=== PATIENT | female | born 1970 | race African-American/Black ===

== ENCOUNTER 2016-10-28 10:54 | Emergency (ER) | payer MEDICAID ==
--- NOTE | 2016-10-28 12:36 | ED Physician Chart ---
Chief Complaint/HPI - Patient Information Date Seen:: 10/28/16 Time Seen:: 12:00 Chief Complaint:: pain both large toes History of Present Illness:: Patient has had pain of both large toes last 4 weeks. She denies trauma. Allergies:: Allergies Allergy/AdvReac Type Severity Reaction Status Date / Time No Known Allergies Allergy Verified 10/28/16 11:17 Vitals:: Vital Signs - 8 hr 10/28/16 10/28/16 11:02 11:42 Temp 98.3 F 98.2 F HR 91 78 RR 18 16 BP 144/71 138/66 O2 Sat % 100 99 Historian:: Patient Review:: Nurse's Note Reviewed Review of Systems - Review of Systems General/Constitutional: No fever, No chills Skin: Skin lesions Head: No headache Eyes: No loss of vision ENT: No earache, No sore throat Neck: No neck pain, No swelling, No mass noted Cardio Vascular: No chest pain, No palpitations, No orthopnea, No edema Pulmonary: No SOB, No cough G/U: No dysuria, No hematuria, No nacturia Musculoskeletal: No bone or joint pain, No muscle pain Endocrine: No polyuria, No polydipsia Psychiatric: No prior psych history, No anxiety Hematopoietic: No bruising Allergic/Immuno: No urticaria Neurological: No syncope, No headache Past Medical History - Past Medical History Past Medical History: DM, Other (patient has had diabetes since age 9) Family History: HTN, Other (both parents have hypertension) Social History: Smoker, Alcohol Surgical History: None Psychiatricy History: None Medication: Reviewed Family Medical History - Family Member Mother Age: 58 Ethnicity: Non- Living Status: Hx Family Congestive Heart Failure: Yes Father Age: 47 Ethnicity: Non- Living Status: Other Medical History: KIDNEY DISEASE, LIVER CIRRHOSIS Physical Exam - Physical Examination General/Constitutional: Well-developed, well-nourished, Alert Head: Atraumatic Eyes: Lids, conjuctiva normal, PERRL Other Skin comments:: Crusting along the lateral aspect of both large toenails ENMT: External ears, nose nl, TM canals nl, Nasal exam nl, Lips, teeth, gums nl , Oropharynx nl, Tonsils nl Neck: No nuchal rigidity Respiratory: Nl effort/Exclusion, Clear to Auscultation, No Wheeze/Rhonchi/Rales Cardio Vascular: RRR Other Cardio Vascular comments:: 2.5 out of 4 decrescendo systolic murmur GI: No tenderness/rebounding/guarding, No organomegaly : No CVA tenderness Extremities: No edema Neuro/Psych: Alert/oriented, No focal deficits Misc: Normal back Assessment - Procedures Procedures:: Skin cleansed with Betadine solution; 1% Xylocaine used for digital block lateral aspect of both large toes; after complete anesthesia was accomplished which occurred with one injection of Xylocaine sterile iris scissors were used to elevate the lateral aspects of both large toenails and a wedge shaped section of the nail about 2 mm wide was resected. ED Septic Shock - . Is Septic Shock (SBP<90, OR Lactate>4 mmol\L) present?: No - <6hrs of presentation: Vital Signs: Vital Signs - 8 hr 10/28/16 10/28/16 11:02 11:42 Temp 98.3 F 98.2 F HR 91 78 RR 18 16 BP 144/71 138/66 O2 Sat % 100 99 Reassessment (Disposition) - Reassessment Reassessment Condition:: Improved - Diagnosis Diagnosis:: Ingrown toenails both large toes; juvenile onset diabetes - Aftercare/Follow up Instructions Aftercare/Follow-Up Instructions:: Refer to Discharge Instructions Medication Prescribed:: Keflex 500 mg 4 times a day for 1 week - Patient Disposition Discharge/Transfer:: Home Condition at Disposition:: Stable, Improved ED Discharge Plan - Patient Disposition Instructions: Ingrown Toenail
== END 2016-10-28 12:45 | disposition home or self-care (01) ==
LOC: ER 10:54
DX: L60.0 Ingrowing nail (principal); E10.8 Type 1 diabetes mellitus with unspecified complications; F17.200 Nicotine dependence, unspecified, uncomplicated
CPT/HCPCS: A4217; J2001; Z7502; Z7610

== ENCOUNTER 2017-08-22 12:49 | Inpatient (IN) | payer MEDICAID ==
[2017-08-22 14:26] LABS: EOSINOPHILE ABSOLUTE 0.1 Th/cmm (0.1-0.4); HEMATOCRIT 35.7 % (41.0-60); HEMOGLOBIN 11.9 gm/dL (12-16); LYMPHOCYTE ABSOLUTE 0.5 Th/cmm (1.5-3.0); MEAN CELL VOLUME 95.7 fl (81-100); MEAN CORPUSCULAR HEMOGLOBIN 31.8 pg (27.0-31.0); MEAN CORPUSCULAR HGB CONC 33.3 pg (28.0-36.0); MONOCYTE ABSOLUTE 4.1 Th/cmm (0.3-1.0); NEUTROPHILE ABSOLUTE 0.9 Th/cmm (1.8-8.0); PLATELET COUNT 628 Th/cmm (150-400); RED BLOOD COUNT 3.73 Mil/cmm (3.80-5.10); RED CELL DISTRIBUTION WIDTH 14.5 % (11.5-20.0); WHITE BLOOD COUNT 5.6 Th/cmm (4.8-10.8)
[2017-08-22 14:27] LABS: INR 1.09 (0.5-1.4); PROTHROMBIN TIME (TEST) 11.4 SECONDS (9.5-11.5)
[2017-08-22 14:32] LABS: ALB/GLOB RATIO 1.4 (1.0-1.8); ALBUMIN 4.5 gm/dL (3.7-5.3); ALKALINE PHOSPHATASE 120 U/L (34-104); ANION GAP 12.6 (7.0-16.0); BILIRUBIN,TOTAL 0.2 mg/dL (0.3-1.0); BUN - UREA NITROGEN 27 mg/dL (7-25); CALCIUM SERUM 9.6 mg/dL (8.6-10.3); CARBON DIOXIDE 26.4 mEq/L (21.0-31.0); CHLORIDE 100 mEq/L (98-107); CREATININE - SERUM 0.9 mg/dL (0.6-1.2); GFR AFRICAN-AMERICAN > 60.0 ml/min (>90); GFR NON AFRICAN-AMERICAN > 60.0 ml/min; GLUCOSE 197 mg/dL (70-105); SGOT 63 U/L (13-39); SGPT/ALT 68 U/L (7-52); SODIUM SERUM 135 mEq/L (136-145); TOTAL PROTEIN,SERUM 7.8 gm/dL (6.0-8.3)
[2017-08-22 15:07] LABS: URINE MICROSCOPIC INDICATED? YES; URINE SOURCE CLEAN C
[2017-08-22 15:09] LABS: URINE BILIRUBIN SMALL (NEGATIVE); URINE BLOOD NEGATIVE (NEGATIVE); URINE GLUCOSE (UA) >=1000 mg/dL (NEGATIVE); URINE KETONE 15 mg/dL (NEGATIVE); URINE LEUKOCYTE ESTERASE NEGATIVE (NEGATIVE); URINE NITRATE NEGATIVE (NEGATIVE); URINE PH 5.5 (4.6 - 8.0); URINE PROTEIN TRACE mg/dL (NEGATIVE); URINE UROBILINOGEN 0.2 E.U./dL (0.2 - 1.0)
[2017-08-22 15:15] LABS: URINE CLARITY CLEAR (CLEAR); URINE COLOR YELLOW
[2017-08-22 15:16] LABS: URINE BACTERIA NONE SEEN /hpf (NONE SEEN); URINE EPITHELIAL CELLS NONE SEEN /lpf (FEW); URINE RBC NONE SEEN /hpf (0-5); URINE WBC NONE SEEN /hpf (0-5)
--- NOTE | 2017-08-22 17:16 | ER Physician Documentation ---
DATE OF SERVICE: 08/22/2017 This is a 47-year-old female patient was referred here from custodial. The patient came here because she has had difficulty in swallowing for past 4 days. She says there are no pills available there at that custodial and hence, the patient since the past 3 days was not able to swallow and not able to eat. She has to barely eat anything and hence, Dr. Berman, who is the patient's primary physician advised that the patient to be sent from [place] to here. She is a full code. HISTORY OF PRESENT ILLNESS: The patient states that she is a known diagnosed case of myasthenia gravis. She is also diagnosed to have diabetes mellitus. She does not have any other symptoms or any other complaints point review of systems. The patient has diabetes mellitus type 1. She is on insulin for the past 35 years. She has her thyroid gland enlargement, but according to her she does not take any thyroid medication. She does not have any other endocrine abnormality except for diabetes mellitus. Pulmonary arora, she has history of smoking. She quit smoking about a year ago. She had a history of tracheostomy, respiratory failure and she has had tracheostomy done for that and this lasted for about 4-5 weeks. She has a sacral ulcer at that time. She had a G-tube at that time and now the G-tube has been removed. Heart arora, she has no history of any chest pain. She knows she has a heart murmur. I see here that the patient has been diagnosed with thyroid cancer, but according to her she denies any thyroid cancer. She has mostly difficulty in swallowing. She is known to have hypertension. PAST SURGICAL HISTORY: The patient surgery includes that the patient had some kind of partial oophorectomy was done in the past. ALLERGIES: None known reported. FAMILY HISTORY: Benign and negative. The patient has 1 son and parents are . Hypertension in both the family. REVIEW OF SYSTEMS: EYES: No history of double vision, blurring, or blindness. CENTRAL NERVOUS SYSTEM: Myasthenia gravis and weakness. No history of any paralysis. No history of any TIA, stroke, encephalitis, or meningitis. PULMONARY: No history of pneumonia, TB, pulmonary embolism, but the patient had respiratory failure on account of myasthenia gravis, for which she had a trach and respiratory failure and the trach finally had to come out and she got better. ENDOCRINE: Diabetes mellitus history. GASTROINTESTINAL: The patient has in the belly site, there are swollen. There are multiple injections of insulin that she has received for past 38 years. GENITOURINARY: No burning, no frequency, no dysuria. BONES AND JOINTS: No complaints. HEMATOLOGY/ONCOLOGY: No history of any cancers or difficulty. No history of any significant medical problems. PHYSICAL EXAMINATION: VITAL SIGNS: Vital signs in the custodial was temperature 97.8, pulse of 82, respirations 18, blood pressure 94/53, pulse oxygen saturation is 99% on 2 liters via nasal cannula. The nurse saw her at the [place] [facility] was ____ and the patient's vital signs here in our hospital is 98 temperature, pulse of 91, respirations 18, blood pressure 131/83, and saturation 100%. Height of 5 feet 7 inches, weighing 105 pounds, January. Last menstrual period is January of 2017. The patient's blood pressure in the custodial was 94, here is 131. GENERAL: The patient on physical examination appears to be awake and alert and oriented, appears to be adequately built, but poorly nourished. HEENT: The patient's conjunctivae are showing some pallor. No definite evidence of our Emergency Room light jaundice. NECK: Supple. No cyanosis. No petechia. No ecchymosis. EXTREMITIES: No edema over the legs. No evidence of deep vein thrombophlebitis. Chest appears to be clear trachea being a central. The patient has a surgical scar of tracheostomy in the neck. CHEST: Appears to be clear without any rales, rhonchi, or wheezing. HEART: Reveals normal heart sounds. Soft fourth heart sounds. Soft systolic murmur grade 2/6, audible at the left sternal border second heart sounds physiologically split and third heart sound is absent. ABDOMEN: Soft, benign, negative. Liver, spleen not enlarged. No free fluid in the abdominal cavities. Bowel sounds are normal. Thyroid gland is enlarged. CLINICAL IMPRESSION: The patient has myasthenia gravis and difficulty in swallowing. She says according to the pills are not available, let me see if I can find the pills that she was on. Her other diagnoses include diabetes mellitus, insulin-dependent, childhood type 1; hypertension history; peripheral vascular disease; history of COPD; emphysema; history of respiratory failure with tracheostomy and the patient had gastrectomy also at the same time. The patient has history of GERD, now has difficulty in swallowing. Rehabilitation potential is fair. The patient has neuromuscular weakness and she is mostly bedbound and the trach and the G-tube were discontinued on 06/10/2017 according to the nurse's note, let me see. In the previous admitting here was on 04/27/2017, at which time she was also diagnosed to have anemia of chronic disease, smoker, chronic bronchitis. No known drug allergies. Home medications included aspirin, iron, insulin 30 units in the morning and 12 units in the evening, Motrin, lisinopril, potassium chloride, and metformin. The patient used to work for [employer]. The patient's CT of the neck in the past imaging studies showed contrast with mildly diffuse enlarged thyroid gland with small coarse calcification in the left lobe and borderline, enlarged lymph nodes in the right side of the neck, multiple small pulmonary nodules, it applies his measured at 4 mm may represent metastatic disease. CT of the chest was done without contrast showed innumerable small bilateral pulmonary nodules suspicious of metastatic disease and mild diffuse enlargement of the thyroid gland. Calcified plaques of the coronary arteries were seen. CT of the head in the past showed no evidence of intracranial hemorrhage, midline shift, or mass effect. Ultrasound of the thyroid gland showed enlarged thyroid gland without significant increased vascularity. There is nonspecific 1.4 x 1.2 x 0.8 right thyroid nodule. Her T4 and TSH were within normal limits. Do not see the name of the medications that the patient was on before, but we will check it out and see what medication that the patient was on at the custodial. Maybe the nurse might have put it on. I will have to ask from her, let me see. Her EKG was done, which showed generalized low voltage in the standard and extremity leads, nonspecific T-wave changes and no definite evidence of myocardial infarction is noted. So in conclusion, the final diagnoses; 1. Myasthenia gravis. According to her that she has not been given the medication. 2. Diabetes mellitus. 3. Hypertension. 4. Possible thyroid cancer. 5. Chronic obstructive pulmonary disease, emphysema, bronchitis. 6. Previous history of respiratory failure, tracheostomy and history of G-tube placement both were discontinued. 7. Failure to thrive. At the present moment, all the labs were ordered. We will wait to see and I believe the patient's medications were already ordered by the nurse. JOB# [id number]
--- NOTE | 2017-08-22 17:58 | ER Physician Documentation ---
DATE OF SERVICE: 08/22/2017 ADDENDUM I just received a copy of all the lab results. The patient refused a chest x-ray, so that was not done. The EKG was done and showed minor nonspecific ST-T changes, normal sinus rhythm and low voltage in standard and extremity leads. Otherwise no pathological findings in the EKG were seen. Chest x-ray was not done. The nurse put the lab results, the medication thing in the chart. The patient has myasthenia gravis. In any event, the patient needs admission for all these conditions . The patient's lab workup shows TSH is 0.26 which is slightly low, maybe the patient is more hyperthyroid. Urine examination showed more than 1000 mg of glucose, so she is a diabetic patient. Protime is within normal limits at 11.4. WBC is 5.6, hemoglobin 11.9, hematocrit 35.7. Sodium 135, potassium 4, chloride 100, glucose is 197, BUN is 27, creatinine is 0.9. She is mildly dehydrated. She needs some IV fluid, which will be ordered by Dr. Berman once she takes over in a few minutes. The patient will be admitted. Total bilirubin is 0.2, AST is 63, ALT is 68, alkaline phosphatase is 120. So the final diagnosis is important one is myasthenia gravis, thyroid nodule, hypertension, protein calorie malnutrition, prerenal azotemia along with diabetes mellitus, COPD, respiratory failure, history of tracheostomy, history of sacral ulcer with G-tube insertion in the past that was removed, thyroid carcinoma, dysphagia, maybe metastatic lesion in the lungs. [facility]# [id number]
[2017-08-22 19:47] LABS: BAND NEUTROPHILE 0 % (0-10); BASOPHIL 0 % (0-3); EOSINOPHIL 0 % (0-5); LYMPHOCYTE 22 % (20-50); MONOCYTE 7 % (2-10); NEUTROPHILS 71 % (40-80); PLATELET ESTIMATE INCREASED PLATELETS (NORMAL); PLATELET MORPHOLOGY NORMAL (NORMAL); TOTAL CELLS COUNTED 100
[2017-08-22 20:56] LABS: A1C % 8.9 % (4.0-6.0)
[2017-08-22] MEDS ORDERED: INSULIN ASPART SLIDING SCALE 100 UNITS/ML UNIT SUBQ ONE (21:22)
[2017-08-23] MEDS: INSULIN ASPART SLIDING SCALE 100 UNITS/ML UNIT SUBQ SCH ×4 (01:29→18:45)
[2017-08-23 03:38] VITALS: BP 143/68
[2017-08-23 06:39] LABS: EOSINOPHILE ABSOLUTE 0.2 Th/cmm (0.1-0.4); HEMATOCRIT 35.6 % (41.0-60); HEMOGLOBIN 11.8 gm/dL (12-16); LYMPHOCYTE ABSOLUTE 0.3 Th/cmm (1.5-3.0); MEAN CELL VOLUME 96.4 fl (81-100); MEAN CORPUSCULAR HEMOGLOBIN 32.1 pg (27.0-31.0); MEAN CORPUSCULAR HGB CONC 33.3 pg (28.0-36.0); MEAN PLATELET VOLUME 7.3 fl; MONOCYTE ABSOLUTE 3.2 Th/cmm (0.3-1.0); NEUTROPHILE ABSOLUTE 1.6 Th/cmm (1.8-8.0); PLATELET COUNT 603 Th/cmm (150-400); RED BLOOD COUNT 3.69 Mil/cmm (3.80-5.10); RED CELL DISTRIBUTION WIDTH 14.5 % (11.5-20.0); WHITE BLOOD COUNT 5.3 Th/cmm (4.8-10.8)
[2017-08-23 06:54] LABS: CHOLESTEROL 219 mg/dL (<200); HDL -HIGH DENSITY LIPOPROTEIN 65 mg/dL (23-92); TRIGLYCERIDES 87 mg/dL (<150)
[2017-08-23 07:45] LABS: LYMPHOCYTE 14 % (20-50); MONOCYTE 4 % (2-10); NEUTROPHILS 82 % (40-80); TOTAL CELLS COUNTED 100
--- NOTE | 2017-08-23 08:03 | Diagnostic Imaging Report ---
Chest x-ray 2 views HISTORY: Metastatic disease COMPARISON: None The overall heart size is normal. No focal pulmonary processes. No hilar or mediastinal abnormalities. IMPRESSION: No acute abnormalities.
[2017-08-23] MEDS ORDERED: Non-Formulary Item 1 EA (Arginine/Ascorbate Sod/Vite Ac [Arginaid Powder] 1 PACKET) PO SCH (17:00)
--- NOTE | 2017-08-23 17:13 | General Progress Note ---
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 - trauma related for 5 months claims she was diagnosed 5 mos ago with myasthenia had GT and trach discontinued 2 months ago swallowing eval today if she can swallow pills safely Objective - Results Result Diagrams: 08/23/17 05:20 08/22/17 14:08 Recent Labs: Laboratory Last Values WBC 5.3 Th/cmm (4.8-10.8) 08/23/17 05:20 RBC 3.69 Mil/cmm (3.80-5.10) L 08/23/17 05:20 Hgb 11.8 gm/dL (12-16) L 08/23/17 05:20 Hct 35.6 % (41.0-60) L 08/23/17 05:20 MCV 96.4 fl (81-100) 08/23/17 05:20 MCH 32.1 pg (27.0-31.0) H 08/23/17 05:20 MCHC Differential 33.3 pg (28.0-36.0) 08/23/17 05:20 RDW 14.5 % (11.5-20.0) 08/23/17 05:20 Plt Count 603 Th/cmm (150-400) H 08/23/17 05:20 MPV 7.3 fl 08/23/17 05:20 Band Neutrophils % 0 % (0-10) 08/22/17 14:08 Neutrophils (Manual) 82 % (40-80) H 08/23/17 05:20 Lymphocytes 14 % (20-50) L 08/23/17 05:20 Monocytes 4 % (2-10) 08/23/17 05:20 Eosinophils 0 % (0-5) 08/22/17 14:08 Basophils 0 % (0-3) 08/22/17 14:08 Platelet Estimate INCREASED PLATELETS (NORMAL) 08/22/17 14:08 Platelet Morphology NORMAL (NORMAL) 08/22/17 14:08 RBC Morph Micro Appear NORMAL (NORMAL) 08/22/17 14:08 PT 11.4 SECONDS (9.5-11.5) 08/22/17 14:08 INR 1.09 (0.5-1.4) 08/22/17 14:08 PTT (Actin FS) 23.6 SECONDS (26.0-38.0) L 08/22/17 14:08 Sodium 135 mEq/L (136-145) L 08/22/17 14:08 Potassium 4.0 mEq/L (3.5-5.1) 08/22/17 14:08 Chloride 100 mEq/L (98-107) 08/22/17 14:08 Carbon Dioxide 26.4 mEq/L (21.0-31.0) 08/22/17 14:08 Anion Gap 12.6 (7.0-16.0) 08/22/17 14:08 BUN 27 mg/dL (7-25) H 08/22/17 14:08 Creatinine 0.9 mg/dL (0.6-1.2) 08/22/17 14:08 Est GFR ( Amer) > 60.0 ml/min (>90) 08/22/17 14:08 Est GFR (Non-Af Amer) > 60.0 ml/min 08/22/17 14:08 BUN/Creatinine Ratio 30.0 08/22/17 14:08 Glucose 197 mg/dL (70-105) H 08/22/17 14:08 POC Glucose 371 MG/DL (70 - 105) H 08/23/17 12:09 Hemoglobin A1c % 8.9 % (4.0-6.0) H 08/22/17 14:08 Calcium 9.6 mg/dL (8.6-10.3) 08/22/17 14:08 Total Bilirubin 0.2 mg/dL (0.3-1.0) L 08/22/17 14:08 AST 63 U/L (13-39) H 08/22/17 14:08 ALT 68 U/L (7-52) H 08/22/17 14:08 Alkaline Phosphatase 120 U/L (34-104) H 08/22/17 14:08 C-Reactive Protein 0.2 mg/dL (0.0-0.9) 08/22/17 14:08 Total Protein 7.8 gm/dL (6.0-8.3) 08/22/17 14:08 Albumin 4.5 gm/dL (3.7-5.3) 08/22/17 14:08 Globulin 3.3 gm/dL 08/22/17 14:08 Albumin/Globulin Ratio 1.4 (1.0-1.8) 08/22/17 14:08 Triglycerides 87 mg/dL (<150) 08/23/17 05:20 Cholesterol 219 mg/dL (<200) H 08/23/17 05:20 LDL Cholesterol Direct 138 mg/dL (75-193) 08/23/17 05:20 HDL Cholesterol 65 mg/dL (23-92) 08/23/17 05:20 TSH 0.32 uIU/ml (0.34-5.60) L 08/23/17 05:20 Urine Source CLEAN C 08/22/17 14:46 Urine Color YELLOW 08/22/17 14:46 Urine Clarity CLEAR (CLEAR) 08/22/17 14:46 Urine pH 5.5 (4.6 - 8.0) 08/22/17 14:46 Ur Specific [place] 1.025 (1.005-1.030) 08/22/17 14:46 Urine Protein TRACE mg/dL (NEGATIVE) 08/22/17 14:46 Urine Glucose (UA) >=1000 mg/dL (NEGATIVE) H 08/22/17 14:46 Urine Ketones 15 mg/dL (NEGATIVE) H 08/22/17 14:46 Urine Blood NEGATIVE (NEGATIVE) 08/22/17 14:46 Urine Nitrate NEGATIVE (NEGATIVE) 08/22/17 14:46 Urine Bilirubin SMALL (NEGATIVE) H 08/22/17 14:46 Urine Urobilinogen 0.2 E.U./dL (0.2 - 1.0) 08/22/17 14:46 Ur Leukocyte Esterase NEGATIVE (NEGATIVE) 08/22/17 14:46 Urine RBC NONE SEEN /hpf (0-5) 08/22/17 14:46 Urine WBC NONE SEEN /hpf (0-5) 08/22/17 14:46 Ur Epithelial Cells NONE SEEN /lpf (FEW) 08/22/17 14:46 Urine Bacteria NONE SEEN /hpf (NONE SEEN) 08/22/17 14:46 - Physical Exam Vitals and I&O: Vital Signs Temp 98.6 F 08/23/17 08:00 Pulse 93 08/23/17 08:00 Resp 16 08/23/17 08:00 BP 114/59 08/23/17 08:00 Pulse Ox 98 08/23/17 08:00 Intake & Output 08/22/17 08/23/17 08/23/17 18:59 06:59 18:59 Weight (lbs) 48.988 kg Active Medications: Current Medications Azathioprine (Imuran) 50 mg PO TID MARCIA PRN Reason: Protocol Stop: 10/22/17 20:59 Clonidine HCl (Gjwlzdeo-Gjb-3) 1 patch TD Sa MARCIA Stop: 10/26/17 08:59 Docusate Sodium (Colace) 100 mg PO BID PRN PRN Reason: Constipation Stop: 10/22/17 13:50 Famotidine (Pepcid) 20 mg PO BID MARCIA Stop: 10/22/17 16:59 Ferrous Sulfate (Iron) 325 mg PO BID MARCIA Stop: 10/22/17 16:59 Glyburide (Diabeta) 5 mg PO DAILY [facility] Stop: 10/23/17 08:59 Hydralazine HCl (Apresoline) 50 mg PO TID [facility] Stop: 10/22/17 20:59 Dextrose/Sodium Chloride (D5-0.45ns) 1,000 mls @ 50 mls/hr IV .Q20H [facility] Stop: 10/22/17 09:14 Insulin Aspart (Novolog Insulin Sliding Scale) 0 units SUBQ Q6HR MARCIA PRN Reason: Protocol Stop: 10/22/17 00:00 Last Admin: 08/23/17 12:37 Dose: 10 units Metformin HCl (Glucophage) 850 mg PO BID [facility] Stop: 10/22/17 16:59 Metoclopramide HCl (Reglan) 10 mg PO Q8H PRN PRN Reason: Nausea / Vomiting Stop: 10/22/17 13:50 Metoprolol Tartrate (Lopressor) 25 mg PO BID [facility] Stop: 10/22/17 16:59 Miscellaneous (Arginine/Ascorbate Sod/Cullen Ac [Arginaid Powder]) 1 packet PO BID [facility] Stop: 10/22/17 16:59 Miscellaneous (Insulin Glargine, Recombinan [Lantus]) 12 units SQ DAILY [facility] Stop: 10/23/17 08:59 Miscellaneous (Pyridostigmine [place] [Mestinon]) 180 mg PO Q8HR MARCIA Stop: 10/22/17 20:59 Miscellaneous (Simvastatin [Zocor]) 5 mg PO HS [facility] Stop: 10/22/17 20:59 Miscellaneous (Vit C/Ascorbate Ca/Ascorb Sod [Vitamin C 500 Mg/15 Ml Liquid]) 500 mg PO DAILY MARCIA Stop: 10/23/17 08:59 Potassium Chloride (Potassium Chloride Elixir) meq PO DAILY [facility] Stop: 10/23/17 08:59 - Procedures Procedures: Procedures Procedure Code Date EMERGENCY DEPT VISIT 67163 08/07/11 INJECT/INFUSE NEC 99.29 02/22/10
[2017-08-23] MEDS: Ferrous Sulfate 325 MG TAB PO SCH (18:42)
[2017-08-23] MEDS: D5-0.45NS 1,000 ML IV SCH (18:45)
--- NOTE | 2017-08-23 19:11 | History and Physical ---
History of Present Illness - HPI Chief Complaint: dysphagia HPI: This is a 47 year old female resident of [facility] who had a previous hx of tracheostomy and was recently decannulated 1 month ago. Patient has a 5 day history of difficulty swallowing and eating. Vital Signs: Last Vital Signs Temp 98.6 F 08/23/17 08:00 Pulse 97 08/23/17 18:42 Resp 16 08/23/17 08:00 BP 106/69 08/23/17 18:42 Pulse Ox 98 08/23/17 08:00 Past Medical History Other History: myasthenia gravis dm2 respiratory failure - Past Surgical History Past Surgical History: Other (trach) Family Medical History - Family Member Mother History Unknown: Yes Ethnicity: Non- Living Status: Hx Family Congestive Heart Failure: Yes Father History Unknown: Yes Ethnicity: Non- Living Status: Social History Smoke: No Alcohol: None Drugs: None Lives: Detention - Medications Home Medications: Home Medication Medication Instructions Recorded Type Arginine/Ascorbate Sod/Cullen AC 1 packet PO BID 08/22/17 History [Arginaid Powder] Docusate Sodium [Colace] 100 mg PO BID PRN 08/22/17 History Famotidine 20 mg PO BID 08/22/17 History Ferrous Sulfate [Iron] 325 mg PO BID 08/22/17 History Hydralazine HCl 50 mg PO TID 08/22/17 History Insulin Glargine, Recombinan 12 units SQ DAILY 08/22/17 History [Lantus] Metoclopramide [Reglan] 10 mg PO Q8HR PRN 08/22/17 History Metoprolol Tartrate 25 mg PO BID 08/22/17 History Potassium Chloride Elixir 20 mg PO DAILY 08/22/17 History Pyridostigmine [place] [Mestinon] 180 mg PO Q8HR 08/22/17 History Simvastatin [Zocor] 5 mg PO HS 08/22/17 History Vit C/Ascorbate Ca/Ascorb Sod 500 mg PO DAILY 08/22/17 History [Vitamin C 500 mg/15 ml Liquid] azaTHIOprine [Imuran] 50 mg PO TID 08/22/17 History cloNIDine 0.1 mg/24 hr 1 patch TD Sa 08/22/17 History [Lsizevzh-XPV-8*] glyBURIDE [Diabeta] 5 mg PO DAILY 08/22/17 History metFORMIN [Glucophage] 850 mg PO BID 08/22/17 History - Allergies Allergies/Adverse Reactions: Allergies Allergy/AdvReac Type Severity Reaction Status Date / Time No Known Allergies Allergy Verified 08/22/17 17:39 Review of Systems - Review of Systems Constitutional: Report: No Significant Eyes: Report: No Significant ENT: Report: No Significant Respiratory: Report: No Significant Cardiovascular: Report: No Significant Gastrointestinal: Report: No Significant Genitourinary: Report: No Significant Neurological: Report: No Significant Physical Exam - Physical Exam HEENT: Report: Ears Nose Throat within normal limits Neck: Report: Within normal limits Cardiovascular Systems: Report: +s1/s2 noted Respiratory: Report: Breath Sounds are within normal limits Abdomen: Report: Non-tender to palpation Back: Report: Inspection of back is within normal limits. Skin: Report: Warm, Dry Neuro/Psych: Report: No motor deficit, No sensory deficit - Lab Results All Lab Results last 24 hours: Laboratory Results - last 24 hr 08/23/17 08/23/17 08/23/17 00:15 01:25 03:18 WBC RBC Hgb Hct MCV MCH MCHC Differential RDW Plt Count MPV Neutrophils (Manual) Lymphocytes Monocytes POC Glucose 426 H 461 H* 345 H Triglycerides Cholesterol LDL Cholesterol Direct HDL Cholesterol TSH 08/23/17 08/23/17 08/23/17 05:20 05:20 05:20 WBC 5.3 RBC 3.69 L Hgb 11.8 L Hct 35.6 L MCV 96.4 MCH 32.1 H MCHC Differential 33.3 RDW 14.5 Plt Count 603 H MPV 7.3 Neutrophils (Manual) 82 H Lymphocytes 14 L Monocytes 4 POC Glucose Triglycerides 87 Cholesterol 219 H LDL Cholesterol Direct 138 HDL Cholesterol 65 TSH 0.32 L 08/23/17 08/23/17 08/23/17 05:51 12:09 17:16 WBC RBC Hgb Hct MCV MCH MCHC Differential RDW Plt Count MPV Neutrophils (Manual) Lymphocytes Monocytes POC Glucose 348 H 371 H 316 H Triglycerides Cholesterol LDL Cholesterol Direct HDL Cholesterol TSH - Assessment Assessment: dysphagia copd ?thyroid ca myasthenia gravis dm2 respiratory failure by history - Plan Plan: swallow eval aspiration precautions continue current orders
[2017-08-24] MEDS: INSULIN ASPART SLIDING SCALE 100 UNITS/ML UNIT SUBQ SCH ×4 (00:45→18:17)
--- NOTE | 2017-08-24 06:11 | Consultation ---
DATE OF CONSULTATION: 08/23/2017 HISTORY OF PRESENT ILLNESS: The patient is a 47-year-old complains of general diffuse weakness. She also complains of difficulty with swallowing. The patient diagnosis of myasthenia gravis is going back some months now. She is on Imuran. She has been seen by Neurology in the past. Apparently, she was on Mestinon, but does not seem to be on it at the moment. The patient knows that she had exacerbation of the myasthenia. She had the plasmapheresis. The patient had problems with dysphagia. She had a G-tube, which was removed. She had a tracheostomy. PAST MEDICAL HISTORY: Diabetes, thyroid enlargement, myasthenia gravis as above, hypertension, and COPD. MEDICATIONS: As per reconciliation. The patient on Imuran. Not on any Mestinon. PHYSICAL EXAMINATION: VITAL SIGNS: Temperature 98.9, blood pressure 130/60, and pulse is 96. NECK: Supple. No neck bruits. HEART: Sounds S1 and S2. LUNGS: Clear. NEUROLOGIC: The patient is awake and alert. She is weak. She has slight ptosis. She is able to move the face okay. The patient's upper extremity strength is about 4/5, unable to overcome. Legs are about 4/5. Reflexes are -1 in upper extremities, knees are about 1. Ankles difficult. Gag absent. The patient has a gangrene toe in the right foot. Seen by Vascular Surgery. ASSESSMENT: 1. Myasthenia gravis exacerbation. 2. We will go ahead and do lab studies. 3. The patient will need plasmapheresis. 4. Start Mestinon 60 mg q. 12 hours and gradually increase the dose. The patient's CT scan chest to make sure there is no thymoma. ____. The patient has gangrene on the right toe. Vascular Surgery. Thank you. JOB# [id number]
--- NOTE | 2017-08-24 08:23 | Diagnostic Imaging Report ---
Exam: CT examination of chest. HISTORY: Thymoma Total DLP equals 182 CTDI equals 5.0 Findings: Multiple contiguous thin section of the chest were obtained from thoracic outlet to the upper abdomen without the administration of intravenous or oral contrast material. No prior studies available comparison. The study demonstrates a normal appearance of right vessels of the neck and thyroid gland. Adenopathy is difficult to exclude due to lack of contrast material. Mediastinal structures midline the heart is not enlarged. There is evidence of bilateral pulmonary nodularity is with the largest nodule measuring 8.5 mm in the left lower lung. Results structures midline adenopathy is difficult to exclude due to lack of contrast material. There is evidence of peribronchial infiltrate left base. There is no evidence of pleural effusions. Bony structures demonstrate no evidence for lytic or blastic changes. The visualized upper abdomen demonstrates extensive vascular calcifications. There is evidence for residual contrast material the colon. Clinical correlation recommended. There is evidence for mild anasarca. IMPRESSION: Multiple pulmonary nodules most likely neoplastic metastatic process. Clinical correlation recommended. Left basilar infiltrate. The study is limited without the administration of contrast material.
[2017-08-24] MEDS: Ferrous Sulfate 325 MG TAB PO SCH ×2 (09:16→18:17)
[2017-08-24] MEDS: Potassium Chloride Elixir 20 mEq /15 mL UDC PO SCH (09:16)
[2017-08-24] MEDS: D5-0.45NS 1,000 ML IV SCH (09:18)
[2017-08-24] MEDS: Insulin Detemir 100 units/mL 10mL Vial SUBQ SCH (09:19)
--- NOTE | 2017-08-24 09:37 | Consultation ---
DATE OF CONSULTATION: 08/23/2017 REFERRING PHYSICIAN: Katrin Berman M.D. REASON FOR CONSULTATION: Difficulty of swallowing. Thank you for referring this patient to me. HISTORY OF PRESENT ILLNESS: This is a 47-year-old female transferred from prison because of difficulty swallowing, 5 days prior. PAST MEDICAL HISTORY: Difficult to ascertain including diagnosis apparently 5 months ago of myasthenia made at [facility]. Additionally because of that, she underwent tracheostomy and G-tube feeding. There is a question of thyroid malignancy, which the patient says she does not have. The patient has been seen in consultation by Dr. Black and a CT scan of the chest was done, raising the question of pulmonary nodules, largest one in the left lower lobe, raising the question of malignancy. 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 Apparently, this related to trauma, which occurred 5 months ago. PHYSICAL EXAMINATION: GENERAL: The patient is very difficult to interview and speaks only in mono syllables. She is very asthenic. She seems to be oriented, however. NECK: Examination of the neck does not show any mass. Scar from previous tracheostomy is noted. ABDOMEN: Flat and soft. There is scar from previous G-tube placement. EXTREMITIES: The right second toe has dry gangrene. She has refused to have amputation of the right second toe. Additionally, when informed about the CT scan result of the chest. She does not want anything done to determine the diagnosis. She used to smoke about half a pack per day for many years and may not have been smoking lately, however. If the patient changes her mind, she will need: 1. Amputation of right second toe. 2. Video-assisted thoracoscopic surgery for lung biopsy to determine possible malignancy. She has no family. She has only a child. She claims she has no other family other than that. JOB# [id number]
--- NOTE | 2017-08-24 09:55 | General Progress Note ---
Subjective - Review of Systems Events since last encounter: no change no distress Objective - Results Result Diagrams: 08/23/17 05:20 08/22/17 14:08 Recent Labs: Laboratory Last Values WBC 5.3 Th/cmm (4.8-10.8) 08/23/17 05:20 RBC 3.69 Mil/cmm (3.80-5.10) L 08/23/17 05:20 Hgb 11.8 gm/dL (12-16) L 08/23/17 05:20 Hct 35.6 % (41.0-60) L 08/23/17 05:20 MCV 96.4 fl (81-100) 08/23/17 05:20 MCH 32.1 pg (27.0-31.0) H 08/23/17 05:20 MCHC Differential 33.3 pg (28.0-36.0) 08/23/17 05:20 RDW 14.5 % (11.5-20.0) 08/23/17 05:20 Plt Count 603 Th/cmm (150-400) H 08/23/17 05:20 MPV 7.3 fl 08/23/17 05:20 Band Neutrophils % 0 % (0-10) 08/22/17 14:08 Neutrophils (Manual) 82 % (40-80) H 08/23/17 05:20 Lymphocytes 14 % (20-50) L 08/23/17 05:20 Monocytes 4 % (2-10) 08/23/17 05:20 Eosinophils 0 % (0-5) 08/22/17 14:08 Basophils 0 % (0-3) 08/22/17 14:08 Platelet Estimate INCREASED PLATELETS (NORMAL) 08/22/17 14:08 Platelet Morphology NORMAL (NORMAL) 08/22/17 14:08 RBC Morph Micro Appear NORMAL (NORMAL) 08/22/17 14:08 ESR 50 mm/hr (0-30) H 08/24/17 05:35 PT 11.4 SECONDS (9.5-11.5) 08/22/17 14:08 INR 1.09 (0.5-1.4) 08/22/17 14:08 PTT (Actin FS) 23.6 SECONDS (26.0-38.0) L 08/22/17 14:08 Sodium 135 mEq/L (136-145) L 08/22/17 14:08 Potassium 4.0 mEq/L (3.5-5.1) 08/22/17 14:08 Chloride 100 mEq/L (98-107) 08/22/17 14:08 Carbon Dioxide 26.4 mEq/L (21.0-31.0) 08/22/17 14:08 Anion Gap 12.6 (7.0-16.0) 08/22/17 14:08 BUN 27 mg/dL (7-25) H 08/22/17 14:08 Creatinine 0.9 mg/dL (0.6-1.2) 08/22/17 14:08 Est GFR ( Amer) > 60.0 ml/min (>90) 08/22/17 14:08 Est GFR (Non-Af Amer) > 60.0 ml/min 08/22/17 14:08 BUN/Creatinine Ratio 30.0 08/22/17 14:08 Glucose 197 mg/dL (70-105) H 08/22/17 14:08 POC Glucose 323 MG/DL (70 - 105) H 08/24/17 06:46 Hemoglobin A1c % 8.9 % (4.0-6.0) H 08/22/17 14:08 Calcium 9.6 mg/dL (8.6-10.3) 08/22/17 14:08 Total Bilirubin 0.2 mg/dL (0.3-1.0) L 08/22/17 14:08 AST 63 U/L (13-39) H 08/22/17 14:08 ALT 68 U/L (7-52) H 08/22/17 14:08 Alkaline Phosphatase 120 U/L (34-104) H 08/22/17 14:08 Ammonia 54 umol/L (16-53) H 08/23/17 21:54 C-Reactive Protein 0.2 mg/dL (0.0-0.9) 08/22/17 14:08 Total Protein 7.8 gm/dL (6.0-8.3) 08/22/17 14:08 Albumin 4.5 gm/dL (3.7-5.3) 08/22/17 14:08 Globulin 3.3 gm/dL 08/22/17 14:08 Albumin/Globulin Ratio 1.4 (1.0-1.8) 08/22/17 14:08 Triglycerides 87 mg/dL (<150) 08/23/17 05:20 Cholesterol 219 mg/dL (<200) H 08/23/17 05:20 LDL Cholesterol Direct 138 mg/dL (75-193) 08/23/17 05:20 HDL Cholesterol 65 mg/dL (23-92) 08/23/17 05:20 TSH 0.32 uIU/ml (0.34-5.60) L 08/23/17 05:20 Urine Source CLEAN C 08/22/17 14:46 Urine Color YELLOW 08/22/17 14:46 Urine Clarity CLEAR (CLEAR) 08/22/17 14:46 Urine pH 5.5 (4.6 - 8.0) 08/22/17 14:46 Ur Specific [place] 1.025 (1.005-1.030) 08/22/17 14:46 Urine Protein TRACE mg/dL (NEGATIVE) 08/22/17 14:46 Urine Glucose (UA) >=1000 mg/dL (NEGATIVE) H 08/22/17 14:46 Urine Ketones 15 mg/dL (NEGATIVE) H 08/22/17 14:46 Urine Blood NEGATIVE (NEGATIVE) 08/22/17 14:46 Urine Nitrate NEGATIVE (NEGATIVE) 08/22/17 14:46 Urine Bilirubin SMALL (NEGATIVE) H 08/22/17 14:46 Urine Urobilinogen 0.2 E.U./dL (0.2 - 1.0) 08/22/17 14:46 Ur Leukocyte Esterase NEGATIVE (NEGATIVE) 08/22/17 14:46 Urine RBC NONE SEEN /hpf (0-5) 08/22/17 14:46 Urine WBC NONE SEEN /hpf (0-5) 08/22/17 14:46 Ur Epithelial Cells NONE SEEN /lpf (FEW) 08/22/17 14:46 Urine Bacteria NONE SEEN /hpf (NONE SEEN) 08/22/17 14:46 - Physical Exam Vitals and I&O: Vital Signs Temp 97.2 F 08/24/17 08:14 Pulse 90 08/24/17 09:00 Resp 20 08/24/17 08:14 BP 127/74 08/24/17 09:00 Pulse Ox 98 08/24/17 08:14 Intake & Output 08/23/17 08/24/1708/24/18 18:59 06:59 18:59 Intake Total 595 132.5 Balance 595 132.5 Weight (lbs) 48.988 kg 45.359 kg Intake: Intake, IV Amount 595 132.5 D5-0.45NS 1,000 ml @ 50 595 132.5 mls/hr IV .Q20H [facility] Rx#: [id number] Other: # Voids 2 1 # Bowel Movements 1 0 Active Medications: Current Medications Ascorbic Acid (Vitamin C) 500 mg PO DAILY MARCIA Stop: 10/23/17 08:59 Last Admin: 08/24/17 09:16 Dose: Not Given Azathioprine (Imuran) 50 mg PO TID MARCIA PRN Reason: Protocol Stop: 10/22/17 20:59 Last Admin: 08/24/17 09:17 Dose: 50 mg Clonidine HCl (Cekznkbv-Jpy-7) 1 patch TD Sa [facility] Stop: 10/26/17 08:59 Docusate Sodium (Colace) 100 mg PO BID PRN PRN Reason: Constipation Stop: 10/22/17 13:50 Famotidine (Pepcid) 20 mg PO BID [facility] Stop: 10/22/17 16:59 Last Admin: 08/24/17 08:54 Dose: 20 mg Ferrous Sulfate (Iron) 325 mg PO BID [facility] Stop: 10/22/17 16:59 Last Admin: 08/24/17 09:16 Dose: Not Given Glyburide (Diabeta) 5 mg PO DAILY MARCIA Stop: 10/23/17 08:59 Last Admin: 08/24/17 09:16 Dose: 5 mg Hydralazine HCl (Apresoline) 50 mg PO TID [facility] Stop: 10/22/17 20:59 Last Admin: 08/24/17 08:53 Dose: Not Given Dextrose/Sodium Chloride (D5-0.45ns) 1,000 mls @ 50 mls/hr IV .Q20H [facility] Stop: 10/22/17 09:14 Last Admin: 08/24/17 09:18 Dose: 50 mls/hr Insulin Aspart (Novolog Insulin Sliding Scale) 0 units SUBQ Q6HR MARCIA PRN Reason: Protocol Stop: 10/22/17 00:00 Last Admin: 08/24/17 07:00 Dose: 8 units Insulin Detemir (Levemir Insulin) 12 units SUBQ DAILY [facility] Stop: 10/23/17 08:59 Last Admin: 08/24/17 09:19 Dose: 12 units Metformin HCl (Glucophage) 850 mg PO BID [facility] Stop: 10/22/17 16:59 Last Admin: 08/24/17 09:16 Dose: 850 mg Metoclopramide HCl (Reglan) 10 mg PO Q8H PRN PRN Reason: Nausea / Vomiting Stop: 10/22/17 13:50 Metoprolol Tartrate (Lopressor) 25 mg PO BID [facility] Stop: 10/22/17 16:59 Last Admin: 08/24/17 09:00 Dose: Not Given Miscellaneous (Arginine/Ascorbate Sod/Cullen Ac [Arginaid Powder]) 1 packet PO BID [facility] Stop: 10/22/17 16:59 Ondansetron HCl (Zofran) 4 mg IV Q6H PRN PRN Reason: Nausea / Vomiting Stop: 10/23/17 00:18 Last Admin: 08/24/17 00:27 Dose: 4 mg Potassium Chloride (Potassium Chloride Elixir) 20 meq PO DAILY [facility] Stop: 10/23/17 08:59 Last Admin: 08/24/17 09:16 Dose: Not Given Pyridostigmine [place] (Mestinon) 180 mg PO Q8HR [facility] Stop: 10/22/17 20:59 Last Admin: 08/24/17 04:45 Dose: Not Given Pyridostigmine [place] (Mestinon) 60 mg PO BID [facility] Stop: 10/22/17 18:29 Last Admin: 08/23/17 18:43 Dose: Not Given Simvastatin (Zocor) 5 mg PO HS [facility] Stop: 10/22/17 20:59 Last Admin: 08/23/17 21:39 Dose: 5 mg - Procedures Procedures: Procedures Procedure Code Date EMERGENCY DEPT VISIT 34423 08/07/11 INJECT/INFUSE NEC 99.29 02/22/10 Assessment/Plan - Assessment Assessment: dysphagia copd ?thyroid ca myasthenia gravis dm2 respiratory failure by history - Plan Plan: swallow eval aspiration precautions continue current orders Nutritional Asmnt/Malnutr-PDOC - Dietary Evaluation Malnutrition Findings (Please click <Entered> for more info): Nutritional Asmnt/Malnutrition Start: 08/23/17 17: 05 Text: Status: Complete Freq: Document 08/23/17 17:05 LCHENG (Rec: 08/23/17 17:29 [facility] [email or web address]) Nutritional Asmnt/Malnutrition Patient General Information Nutritional Screening High Risk Consult Diagnosis dysphagia Pertinent Medical Hx/Surgical Hx DM type1, tracheostomy, respiratory failure, sacral ulcer, G tube Subjective Information Consult received for elevated blood glucose. Per H&P, pt had swallowing difficulty for 4 days, and no PO intake for the last 3 days. Pt now on NPO waiting for swallow eval. Current Diet Order/ Nutrition Support NPO Pertinent Medications D5-0.45ns, Iron, colace, diabeta, novolog, glucophage Pertinent Labs 08/22 Na 135, K 4.0, Cl 100, BUN 27, Cr 0.9, Glucose 197, A1c 8.9, AST 63, ALT 68, ALb 4 .5 08/23 POC [id number] Nutritional Hx/Data Height 1.7 m Height (Calculated Centimeters) 170.2 Current Weight (lbs) 48.988 kg Weight (Calculated Kilograms) 49.0 Weight (Calculated Grams) 24916.0 [place] Body Weight 135 % [place] Body Weight 80 Body Mass Index (BMI) 16.9 Weight Status Underweight GI Symptoms GI Symptoms None Last BM no record Difficult in: Swallowing Skin Integrity/Comment: decubitus ulceration to right foot toes, pressure area to coccyx, scar to abdomen and neck Current %PO Negligible < 25% Estimated Nutritional Goals Calories/Kcals/Kg 25-30 based on IBW 61kg Kcals Calculated 6877-7349 Protein g/k-1.2 Protein Calculated 61-73 Fluid: ml 1525-1830ml (1ml/kcal) Nutritional Problem 1. Problem Problem inadequate intake from oral food Etiology swallowing difficulty Signs/Symptoms: pt has no PO intake for 3 days , and now on NPO waiting for swallow eval Intervention/Recommendation Comments 1. Monitor NPO status. If pt fail swallow eval, will consider alternative nutrition route. 2. Monitor diet, wt, labs and skin integrity 3. MD to adjust insulin for optimal glycemic control 4. F/U as high risk in 2-3 days, 08/26-08/28 Expected Outcomes/Goals Expected Outcomes/Goals 1. PO intake to meet at least 75% of nutritional needs. 2. Wt stability, skin to remain intact, labs to approach WNL.
[2017-08-25] MEDS: INSULIN ASPART SLIDING SCALE 100 UNITS/ML UNIT SUBQ SCH ×4 (00:11→17:05)
--- NOTE | 2017-08-25 03:24 | Consultation ---
DATE OF CONSULTATION: 08/24/[address] Berman for this consultation. HISTORY OF PRESENT ILLNESS: This is a 47-year-old female with history of myasthenia gravis, history of respiratory failure, tracheostomy and longterm resident, was admitted with dysphagia and some congestion. CT chest was done and showed multiple lung nodules. I spoke with the patient, she said she has had those nodules in the past. She did not want to do anything about it. She has obvious thyroid enlargement upon interviewing but is not complaining of any thyroid issues in the past. She used to have a G-tube feeding but does not at this point. PAST MEDICAL HISTORY: Myasthenia gravis, questionable thyroid issues, diabetes mellitus, COPD. SOCIAL HISTORY: Smoking about a pack a day, states for many years, quit a month ago. REVIEW OF SYSTEMS: GENERAL: Weakness, fatigue. CARDIOVASCULAR: No chest pain, no palpitation. RESPIRATORY: Some shortness of breath on and off. GASTROINTESTINAL: Dysphagia. PHYSICAL EXAMINATION: VITAL SIGNS: Temperature 97.2, pulse 90, respiration 20, blood pressure 127/74, saturation 98% on room air. HEENT: Atraumatic, normocephalic. Pupils react to light and accommodation. Ears, nose and throat normal. NECK: Palpable thyroid was symmetry. CHEST: Good breath sounds. No wheezing or crackles. HEART: Regular rhythm. ABDOMEN: Soft. EXTREMITIES: No edema. LABORATORY DATA: WBC is 5.3, platelets 603. Sodium is 135, potassium 4.0, BUN is 27, and creatinine is 0.9. The CT as above, multiple lung nodules, possible malignancy. IMPRESSION: This is a 47-year-old female possibilities are: 1. Thyroid cancer with metastasis to the lung. 2. History of myasthenia gravis, probably causing the weakness and dysphagia as well. PLAN: Suggest endocrine evaluation and possibly ultrasound-guided thyroid biopsy will be the easiest one to access, but also would consider at one point a lung biopsy. The patient stated at this time she does not want any biopsies to be done. I also suggested social service and possibly psych evaluation to confirm this is the patient wishes, not to pursue any further invasive procedures understanding that there is a potential malignancy sitting there. Thank you very much. We will follow the patient with you. [facility]# [id number] RICARDO
[2017-08-25] MEDS: D5-0.45NS 1,000 ML IV SCH (04:09)
[2017-08-25] MEDS: Insulin Detemir 100 units/mL 10mL Vial SUBQ SCH (09:05)
[2017-08-25] MEDS: Potassium Chloride Elixir 20 mEq /15 mL UDC PO SCH (09:06)
[2017-08-25] MEDS: Ferrous Sulfate 325 MG TAB PO SCH ×2 (09:07→17:04)
--- NOTE | 2017-08-25 09:13 | General Progress Note ---
Subjective - Review of Systems Events since last encounter: patient is comfortable but weak Objective - Results Result Diagrams: 08/23/17 05:20 08/22/17 14:08 Recent Labs: Laboratory Last Values WBC 5.3 Th/cmm (4.8-10.8) 08/23/17 05:20 RBC 3.69 Mil/cmm (3.80-5.10) L 08/23/17 05:20 Hgb 11.8 gm/dL (12-16) L 08/23/17 05:20 Hct 35.6 % (41.0-60) L 08/23/17 05:20 MCV 96.4 fl (81-100) 08/23/17 05:20 MCH 32.1 pg (27.0-31.0) H 08/23/17 05:20 MCHC Differential 33.3 pg (28.0-36.0) 08/23/17 05:20 RDW 14.5 % (11.5-20.0) 08/23/17 05:20 Plt Count 603 Th/cmm (150-400) H 08/23/17 05:20 MPV 7.3 fl 08/23/17 05:20 Band Neutrophils % 0 % (0-10) 08/22/17 14:08 Neutrophils (Manual) 82 % (40-80) H 08/23/17 05:20 Lymphocytes 14 % (20-50) L 08/23/17 05:20 Monocytes 4 % (2-10) 08/23/17 05:20 Eosinophils 0 % (0-5) 08/22/17 14:08 Basophils 0 % (0-3) 08/22/17 14:08 Platelet Estimate INCREASED PLATELETS (NORMAL) 08/22/17 14:08 Platelet Morphology NORMAL (NORMAL) 08/22/17 14:08 RBC Morph Micro Appear NORMAL (NORMAL) 08/22/17 14:08 ESR 50 mm/hr (0-30) H 08/24/17 05:35 PT 11.4 SECONDS (9.5-11.5) 08/22/17 14:08 INR 1.09 (0.5-1.4) 08/22/17 14:08 PTT (Actin FS) 23.6 SECONDS (26.0-38.0) L 08/22/17 14:08 Sodium 135 mEq/L (136-145) L 08/22/17 14:08 Potassium 4.0 mEq/L (3.5-5.1) 08/22/17 14:08 Chloride 100 mEq/L (98-107) 08/22/17 14:08 Carbon Dioxide 26.4 mEq/L (21.0-31.0) 08/22/17 14:08 Anion Gap 12.6 (7.0-16.0) 08/22/17 14:08 BUN 27 mg/dL (7-25) H 08/22/17 14:08 Creatinine 0.9 mg/dL (0.6-1.2) 08/22/17 14:08 Est GFR ( Amer) > 60.0 ml/min (>90) 08/22/17 14:08 Est GFR (Non-Af Amer) > 60.0 ml/min 08/22/17 14:08 BUN/Creatinine Ratio 30.0 08/22/17 14:08 Glucose 197 mg/dL (70-105) H 08/22/17 14:08 POC Glucose 252 MG/DL (70 - 105) H 08/24/17 16:22 Hemoglobin A1c % 8.9 % (4.0-6.0) H 08/22/17 14:08 Calcium 9.6 mg/dL (8.6-10.3) 08/22/17 14:08 Total Bilirubin 0.2 mg/dL (0.3-1.0) L 08/22/17 14:08 AST 63 U/L (13-39) H 08/22/17 14:08 ALT 68 U/L (7-52) H 08/22/17 14:08 Alkaline Phosphatase 120 U/L (34-104) H 08/22/17 14:08 Ammonia 54 umol/L (16-53) H 08/23/17 21:54 C-Reactive Protein < 0.2 mg/dL (0.0-0.9) 08/24/17 05:35 Total Protein 7.8 gm/dL (6.0-8.3) 08/22/17 14:08 Albumin 4.5 gm/dL (3.7-5.3) 08/22/17 14:08 Globulin 3.3 gm/dL 08/22/17 14:08 Albumin/Globulin Ratio 1.4 (1.0-1.8) 08/22/17 14:08 Triglycerides 87 mg/dL (<150) 08/23/17 05:20 Cholesterol 219 mg/dL (<200) H 08/23/17 05:20 LDL Cholesterol Direct 138 mg/dL (75-193) 08/23/17 05:20 HDL Cholesterol 65 mg/dL (23-92) 08/23/17 05:20 Folic Acid >20.0 ng/mL (>3.0) 08/23/17 21:54 TSH 0.32 uIU/ml (0.34-5.60) L 08/23/17 05:20 Urine Source CLEAN C 08/22/17 14:46 Urine Color YELLOW 08/22/17 14:46 Urine Clarity CLEAR (CLEAR) 08/22/17 14:46 Urine pH 5.5 (4.6 - 8.0) 08/22/17 14:46 Ur Specific [place] 1.025 (1.005-1.030) 08/22/17 14:46 Urine Protein TRACE mg/dL (NEGATIVE) 08/22/17 14:46 Urine Glucose (UA) >=1000 mg/dL (NEGATIVE) H 08/22/17 14:46 Urine Ketones 15 mg/dL (NEGATIVE) H 08/22/17 14:46 Urine Blood NEGATIVE (NEGATIVE) 08/22/17 14:46 Urine Nitrate NEGATIVE (NEGATIVE) 08/22/17 14:46 Urine Bilirubin SMALL (NEGATIVE) H 08/22/17 14:46 Urine Urobilinogen 0.2 E.U./dL (0.2 - 1.0) 08/22/17 14:46 Ur Leukocyte Esterase NEGATIVE (NEGATIVE) 08/22/17 14:46 Urine RBC NONE SEEN /hpf (0-5) 08/22/17 14:46 Urine WBC NONE SEEN /hpf (0-5) 08/22/17 14:46 Ur Epithelial Cells NONE SEEN /lpf (FEW) 08/22/17 14:46 Urine Bacteria NONE SEEN /hpf (NONE SEEN) 08/22/17 14:46 - Physical Exam Vitals and I&O: Vital Signs Temp 97.1 F 08/25/17 08:00 Pulse 77 08/25/17 09:07 Resp 18 08/25/17 08:00 BP 122/55 08/25/17 09:07 Pulse Ox 100 08/25/17 08:00 Intake & Output 08/24/17 08/25/17 08/25/17 18:59 06:59 18:59 Intake Total 732.5 1075.0 Balance 732.5 1075.0 Weight (lbs) 45.359 kg 45.813 kg Intake: Intake, IV Amount 132.5 1075.0 D5-0.45NS 1,000 ml @ 50 132.5 1075.0 mls/hr IV .Q20H [facility] Rx#: [id number] Oral 600 Other: # Voids 2 # Bowel Movements 1 Active Medications: Current Medications Ascorbic Acid (Vitamin C) 500 mg PO DAILY [facility] Stop: 10/23/17 08:59 Last Admin: 08/25/17 09:07 Dose: 500 mg Azathioprine (Imuran) 50 mg PO TID MARCIA PRN Reason: Protocol Stop: 10/22/17 20:59 Last Admin: 08/24/17 22:00 Dose: 50 mg Clonidine HCl (Yfoqgsqy-Wgn-1) 1 patch TD Sa [facility] Stop: 10/26/17 08:59 Docusate Sodium (Colace) 100 mg PO BID PRN PRN Reason: Constipation Stop: 10/22/17 13:50 Famotidine (Pepcid) 20 mg PO BID MARCIA Stop: 10/22/17 16:59 Last Admin: 08/25/17 09:07 Dose: 20 mg Ferrous Sulfate (Iron) 325 mg PO BID MARCIA Stop: 10/22/17 16:59 Last Admin: 08/25/17 09:07 Dose: 325 mg Glyburide (Diabeta) 5 mg PO DAILY MARCIA Stop: 10/23/17 08:59 Last Admin: 08/25/17 09:07 Dose: 5 mg Hydralazine HCl (Apresoline) 50 mg PO TID [facility] Stop: 10/22/17 20:59 Last Admin: 08/25/17 09:06 Dose: 50 mg Dextrose/Sodium Chloride (D5-0.45ns) 1,000 mls @ 50 mls/hr IV .Q20H MARCIA Stop: 10/22/17 09:14 Last Infusion: 08/25/17 06:48 Dose: 50 mls/hr Insulin Aspart (Novolog Insulin Sliding Scale) 0 units SUBQ Q6HR MARCIA PRN Reason: Protocol Stop: 10/22/17 00:00 Last Admin: 08/25/17 07:01 Dose: 10 units Insulin Detemir (Levemir Insulin) 12 units SUBQ DAILY [facility] Stop: 10/23/17 08:59 Last Admin: 08/25/17 09:05 Dose: 12 units Metformin HCl (Glucophage) 850 mg PO BID [facility] Stop: 10/22/17 16:59 Last Admin: 08/25/17 09:06 Dose: 850 mg Metoclopramide HCl (Reglan) 10 mg PO Q8H PRN PRN Reason: Nausea / Vomiting Stop: 10/22/17 13:50 Metoprolol Tartrate (Lopressor) 25 mg PO BID [facility] Stop: 10/22/17 16:59 Last Admin: 08/25/17 09:07 Dose: 25 mg Ondansetron HCl (Zofran) 4 mg IV Q6H PRN PRN Reason: Nausea / Vomiting Stop: 10/23/17 00:18 Last Admin: 08/24/17 00:27 Dose: 4 mg Potassium Chloride (Potassium Chloride Elixir) 20 meq PO DAILY [facility] Stop: 10/23/17 08:59 Last Admin: 08/25/17 09:06 Dose: 20 meq Pyridostigmine [place] (Mestinon) 180 mg PO Q8HR [facility] Stop: 10/22/17 20:59 Last Admin: 08/25/17 04:08 Dose: 180 mg Simvastatin (Zocor) 5 mg PO HS [facility] Stop: 10/22/17 20:59 Last Admin: 08/24/17 22:02 Dose: 5 mg - Procedures Procedures: Procedures Procedure Code Date EMERGENCY DEPT VISIT 13390 08/07/11 INJECT/INFUSE NEC 99.29 02/22/10 Assessment/Plan - Assessment Assessment: dysphagia copd ?thyroid ca myasthenia gravis dm2 respiratory failure by history - Plan Plan: swallow eval aspiration precautions continue current orders Nutritional Asmnt/Malnutr-PDOC - Dietary Evaluation Malnutrition Findings (Please click <Entered> for more info): Nutritional Asmnt/Malnutrition Start: 08/23/17 17: 05 Text: Status: Complete Freq: Document 08/23/17 17:05 DAWSON (Rec: 08/23/17 17:29 [facility] [email or web address]) Nutritional Asmnt/Malnutrition Patient General Information Nutritional Screening High Risk Consult Diagnosis dysphagia Pertinent Medical Hx/Surgical Hx DM type1, tracheostomy, respiratory failure, sacral ulcer, G tube Subjective Information Consult received for elevated blood glucose. Per H&P, pt had swallowing difficulty for 4 days, and no PO intake for the last 3 days. Pt now on NPO waiting for swallow eval. Current Diet Order/ Nutrition Support NPO Pertinent Medications D5-0.45ns, Iron, colace, diabeta, novolog, glucophage Pertinent Labs 08/22 Na 135, K 4.0, Cl 100, BUN 27, Cr 0.9, Glucose 197, A1c 8.9, AST 63, ALT 68, ALb 4 .5 08/23 POC 426-461 Nutritional Hx/Data Height 1.7 m Height (Calculated Centimeters) 170.2 Current Weight (lbs) 48.988 kg Weight (Calculated Kilograms) 49.0 Weight (Calculated Grams) 93057.0 [place] Body Weight 135 % [place] Body Weight 80 Body Mass Index (BMI) 16.9 Weight Status Underweight GI Symptoms GI Symptoms None Last BM no record Difficult in: Swallowing Skin Integrity/Comment: decubitus ulceration to right foot toes, pressure area to coccyx, scar to abdomen and neck Current %PO Negligible < 25% Estimated Nutritional Goals Calories/Kcals/Kg 25-30 based on IBW 61kg Kcals Calculated 7598-4836 Protein g/k-1.2 Protein Calculated 61-73 Fluid: ml 1525-1830ml (1ml/kcal) Nutritional Problem 1. Problem Problem inadequate intake from oral food Etiology swallowing difficulty Signs/Symptoms: pt has no PO intake for 3 days , and now on NPO waiting for swallow eval Intervention/Recommendation Comments 1. Monitor NPO status. If pt fail swallow eval, will consider alternative nutrition route. 2. Monitor diet, wt, labs and skin integrity 3. MD to adjust insulin for optimal glycemic control 4. F/U as high risk in 2-3 days, 08/25-08/26 Expected Outcomes/Goals Expected Outcomes/Goals 1. PO intake to meet at least 75% of nutritional needs. 2. Wt stability, skin to remain intact, labs to approach WNL.
[2017-08-26] MEDS: INSULIN ASPART SLIDING SCALE 100 UNITS/ML UNIT SUBQ SCH ×4 (00:21→18:21)
[2017-08-26 05:11] LABS: FOLIC ACID >20.0 ng/mL (>3.0)
[2017-08-26 06:55] LABS: % BASOPHILS 0.9 % (0.0-2.0); % EOSINOPHILS 2.9 % (0.0-5.0); % LYMPHOCYTES 18.8 % (20.0-50.0); % MONOCYTES 14.2 % (2.0-10.0); % NEUTROPHILS 63.2 % (40.0-80.0); EOSINOPHILE ABSOLUTE 0.1 Th/cmm (0.1-0.4); HEMOGLOBIN 11.3 gm/dL (12-16); LYMPHOCYTE ABSOLUTE 0.9 Th/cmm (1.5-3.0); MEAN CELL VOLUME 94.8 fl (81-100); MEAN CORPUSCULAR HEMOGLOBIN 31.4 pg (27.0-31.0); MEAN CORPUSCULAR HGB CONC 33.2 pg (28.0-36.0); MEAN PLATELET VOLUME 6.8 fl; MONOCYTE ABSOLUTE 0.7 Th/cmm (0.3-1.0); NEUTROPHILE ABSOLUTE 2.9 Th/cmm (1.8-8.0); PLATELET COUNT 531 Th/cmm (150-400); RED BLOOD COUNT 3.59 Mil/cmm (3.80-5.10); RED CELL DISTRIBUTION WIDTH 14.3 % (11.5-20.0); WHITE BLOOD COUNT 4.6 Th/cmm (4.8-10.8)
[2017-08-26 07:12] LABS: ANION GAP 11.9 (7.0-16.0); BUN - UREA NITROGEN 24 mg/dL (7-25); CALCIUM SERUM 9.4 mg/dL (8.6-10.3); CARBON DIOXIDE 25.6 mEq/L (21.0-31.0); CHLORIDE 100 mEq/L (98-107); CREATININE - SERUM 0.9 mg/dL (0.6-1.2); GFR AFRICAN-AMERICAN > 60.0 ml/min (>90); GFR NON AFRICAN-AMERICAN > 60.0 ml/min; GLUCOSE 213 mg/dL (70-105); POTASSIUM SERUM 4.5 mEq/L (3.5-5.1); SODIUM SERUM 133 mEq/L (136-145)
--- NOTE | 2017-08-26 08:52 | General Progress Note ---
Subjective - Review of Systems Service Date: 08/26/17 Events since last encounter: patient refusing thyroid biopsy as she claims it was done at [place], neg result told about lung nodules - claims this was also evaluated at [place], does not want anything done discussed with Dr. Pittman yesterday, need Psych to establish ability of patient to make her own decisions Objective - Results Result Diagrams: 08/26/17 06:16 08/26/17 06:16 Recent Labs: Laboratory Last Values WBC 4.6 Th/cmm (4.8-10.8) L 08/26/17 06:16 RBC 3.59 Mil/cmm (3.80-5.10) L 08/26/17 06:16 Hgb 11.3 gm/dL (12-16) L 08/26/17 06:16 Hct 34.0 % (41.0-60) L 08/26/17 06:16 MCV 94.8 fl (81-100) 08/26/17 06:16 MCH 31.4 pg (27.0-31.0) H 08/26/17 06:16 MCHC Differential 33.2 pg (28.0-36.0) 08/26/17 06:16 RDW 14.3 % (11.5-20.0) 08/26/17 06:16 Plt Count 531 Th/cmm (150-400) H 08/26/17 06:16 MPV 6.8 fl 08/26/17 06:16 Neutrophils % 63.2 % (40.0-80.0) 08/26/17 06:16 Band Neutrophils % 0 % (0-10) 08/22/17 14:08 Lymphocytes % 18.8 % (20.0-50.0) L 08/26/17 06:16 Monocytes % 14.2 % (2.0-10.0) H 08/26/17 06:16 Eosinophils % 2.9 % (0.0-5.0) 08/26/17 06:16 Basophils % 0.9 % (0.0-2.0) 08/26/17 06:16 Neutrophils (Manual) 82 % (40-80) H 08/23/17 05:20 Lymphocytes 14 % (20-50) L 08/23/17 05:20 Monocytes 4 % (2-10) 08/23/17 05:20 Eosinophils 0 % (0-5) 08/22/17 14:08 Basophils 0 % (0-3) 08/22/17 14:08 Platelet Estimate INCREASED PLATELETS (NORMAL) 08/22/17 14:08 Platelet Morphology NORMAL (NORMAL) 08/22/17 14:08 RBC Morph Micro Appear NORMAL (NORMAL) 08/22/17 14:08 ESR 50 mm/hr (0-30) H 08/24/17 05:35 PT 11.4 SECONDS (9.5-11.5) 08/22/17 14:08 INR 1.09 (0.5-1.4) 08/22/17 14:08 PTT (Actin FS) 23.6 SECONDS (26.0-38.0) L 08/22/17 14:08 Sodium 133 mEq/L (136-145) L 08/26/17 06:16 Potassium 4.5 mEq/L (3.5-5.1) 08/26/17 06:16 Chloride 100 mEq/L (98-107) 08/26/17 06:16 Carbon Dioxide 25.6 mEq/L (21.0-31.0) 08/26/17 06:16 Anion Gap 11.9 (7.0-16.0) 08/26/17 06:16 BUN 24 mg/dL (7-25) 08/26/17 06:16 Creatinine 0.9 mg/dL (0.6-1.2) 08/26/17 06:16 Est GFR ( Amer) > 60.0 ml/min (>90) 08/26/17 06:16 Est GFR (Non-Af Amer) > 60.0 ml/min 08/26/17 06:16 BUN/Creatinine Ratio 26.7 08/26/17 06:16 Glucose 213 mg/dL (70-105) H 08/26/17 06:16 POC Glucose 252 MG/DL (70 - 105) H 08/24/17 16:22 Hemoglobin A1c % 8.9 % (4.0-6.0) H 08/22/17 14:08 Calcium 9.4 mg/dL (8.6-10.3) 08/26/17 06:16 Total Bilirubin 0.2 mg/dL (0.3-1.0) L 08/22/17 14:08 AST 63 U/L (13-39) H 08/22/17 14:08 ALT 68 U/L (7-52) H 08/22/17 14:08 Alkaline Phosphatase 120 U/L (34-104) H 08/22/17 14:08 Ammonia 54 umol/L (16-53) H 08/23/17 21:54 C-Reactive Protein < 0.2 mg/dL (0.0-0.9) 08/24/17 05:35 Total Protein 7.8 gm/dL (6.0-8.3) 08/22/17 14:08 Albumin 4.5 gm/dL (3.7-5.3) 08/22/17 14:08 Globulin 3.3 gm/dL 08/22/17 14:08 Albumin/Globulin Ratio 1.4 (1.0-1.8) 08/22/17 14:08 Triglycerides 87 mg/dL (<150) 08/23/17 05:20 Cholesterol 219 mg/dL (<200) H 08/23/17 05:20 LDL Cholesterol Direct 138 mg/dL (75-193) 08/23/17 05:20 HDL Cholesterol 65 mg/dL (23-92) 08/23/17 05:20 Vitamin B12 1577 pg/mL (232-1245) H 08/24/17 05:35 Folic Acid >20.0 ng/mL (>3.0) 08/24/17 05:35 TSH 0.32 uIU/ml (0.34-5.60) L 08/23/17 05:20 Urine Source CLEAN C 08/22/17 14:46 Urine Color YELLOW 08/22/17 14:46 Urine Clarity CLEAR (CLEAR) 08/22/17 14:46 Urine pH 5.5 (4.6 - 8.0) 08/22/17 14:46 Ur Specific [place] 1.025 (1.005-1.030) 08/22/17 14:46 Urine Protein TRACE mg/dL (NEGATIVE) 08/22/17 14:46 Urine Glucose (UA) >=1000 mg/dL (NEGATIVE) H 08/22/17 14:46 Urine Ketones 15 mg/dL (NEGATIVE) H 08/22/17 14:46 Urine Blood NEGATIVE (NEGATIVE) 08/22/17 14:46 Urine Nitrate NEGATIVE (NEGATIVE) 08/22/17 14:46 Urine Bilirubin SMALL (NEGATIVE) H 08/22/17 14:46 Urine Urobilinogen 0.2 E.U./dL (0.2 - 1.0) 08/22/17 14:46 Ur Leukocyte Esterase NEGATIVE (NEGATIVE) 08/22/17 14:46 Urine RBC NONE SEEN /hpf (0-5) 08/22/17 14:46 Urine WBC NONE SEEN /hpf (0-5) 08/22/17 14:46 Ur Epithelial Cells NONE SEEN /lpf (FEW) 08/22/17 14:46 Urine Bacteria NONE SEEN /hpf (NONE SEEN) 08/22/17 14:46 - Physical Exam Vitals and I&O: Vital Signs Temp 98.6 F 08/26/17 04:00 Pulse 92 08/26/17 07:38 Resp 18 08/26/17 07:38 BP 108/46 08/26/17 04:00 Pulse Ox 96 08/26/17 07:38 Intake & Output 08/25/17 08/26/17 08/26/17 18:59 06:59 18:59 Intake Total 1200 Balance 1200 Weight (lbs) 45.813 kg Intake: Oral 1200 Other: # Voids 3 # Bowel Movements 3 Active Medications: Current Medications Ascorbic Acid (Vitamin C) 500 mg PO DAILY [facility] Stop: 10/23/17 08:59 Last Admin: 08/25/17 09:07 Dose: 500 mg Azathioprine (Imuran) 50 mg PO TID [facility] PRN Reason: Protocol Stop: 10/22/17 20:59 Last Admin: 08/25/17 21:06 Dose: 50 mg Clonidine HCl (Htoypcfu-Abz-2) 1 patch TD Sa [facility] Stop: 10/26/17 08:59 Docusate Sodium (Colace) 100 mg PO BID PRN PRN Reason: Constipation Stop: 10/22/17 13:50 Famotidine (Pepcid) 20 mg PO BID [facility] Stop: 10/22/17 16:59 Last Admin: 08/25/17 17:04 Dose: 20 mg Ferrous Sulfate (Iron) 325 mg PO BID [facility] Stop: 10/22/17 16:59 Last Admin: 08/25/17 17:04 Dose: 325 mg Glyburide (Diabeta) 5 mg PO DAILY [facility] Stop: 10/23/17 08:59 Last Admin: 08/25/17 09:07 Dose: 5 mg Hydralazine HCl (Apresoline) 50 mg PO TID [facility] Stop: 10/22/17 20:59 Last Admin: 08/25/17 21:09 Dose: 50 mg Insulin Aspart (Novolog Insulin Sliding Scale) 0 units SUBQ Q6HR [facility] PRN Reason: Protocol Stop: 10/22/17 00:00 Last Admin: 08/26/17 05:40 Dose: 2 units Insulin Detemir (Levemir Insulin) 12 units SUBQ DAILY [facility] Stop: 10/23/17 08:59 Last Admin: 08/25/17 09:05 Dose: 12 units Metformin HCl (Glucophage) 850 mg PO BID [facility] Stop: 10/22/17 16:59 Last Admin: 08/25/17 17:05 Dose: 850 mg Metoclopramide HCl (Reglan) 10 mg PO Q8H PRN PRN Reason: Nausea / Vomiting Stop: 10/22/17 13:50 Metoprolol Tartrate (Lopressor) 25 mg PO BID [facility] Stop: 10/22/17 16:59 Last Admin: 08/25/17 17:04 Dose: 25 mg Ondansetron HCl (Zofran) 4 mg IV Q6H PRN PRN Reason: Nausea / Vomiting Stop: 10/23/17 00:18 Last Admin: 08/24/17 00:27 Dose: 4 mg Potassium Chloride (Potassium Chloride Elixir) 20 meq PO DAILY [facility] Stop: 10/23/17 08:59 Last Admin: 08/25/17 09:06 Dose: 20 meq Pyridostigmine [place] (Mestinon) 180 mg PO Q8HR [facility] Stop: 10/22/17 20:59 Last Admin: 08/26/17 05:33 Dose: 180 mg Simvastatin (Zocor) 5 mg PO HS [facility] Stop: 10/22/17 20:59 Last Admin: 08/25/17 21:07 Dose: 5 mg - Procedures Procedures: Procedures Procedure Code Date EMERGENCY DEPT VISIT 81682 08/07/11 INJECT/INFUSE NEC 99.29 02/22/10 Nutritional Asmnt/Malnutr-PDOC - Dietary Evaluation Malnutrition Findings (Please click <Entered> for more info): Nutritional Asmnt/Malnutrition Start: 08/23/17 17: 05 Text: Status: Complete Freq: Document 08/23/17 17:05 LCHENG (Rec: 08/23/17 17:29 LCHENG [email or web address]) Nutritional Asmnt/Malnutrition Patient General Information Nutritional Screening High Risk Consult Diagnosis dysphagia Pertinent Medical Hx/Surgical Hx DM type1, tracheostomy, respiratory failure, sacral ulcer, G tube Subjective Information Consult received for elevated blood glucose. Per H&P, pt had swallowing difficulty for 4 days, and no PO intake for the last 3 days. Pt now on NPO waiting for swallow eval. Current Diet Order/ Nutrition Support NPO Pertinent Medications D5-0.45ns, Iron, colace, diabeta, novolog, glucophage Pertinent Labs 08/22 Na 135, K 4.0, Cl 100, BUN 27, Cr 0.9, Glucose 197, A1c 8.9, AST 63, ALT 68, ALb 4 .5 08/23 POC 426-461 Nutritional Hx/Data Height 1.7 m Height (Calculated Centimeters) 170.2 Current Weight (lbs) 48.988 kg Weight (Calculated Kilograms) 49.0 Weight (Calculated Grams) 17176.0 [place] Body Weight 135 % [place] Body Weight 80 Body Mass Index (BMI) 16.9 Weight Status Underweight GI Symptoms GI Symptoms None Last BM no record Difficult in: Swallowing Skin Integrity/Comment: decubitus ulceration to right foot toes, pressure area to coccyx, scar to abdomen and neck Current %PO Negligible < 25% Estimated Nutritional Goals Calories/Kcals/Kg 25-30 based on IBW 61kg Kcals Calculated 3322-8577 Protein g/k-1.2 Protein Calculated 61-73 Fluid: ml 1525-1830ml (1ml/kcal) Nutritional Problem 1. Problem Problem inadequate intake from oral food Etiology swallowing difficulty Signs/Symptoms: pt has no PO intake for 3 days , and now on NPO waiting for swallow eval Intervention/Recommendation Comments 1. Monitor NPO status. If pt fail swallow eval, will consider alternative nutrition route. 2. Monitor diet, wt, labs and skin integrity 3. MD to adjust insulin for optimal glycemic control 4. F/U as high risk in 2-3 days, 08/25-08/26 Expected Outcomes/Goals Expected Outcomes/Goals 1. PO intake to meet at least 75% of nutritional needs. 2. Wt stability, skin to remain intact, labs to approach WNL.
--- NOTE | 2017-08-26 09:03 | General Progress Note ---
Subjective - Review of Systems Service Date: 08/26/17 Events since last encounter: nurse notified to call Dr. Berman to allow Psych consult Objective - Results Result Diagrams: 08/26/17 06:16 08/26/17 06:16 Recent Labs: Laboratory Last Values WBC 4.6 Th/cmm (4.8-10.8) L 08/26/17 06:16 RBC 3.59 Mil/cmm (3.80-5.10) L 08/26/17 06:16 Hgb 11.3 gm/dL (12-16) L 08/26/17 06:16 Hct 34.0 % (41.0-60) L 08/26/17 06:16 MCV 94.8 fl (81-100) 08/26/17 06:16 MCH 31.4 pg (27.0-31.0) H 08/26/17 06:16 MCHC Differential 33.2 pg (28.0-36.0) 08/26/17 06:16 RDW 14.3 % (11.5-20.0) 08/26/17 06:16 Plt Count 531 Th/cmm (150-400) H 08/26/17 06:16 MPV 6.8 fl 08/26/17 06:16 Neutrophils % 63.2 % (40.0-80.0) 08/26/17 06:16 Band Neutrophils % 0 % (0-10) 08/22/17 14:08 Lymphocytes % 18.8 % (20.0-50.0) L 08/26/17 06:16 Monocytes % 14.2 % (2.0-10.0) H 08/26/17 06:16 Eosinophils % 2.9 % (0.0-5.0) 08/26/17 06:16 Basophils % 0.9 % (0.0-2.0) 08/26/17 06:16 Neutrophils (Manual) 82 % (40-80) H 08/23/17 05:20 Lymphocytes 14 % (20-50) L 08/23/17 05:20 Monocytes 4 % (2-10) 08/23/17 05:20 Eosinophils 0 % (0-5) 08/22/17 14:08 Basophils 0 % (0-3) 08/22/17 14:08 Platelet Estimate INCREASED PLATELETS (NORMAL) 08/22/17 14:08 Platelet Morphology NORMAL (NORMAL) 08/22/17 14:08 RBC Morph Micro Appear NORMAL (NORMAL) 08/22/17 14:08 ESR 50 mm/hr (0-30) H 08/24/17 05:35 PT 11.4 SECONDS (9.5-11.5) 08/22/17 14:08 INR 1.09 (0.5-1.4) 08/22/17 14:08 PTT (Actin FS) 23.6 SECONDS (26.0-38.0) L 08/22/17 14:08 Sodium 133 mEq/L (136-145) L 08/26/17 06:16 Potassium 4.5 mEq/L (3.5-5.1) 08/26/17 06:16 Chloride 100 mEq/L (98-107) 08/26/17 06:16 Carbon Dioxide 25.6 mEq/L (21.0-31.0) 08/26/17 06:16 Anion Gap 11.9 (7.0-16.0) 08/26/17 06:16 BUN 24 mg/dL (7-25) 08/26/17 06:16 Creatinine 0.9 mg/dL (0.6-1.2) 08/26/17 06:16 Est GFR ( Amer) > 60.0 ml/min (>90) 08/26/17 06:16 Est GFR (Non-Af Amer) > 60.0 ml/min 08/26/17 06:16 BUN/Creatinine Ratio 26.7 08/26/17 06:16 Glucose 213 mg/dL (70-105) H 08/26/17 06:16 POC Glucose 252 MG/DL (70 - 105) H 08/24/17 16:22 Hemoglobin A1c % 8.9 % (4.0-6.0) H 08/22/17 14:08 Calcium 9.4 mg/dL (8.6-10.3) 08/26/17 06:16 Total Bilirubin 0.2 mg/dL (0.3-1.0) L 08/22/17 14:08 AST 63 U/L (13-39) H 08/22/17 14:08 ALT 68 U/L (7-52) H 08/22/17 14:08 Alkaline Phosphatase 120 U/L (34-104) H 08/22/17 14:08 Ammonia 54 umol/L (16-53) H 08/23/17 21:54 C-Reactive Protein < 0.2 mg/dL (0.0-0.9) 08/24/17 05:35 Total Protein 7.8 gm/dL (6.0-8.3) 08/22/17 14:08 Albumin 4.5 gm/dL (3.7-5.3) 08/22/17 14:08 Globulin 3.3 gm/dL 08/22/17 14:08 Albumin/Globulin Ratio 1.4 (1.0-1.8) 08/22/17 14:08 Triglycerides 87 mg/dL (<150) 08/23/17 05:20 Cholesterol 219 mg/dL (<200) H 08/23/17 05:20 LDL Cholesterol Direct 138 mg/dL (75-193) 08/23/17 05:20 HDL Cholesterol 65 mg/dL (23-92) 08/23/17 05:20 Vitamin B12 1577 pg/mL (232-1245) H 08/24/17 05:35 Folic Acid >20.0 ng/mL (>3.0) 08/24/17 05:35 TSH 0.32 uIU/ml (0.34-5.60) L 08/23/17 05:20 Urine Source CLEAN C 08/22/17 14:46 Urine Color YELLOW 08/22/17 14:46 Urine Clarity CLEAR (CLEAR) 08/22/17 14:46 Urine pH 5.5 (4.6 - 8.0) 08/22/17 14:46 Ur Specific [place] 1.025 (1.005-1.030) 08/22/17 14:46 Urine Protein TRACE mg/dL (NEGATIVE) 08/22/17 14:46 Urine Glucose (UA) >=1000 mg/dL (NEGATIVE) H 08/22/17 14:46 Urine Ketones 15 mg/dL (NEGATIVE) H 08/22/17 14:46 Urine Blood NEGATIVE (NEGATIVE) 08/22/17 14:46 Urine Nitrate NEGATIVE (NEGATIVE) 08/22/17 14:46 Urine Bilirubin SMALL (NEGATIVE) H 08/22/17 14:46 Urine Urobilinogen 0.2 E.U./dL (0.2 - 1.0) 08/22/17 14:46 Ur Leukocyte Esterase NEGATIVE (NEGATIVE) 08/22/17 14:46 Urine RBC NONE SEEN /hpf (0-5) 08/22/17 14:46 Urine WBC NONE SEEN /hpf (0-5) 08/22/17 14:46 Ur Epithelial Cells NONE SEEN /lpf (FEW) 08/22/17 14:46 Urine Bacteria NONE SEEN /hpf (NONE SEEN) 08/22/17 14:46 - Physical Exam Vitals and I&O: Vital Signs Temp 97 F 08/26/17 08:00 Pulse 83 08/26/17 08:00 Resp 16 08/26/17 08:00 BP 134/70 08/26/17 08:00 Pulse Ox 100 08/26/17 08:00 Intake & Output 08/25/17 08/26/17 08/26/17 18:59 06:59 18:59 Intake Total 1200 Balance 1200 Weight (lbs) 45.813 kg Intake: Oral 1200 Other: # Voids 3 # Bowel Movements 3 Active Medications: Current Medications Ascorbic Acid (Vitamin C) 500 mg PO DAILY [facility] Stop: 10/23/17 08:59 Last Admin: 08/25/17 09:07 Dose: 500 mg Azathioprine (Imuran) 50 mg PO TID [facility] PRN Reason: Protocol Stop: 10/22/17 20:59 Last Admin: 08/25/17 21:06 Dose: 50 mg Clonidine HCl (Thphegzr-Ptv-2) 1 patch TD Sa [facility] Stop: 10/26/17 08:59 Docusate Sodium (Colace) 100 mg PO BID PRN PRN Reason: Constipation Stop: 10/22/17 13:50 Famotidine (Pepcid) 20 mg PO BID [facility] Stop: 10/22/17 16:59 Last Admin: 08/25/17 17:04 Dose: 20 mg Ferrous Sulfate (Iron) 325 mg PO BID [facility] Stop: 10/22/17 16:59 Last Admin: 08/25/17 17:04 Dose: 325 mg Glyburide (Diabeta) 5 mg PO DAILY [facility] Stop: 10/23/17 08:59 Last Admin: 08/25/17 09:07 Dose: 5 mg Hydralazine HCl (Apresoline) 50 mg PO TID [facility] Stop: 10/22/17 20:59 Last Admin: 08/25/17 21:09 Dose: 50 mg Insulin Aspart (Novolog Insulin Sliding Scale) 0 units SUBQ Q6HR [facility] PRN Reason: Protocol Stop: 10/22/17 00:00 Last Admin: 08/26/17 05:40 Dose: 2 units Insulin Detemir (Levemir Insulin) 12 units SUBQ DAILY [facility] Stop: 10/23/17 08:59 Last Admin: 08/25/17 09:05 Dose: 12 units Metformin HCl (Glucophage) 850 mg PO BID [facility] Stop: 10/22/17 16:59 Last Admin: 08/25/17 17:05 Dose: 850 mg Metoclopramide HCl (Reglan) 10 mg PO Q8H PRN PRN Reason: Nausea / Vomiting Stop: 10/22/17 13:50 Metoprolol Tartrate (Lopressor) 25 mg PO BID [facility] Stop: 10/22/17 16:59 Last Admin: 08/25/17 17:04 Dose: 25 mg Ondansetron HCl (Zofran) 4 mg IV Q6H PRN PRN Reason: Nausea / Vomiting Stop: 10/23/17 00:18 Last Admin: 08/24/17 00:27 Dose: 4 mg Potassium Chloride (Potassium Chloride Elixir) 20 meq PO DAILY [facility] Stop: 10/23/17 08:59 Last Admin: 08/25/17 09:06 Dose: 20 meq Pyridostigmine [place] (Mestinon) 180 mg PO Q8HR [facility] Stop: 10/22/17 20:59 Last Admin: 08/26/17 05:33 Dose: 180 mg Simvastatin (Zocor) 5 mg PO HS [facility] Stop: 10/22/17 20:59 Last Admin: 08/25/17 21:07 Dose: 5 mg - Procedures Procedures: Procedures Procedure Code Date EMERGENCY DEPT VISIT 63914 08/07/11 INJECT/INFUSE NEC 99.29 02/22/10 Nutritional Asmnt/Malnutr-PDOC - Dietary Evaluation Malnutrition Findings (Please click <Entered> for more info): Nutritional Asmnt/Malnutrition Start: 08/23/17 17: 05 Text: Status: Complete Freq: Document 08/23/17 17:05 DAWSON (Rec: 08/23/17 17:29 DAWSON [email or web address]) Nutritional Asmnt/Malnutrition Patient General Information Nutritional Screening High Risk Consult Diagnosis dysphagia Pertinent Medical Hx/Surgical Hx DM type1, tracheostomy, respiratory failure, sacral ulcer, G tube Subjective Information Consult received for elevated blood glucose. Per H&P, pt had swallowing difficulty for 4 days, and no PO intake for the last 3 days. Pt now on NPO waiting for swallow eval. Current Diet Order/ Nutrition Support NPO Pertinent Medications D5-0.45ns, Iron, colace, diabeta, novolog, glucophage Pertinent Labs 08/22 Na 135, K 4.0, Cl 100, BUN 27, Cr 0.9, Glucose 197, A1c 8.9, AST 63, ALT 68, ALb 4 .5 08/23 POC 426-461 Nutritional Hx/Data Height 1.7 m Height (Calculated Centimeters) 170.2 Current Weight (lbs) 48.988 kg Weight (Calculated Kilograms) 49.0 Weight (Calculated Grams) 03925.0 [place] Body Weight 135 % [place] Body Weight 80 Body Mass Index (BMI) 16.9 Weight Status Underweight GI Symptoms GI Symptoms None Last BM no record Difficult in: Swallowing Skin Integrity/Comment: decubitus ulceration to right foot toes, pressure area to coccyx, scar to abdomen and neck Current %PO Negligible < 25% Estimated Nutritional Goals Calories/Kcals/Kg 25-30 based on IBW 61kg Kcals Calculated 7677-7232 Protein g/k-1.2 Protein Calculated 61-73 Fluid: ml 1525-1830ml (1ml/kcal) Nutritional Problem 1. Problem Problem inadequate intake from oral food Etiology swallowing difficulty Signs/Symptoms: pt has no PO intake for 3 days , and now on NPO waiting for swallow eval Intervention/Recommendation Comments 1. Monitor NPO status. If pt fail swallow eval, will consider alternative nutrition route. 2. Monitor diet, wt, labs and skin integrity 3. MD to adjust insulin for optimal glycemic control 4. F/U as high risk in 2-3 days, 08/25-08/26 Expected Outcomes/Goals Expected Outcomes/Goals 1. PO intake to meet at least 75% of nutritional needs. 2. Wt stability, skin to remain intact, labs to approach WNL.
[2017-08-26] MEDS: Ferrous Sulfate 325 MG TAB PO SCH ×2 (09:29→18:34)
[2017-08-26] MEDS: Potassium Chloride Elixir 20 mEq /15 mL UDC PO SCH (09:30)
[2017-08-26] MEDS: Insulin Detemir 100 units/mL 10mL Vial SUBQ SCH (09:31)
[2017-08-26] MEDS ORDERED: Albuterol/Ipratropium Neb 3 ML AERS HHN SCH (19:00)
[2017-08-27] MEDS ORDERED: cloNIDine 0.1 mg/24 hr Tdm TD SCH (09:00)
--- NOTE | 2017-08-30 16:02 | Discharge Summary ---
DATE OF DISCHARGE: 08/26/2017 ADMITTING DIAGNOSES: Myasthenia gravis, diabetes 2 uncontrolled, respiratory failure and COPD. HISTORY AND HOSPITAL COURSE: The patient was admitted, had treating including the swallow eval and the neurology consultation. The patient gradually improved and the patient was in stable condition on 08/26/2017, discharged back to [place]. The diagnosis of myasthenia gravis improving, respiratory failure improved, and sepsis improved. [facility]# [id number]
== END 2017-08-26 19:00 | disposition home or self-care (01) | DRG 42 ==
LOC: ER 12:49 → MSI 18:15
PROVIDERS: ADMIT Internal Medicine; ATTEND Internal Medicine
DX: G70.01 Myasthenia gravis with (acute) exacerbation (principal); I96 Gangrene, not elsewhere classified; E46 Unspecified protein-calorie malnutrition; Z93.0 Tracheostomy status; R13.10 Dysphagia, unspecified; C73 Malignant neoplasm of thyroid gland; C78.00 Secondary malignant neoplasm of unspecified lung; F17.210 Nicotine dependence, cigarettes, uncomplicated; I10 Essential (primary) hypertension; J43.9 Emphysema, unspecified; K21.9 Gastro-esophageal reflux disease without esophagitis; D63.8 Anemia in other chronic diseases classified elsewhere; J42 Unspecified chronic bronchitis; R91.1 Solitary pulmonary nodule; R59.9 Enlarged lymph nodes, unspecified; R62.7 Adult failure to thrive; E10.52 Type 1 diabetes mellitus with diabetic peripheral angiopathy with gangrene; Z68.1 Body mass index [BMI] 19.9 or less, adult; Z74.01 Bed confinement status; Z79.4 Long term (current) use of insulin
CPT/HCPCS: 36415-UA; 71046-TC; 71250-TC; 80048-TC; 80053-TC; 80061-TC; 81001-TC; 82140-TC; 82607-90; 82746-90; 82947-TC; 82948-90; 83036-90; 83519-90; 83970-90; 84425-90; 84443-TC; 85007-TC; 85025-TC; 85027-TC; 85610-TC; 85652-TC; 86141-TC; 93005; 94760; J1815; J2405; J7500; X3401; X4304

== ENCOUNTER 2017-08-28 19:03 | Inpatient (IN) | payer MEDICAID ==
--- NOTE | 2017-08-28 19:30 | ED Physician Chart ---
ED Chief Complaint/HPI - Patient Information Date Seen:: 08/28/17 Time Seen:: 19:27 Chief Complaint:: Hyperglycemia History of Present Illness:: 47 yo female with myasthenia gravis and DM type I, was brought from [facility] to ER due to high blood glucose level 582. Allergies:: Allergies Allergy/AdvReac Type Severity Reaction Status Date / Time No Known Allergies Allergy Verified 08/28/17 19:20 ED Review of Systems - Review of Systems General/Constitutional: No fever Skin: Skin lesions Head: No headache Eyes: No pain ENT: No nasal drainage Neck: No neck pain Cardio Vascular: No chest pain Pulmonary: Cough GI: Nausea, Vomiting G/U: Frequency Musculoskeletal: No bone or joint pain Psychiatric: No prior psych history ED Past Medical History - Past Medical History Past Medical History: HTN, DM, Asthma/COPD, Other (PVD, anemia, sacral wounds, right second toe gangrene) Social History: Non Smoker, No Alcohol, No Drug Use Surgical History: other (tracheostomy) Family Medical History - Family Member Mother History Unknown: Yes Ethnicity: Non- Living Status: Hx Family Congestive Heart Failure: Yes Father History Unknown: Yes Ethnicity: Non- Living Status: ED Physical Exam - Physical Examination General/Constitutional: Awake Head: Atraumatic Eyes: PERRL Other Skin comments:: Sacral wounds Other ENMT comments:: difficulty swallowing Neck: No nuchal rigidity Other Respiratory comments:: Bibasal rales Cardio Vascular: RRR Other Cardio Vascular comments:: II/ systolic murmurs GI: No tenderness/rebounding/guarding Extremities: Full ROM Neuro/Psych: Normal gait ED Labs/Radiology/EKG Results - Lab Results Results: Laboratory Tests 08/28/17 19:15 POC Glucose 580 H*
[2017-08-28 19:51] LABS: % EOSINOPHILS 0.1 % (0.0-5.0); % LYMPHOCYTES 12.6 % (20.0-50.0); % NEUTROPHILS 80.3 % (40.0-80.0); HEMOGLOBIN 12.6 gm/dL (12-16); MEAN CELL VOLUME 95.8 fl (81-100); MEAN CORPUSCULAR HEMOGLOBIN 30.9 pg (27.0-31.0); MEAN CORPUSCULAR HGB CONC 32.2 pg (28.0-36.0); MEAN PLATELET VOLUME 7.3 fl; MONOCYTE ABSOLUTE 0.5 Th/cmm (0.3-1.0); NEUTROPHILE ABSOLUTE 6.3 Th/cmm (1.8-8.0); PLATELET COUNT 561 Th/cmm (150-400); RED BLOOD COUNT 4.07 Mil/cmm (3.80-5.10); RED CELL DISTRIBUTION WIDTH 14.2 % (11.5-20.0)
[2017-08-28 19:52] LABS: URINE MICROSCOPIC INDICATED? YES; URINE SOURCE RANDOM
[2017-08-28 19:55] LABS: WHITE BLOOD COUNT 7.8 Th/cmm (4.8-10.8)
[2017-08-28 19:59] LABS: URINE BILIRUBIN NEGATIVE (NEGATIVE); URINE BLOOD NEGATIVE (NEGATIVE); URINE GLUCOSE (UA) >=1000 mg/dL (NEGATIVE); URINE KETONE >=80 mg/dL (NEGATIVE); URINE LEUKOCYTE ESTERASE NEGATIVE (NEGATIVE); URINE NITRATE NEGATIVE (NEGATIVE); URINE PH 5.5 (4.6 - 8.0); URINE PROTEIN NEGATIVE (NEGATIVE); URINE UROBILINOGEN 0.2 E.U./dL (0.2 - 1.0)
[2017-08-28 20:03] LABS: URINE CLARITY CLEAR (CLEAR); URINE COLOR YELLOW
[2017-08-28 20:06] LABS: URINE BACTERIA NONE SEEN /hpf (NONE SEEN); URINE EPITHELIAL CELLS OCCASIONAL /lpf (FEW); URINE RBC NONE SEEN /hpf (0-5); URINE WBC 0-2 /hpf (0-5)
[2017-08-28 20:08] LABS: ALB/GLOB RATIO 1.2 (1.0-1.8); ALBUMIN 4.5 gm/dL (3.7-5.3); ANION GAP 27.3 (7.0-16.0); BILIRUBIN,TOTAL 0.3 mg/dL (0.3-1.0); CALCIUM SERUM 10.2 mg/dL (8.6-10.3); CARBON DIOXIDE 13.7 mEq/L (21.0-31.0); CREATININE - SERUM 1.4 mg/dL (0.6-1.2); GFR AFRICAN-AMERICAN 52.3 ml/min (>90); GFR NON AFRICAN-AMERICAN 43.2 ml/min; TOTAL PROTEIN,SERUM 8.4 gm/dL (6.0-8.3)
[2017-08-28 20:09] LABS: URINE YEAST OCCASIONAL /hpf (NONE SEEN)
[2017-08-28] MEDS ORDERED: Sodium Chloride 0.9% 1,000 ML IV ONE ×2 (20:13→21:14)
[2017-08-28] MEDS ORDERED: INSULIN HUMAN REGULAR 100 UNITS/ML UNIT SUBQ ONE (20:13)
[2017-08-28] MEDS ORDERED: INSULIN HUMAN REGULAR 100 UNITS/ML UNIT ONE (20:17)
[2017-08-28 20:34] LABS: pH 7.36 (7.35-7.45)
[2017-08-28 20:35] LABS: ALLEN TEST positive
[2017-08-28] MEDS: Sodium Chloride 0.9% 1,000 ML IV SCH (23:37)
[2017-08-29] MEDS ORDERED: INSULIN HUMAN REGULAR 100 UNITS/ML UNIT SUBQ SCH
[2017-08-29] MEDS: INSULIN HUMAN REGULAR 100 UNITS/ML UNIT SUBQ SCH ×2 (00:17→05:29)
[2017-08-29 05:26] LABS: % BASOPHILS 0.5 % (0.0-2.0); % EOSINOPHILS 0.8 % (0.0-5.0); % LYMPHOCYTES 15.9 % (20.0-50.0); % MONOCYTES 9.9 % (2.0-10.0); % NEUTROPHILS 72.9 % (40.0-80.0); EOSINOPHILE ABSOLUTE 0.1 Th/cmm (0.1-0.4); HEMOGLOBIN 10.1 gm/dL (12-16); LYMPHOCYTE ABSOLUTE 1.1 Th/cmm (1.5-3.0); MEAN CELL VOLUME 95.1 fl (81-100); MEAN CORPUSCULAR HEMOGLOBIN 31.6 pg (27.0-31.0); MEAN CORPUSCULAR HGB CONC 33.2 pg (28.0-36.0); MEAN PLATELET VOLUME 7.2 fl; MONOCYTE ABSOLUTE 0.7 Th/cmm (0.3-1.0); NEUTROPHILE ABSOLUTE 5.2 Th/cmm (1.8-8.0); PLATELET COUNT 476 Th/cmm (150-400); RED CELL DISTRIBUTION WIDTH 13.7 % (11.5-20.0); WHITE BLOOD COUNT 7.1 Th/cmm (4.8-10.8)
[2017-08-29 05:29] LABS: HEMATOCRIT 30.4 % (41.0-60)
[2017-08-29] MEDS: Sodium Chloride 0.9% 1,000 ML IV SCH ×3 (05:51→18:44)
[2017-08-29 05:52] LABS: ANION GAP 14.2 (7.0-16.0); BUN - UREA NITROGEN 31 mg/dL (7-25); CARBON DIOXIDE 18.3 mEq/L (21.0-31.0); CHLORIDE 101 mEq/L (98-107); CHOLESTEROL 153 mg/dL (<200); CREATININE - SERUM 1.1 mg/dL (0.6-1.2); GFR AFRICAN-AMERICAN > 60.0 ml/min (>90); GFR NON AFRICAN-AMERICAN 57.1 ml/min; HDL -HIGH DENSITY LIPOPROTEIN 63 mg/dL (23-92); POTASSIUM SERUM 4.5 mEq/L (3.5-5.1); SODIUM SERUM 129 mEq/L (136-145); TRIGLYCERIDES 60 mg/dL (<150)
[2017-08-29 05:57] LABS: GLUCOSE 199 mg/dL (70-105)
--- NOTE | 2017-08-29 07:27 | Diagnostic Imaging Report ---
Portable chest x-ray Time: 2010 hours HISTORY: Cough Findings: Allowing for portable technique the heart size is normal. No focal pulmonary parenchymal processes. No hilar or mediastinal abnormalities. Impression: No acute abnormalities.
[2017-08-29] MEDS ORDERED: Acetaminophen 500 MG TAB PO PRN (08:23)
[2017-08-29] MEDS ORDERED: Fleet Enema 135 mL RC PRN (08:23)
[2017-08-29] MEDS ORDERED: Magnesium Hydroxide (MOM) 30 mL UDC PO PRN (08:23)
[2017-08-29] MEDS: Multivitamin w/ Minerals Tab PO SCH (11:00)
[2017-08-29] MEDS: Insulin Detemir 100 units/mL 10mL Vial SUBQ SCH (11:01)
[2017-08-29] MEDS: Potassium Chloride Elixir 20 mEq /15 mL UDC PO SCH (11:01)
[2017-08-29] MEDS: Ferrous Sulfate 325 MG TAB PO SCH ×2 (11:01→17:43)
[2017-08-29] MEDS: INSULIN ASPART SLIDING SCALE 100 UNITS/ML UNIT SUBQ SCH ×2 (12:13→17:44)
[2017-08-29] MEDS: Albuterol/Ipratropium Neb 3 ML AERS HHN SCH ×2 (13:50→18:48)
[2017-08-29] MEDS ORDERED: INSULIN ASPART, RECOMBINANT 100 UNITS/ML SUBQ ONE (13:51)
[2017-08-30] MEDS: INSULIN ASPART SLIDING SCALE 100 UNITS/ML UNIT SUBQ SCH ×4 (00:05→17:10)
[2017-08-30] MEDS: Albuterol/Ipratropium Neb 3 ML AERS HHN SCH ×4 (00:38→19:33)
[2017-08-30] MEDS: Sodium Chloride 0.9% 1,000 ML IV SCH (01:47)
[2017-08-30] MEDS: Ferrous Sulfate 325 MG TAB PO SCH ×2 (08:46→16:30)
[2017-08-30] MEDS: Multivitamin w/ Minerals Tab PO SCH (08:49)
[2017-08-30] MEDS: Insulin Detemir 100 units/mL 10mL Vial SUBQ SCH (08:49)
[2017-08-30] MEDS: Potassium Chloride Elixir 20 mEq /15 mL UDC PO SCH (08:49)
[2017-08-30] MEDS ORDERED: Sodium Chloride 0.9% 1,000 ML IV SCH (11:30)
--- NOTE | 2017-08-30 15:36 | History and Physical ---
History of Present Illness - HPI Chief Complaint: elavated glucose HPI: This is a 47 year old female who was recently discharged from this hospital. Patient is a resident of [facility] admitted to the telemetry unit secondary elevated glucose of 582. Vital Signs: Last Vital Signs Temp 98.5 F 08/30/17 08:00 Pulse 88 08/30/17 13:50 Resp 18 08/30/17 13:50 BP 145/74 08/30/17 13:10 Pulse Ox 99 08/30/17 13:50 Past Medical History Other History: myasthenia gravis dm2 respiratory failure - Past Surgical History Past Surgical History: Other (trach) Family Medical History - Family Member Mother History Unknown: Yes Ethnicity: Non- Living Status: Hx Family Congestive Heart Failure: Yes Father History Unknown: Yes Ethnicity: Non- Living Status: Social History Smoke: No Alcohol: None Drugs: None Lives: [facility] - Medications Home Medications: Home Medication Medication Instructions Recorded Type Albuterol/Ipratropium Neb [Duoneb 3 ml HHN Q6HRT aers 08/26/17 Rx Neb] Ascorbic Acid [Vitamin C] 500 mg PO DAILY tab 08/26/17 Rx Famotidine [Pepcid] 20 mg PO BID tab 08/26/17 Rx Ferrous Sulfate [Iron] 325 mg PO BID tab 08/26/17 Rx Hydralazine [Apresoline*] 50 mg PO TID tab 08/26/17 Rx Insulin Detemir [Levemir Insulin] 12 units SUBQ DAILY vial 08/26/17 Rx Metoclopramide [Reglan] 10 mg PO Q8H PRN tab 08/26/17 Rx Metoprolol Tartrate [Lopressor] 25 mg PO BID tab 08/26/17 Rx Potassium Chloride Elixir 20 meq PO DAILY [facility] 08/26/17 Rx Pyridostigmine [Mestinon] 180 mg PO Q8HR tab 08/26/17 Rx Simvastatin [Zocor] 5 mg PO HS tab 08/26/17 Rx azaTHIOprine [Imuran] 50 mg PO TID tab 08/26/17 Rx cloNIDine 0.1 mg/24 hr 1 patch TD Sa patch 08/26/17 Rx [Fbyytmrm-SIU-3*] glyBURIDE [Diabeta] 5 mg PO DAILY tab 08/26/17 Rx metFORMIN [Glucophage] 850 mg PO BID tab 08/26/17 Rx Acetaminophen [Tylenol Extra 1,000 mg PO Q4H PRN 08/28/17 History Strength] Acetaminophen [Tylenol] 650 mg PO Q4HR PRN 08/28/17 History Bisacodyl [Dulcolax 10 Mg Supp] 10 mg RC DAILY PRN 08/28/17 History Docusate Sodium [Colace] 100 mg PO DAILY PRN 08/28/17 History Fleet Enema [Fleet Enema] 135 ml RC DAILY PRN 08/28/17 History Insulin Aspart Sliding Scale See Protocol SUBQ Q6HR 08/28/17 History [NovoLOG INSULIN SLIDING SCALE] Magnesium Hydroxide [Milk of 30 ml PO HS PRN 08/28/17 History Magnesia] Multivitamin w/ Minerals 1 tab PO DAILY 08/28/17 History [Theragran M] Ondansetron HCl [Zofran*] 4 mg PO Q6H PRN 08/28/17 History Sennosides A and B [Senna] 2 tab PO DAILY 08/28/17 History Zinc Sulfate 220 mg PO DAILY 08/28/17 History - Allergies Allergies/Adverse Reactions: Allergies Allergy/AdvReac Type Severity Reaction Status Date / Time No Known Allergies Allergy Verified 08/28/17 19:20 Review of Systems - Review of Systems Constitutional: Report: No Significant Eyes: Report: No Significant ENT: Report: No Significant Respiratory: Report: No Significant Cardiovascular: Report: No Significant Gastrointestinal: Report: No Significant Genitourinary: Report: No Significant Musculoskeletal: Report: No Significant Skin: Report: No Significant Neurological: Report: No Significant Physical Exam - Physical Exam HEENT: Report: Ears Nose Throat within normal limits Neck: Report: Within normal limits Cardiovascular Systems: Report: +s1/s2 noted Respiratory: Report: Breath Sounds are within normal limits Abdomen: Report: Non-tender to palpation Back: Report: Inspection of back is within normal limits. Extremities: Report: Non-tender to palpation. Skin: Report: Color of skin is within normal limits Neuro/Psych: Report: Mood affect is within normal limits - Lab Results All Lab Results last 24 hours: Laboratory Results - last 24 hr 08/29/17 08/29/17 08/30/17 16:40 23:54 05:22 POC Glucose 226 H 179 H 343 H 08/30/17 11:49 POC Glucose 418 H Microbiology 08/28/17 22:10 - Preliminary Blood NO GROWTH AFTER 24 HOURS 08/28/17 21:45 - Preliminary Blood NO GROWTH AFTER 24 HOURS - Assessment Assessment: uncontrolled glucose myasthenia gravis dm2 respiratory failure - Plan Plan: accucheck with sliding scale follow up labs in am continue current orders
[2017-08-31] MEDS: INSULIN ASPART SLIDING SCALE 100 UNITS/ML UNIT SUBQ SCH ×3 (00:18→11:27)
[2017-08-31] MEDS: Albuterol/Ipratropium Neb 3 ML AERS HHN SCH ×3 (00:36→13:52)
[2017-08-31] MEDS: Multivitamin w/ Minerals Tab PO SCH (09:03)
[2017-08-31] MEDS: Ferrous Sulfate 325 MG TAB PO SCH (09:03)
[2017-08-31] MEDS: Potassium Chloride Elixir 20 mEq /15 mL UDC PO SCH (09:03)
[2017-08-31] MEDS: Insulin Detemir 100 units/mL 10mL Vial SUBQ SCH (09:15)
--- NOTE | 2017-08-31 09:59 | General Progress Note ---
Subjective - Review of Systems Events since last encounter: admitted for uncontrolled glucose in no distress Objective - Results Result Diagrams: 08/29/17 04:53 08/29/17 04:53 Recent Labs: Laboratory Last Values WBC 7.1 Th/cmm (4.8-10.8) 08/29/17 04:53 RBC 3.20 Mil/cmm (3.80-5.10) L 08/29/17 04:53 Hgb 10.1 gm/dL (12-16) L 08/29/17 04:53 Hct 30.4 % (41.0-60) L D 08/29/17 04:53 MCV 95.1 fl (81-100) 08/29/17 04:53 MCH 31.6 pg (27.0-31.0) H 08/29/17 04:53 MCHC Differential 33.2 pg (28.0-36.0) 08/29/17 04:53 RDW 13.7 % (11.5-20.0) 08/29/17 04:53 Plt Count 476 Th/cmm (150-400) H 08/29/17 04:53 MPV 7.2 fl 08/29/17 04:53 Neutrophils % 72.9 % (40.0-80.0) 08/29/17 04:53 Lymphocytes % 15.9 % (20.0-50.0) L 08/29/17 04:53 Monocytes % 9.9 % (2.0-10.0) 08/29/17 04:53 Eosinophils % 0.8 % (0.0-5.0) 08/29/17 04:53 Basophils % 0.5 % (0.0-2.0) 08/29/17 04:53 Specimen Source arterial 08/28/17 20:15 Sample Site right radial 08/28/17 20:15 pH 7.36 (7.35-7.45) 08/28/17 20:15 pCO2 28.0 mmHg (35.0-45.0) L 08/28/17 20:15 pO2 97.0 mmHg (80.0-100.0) 08/28/17 20:15 HCO3 18.5 mEq/L (20.0-26.0) L 08/28/17 20:15 Base Excess -8.3 mEq/L (-3.0-3.0) L 08/28/17 20:15 O2 Saturation 97.0 % (92.0-100.0) 08/28/17 20:15 Ananth Test positive 08/28/17 20:15 Vent Rate na 08/28/17 20:15 Inspired O2 21 08/28/17 20:15 Tidal Volume na 08/28/17 20:15 PEEP na 08/28/17 20:15 Pressure (ins/psv/peep) na 08/28/17 20:15 Critical Value sc 08/28/17 20:15 Sodium 129 mEq/L (136-145) L 08/29/17 04:53 Potassium 4.5 mEq/L (3.5-5.1) 08/29/17 04:53 Chloride 101 mEq/L (98-107) 08/29/17 04:53 Carbon Dioxide 18.3 mEq/L (21.0-31.0) L 08/29/17 04:53 Anion Gap 14.2 (7.0-16.0) 08/29/17 04:53 BUN 31 mg/dL (7-25) H 08/29/17 04:53 Creatinine 1.1 mg/dL (0.6-1.2) 08/29/17 04:53 Est GFR ( Amer) > 60.0 ml/min (>90) 08/29/17 04:53 Est GFR (Non-Af Amer) 57.1 ml/min 08/29/17 04:53 BUN/Creatinine Ratio 28.2 08/29/17 04:53 Glucose 590 mg/dL (70-105) H* 08/29/17 13:00 POC Glucose 352 MG/DL (70 - 105) H 08/31/17 06:00 Whole Bld Lactic Acid 1.14 mmol/L (0.60-1.99) 08/29/17 01:10 Calcium 9.0 mg/dL (8.6-10.3) 08/29/17 04:53 Total Bilirubin 0.3 mg/dL (0.3-1.0) 08/28/17 19:45 AST 20 U/L (13-39) 08/28/17 19:45 ALT 28 U/L (7-52) 08/28/17 19:45 Alkaline Phosphatase 104 U/L (34-104) 08/28/17 19:45 Total Protein 8.4 gm/dL (6.0-8.3) H 08/28/17 19:45 Albumin 4.5 gm/dL (3.7-5.3) 08/28/17 19:45 Globulin 3.9 gm/dL 08/28/17 19:45 Albumin/Globulin Ratio 1.2 (1.0-1.8) 08/28/17 19:45 Triglycerides 60 mg/dL (<150) 08/29/17 04:53 Cholesterol 153 mg/dL (<200) 08/29/17 04:53 LDL Cholesterol Direct 80 mg/dL (75-193) 08/29/17 04:53 HDL Cholesterol 63 mg/dL (23-92) 08/29/17 04:53 Urine Source RANDOM 08/28/17 19:40 Urine Color YELLOW 08/28/17 19:40 Urine Clarity CLEAR (CLEAR) 08/28/17 19:40 Urine pH 5.5 (4.6 - 8.0) 08/28/17 19:40 Ur Specific [place] 1.010 (1.005-1.030) 08/28/17 19:40 Urine Protein NEGATIVE mg/dL (NEGATIVE) 08/28/17 19:40 Urine Glucose (UA) >=1000 mg/dL (NEGATIVE) H 08/28/17 19:40 Urine Ketones >=80 mg/dL (NEGATIVE) H 08/28/17 19:40 Urine Blood NEGATIVE (NEGATIVE) 08/28/17 19:40 Urine Nitrate NEGATIVE (NEGATIVE) 08/28/17 19:40 Urine Bilirubin NEGATIVE (NEGATIVE) 08/28/17 19:40 Urine Urobilinogen 0.2 E.U./dL (0.2 - 1.0) 08/28/17 19:40 Ur Leukocyte Esterase NEGATIVE (NEGATIVE) 08/28/17 19:40 Urine RBC NONE SEEN /hpf (0-5) 08/28/17 19:40 Urine WBC 0-2 /hpf (0-5) 08/28/17 19:40 Ur Epithelial Cells OCCASIONAL /lpf (FEW) 08/28/17 19:40 Urine Bacteria NONE SEEN /hpf (NONE SEEN) 08/28/17 19:40 Urine Yeast OCCASIONAL /hpf (NONE SEEN) 08/28/17 19:40 POC Ur Test Negative 08/28/17 19:41 - Physical Exam Vitals and I&O: Vital Signs Temp 98.1 F 08/31/17 09:00 Pulse 85 08/31/17 09:05 Resp 17 08/31/17 09:00 BP 106/50 08/31/17 09:05 Pulse Ox 97 08/31/17 09:00 Intake & Output 08/30/17 08/31/17 08/31/17 18:59 06:59 18:59 Intake Total 800 Balance 800 Weight (lbs) 52.617 kg 53.932 kg Intake: Oral 800 Other: # Voids 2 3 # Bowel Movements 1 Stool Characteristics Soft Soft Soft Formed Formed Formed Brown Brown Brown Active Medications: Current Medications Acetaminophen (Tylenol) 650 mg PO Q4HR PRN PRN Reason: Mild Pain or Fever >101 Stop: 10/28/17 08:22 Last Admin: 08/29/17 11:00 Dose: 650 mg Acetaminophen (Tylenol Extra Strength) 1,000 mg PO Q4H PRN PRN Reason: Pain (Moderate) Stop: 10/28/17 08:22 Albuterol/Ipratropium (Duoneb Neb) 3 ml HHN Q6HRT [facility] Stop: 10/28/17 12:59 Last Admin: 08/31/17 07:51 Dose: 3 ml Ascorbic Acid (Vitamin C) 500 mg PO DAILY [facility] Stop: 10/28/17 08:59 Last Admin: 08/31/17 09:04 Dose: Not Given Azathioprine (Imuran) 50 mg PO TID [facility] PRN Reason: Protocol Stop: 10/28/17 08:59 Last Admin: 08/31/17 09:06 Dose: 50 mg Bisacodyl (Dulcolax 10 Mg Supp) 10 mg RC DAILY PRN PRN Reason: Constipation Stop: 10/28/17 08:22 Clonidine HCl ([id number]) 1 patch TD Sa [facility] Stop: 11/02/17 08:22 Docusate Sodium (Colace) 100 mg PO DAILY PRN PRN Reason: Constipation Stop: 10/28/17 08:22 Famotidine (Pepcid) 20 mg PO BID [facility] Stop: 10/28/17 08:59 Last Admin: 08/31/17 09:04 Dose: 20 mg Ferrous Sulfate (Iron) 325 mg PO BID [facility] Stop: 10/28/17 08:59 Last Admin: 08/31/17 09:03 Dose: Not Given Glyburide (Diabeta) 5 mg PO DAILY [facility] Stop: 10/28/17 08:59 Last Admin: 08/31/17 09:03 Dose: 5 mg Hydralazine HCl (Apresoline) 50 mg PO TID [facility] Stop: 10/28/17 08:59 Last Admin: 08/31/17 09:05 Dose: 50 mg Sodium Chloride (Nacl 0.9%) 1,000 mls @ 50 mls/hr IV .Q20H [facility] Stop: 10/27/17 21:55 Last Admin: 08/30/17 12:20 Dose: 50 mls/hr Insulin Aspart (Novolog Insulin Sliding Scale) 0 units SUBQ Q6HR [facility] PRN Reason: Protocol Stop: 10/28/17 11:59 Last Admin: 08/31/17 06:08 Dose: 12 units Insulin Detemir (Levemir Insulin) 12 units SUBQ DAILY [facility] PRN Reason: Protocol Stop: 10/28/17 08:59 Last Admin: 08/31/17 09:15 Dose: 12 units Magnesium Hydroxide (Milk Of Magnesia) 30 ml PO PRN PRN Reason: Constipation Stop: 10/28/17 08:22 Metformin HCl (Glucophage) 850 mg PO BID [facility] Stop: 10/28/17 08:59 Last Admin: 08/31/17 09:04 Dose: 850 mg Metoclopramide HCl (Reglan) 10 mg PO Q8H PRN PRN Reason: Nausea / Vomiting Stop: 10/28/17 08:22 Metoprolol Tartrate (Lopressor) 25 mg PO BID [facility] Stop: 10/28/17 08:59 Last Admin: 08/31/17 09:05 Dose: 25 mg Ondansetron HCl (Zofran Odt) 4 mg PO Q6H PRN PRN Reason: Nausea Potassium Chloride (Potassium Chloride Elixir) 20 meq PO DAILY [facility] Stop: 10/28/17 08:59 Last Admin: 08/31/17 09:03 Dose: Not Given Pyridostigmine [place] (Mestinon) 180 mg PO Q8HR [facility] Stop: 10/28/17 12:59 Last Admin: 08/31/17 05:53 Dose: 180 mg Senna (Senna) 17.2 mg PO DAILY [facility] Stop: 10/28/17 08:59 Last Admin: 08/31/17 09:04 Dose: Not Given Simvastatin (Zocor) 5 mg PO HS [facility] PRN Reason: Protocol Stop: 10/28/17 20:59 Last Admin: 08/30/17 20:52 Dose: 5 mg Sodium Phosphate (Fleet Enema) 135 ml RC DAILY PRN PRN Reason: IF DULCOLAX SUP. INEFFECTIVE Stop: 10/28/17 08:22 Zinc Sulfate (Zinc Sulfate) 220 mg PO DAILY [facility] Stop: 10/28/17 08:59 Last Admin: 08/31/17 09:03 Dose: Not Given General: No acute distress HEENT: Atraumatic Neck: Supple Cardiovascular: Regular rate, Normal S1 Lungs: Clear to auscultation - Procedures Procedures: Procedures Procedure Code Date EMERGENCY DEPT VISIT 92319 08/07/11 INJECT/INFUSE NEC 99.29 02/22/10 Assessment/Plan - Problem List Patient Problems: All Active Problems Diabetes type 2, uncontrolled (Acute) E11.65 Myasthenia gravis (Acute) G70.00 Respiratory failure (Acute) J96.90 Uncontrolled blood glucose (Acute) R73.09 - Plan Plan: as per order sheet Nutritional Asmnt/Malnutr-PDOC - Dietary Evaluation Malnutrition Findings (Please click <Entered> for more info): Nutritional Asmnt/Malnutrition Start: 08/29/17 15: 44 Text: Status: Complete Freq: Document 08/29/17 15:44 LCHENG (Rec: 08/29/17 16:08 DANETTEG [email or web address]) Nutritional Asmnt/Malnutrition Patient General Information Nutritional Screening High Risk Consult Diagnosis uncontrolled diabetes, mellitus Pertinent Medical Hx/Surgical Hx HTN, DM type1, Asthma/COPD, PVD, anemia, sacral wounds, right second toe gangrene, tracheostomy Subjective Information Consult received for diabetic, ischemic wounds on toes. Pt seen lying in bed at time of visit, reported appetite ok. Current Diet Order/ Nutrition Support CCHO 60gm Pertinent Medications vitamin C, colace, iron, novolog, levemir, kcl, senna, nacl 0.9%, zinc Pertinent Labs 08/29 Na 129, K 4.5, Cl 101, BUN 31, Cr 1.1, Glucose 199- 590, POC 442-597 Nutritional Hx/Data Height 1.7 m Height (Calculated Centimeters) 170.2 Current Weight (lbs) 52.844 kg Weight (Calculated Kilograms) 52.8 Weight (Calculated Grams) 96522.5 [place] Body Weight 135 % [place] Body Weight 86 Body Mass Index (BMI) 18.2 Weight Status Underweight GI Symptoms GI Symptoms None Last BM no record Difficult in: None Skin Integrity/Comment: ulceration to right toe and left first toe scar to sacrum Estimated Nutritional Goals Calories/Kcals/Kg 25-30 Kcals Calculated 2444-9892 Protein g/k-1.2 Protein Calculated 61-73 Fluid: ml 1525-1830ml (1ml/ckal) Nutritional Problem 1. Problem Problem altered nutrition related lab values Etiology hx of type 1 diabetes Signs/Symptoms: Glucose 199-590, POC 442-592 2. Problem Problem increased nutrition needs ( protein) Etiology increased metabolic demand for wound healing Signs/Symptoms: ischemic wounds on toes Malnutrition Alert Protein-Calorie Malnutrition N/A Is there a minimum of two criteria No selected? Query Text:Check all the applicable criteria. A minimum of two criteria are recommended for diagnosis of either severe or non-severe malnutrition. Intervention/Recommendation Comments 1. Recommend CCHO 45gm diet for better glucose control. RN made aware. Adjust insulin per MD order. 2. Monitor PO intake, wt, labs and skin integrity 3. F/U as high risk in 2-3 days, 08/31-09/01 Expected Outcomes/Goals Expected Outcomes/Goals 1. PO intake to meet at least 75% of nutritional needs. 2. Wt stability, skin to remain intact, labs to improve
[2017-09-03] MEDS ORDERED: cloNIDine 0.1 mg/24 hr Tdm TD SCH (08:23)
== END 2017-08-31 15:18 | disposition home or self-care (01) | DRG 420 ==
LOC: ER 19:03 → TELE 21:34
PROVIDERS: ADMIT Internal Medicine; ATTEND Internal Medicine
DX: E11.65 Type 2 diabetes mellitus with hyperglycemia (principal); J96.90 Respiratory failure, unspecified, unspecified whether with hypoxia or hypercapnia; G70.00 Myasthenia gravis without (acute) exacerbation; I10 Essential (primary) hypertension; E11.51 Type 2 diabetes mellitus with diabetic peripheral angiopathy without gangrene; J44.9 Chronic obstructive pulmonary disease, unspecified; Z93.0 Tracheostomy status; Z82.49 Family history of ischemic heart disease and other diseases of the circulatory system; Z79.4 Long term (current) use of insulin
CPT/HCPCS: 36415-UA; 36600-90; 71045-TC; 80048-TC; 80053-TC; 80061-TC; 81001-TC; 81025-TC; 82803-TC; 82947-TC; 82948-90; 83605; 85025-TC; 87086-90; 93005; 94640; 94760; J1815; J7030; J7500; Z7610

== ENCOUNTER 2017-12-07 13:25 | Inpatient (IN) | payer MEDICAID ==
--- NOTE | 2017-12-07 14:05 | ED Physician Chart ---
ED Chief Complaint/HPI - Patient Information Date Seen:: 12/07/17 Time Seen:: 13:40 Chief Complaint:: Toe pain History of Present Illness:: onset x 3 days of Right 2nd Toe pain; pt denies trauma, weakness, dizziness, vertigo, H/As, neck pain, paresthesias, C/P, SOBB, Abd. Pain, A/N/V/D/C, fever, chills, or urinary s/s; pt's last tetanus shot: < 5 years; UTD Allergies:: Allergies Allergy/AdvReac Type Severity Reaction Status Date / Time No Known Allergies Allergy Verified 08/28/17 19:20 Historian:: Patient, EMS Review:: Nurse's Note Reviewed, Old Chart Reviewed, EMS run form Reviewed ED Review of Systems - Review of Systems General/Constitutional: No fever, No chills, No weight loss, No weakness, No diaphoresis, No edema, No loss of appetite Skin: Skin lesions, No rash, No bruising Head: No headache, No light-headedness Eyes: No loss of vision, No pain, No diplopia ENT: No earache, No nasal drainage, No sore throat, No tinnitus Neck: No neck pain, No swelling, No thyromegaly, No stiffness, No mass noted Cardio Vascular: No chest pain, No palpitations, No PND, No orthopnea, No edema Pulmonary: No SOB, No cough, No sputum, No wheezing GI: No nausea, No vomiting, No diarrhea, No pain, No melena, No hematochezia, No constipation, No hematemesis G/U: No dysuria, No frequency, No hematuria, No nacturia [place]: No vaginal discharge, No abnormal vaginal bleed, No contraction Musculoskeletal: No bone or joint pain, No back pain, No muscle pain Endocrine: No polyuria, No polydipsia Psychiatric: No prior psych history, No depression, No anxiety, No suicidal ideation, No homicidal ideation, No auditory hallucination, No visual hallucination Hematopoietic: No bruising, No lymphadenopathy Allergic/Immuno: No urticaria, No angioedema Neurological: No syncope, No focal symptoms, No weakness, No paresthesia, No headache, No seizure, No dizziness, No confusion, No vertigo ED Past Medical History - Past Medical History Obtainable: Yes Past Medical History: HTN, DM, Asthma/COPD, Dyslipidemia, Other (Respiratory Failure; Myasthenia Gravis) Family History: Diabetes Melitus, HTN Social History: Non Smoker, No Alcohol, No Drug Use, Single, Care Facility Surgical History: None Psychiatricy History: None Medication: Reviewed Family Medical History - Family Member Mother History Unknown: Yes Ethnicity: Non- Living Status: Hx Family Congestive Heart Failure: Yes Father History Unknown: Yes Ethnicity: Non- Living Status: ED Physical Exam - Physical Examination General/Constitutional: Awake, Well-developed, well-nourished, Alert, No distress, GCS 15, Non-toxic appearing, Ambulatory Head: Atraumatic Eyes: Lids, conjuctiva normal, PERRL, EOMI Skin: Nl inspection, No rash, No skin lesions, No ecchymosis, Well hydrated, No lymphadenopathy ENMT: External ears, nose nl, TM canals nl, Nasal exam nl, Lips, teeth, gums nl , Oropharynx nl, Tonsils nl Neck: Nontender, Full ROM w/o pain, No JVD, No nuchal rigidity, No bruit, No mass, No stridor Respiratory: Nl effort/Exclusion, Clear to Auscultation, No Wheeze/Rhonchi/Rales Cardio Vascular: RRR, No murmur, gallop, rubs, NL S1 S2 GI: No tenderness/rebounding/guarding, No organomegaly, No hernia, Normal BS's, Nondistended, No mass/bruits, No McBurney tenderness : No CVA tenderness Extremities: No tenderness or effusion, Full ROM, normal strength in all extremities, No edema, Normal digits & nails Other Extremities comments:: + Right 2nd Toe Gangrene and Cellulitis Neuro/Psych: Alert/oriented, DTR's symmetric, Normal sensory exam, Normal motor strength, Judgement/insight normal, Mood normal, Normal gait, No focal deficits Misc: Normal back, No paraspinal tenderness ED Labs/Radiology/EKG Results - Lab Results Comments:: H/H: 11.3/35.1; LA: 2.83; Na+: 128; BUN: 36; U/A: + Pyuria; Glucose: 207 - EKG Interpretations EKG Time:: 14:12 Rate & Rhythm: 85; NSR Comments:: non-specific st-t changes ED Septic Shock - . Is Septic Shock (SBP<90, OR Lactate>4 mmol\L) present?: No ED Reassessment (Disposition) - Reassessment Reassessment Condition:: Improved - Diagnosis Diagnosis:: Dx: Gangrene; Cellulitis; DM; UTI; Anemia; Hyponatremia; Sepsis; Dehydration; Uncontrolled DM - Aftercare/Follow up Instructions Aftercare/Follow-Up Instructions:: Counseled pt regarding lab results/diagnosis & need follow up, Counseled pt & family regarding lab results/diagnosis & need follow up - Patient Disposition Discharge/Transfer:: Acute Care w/in this hosp Accepting Physician:: Dr. Shoaib Ramesh Time Called:: [phone] Time Responded:: 17:30 Admitted to:: Med/Surg Spoke to:: Dr. Shoaib Ramesh Admitting Medical Physician:: Dr. Shoaib Ramesh Condition at Disposition:: Stable, Improved
[2017-12-07] MEDS ORDERED: Sodium Chloride 0.9% 1,000 ML IV ONE (14:06)
[2017-12-07] MEDS ORDERED: cefTRIAXone 1 GM in Sodium Chloride 0.9% 50 ML IV ONE (14:06)
[2017-12-07 14:52] LABS: % BASOPHILS 0.4 % (0.0-2.0); % EOSINOPHILS 3.1 % (0.0-5.0); % LYMPHOCYTES 14.9 % (20.0-50.0); % MONOCYTES 6.4 % (2.0-10.0); % NEUTROPHILS 75.2 % (40.0-80.0); EOSINOPHILE ABSOLUTE 0.2 Th/cmm (0.1-0.4); HEMATOCRIT 35.1 % (41.0-60); HEMOGLOBIN 11.3 gm/dL (12-16); LYMPHOCYTE ABSOLUTE 0.9 Th/cmm (1.5-3.0); MEAN CELL VOLUME 89.4 fl (81-100); MEAN CORPUSCULAR HEMOGLOBIN 28.8 pg (27.0-31.0); MEAN CORPUSCULAR HGB CONC 32.2 pg (28.0-36.0); MEAN PLATELET VOLUME 7.1 fl; MONOCYTE ABSOLUTE 0.4 Th/cmm (0.3-1.0); NEUTROPHILE ABSOLUTE 4.4 Th/cmm (1.8-8.0); PLATELET COUNT 644 Th/cmm (150-400); RED BLOOD COUNT 3.92 Mil/cmm (3.80-5.10); RED CELL DISTRIBUTION WIDTH 15.7 % (11.5-20.0); WHITE BLOOD COUNT 5.9 Th/cmm (4.8-10.8)
[2017-12-07 15:00] LABS: ALBUMIN 4.3 gm/dL (3.7-5.3); ALKALINE PHOSPHATASE 111 U/L (34-104); ANION GAP 15.3 (7.0-16.0); BILIRUBIN,TOTAL 0.1 mg/dL (0.3-1.0); BUN - UREA NITROGEN 36 mg/dL (7-25); CALCIUM SERUM 10.5 mg/dL (8.6-10.3); CHLORIDE 96 mEq/L (98-107); CREATININE KINASE 51 U/L (30-223); POTASSIUM SERUM 4.3 mEq/L (3.5-5.1); SGOT 36 U/L (13-39); SGPT/ALT 23 U/L (7-52); SODIUM SERUM 128 mEq/L (136-145)
[2017-12-07 15:06] LABS: INR 1.05 (0.5-1.4); PROTHROMBIN TIME (TEST) 10.9 SECONDS (9.5-11.5)
[2017-12-07 15:16] LABS: GFR AFRICAN-AMERICAN > 60.0 ml/min (>90); GFR NON AFRICAN-AMERICAN > 60.0 ml/min; GLUCOSE 207 mg/dL (70-105); TOTAL PROTEIN,SERUM 9.4 gm/dL (6.0-8.3)
[2017-12-07 15:31] LABS: ALB/GLOB RATIO 0.8 (1.0-1.8)
[2017-12-07 15:44] LABS: URINE MICROSCOPIC INDICATED? YES; URINE SOURCE MIDSTREAM
[2017-12-07 15:54] LABS: URINE BILIRUBIN NEGATIVE (NEGATIVE); URINE BLOOD NEGATIVE (NEGATIVE); URINE GLUCOSE (UA) 100 mg/dL (NEGATIVE); URINE KETONE NEGATIVE (NEGATIVE); URINE LEUKOCYTE ESTERASE MODERATE (NEGATIVE); URINE NITRATE NEGATIVE (NEGATIVE); URINE PROTEIN 100 mg/dL (NEGATIVE); URINE UROBILINOGEN 0.2 E.U./dL (0.2 - 1.0)
[2017-12-07 15:57] LABS: URINE CLARITY CLOUDY (CLEAR); URINE COLOR LIGHT YELLOW
[2017-12-07 15:58] LABS: URINE RBC 0-2 /hpf (0-5)
[2017-12-07 15:59] LABS: URINE BACTERIA FEW /hpf (NONE SEEN); URINE EPITHELIAL CELLS MANY /lpf (FEW); URINE WBC 25-50 /hpf (0-5)
[2017-12-07] MEDS: Sodium Chloride 0.9% 1,000 ML IV SCH (19:12)
[2017-12-07 19:21] VITALS: BP 162/77
[2017-12-08] MEDS: Morphine Sulfate 4 mg/mL 1mL Syr IVP PRN ×2 (01:36→23:01)
[2017-12-08] MEDS: Sodium Chloride 0.9% 1,000 ML IV SCH ×2 (04:00→17:08)
[2017-12-08 06:32] LABS: % BASOPHILS 1.2 % (0.0-2.0); % EOSINOPHILS 3.7 % (0.0-5.0); % LYMPHOCYTES 12.9 % (20.0-50.0); % MONOCYTES 11.3 % (2.0-10.0); % NEUTROPHILS 70.9 % (40.0-80.0); BASOPHILE ABSOLUTE 0.1 Th/cumm (0-0.2); EOSINOPHILE ABSOLUTE 0.2 Th/cmm (0.1-0.4); HEMATOCRIT 30.2 % (41.0-60); LYMPHOCYTE ABSOLUTE 0.6 Th/cmm (1.5-3.0); MEAN CELL VOLUME 88.6 fl (81-100); MEAN CORPUSCULAR HEMOGLOBIN 29.4 pg (27.0-31.0); MEAN CORPUSCULAR HGB CONC 33.2 pg (28.0-36.0); MEAN PLATELET VOLUME 7.2 fl; MONOCYTE ABSOLUTE 0.5 Th/cmm (0.3-1.0); NEUTROPHILE ABSOLUTE 3.4 Th/cmm (1.8-8.0); PLATELET COUNT 591 Th/cmm (150-400); RED CELL DISTRIBUTION WIDTH 15.7 % (11.5-20.0); WHITE BLOOD COUNT 4.8 Th/cmm (4.8-10.8)
[2017-12-08 06:48] LABS: ALB/GLOB RATIO 0.8 (1.0-1.8); ALBUMIN 3.4 gm/dL (3.7-5.3); ALKALINE PHOSPHATASE 85 U/L (34-104); BILIRUBIN,TOTAL 0.2 mg/dL (0.3-1.0); BUN - UREA NITROGEN 27 mg/dL (7-25); CALCIUM SERUM 9.3 mg/dL (8.6-10.3); CARBON DIOXIDE 21.3 mEq/L (21.0-31.0); CHLORIDE 102 mEq/L (98-107); GFR AFRICAN-AMERICAN > 60.0 ml/min (>90); GFR NON AFRICAN-AMERICAN > 60.0 ml/min; POTASSIUM SERUM 4.3 mEq/L (3.5-5.1); SGOT 25 U/L (13-39); SGPT/ALT 22 U/L (7-52); SODIUM SERUM 130 mEq/L (136-145); TOTAL PROTEIN,SERUM 7.6 gm/dL (6.0-8.3)
[2017-12-08] MEDS: INSULIN ASPART SLIDING SCALE 100 UNITS/ML UNIT SUBQ SCH ×4 (06:49→21:00)
[2017-12-08 07:00] LABS: GLUCOSE 418 mg/dL (70-105)
[2017-12-08] MEDS: Hydrocodone/APAP 10 mg/325 mg Tab PO PRN (09:19)
[2017-12-08] MEDS ORDERED: cloNIDine 0.1 mg/24 hr Tdm TD SCH (11:30)
--- NOTE | 2017-12-08 11:36 | General Progress Note ---
Subjective - Review of Systems Service Date: 12/08/17 Events since last encounter: claims right 2nd toe gangrene for 9 months (?) has poorly controlled DM Plan: amputation of right 2nd toe tomorrow Objective - Results Result Diagrams: 12/08/17 05:55 12/08/17 05:55 Recent Labs: Laboratory Last Values WBC 4.8 Th/cmm (4.8-10.8) 12/08/17 05:55 RBC 3.40 Mil/cmm (3.80-5.10) L 12/08/17 05:55 Hgb 10.0 gm/dL (12-16) L 12/08/17 05:55 Hct 30.2 % (41.0-60) L 12/08/17 05:55 MCV 88.6 fl (81-100) 12/08/17 05:55 MCH 29.4 pg (27.0-31.0) 12/08/17 05:55 MCHC Differential 33.2 pg (28.0-36.0) 12/08/17 05:55 RDW 15.7 % (11.5-20.0) 12/08/17 05:55 Plt Count 591 Th/cmm (150-400) H 12/08/17 05:55 MPV 7.2 fl 12/08/17 05:55 Neutrophils % 70.9 % (40.0-80.0) 12/08/17 05:55 Lymphocytes % 12.9 % (20.0-50.0) L 12/08/17 05:55 Monocytes % 11.3 % (2.0-10.0) H 12/08/17 05:55 Eosinophils % 3.7 % (0.0-5.0) 12/08/17 05:55 Basophils % 1.2 % (0.0-2.0) 12/08/17 05:55 PT 10.9 SECONDS (9.5-11.5) 12/07/17 14:30 INR 1.05 (0.5-1.4) 12/07/17 14:30 PTT (Actin FS) 26.2 SECONDS (26.0-38.0) 12/07/17 14:30 Sodium 130 mEq/L (136-145) L 12/08/17 05:55 Potassium 4.3 mEq/L (3.5-5.1) 12/08/17 05:55 Chloride 102 mEq/L (98-107) 12/08/17 05:55 Carbon Dioxide 21.3 mEq/L (21.0-31.0) 12/08/17 05:55 Anion Gap 11.0 (7.0-16.0) 12/08/17 05:55 BUN 27 mg/dL (7-25) H 12/08/17 05:55 Creatinine 1.0 mg/dL (0.6-1.2) 12/08/17 05:55 Est GFR ( Amer) > 60.0 ml/min (>90) 12/08/17 05:55 Est GFR (Non-Af Amer) > 60.0 ml/min 12/08/17 05:55 BUN/Creatinine Ratio 27.0 12/08/17 05:55 Glucose 418 mg/dL (70-105) H D 12/08/17 05:55 POC Glucose 400 MG/DL (70 - 105) H 12/08/17 05:38 Whole Bld Lactic Acid 2.93 mmol/L (0.60-1.99) H* 12/07/17 16:30 Calcium 9.3 mg/dL (8.6-10.3) 12/08/17 05:55 Total Bilirubin 0.2 mg/dL (0.3-1.0) L 12/08/17 05:55 AST 25 U/L (13-39) 12/08/17 05:55 ALT 22 U/L (7-52) 12/08/17 05:55 Alkaline Phosphatase 85 U/L (34-104) 12/08/17 05:55 Creatine Kinase 51 U/L (30-223) 12/07/17 14:30 Troponin I 0.01 ng/mL (0.01-0.05) 12/07/17 14:30 Total Protein 7.6 gm/dL (6.0-8.3) 12/08/17 05:55 Albumin 3.4 gm/dL (3.7-5.3) L 12/08/17 05:55 Globulin 4.2 gm/dL 12/08/17 05:55 Albumin/Globulin Ratio 0.8 (1.0-1.8) L 12/08/17 05:55 Serum , Qual NEGATIVE (NEGATIVE) 12/07/17 14:30 Urine Source [place] 12/07/17 15:25 Urine Color LIGHT YELLOW 12/07/17 15:25 Urine Clarity CLOUDY (CLEAR) H 12/07/17 15:25 Urine pH 6.0 (4.6 - 8.0) 12/07/17 15:25 Ur Specific [place] 1.015 (1.005-1.030) 12/07/17 15:25 Urine Protein 100 mg/dL (NEGATIVE) H 12/07/17 15:25 Urine Glucose (UA) 100 mg/dL (NEGATIVE) H 12/07/17 15:25 Urine Ketones NEGATIVE mg/dL (NEGATIVE) 12/07/17 15:25 Urine Blood NEGATIVE (NEGATIVE) 12/07/17 15:25 Urine Nitrate NEGATIVE (NEGATIVE) 12/07/17 15:25 Urine Bilirubin NEGATIVE (NEGATIVE) 12/07/17 15:25 Urine Urobilinogen 0.2 E.U./dL (0.2 - 1.0) 12/07/17 15:25 Ur Leukocyte Esterase MODERATE (NEGATIVE) H 12/07/17 15:25 Urine RBC 0-2 /hpf (0-5) 12/07/17 15:25 Urine WBC 25-50 /hpf (0-5) H 12/07/17 15:25 Ur Epithelial Cells MANY /lpf (FEW) 12/07/17 15:25 Urine Bacteria FEW /hpf (NONE SEEN) 12/07/17 15:25 - Physical Exam Vitals and I&O: Vital Signs Temp 98.3 F 12/08/17 04:00 Pulse 86 12/08/17 09:04 Resp 17 12/08/17 08:12 BP 121/65 12/08/17 09:04 Pulse Ox 94 12/08/17 04:00 Intake & Output 12/07/17 12/08/17 12/08/17 18:59 06:59 18:59 Intake Total 1300 Balance 1300 Weight (lbs) 54.431 kg Intake: Intake, IV Amount 1100 Piperacillin Sodium/ 100 Tazobact 4.5 gm In Sodium Chloride 0.9% 100 ml @ 100 mls/hr IV Q8HR [facility] Rx #:[id number] Sodium Chloride 0.9% 1, 1000 000 ml @ 125 mls/hr IV . Q8H [facility] Rx#:[id number] Oral 200 Other: # Voids 3 # Bowel Movements 0 Stool Characteristics Soft Soft Formed Formed Weight Source Bedscale Active Medications: Current Medications Acetaminophen (Tylenol) 650 mg PO Q6H PRN PRN Reason: Pain or Fever >101 Stop: 02/06/18 01:56 Acetaminophen/Hydrocodone Bitart ([place] 10 Mg/325 Mg) 1 tab PO Q6H PRN PRN Reason: Pain (Moderate) Stop: 02/06/18 01:53 Last Admin: 12/08/17 09:19 Dose: 1 tab Azathioprine (Imuran) 50 mg PO TID [facility] PRN Reason: Protocol Stop: 02/06/18 08:59 Last Admin: 12/08/17 09:06 Dose: 50 mg Sodium Chloride (Nacl 0.9%) 1,000 mls @ 125 mls/hr IV .Q8H [facility] Stop: 02/05/18 17:29 Last Admin: 12/08/17 04:00 Dose: 125 mls/hr Piperacillin Sod/Tazobactam (Sod 4.5 gm/ Sodium Chloride) 100 mls @ 100 mls/hr IV Q8HR [facility] Stop: 02/05/18 20:59 Last Admin: 12/08/17 05:34 Dose: 100 mls/hr Vancomycin HCl 1 gm/ Sodium (Chloride) 250 mls @ 165 mls/hr IV Q12H [facility] Stop: 02/06/18 08:59 Last Admin: 12/08/17 09:11 Dose: 165 mls/hr Insulin Aspart (Novolog Insulin Sliding Scale) 0 units SUBQ ACHS [facility] PRN Reason: Protocol Stop: 02/06/18 07:29 Last Admin: 12/08/17 06:49 Dose: 10 units Metoprolol Tartrate (Lopressor) 25 mg PO BID [facility] Stop: 02/06/18 08:59 Last Admin: 12/08/17 09:04 Dose: 25 mg Miscellaneous (Vancomycin Iv Per Pharmacy) 1 ea [facility] PRN PRN PRN Reason: PROTOCOL Stop: 02/05/18 17:19 Morphine Sulfate (Morphine) 1 mg IVP Q6H PRN PRN Reason: Pain (Severe) Stop: 02/06/18 01:15 Last Admin: 12/08/17 01:36 Dose: 1 mg Pyridostigmine [place] (Mestinon) 180 mg PO TID [facility] Stop: 02/06/18 08:59 Last Admin: 12/08/17 09:05 Dose: 180 mg - Procedures Procedures: Procedures Procedure Code Date EMERGENCY DEPT VISIT 01232 08/07/11 INJECT/INFUSE NEC 99.29 02/22/10
--- NOTE | 2017-12-08 12:42 | Diagnostic Imaging Report ---
Right lower extremity Doppler arterial ultrasound exam HISTORY: Pain, peripheral arterial/vascular disease Sonographic sector images were obtained through the arterial systems of the right leg. Associated Doppler data was obtained. The exam of the right leg demonstrates triphasic waveforms within the common femoral, superficial femoral, popliteal arteries. Abnormal monophasic waveforms are noted within the right anterior tibial, posterior tibial, dorsalis pedis arteries. Elevated velocities noted below the knee. However, the ankle-brachial index remains normal (0.9). Mild to moderate diffuse atherosclerotic changes noted throughout the arterial system. Findings somewhat more pronounced below the knee. IMPRESSION: 1. Mild to moderate diffuse atherosclerotic changes more pronounced below the knee. No significant focal narrowing or occlusion identified.
--- NOTE | 2017-12-08 13:04 | History & Physical ---
ADMIT DATE: 12/08/2017 CHIEF COMPLAINT: Right second toe pain and discoloration. HISTORY OF PRESENT ILLNESS: The patient is a 47-year-old female with a past medical history of hypertension, diabetes mellitus type 2, asthma, COPD, dyslipidemia, myasthenia gravis; admitted to the hospital for a right second toe pain with discoloration of the right second toe. On initial evaluation, the patient's temperature was 97.2 degree Fahrenheit and WBC count was 5900. Her lactic acid also elevated to 2.83 and 2.93. PAST MEDICAL HISTORY: Diabetes mellitus type 2, COPD, asthma, myasthenia gravis, and history of respiratory failure. ALLERGIES: NKDA. MEDICATIONS: See medication reconciliation sheet. SOCIAL HISTORY: The patient lives at home. Denies any smoking, alcohol or drug use. REVIEW OF SYSTEMS: CONSTITUTIONAL: The patient denies any fever or chills. The patient denies any generalized weakness. HEAD, EYES, EARS, NOSE, AND THROAT: The patient denies any diplopia, photophobia, sore throat. RESPIRATORY: The patient denies any cough or shortness of breath. CVS: The patient denies any chest pain or palpitation. GASTROINTESTINAL: The patient denies any nausea, vomiting, diarrhea or constipation. GENITOURINARY: The patient denies any dysuria. MUSCULOSKELETAL: No muscle pain, no joint pain. NEUROLOGIC: No headache, no dizziness, no focal weakness. SKIN: The patient's second toe is gangrenous, black and painful. FAMILY HISTORY: Father has CHF. PHYSICAL EXAMINATION: VITAL SIGNS: Shows current temperature 98.3 degrees Fahrenheit, pulse 86, respirations 17, blood pressure 121/65. GENERAL: The patient is comfortable lying in the bed, not in acute distress. ____ HEAD, EYES, EARS, NOSE, AND THROAT: Head is normocephalic, atraumatic. Oral cavity moist, pink tongue. Eyes: No pallor, no icterus. PERRLA, EOMI. NECK: Supple, no JVD noted. Trachea in midline. CHEST: Bilateral breath sounds. No crackles or wheezing. HEART: S1, S2 within normal limits. Regular rhythm. No murmur, no gallop. ABDOMEN: Soft, nontender, nondistended. Bowel sounds present. EXTREMITIES: No cyanosis, no clubbing, no edema. Right second toe has dark discoloration of the skin. NEUROLOGIC: Alert, awake, oriented x 3. LABORATORY DATA: Current lab shows WBC count is 4800, hemoglobin 10, hematocrit 30.2, platelets are 591,000, neutrophils 71%. Sodium 130, potassium 4.3, chloride 102, bicarbonate is 21, BUN is 27, creatinine 1 and glucose is 400. Lactic acid was 2.93. Urinalysis: Cloudy urine with moderate leukoesterase, WBC 25-50, and bacteria few. IMPRESSION: 1. Right second toe gangrene. 2. Diabetes mellitus type 2, uncontrolled. 3. History of myasthenia gravis. 4. Dyslipidemia. 5. Urinary tract infection. PLAN: We will start vancomycin and Zosyn. Surgical consult with Dr. Sow was called. IV fluid and continue some medication. Arterial ultrasound. Arterial ultrasound of the right lower extremity. JOB# [id number]
[2017-12-08 18:23] LABS: A1C % 9.3 % (4.0-6.0)
[2017-12-09 07:00] LABS: % BASOPHILS 1.3 % (0.0-2.0); % EOSINOPHILS 2.4 % (0.0-5.0); % LYMPHOCYTES 14.8 % (20.0-50.0); % MONOCYTES 9.1 % (2.0-10.0); % NEUTROPHILS 72.4 % (40.0-80.0); BASOPHILE ABSOLUTE 0.1 Th/cumm (0-0.2); EOSINOPHILE ABSOLUTE 0.1 Th/cmm (0.1-0.4); HEMATOCRIT 28.7 % (41.0-60); HEMOGLOBIN 9.6 gm/dL (12-16); LYMPHOCYTE ABSOLUTE 0.8 Th/cmm (1.5-3.0); MEAN CELL VOLUME 88.6 fl (81-100); MEAN CORPUSCULAR HEMOGLOBIN 29.7 pg (27.0-31.0); MEAN CORPUSCULAR HGB CONC 33.6 pg (28.0-36.0); MEAN PLATELET VOLUME 7.3 fl; MONOCYTE ABSOLUTE 0.5 Th/cmm (0.3-1.0); PLATELET COUNT 576 Th/cmm (150-400); RED BLOOD COUNT 3.24 Mil/cmm (3.80-5.10); RED CELL DISTRIBUTION WIDTH 15.8 % (11.5-20.0); WHITE BLOOD COUNT 5.5 Th/cmm (4.8-10.8)
[2017-12-09] MEDS: INSULIN ASPART SLIDING SCALE 100 UNITS/ML UNIT SUBQ SCH ×4 (07:02→20:56)
[2017-12-09 07:21] LABS: ANION GAP 16.5 (7.0-16.0); BUN - UREA NITROGEN 24 mg/dL (7-25); CALCIUM SERUM 9.3 mg/dL (8.6-10.3); CARBON DIOXIDE 18.5 mEq/L (21.0-31.0); CHLORIDE 100 mEq/L (98-107); CREATININE - SERUM 1.1 mg/dL (0.6-1.2); GFR AFRICAN-AMERICAN > 60.0 ml/min (>90); GFR NON AFRICAN-AMERICAN 57.1 ml/min; GLUCOSE 360 mg/dL (70-105); SODIUM SERUM 131 mEq/L (136-145)
--- NOTE | 2017-12-09 11:00 | Infectious Disease Prog Note ---
Infectious Disease Subjective - Review of Systems Service Date: 12/09/17 Subjective: There is no new change, no fever./ Infectious Disease Objective - Results Result Diagrams: 12/09/17 05:50 12/09/17 05:50 Recent Labs: Laboratory Last Values WBC 5.5 Th/cmm (4.8-10.8) 12/09/17 05:50 RBC 3.24 Mil/cmm (3.80-5.10) L 12/09/17 05:50 Hgb 9.6 gm/dL (12-16) L 12/09/17 05:50 Hct 28.7 % (41.0-60) L 12/09/17 05:50 MCV 88.6 fl (81-100) 12/09/17 05:50 MCH 29.7 pg (27.0-31.0) 12/09/17 05:50 MCHC Differential 33.6 pg (28.0-36.0) 12/09/17 05:50 RDW 15.8 % (11.5-20.0) 12/09/17 05:50 Plt Count 576 Th/cmm (150-400) H 12/09/17 05:50 MPV 7.3 fl 12/09/17 05:50 Neutrophils % 72.4 % (40.0-80.0) 12/09/17 05:50 Lymphocytes % 14.8 % (20.0-50.0) L 12/09/17 05:50 Monocytes % 9.1 % (2.0-10.0) 12/09/17 05:50 Eosinophils % 2.4 % (0.0-5.0) 12/09/17 05:50 Basophils % 1.3 % (0.0-2.0) 12/09/17 05:50 PT 10.9 SECONDS (9.5-11.5) 12/07/17 14:30 INR 1.05 (0.5-1.4) 12/07/17 14:30 PTT (Actin FS) 26.2 SECONDS (26.0-38.0) 12/07/17 14:30 Sodium 131 mEq/L (136-145) L 12/09/17 05:50 Potassium 4.0 mEq/L (3.5-5.1) 12/09/17 05:50 Chloride 100 mEq/L (98-107) 12/09/17 05:50 Carbon Dioxide 18.5 mEq/L (21.0-31.0) L 12/09/17 05:50 Anion Gap 16.5 (7.0-16.0) H 12/09/17 05:50 BUN 24 mg/dL (7-25) 12/09/17 05:50 Creatinine 1.1 mg/dL (0.6-1.2) 12/09/17 05:50 Est GFR ( Amer) > 60.0 ml/min (>90) 12/09/17 05:50 Est GFR (Non-Af Amer) 57.1 ml/min 12/09/17 05:50 BUN/Creatinine Ratio 21.8 12/09/17 05:50 Glucose 360 mg/dL (70-105) H 12/09/17 05:50 POC Glucose 277 MG/DL (70-105) H 12/09/17 00:47 Hemoglobin A1c % 9.3 % (4.0-6.0) H 12/07/17 14:30 Whole Bld Lactic Acid 2.93 mmol/L (0.60-1.99) H* 12/07/17 16:30 Calcium 9.3 mg/dL (8.6-10.3) 12/09/17 05:50 Total Bilirubin 0.2 mg/dL (0.3-1.0) L 12/08/17 05:55 AST 25 U/L (13-39) 12/08/17 05:55 ALT 22 U/L (7-52) 12/08/17 05:55 Alkaline Phosphatase 85 U/L (34-104) 12/08/17 05:55 Creatine Kinase 51 U/L (30-223) 12/07/17 14:30 Troponin I 0.01 ng/mL (0.01-0.05) 12/07/17 14:30 Total Protein 7.6 gm/dL (6.0-8.3) 12/08/17 05:55 Albumin 3.4 gm/dL (3.7-5.3) L 12/08/17 05:55 Globulin 4.2 gm/dL 12/08/17 05:55 Albumin/Globulin Ratio 0.8 (1.0-1.8) L 12/08/17 05:55 Serum , Qual NEGATIVE (NEGATIVE) 12/07/17 14:30 Urine Source MIDSTREAM 12/07/17 15:25 Urine Color LIGHT YELLOW 12/07/17 15:25 Urine Clarity CLOUDY (CLEAR) H 12/07/17 15:25 Urine pH 6.0 (4.6 - 8.0) 12/07/17 15:25 Ur Specific [place] 1.015 (1.005-1.030) 12/07/17 15:25 Urine Protein 100 mg/dL (NEGATIVE) H 12/07/17 15:25 Urine Glucose (UA) 100 mg/dL (NEGATIVE) H 12/07/17 15:25 Urine Ketones NEGATIVE mg/dL (NEGATIVE) 12/07/17 15:25 Urine Blood NEGATIVE (NEGATIVE) 12/07/17 15:25 Urine Nitrate NEGATIVE (NEGATIVE) 12/07/17 15:25 Urine Bilirubin NEGATIVE (NEGATIVE) 12/07/17 15:25 Urine Urobilinogen 0.2 E.U./dL (0.2 - 1.0) 12/07/17 15:25 Ur Leukocyte Esterase MODERATE (NEGATIVE) H 12/07/17 15:25 Urine RBC 0-2 /hpf (0-5) 12/07/17 15:25 Urine WBC 25-50 /hpf (0-5) H 12/07/17 15:25 Ur Epithelial Cells MANY /lpf (FEW) 12/07/17 15:25 Urine Bacteria FEW /hpf (NONE SEEN) 12/07/17 15:25 Vancomycin Trough 26.5 ug/mL (5-10) H 12/09/17 05:50 - Physical Exam Vitals and I&O: Vital Signs Temp 96.3 F 12/09/17 07:48 Pulse 64 12/09/17 08:09 Resp 19 12/09/17 07:48 BP 134/82 12/09/17 08:09 Pulse Ox 100 12/09/17 07:48 Intake & Output 12/08/17 12/09/17 12/09/17 18:59 06:59 18:59 Intake Total 1650 400 Balance 1650 400 Weight (lbs) 54.431 kg 56.245 kg 56.019 kg Intake: Intake, IV Amount 1350 100 Piperacillin Sodium/ 100 100 Tazobact 4.5 gm In Sodium Chloride 0.9% 100 ml @ 100 mls/hr IV Q8HR [facility] Rx #:[id number] Sodium Chloride 0.9% 1, 1000 000 ml @ 125 mls/hr IV . Q8H [facility] Rx#:[id number] Vancomycin HCl 1 gm In 250 Sodium Chloride 0.9% 250 ml @ 165 mls/hr IV Q12H [facility] Rx#:[id number] Oral 300 300 Other: Stool Characteristics Soft Soft Soft Formed Formed Formed Weight Source Bedscale Bedscale Bedscale Active Medications: Current Medications Acetaminophen (Tylenol) 650 mg PO Q6H PRN PRN Reason: Pain or Fever >101 Stop: 02/06/18 01:56 Acetaminophen/Hydrocodone Bitart ([place] 10 Mg/325 Mg) 1 tab PO Q6H PRN PRN Reason: Pain (Moderate) Stop: 02/06/18 01:53 Last Admin: 12/08/17 09:19 Dose: 1 tab Azathioprine (Imuran) 50 mg PO TID [facility] PRN Reason: Protocol Stop: 02/06/18 08:59 Last Admin: 12/09/17 08:13 Dose: Not Given Sodium Chloride (Nacl 0.9%) 1,000 mls @ 125 mls/hr IV .Q8H [facility] Stop: 02/05/18 17:29 Last Admin: 12/08/17 17:08 Dose: 125 mls/hr Piperacillin Sod/Tazobactam (Sod 4.5 gm/ Sodium Chloride) 100 mls @ 100 mls/hr IV Q8HR [facility] Stop: 02/05/18 20:59 Last Admin: 12/09/17 04:40 Dose: 100 mls/hr Vancomycin HCl 1 gm/ Sodium (Chloride) 250 mls @ 165 mls/hr IV Q18H [facility] Stop: 02/07/18 14:59 Insulin Aspart (Novolog Insulin Sliding Scale) 0 units SUBQ ACHS [facility] PRN Reason: Protocol Stop: 02/06/18 07:29 Last Admin: 12/09/17 07:02 Dose: 10 units Metoprolol Tartrate (Lopressor) 25 mg PO BID [facility] Stop: 02/06/18 08:59 Last Admin: 12/09/17 08:09 Dose: 25 mg Miscellaneous (Vancomycin Iv Per Pharmacy) 1 ea [facility] PRN PRN PRN Reason: PROTOCOL Stop: 02/05/18 17:19 Morphine Sulfate (Morphine) 1 mg IVP Q6H PRN PRN Reason: Pain (Severe) Stop: 02/06/18 01:15 Last Admin: 12/08/17 23:01 Dose: 1 mg Mupirocin (Bactroban Oint) 1 appl NS BID [facility] Stop: 12/14/17 09:01 Pyridostigmine [place] (Mestinon) 180 mg PO TID [facility] Stop: 02/06/18 08:59 Last Admin: 12/09/17 08:14 Dose: Not Given General: no acute distress, well developed, well nourished HEENT: atraumatic, normocephalic, PERRLA, EOMI Neck: supple, no thyromegaly, no lymphadenopathy Cardiovascular: S1S2, no regular Lungs: clear to auscultation bilaterally, clear to percussion Abdomen: soft, no tender, no distended, no mass, no rebound Extremities: other (gangrene of the right 2nd toe.), no cyanosis, no clubbing Neurological: awake, alert, oriented Skin: intact - Procedures Procedures: Procedures Procedure Code Date EMERGENCY DEPT VISIT 08451 08/07/11 INJECT/INFUSE NEC 99.29 02/22/10 Infectious Disease Assmt/Plan - Assessment Assessment: 1. Right second toe gangrene. 2. Diabetes mellitus type 2, uncontrolled. 3. History of myasthenia gravis. 4. Dyslipidemia. 5. Urinary tract infection. - Plan Plan: plan to do amputaion of the 2nd toe today. Plan to DC tomorrow on vancO IV and levaquin po for 7 days and wound care. Nutritional Asmnt/Malnutr-PDOC - Dietary Evaluation Malnutrition Findings (Please click <Entered> for more info): Nutritional Asmnt/Malnutrition Start: 12/08/17 16: 43 Text: Status: Complete Freq: Document 12/08/17 16:43 DAWSON (Rec: 12/08/17 16:53 DAWSON [email or web address]) Nutritional Asmnt/Malnutrition Patient General Information Nutritional Screening High Risk Diagnosis peripheral artery disease Pertinent Medical Hx/Surgical Hx HTN, DM, asthma/COPD, dyslipidemia, resp failure, myasthenia, gravis Subjective Information Consult received for Dm and open wound. Pt seen talking on phone at time of visit, not able to interview at this time . Current Diet Order/ Nutrition Support [facility] 60 Pertinent Medications novolog, piperacillin, nacl 0. 9%, vancomycin Pertinent Labs 12/08 Na 130, BUN 27, glucose 418, POC 400 12/07 Na 128, Cl 96, BUN 36, glucose 207, POC 132 Nutritional Hx/Data Height 1.7 m Height (Calculated Centimeters) 170.2 Current Weight (lbs) 54.431 kg Weight (Calculated Kilograms) 54.4 Weight (Calculated Grams) 69181.1 [place] Body Weight 135 Body Mass Index (BMI) 18.8 Weight Status Approriate GI Symptoms GI Symptoms None Last BM none 12/08 Difficult in: None Skin Integrity/Comment: right 2nd toe gangrene Estimated Nutritional Goals BEE in Kcals: Using Current wt Calories/Kcals/Kg 30-35 Kcals Calculated 8916-0643 Protein: Using Current wt Protein g/k.2-1.4 Protein Calculated 66-77 Fluid: ml 1650-1925ml (1ml/kcal) Nutritional Problem 1. Problem Problem altered nutrition related labs Etiology hx of DM Signs/Symptoms: glucose 207-418, POC 132-400 Malnutrition Alert Protein-Calorie Malnutrition N/A Is there a minimum of two criteria No selected? Query Text:Check all the applicable criteria. A minimum of two criteria are recommended for diagnosis of either severe or non-severe malnutrition. Intervention/Recommendation Comments 1. Continue with [facility]60 diet as ordered. Will provide nutrition education when pt available. 2. Monitor PO intake, wt, labs and skin integrity 3. F/U as high risk in 2-3 days, 12/10-12/11 Expected Outcomes/Goals Expected Outcomes/Goals 1. PO intake to meet at least 75% of nutritional needs. 2. Wt stability, skin to remain intact, labs to approach WNL.
[2017-12-09] MEDS ORDERED: Midazolam 1mg/ml 2 ml vial IV ONE ×3 (11:28)
[2017-12-09] MEDS ORDERED: fentaNYL Citrate 100 mcg/2mL Vial ONE (11:29)
[2017-12-09] MEDS ORDERED: Propofol 10 mg/mL 20mL Vial **SURGERY USE ONLY IV ONE (11:30)
[2017-12-09] MEDS: Sodium Chloride 0.9% 1,000 ML IV SCH (13:10)
[2017-12-09] MEDS ORDERED: Probiotic Screen MC PRN (13:47)
--- NOTE | 2017-12-09 14:34 | Consultation ---
DATE OF CONSULTATION: 12/08/2017 SURGICAL CONSULTATION REFERRING PHYSICIAN: Dr. Hernan Ramesh. REASON FOR CONSULTATION: Gangrene, right second toe. Thank you for referring this patient to me. This is a 47-year-old female with gangrene of right second toe developing over the last several months. She has history of diabetes mellitus type 2, COPD, asthma, myasthenia gravis and respiratory failure. On this admission, the laboratory studies showed the WBC to be normal, hemoglobin 11.3, platelet count 644,000. The glucose was 207, lactic acid high at 2.93, BUN is 36 with creatinine 1.0. Doppler studies showed vascular disease involving the distal vessels below the knee. No acute occlusion, however, is noted. PHYSICAL EXAMINATION: The patient appears to be alert and oriented. Significant finding: There is difficulty in palpating the pedal pulses on both sides. Popliteal pulses palpable. The right second toe has dry gangrene involving the distal phalanx and some swelling in the proximal phalanx. IMPRESSION: 1. Gangrene of right second toe. 2. Small vessel disease. 3. Diabetes mellitus. 4. Hypertension. POSTOPERATIVE DIAGNOSES: 1. Gangrene of right second toe. 2. Small vessel disease. 3. Diabetes mellitus. 4. Hypertension. RECOMMENDATION: Amputation of the right second toe. Informed consent discussed with the patient regarding the possible nonhealing of the amputation in view of the possible decreased blood flow on Doppler study. The patient understands. We will schedule for surgery. JOB# [id number]
--- NOTE | 2017-12-09 14:49 | Operative Report ---
DATE OF SURGERY: 12/09/2017 PREOPERATIVE DIAGNOSES: 1. Gangrene, right second toe. 2. Diabetes mellitus. 3. Hypertension. 4. Asthma. 5. Myasthenia gravis. POSTOPERATIVE DIAGNOSES: 1. Gangrene, right second toe. 2. Diabetes mellitus. 3. Hypertension. 4. Asthma. 5. Myasthenia gravis. OPERATION DONE: Disarticulation of the right second toe at the MP joint. SURGEON: Dr. Sow ANESTHESIA: MAC. ANESTHESIOLOGIST: Efrain. DESCRIPTION OF PROCEDURE: The patient was given IV sedation. The right foot was prepped with Betadine and draped in appropriate manner. 1% lidocaine was used to infiltrate the base of the right second toe anteriorly and posteriorly. An incision was made anteriorly and posteriorly just distal to the MP joint. Bleeders were coagulated. The proximal phalanx was disarticulated. The wound was reprepped with Betadine. The incision was closed with interrupted sutures of 3-0 Vicryl subcutaneously and the skin was closed with 3-0 nylon. Sterile dressing was placed over this. The patient tolerated the procedure well. JOB# [id number]
[2017-12-09] MEDS: Hydrocodone/APAP 10 mg/325 mg Tab PO PRN ×2 (15:47→22:06)
[2017-12-09] MEDS: Morphine Sulfate 4 mg/mL 1mL Syr IVP PRN ×2 (16:59→19:47)
[2017-12-10] MEDS: Morphine Sulfate 4 mg/mL 1mL Syr IVP PRN ×2 (00:59→11:44)
[2017-12-10] MEDS: Sodium Chloride 0.9% 1,000 ML IV SCH ×2 (03:35→15:14)
[2017-12-10] MEDS: Hydrocodone/APAP 10 mg/325 mg Tab PO PRN (04:09)
[2017-12-10 06:37] LABS: HEMATOCRIT 29.3 % (41.0-60); HEMOGLOBIN 9.7 gm/dL (12-16); MEAN CORPUSCULAR HEMOGLOBIN 29.8 pg (27.0-31.0); MEAN CORPUSCULAR HGB CONC 33.1 pg (28.0-36.0); PLATELET COUNT 525 Th/cmm (150-400); RED BLOOD COUNT 3.25 Mil/cmm (3.80-5.10); RED CELL DISTRIBUTION WIDTH 15.9 % (11.5-20.0); WHITE BLOOD COUNT 8.3 Th/cmm (4.8-10.8)
[2017-12-10] MEDS: INSULIN ASPART SLIDING SCALE 100 UNITS/ML UNIT SUBQ SCH ×4 (06:49→21:21)
[2017-12-10 06:54] LABS: ANION GAP 23.6 (7.0-16.0); BUN - UREA NITROGEN 20 mg/dL (7-25); CALCIUM SERUM 9.3 mg/dL (8.6-10.3); CARBON DIOXIDE 11.4 mEq/L (21.0-31.0); CHLORIDE 100 mEq/L (98-107); GFR AFRICAN-AMERICAN > 60.0 ml/min (>90); GFR NON AFRICAN-AMERICAN > 60.0 ml/min; GLUCOSE 413 mg/dL (70-105); SODIUM SERUM 131 mEq/L (136-145)
[2017-12-10 07:47] LABS: MANUAL DIFF REQUIRED? YES; TOTAL CELLS COUNTED 100
[2017-12-10 07:48] LABS: BASOPHIL 1 % (0-3); LYMPHOCYTE 7 % (20-50); MONOCYTE 3 % (2-10); NEUTROPHILS 89 % (40-80); PLATELET ESTIMATE INCREASED PLATELETS (NORMAL)
--- NOTE | 2017-12-10 10:41 | General Progress Note ---
Subjective - Review of Systems Service Date: 12/10/17 Events since last encounter: dressings dry and no bleeding redress in AM Objective - Results Result Diagrams: 12/10/17 06:16 12/10/17 06:16 Recent Labs: Laboratory Last Values WBC 8.3 Th/cmm (4.8-10.8) 12/10/17 06:16 RBC 3.25 Mil/cmm (3.80-5.10) L 12/10/17 06:16 Hgb 9.7 gm/dL (12-16) L 12/10/17 06:16 Hct 29.3 % (41.0-60) L 12/10/17 06:16 MCV 90.0 fl (81-100) 12/10/17 06:16 MCH 29.8 pg (27.0-31.0) 12/10/17 06:16 MCHC Differential 33.1 pg (28.0-36.0) 12/10/17 06:16 RDW 15.9 % (11.5-20.0) 12/10/17 06:16 Plt Count 525 Th/cmm (150-400) H 12/10/17 06:16 MPV 7.0 fl 12/10/17 06:16 Neutrophils % [employer] 12/10/17 06:16 Lymphocytes % [employer] 12/10/17 06:16 Monocytes % [employer] 12/10/17 06:16 Eosinophils % [employer] 12/10/17 06:16 Basophils % [employer] 12/10/17 06:16 Neutrophils (Manual) 89 % (40-80) H 12/10/17 06:16 Lymphocytes 7 % (20-50) L 12/10/17 06:16 Monocytes 3 % (2-10) 12/10/17 06:16 Basophils 1 % (0-3) 12/10/17 06:16 Platelet Estimate INCREASED PLATELETS (NORMAL) 12/10/17 06:16 PT 10.9 SECONDS (9.5-11.5) 12/07/17 14:30 INR 1.05 (0.5-1.4) 12/07/17 14:30 PTT (Actin FS) 26.2 SECONDS (26.0-38.0) 12/07/17 14:30 Sodium 131 mEq/L (136-145) L 12/10/17 06:16 Potassium 4.0 mEq/L (3.5-5.1) 12/10/17 06:16 Chloride 100 mEq/L (98-107) 12/10/17 06:16 Carbon Dioxide 11.4 mEq/L (21.0-31.0) L 12/10/17 06:16 Anion Gap 23.6 (7.0-16.0) H 12/10/17 06:16 BUN 20 mg/dL (7-25) 12/10/17 06:16 Creatinine 1.0 mg/dL (0.6-1.2) 12/10/17 06:16 Est GFR ( Amer) > 60.0 ml/min (>90) 12/10/17 06:16 Est GFR (Non-Af Amer) > 60.0 ml/min 12/10/17 06:16 BUN/Creatinine Ratio 20.0 12/10/17 06:16 Glucose 413 mg/dL (70-105) H 12/10/17 06:16 POC Glucose 430 MG/DL (70 - 105) H 12/10/17 05:49 Hemoglobin A1c % 9.3 % (4.0-6.0) H 12/07/17 14:30 Whole Bld Lactic Acid 2.93 mmol/L (0.60-1.99) H* 12/07/17 16:30 Calcium 9.3 mg/dL (8.6-10.3) 12/10/17 06:16 Total Bilirubin 0.2 mg/dL (0.3-1.0) L 12/08/17 05:55 AST 25 U/L (13-39) 12/08/17 05:55 ALT 22 U/L (7-52) 12/08/17 05:55 Alkaline Phosphatase 85 U/L (34-104) 12/08/17 05:55 Creatine Kinase 51 U/L (30-223) 12/07/17 14:30 Troponin I 0.01 ng/mL (0.01-0.05) 12/07/17 14:30 Total Protein 7.6 gm/dL (6.0-8.3) 12/08/17 05:55 Albumin 3.4 gm/dL (3.7-5.3) L 12/08/17 05:55 Globulin 4.2 gm/dL 12/08/17 05:55 Albumin/Globulin Ratio 0.8 (1.0-1.8) L 12/08/17 05:55 Serum , Qual NEGATIVE (NEGATIVE) 12/07/17 14:30 Urine Source MIDSTREAM 12/07/17 15:25 Urine Color LIGHT YELLOW 12/07/17 15:25 Urine Clarity CLOUDY (CLEAR) H 12/07/17 15:25 Urine pH 6.0 (4.6 - 8.0) 12/07/17 15:25 Ur Specific [place] 1.015 (1.005-1.030) 12/07/17 15:25 Urine Protein 100 mg/dL (NEGATIVE) H 12/07/17 15:25 Urine Glucose (UA) 100 mg/dL (NEGATIVE) H 12/07/17 15:25 Urine Ketones NEGATIVE mg/dL (NEGATIVE) 12/07/17 15:25 Urine Blood NEGATIVE (NEGATIVE) 12/07/17 15:25 Urine Nitrate NEGATIVE (NEGATIVE) 12/07/17 15:25 Urine Bilirubin NEGATIVE (NEGATIVE) 12/07/17 15:25 Urine Urobilinogen 0.2 E.U./dL (0.2 - 1.0) 12/07/17 15:25 Ur Leukocyte Esterase MODERATE (NEGATIVE) H 12/07/17 15:25 Urine RBC 0-2 /hpf (0-5) 12/07/17 15:25 Urine WBC 25-50 /hpf (0-5) H 12/07/17 15:25 Ur Epithelial Cells MANY /lpf (FEW) 12/07/17 15:25 Urine Bacteria FEW /hpf (NONE SEEN) 12/07/17 15:25 Vancomycin Trough 26.5 ug/mL (5-10) H 12/09/17 05:50 - Physical Exam Vitals and I&O: Vital Signs Temp 98.5 F 12/10/17 07:56 Pulse 88 12/10/17 08:50 Resp 17 12/10/17 09:00 BP 151/69 12/10/17 08:50 Pulse Ox 100 12/10/17 07:56 Intake & Output 12/09/17 12/10/17 12/10/17 18:59 06:59 18:59 Intake Total 1750 Output Total 0 Balance 1750 Weight (lbs) 56.019 kg 56.245 kg Intake: Intake, IV Amount 1550 Piperacillin Sodium/ 300 Tazobact 4.5 gm In Sodium Chloride 0.9% 100 ml @ 100 mls/hr IV Q8HR [facility] Rx #:[id number] Sodium Chloride 0.9% 1, 1000 000 ml @ 125 mls/hr IV . Q8H [facility] Rx#:[id number] Vancomycin HCl 1 gm In 250 Sodium Chloride 0.9% 250 ml @ 165 mls/hr IV Q18H [facility] Rx#:[id number] Oral 200 Output: Stool 0 Other: # Voids 2 3 # Bowel Movements 0 Stool Characteristics Soft Formed Weight Source Bedscale Bedscale Active Medications: Current Medications Acetaminophen (Tylenol) 650 mg PO Q6H PRN PRN Reason: Pain or Fever >101 Stop: 02/06/18 01:56 Acetaminophen/Hydrocodone Bitart ([place] 10 Mg/325 Mg) 1 tab PO Q4H PRN PRN Reason: pain level 1-5 Stop: 02/07/18 19:32 Last Admin: 12/10/17 04:09 Dose: 1 tab Azathioprine (Imuran) 50 mg PO TID [facility] PRN Reason: Protocol Stop: 02/06/18 08:59 Last Admin: 12/10/17 08:51 Dose: 50 mg Sodium Chloride (Nacl 0.9%) 1,000 mls @ 125 mls/hr IV .Q8H [facility] Stop: 02/05/18 17:29 Last Admin: 12/10/17 03:35 Dose: 125 mls/hr Piperacillin Sod/Tazobactam (Sod 4.5 gm/ Sodium Chloride) 100 mls @ 100 mls/hr IV Q8HR [facility] Stop: 02/05/18 20:59 Last Infusion: 12/10/17 06:00 Dose: Infused Vancomycin HCl 1 gm/ Sodium (Chloride) 250 mls @ 165 mls/hr IV Q18H [facility] Stop: 02/07/18 14:59 Last Admin: 12/10/17 08:51 Dose: 165 mls/hr Insulin Aspart (Novolog Insulin Sliding Scale) 0 units SUBQ ACHS [facility] PRN Reason: Protocol Stop: 02/06/18 07:29 Last Admin: 12/10/17 06:49 Dose: 12 units Metoprolol Tartrate (Lopressor) 25 mg PO BID [facility] Stop: 02/06/18 08:59 Last Admin: 12/10/17 08:50 Dose: 25 mg Miscellaneous (Vancomycin Iv Per Pharmacy) 1 ea [facility] PRN PRN PRN Reason: PROTOCOL Stop: 02/05/18 17:19 Miscellaneous (Probiotic Screen) 1 ea [facility] PRN PRN PRN Reason: PROTOCOL Stop: 02/07/18 13:46 Morphine Sulfate (Morphine) 1 mg IVP Q4HR PRN PRN Reason: pain levle 6-10 Stop: 02/07/18 19:31 Last Admin: 12/10/17 00:59 Dose: 1 mg Mupirocin (Bactroban Oint) 1 appl NS BID [facility] Stop: 12/14/17 09:01 Last Admin: 12/10/17 08:50 Dose: 1 appl Ondansetron HCl (Zofran) 4 mg IV Q6H PRN PRN Reason: Nausea / Vomiting Stop: 02/07/18 19:32 Last Admin: 12/10/17 03:33 Dose: 4 mg Pyridostigmine [place] (Mestinon) 180 mg PO TID [facility] Stop: 02/06/18 08:59 Last Admin: 12/10/17 08:50 Dose: 180 mg - Procedures Procedures: Procedures Procedure Code Date EMERGENCY DEPT VISIT 78558 08/07/11 INJECT/INFUSE NEC 99.29 02/22/10 Nutritional Asmnt/Malnutr-PDOC - Dietary Evaluation Malnutrition Findings (Please click <Entered> for more info): Nutritional Asmnt/Malnutrition Start: 12/08/17 16: 43 Text: Status: Complete Freq: Document 12/08/17 16:43 DAWSON (Rec: 12/08/17 16:53 [email or web address] Nutritional Asmnt/Malnutrition Patient General Information Nutritional Screening High Risk Diagnosis peripheral artery disease Pertinent Medical Hx/Surgical Hx HTN, DM, asthma/COPD, dyslipidemia, resp failure, myasthenia, gravis Subjective Information Consult received for Dm and open wound. Pt seen talking on phone at time of visit, not able to interview at this time . Current Diet Order/ Nutrition Support [facility] 60gm Pertinent Medications novolog, piperacillin, nacl 0. 9%, vancomycin Pertinent Labs 12/08 Na 130, BUN 27, glucose 418, POC 400 5/9 Na 128, Cl 96, BUN 36, glucose 207, POC 132 Nutritional Hx/Data Height 1.7 m Height (Calculated Centimeters) 170.2 Current Weight (lbs) 54.431 kg Weight (Calculated Kilograms) 54.4 Weight (Calculated Grams) 14409.1 Max Body Weight 135 Body Mass Index (BMI) 18.8 Weight Status Approriate GI Symptoms GI Symptoms None Last BM none 5/10 Difficult in: None Skin Integrity/Comment: right 2nd toe gangrene Estimated Nutritional Goals BEE in Kcals: Using Current wt Calories/Kcals/Kg 30-35 Kcals Calculated 4971-7675 Protein: Using Current wt Protein g/k.2-1.4 Protein Calculated 66-77 Fluid: ml 1650-1925ml (1ml/kcal) Nutritional Problem 1. Problem Problem altered nutrition related labs Etiology hx of DM Signs/Symptoms: glucose 207-418, POC 132-400 Malnutrition Alert Protein-Calorie Malnutrition N/A Is there a minimum of two criteria No selected? Query Text:Check all the applicable criteria. A minimum of two criteria are recommended for diagnosis of either severe or non-severe malnutrition. Intervention/Recommendation Comments 1. [facility] as ordered. Will provide nutrition education when pt available. 2. Monitor PO intake, wt, labs and skin integrity 3. F/U as high risk in 2-3 days, 12/10-12/11 Expected Outcomes/Goals Expected Outcomes/Goals 1. PO intake to meet at least 75% of nutritional needs. 2. Wt stability, skin to remain intact, labs to approach WNL.
--- NOTE | 2017-12-10 23:25 | Infectious Disease Prog Note ---
Infectious Disease Subjective - Review of Systems Service Date: 12/10/17 Subjective: There is no new change, no fever./ Infectious Disease Objective - Results Result Diagrams: 12/10/17 06:16 12/10/17 06:16 Recent Labs: Laboratory Last Values WBC 8.3 Th/cmm (4.8-10.8) 12/10/17 06:16 RBC 3.25 Mil/cmm (3.80-5.10) L 12/10/17 06:16 Hgb 9.7 gm/dL (12-16) L 12/10/17 06:16 Hct 29.3 % (41.0-60) L 12/10/17 06:16 MCV 90.0 fl (81-100) 12/10/17 06:16 MCH 29.8 pg (27.0-31.0) 12/10/17 06:16 MCHC Differential 33.1 pg (28.0-36.0) 12/10/17 06:16 RDW 15.9 % (11.5-20.0) 12/10/17 06:16 Plt Count 525 Th/cmm (150-400) H 12/10/17 06:16 MPV 7.0 fl 12/10/17 06:16 Neutrophils % PAIRER 12/10/17 06:16 Lymphocytes % PAIRER 12/10/17 06:16 Monocytes % PAIRER 12/10/17 06:16 Eosinophils % PAIRER 12/10/17 06:16 Basophils % PAIRER 12/10/17 06:16 Neutrophils (Manual) 89 % (40-80) H 12/10/17 06:16 Lymphocytes 7 % (20-50) L 12/10/17 06:16 Monocytes 3 % (2-10) 12/10/17 06:16 Basophils 1 % (0-3) 12/10/17 06:16 Platelet Estimate INCREASED PLATELETS (NORMAL) 12/10/17 06:16 PT 10.9 SECONDS (9.5-11.5) 12/07/17 14:30 INR 1.05 (0.5-1.4) 12/07/17 14:30 PTT (Actin FS) 26.2 SECONDS (26.0-38.0) 12/07/17 14:30 Sodium 131 mEq/L (136-145) L 12/10/17 06:16 Potassium 4.0 mEq/L (3.5-5.1) 12/10/17 06:16 Chloride 100 mEq/L (98-107) 12/10/17 06:16 Carbon Dioxide 11.4 mEq/L (21.0-31.0) L 12/10/17 06:16 Anion Gap 23.6 (7.0-16.0) H 12/10/17 06:16 BUN 20 mg/dL (7-25) 12/10/17 06:16 Creatinine 1.0 mg/dL (0.6-1.2) 12/10/17 06:16 Est GFR ( Amer) > 60.0 ml/min (>90) 12/10/17 06:16 Est GFR (Non-Af Amer) > 60.0 ml/min 12/10/17 06:16 BUN/Creatinine Ratio 20.0 12/10/17 06:16 Glucose 413 mg/dL (70-105) H 12/10/17 06:16 POC Glucose 226 MG/DL (70 - 105) H 12/10/17 20:37 Hemoglobin A1c % 9.3 % (4.0-6.0) H 12/07/17 14:30 Whole Bld Lactic Acid 2.93 mmol/L (0.60-1.99) H* 12/07/17 16:30 Calcium 9.3 mg/dL (8.6-10.3) 12/10/17 06:16 Total Bilirubin 0.2 mg/dL (0.3-1.0) L 12/08/17 05:55 AST 25 U/L (13-39) 12/08/17 05:55 ALT 22 U/L (7-52) 12/08/17 05:55 Alkaline Phosphatase 85 U/L (34-104) 12/08/17 05:55 Creatine Kinase 51 U/L (30-223) 12/07/17 14:30 Troponin I 0.01 ng/mL (0.01-0.05) 12/07/17 14:30 Total Protein 7.6 gm/dL (6.0-8.3) 12/08/17 05:55 Albumin 3.4 gm/dL (3.7-5.3) L 12/08/17 05:55 Globulin 4.2 gm/dL 12/08/17 05:55 Albumin/Globulin Ratio 0.8 (1.0-1.8) L 12/08/17 05:55 Serum , Qual NEGATIVE (NEGATIVE) 12/07/17 14:30 Urine Source MIDSTREAM 12/07/17 15:25 Urine Color LIGHT YELLOW 12/07/17 15:25 Urine Clarity CLOUDY (CLEAR) H 12/07/17 15:25 Urine pH 6.0 (4.6 - 8.0) 12/07/17 15:25 Ur Specific [place] 1.015 (1.005-1.030) 12/07/17 15:25 Urine Protein 100 mg/dL (NEGATIVE) H 12/07/17 15:25 Urine Glucose (UA) 100 mg/dL (NEGATIVE) H 12/07/17 15:25 Urine Ketones NEGATIVE mg/dL (NEGATIVE) 12/07/17 15:25 Urine Blood NEGATIVE (NEGATIVE) 12/07/17 15:25 Urine Nitrate NEGATIVE (NEGATIVE) 12/07/17 15:25 Urine Bilirubin NEGATIVE (NEGATIVE) 12/07/17 15:25 Urine Urobilinogen 0.2 E.U./dL (0.2 - 1.0) 12/07/17 15:25 Ur Leukocyte Esterase MODERATE (NEGATIVE) H 12/07/17 15:25 Urine RBC 0-2 /hpf (0-5) 12/07/17 15:25 Urine WBC 25-50 /hpf (0-5) H 12/07/17 15:25 Ur Epithelial Cells MANY /lpf (FEW) 12/07/17 15:25 Urine Bacteria FEW /hpf (NONE SEEN) 12/07/17 15:25 Vancomycin Trough 26.5 ug/mL (5-10) H 12/09/17 05:50 - Physical Exam Vitals and I&O: Vital Signs Temp 98.1 F 12/10/17 20:00 Pulse 94 12/10/17 20:00 Resp 18 12/10/17 20:00 BP 162/64 12/10/17 20:00 Pulse Ox 98 12/10/17 20:00 Intake & Output 12/10/17 12/10/17 12/11/17 06:59 18:59 06:59 Intake Total 1750 1850 Output Total 0 Balance 1750 1850 Weight (lbs) 56.245 kg 56.245 kg Intake: Intake, IV Amount 1550 1350 Piperacillin Sodium/ 300 100 Tazobact 4.5 gm In Sodium Chloride 0.9% 100 ml @ 100 mls/hr IV Q8HR [facility] Rx #:[id number] Sodium Chloride 0.9% 1, 1000 1000 000 ml @ 125 mls/hr IV . Q8H [facility] Rx#:[id number] Vancomycin HCl 1 gm In 250 250 Sodium Chloride 0.9% 250 ml @ 165 mls/hr IV Q18H [facility] Rx#:[id number] Oral 200 500 Output: Stool 0 Other: # Voids 3 2 # Bowel Movements 0 1 Weight Source Bedscale Bedscale Active Medications: Current Medications Acetaminophen (Tylenol) 650 mg PO Q6H PRN PRN Reason: Pain or Fever >101 Stop: 02/06/18 01:56 Acetaminophen/Hydrocodone Bitart ([place] 10 Mg/325 Mg) 1 tab PO Q4H PRN PRN Reason: pain level 1-5 Stop: 02/07/18 19:32 Last Admin: 12/10/17 04:09 Dose: 1 tab Azathioprine (Imuran) 50 mg PO TID [facility] PRN Reason: Protocol Stop: 02/06/18 08:59 Last Admin: 12/10/17 20:32 Dose: 50 mg Sodium Chloride (Nacl 0.9%) 1,000 mls @ 125 mls/hr IV .Q8H [facility] Stop: 02/05/18 17:29 Last Admin: 12/10/17 15:14 Dose: 125 mls/hr Piperacillin Sod/Tazobactam (Sod 4.5 gm/ Sodium Chloride) 100 mls @ 100 mls/hr IV Q8HR [facility] Stop: 02/05/18 20:59 Last Admin: 12/10/17 20:31 Dose: 100 mls/hr Vancomycin HCl 1 gm/ Sodium (Chloride) 250 mls @ 165 mls/hr IV Q18H [facility] Stop: 02/07/18 14:59 Last Infusion: 12/10/17 14:25 Dose: Infused Insulin Aspart (Novolog Insulin Sliding Scale) 0 units SUBQ ACHS [facility] PRN Reason: Protocol Stop: 02/06/18 07:29 Last Admin: 12/10/17 21:21 Dose: 4 units Metoprolol Tartrate (Lopressor) 25 mg PO BID [facility] Stop: 02/06/18 08:59 Last Admin: 12/10/17 16:24 Dose: 25 mg Miscellaneous (Vancomycin Iv Per Pharmacy) 1 ea MC PRN PRN PRN Reason: PROTOCOL Stop: 02/05/18 17:19 Miscellaneous (Probiotic Screen) 1 ea MC PRN PRN PRN Reason: PROTOCOL Stop: 02/07/18 13:46 Morphine Sulfate (Morphine) 1 mg IVP Q4HR PRN PRN Reason: pain levle 6-10 Stop: 02/07/18 19:31 Last Admin: 12/10/17 11:44 Dose: 1 mg Mupirocin (Bactroban Oint) 1 appl NS BID [facility] Stop: 12/14/17 09:01 Last Admin: 12/10/17 16:24 Dose: 1 appl Ondansetron HCl (Zofran) 4 mg IV Q6H PRN PRN Reason: Nausea / Vomiting Stop: 02/07/18 19:32 Last Admin: 12/10/17 18:58 Dose: 4 mg Pyridostigmine [place] (Mestinon) 180 mg PO TID [facility] Stop: 02/06/18 08:59 Last Admin: 12/10/17 20:32 Dose: 180 mg - Procedures Procedures: Procedures Procedure Code Date EMERGENCY DEPT VISIT 42701 08/07/11 INJECT/INFUSE NEC 99.29 02/22/10 Infectious Disease Assmt/Plan - Assessment Assessment: 1. Right second toe gangrene. 2. Diabetes mellitus type 2, uncontrolled. 3. History of myasthenia gravis. 4. Dyslipidemia. 5. Urinary tract infection. 6. 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 Nutritional Asmnt/Malnutr-PDOC - Dietary Evaluation Malnutrition Findings (Please click <Entered> for more info): Nutritional Asmnt/Malnutrition Start: 12/08/17 16: 43 Text: Status: Complete Freq: Document 12/08/17 16:43 DAWSON (Rec: 12/08/17 16:53 DAWSON [email or web address]) Nutritional Asmnt/Malnutrition Patient General Information Nutritional Screening High Risk Diagnosis peripheral artery disease Pertinent Medical Hx/Surgical Hx HTN, DM, asthma/COPD, dyslipidemia, resp failure, myasthenia, gravis Subjective Information Consult received for Dm and open wound. Pt seen talking on phone at time of visit, not able to interview at this time . Current Diet Order/ Nutrition Support CCHO 60gm Pertinent Medications novolog, piperacillin, nacl 0. 9%, vancomycin Pertinent Labs 12/08 Na 130, BUN 27, glucose 418, POC 400 12/07 Na 128, Cl 96, BUN 36, glucose 207, POC 132 Nutritional Hx/Data Height 1.7 m Height (Calculated Centimeters) 170.2 Current Weight (lbs) 54.431 kg Weight (Calculated Kilograms) 54.4 Weight (Calculated Grams) 62949.1 [place] Body Weight 135 Body Mass Index (BMI) 18.8 Weight Status Approriate GI Symptoms GI Symptoms None Last BM none 12/08 Difficult in: None Skin Integrity/Comment: right 2nd toe gangrene Estimated Nutritional Goals BEE in Kcals: Using Current wt Calories/Kcals/Kg 30-35 Kcals Calculated 1296-9649 Protein: Using Current wt Protein g/k.2-1.4 Protein Calculated 66-77 Fluid: ml 1650-1925ml (1ml/kcal) Nutritional Problem 1. Problem Problem altered nutrition related labs Etiology hx of DM Signs/Symptoms: glucose 207-418, POC 132-400 Malnutrition Alert Protein-Calorie Malnutrition N/A Is there a minimum of two criteria No selected? Query Text:Check all the applicable criteria. A minimum of two criteria are recommended for diagnosis of either severe or non-severe malnutrition. Intervention/Recommendation Comments 1. Continue with [facility]-60 diet as ordered. Will provide nutrition education when pt available. 2. Monitor PO intake, wt, labs and skin integrity 3. F/U as high risk in 2-3 days, 12/10-12/11 Expected Outcomes/Goals Expected Outcomes/Goals 1. PO intake to meet at least 75% of nutritional needs. 2. Wt stability, skin to remain intact, labs to approach WNL.
[2017-12-11] MEDS: Sodium Chloride 0.9% 1,000 ML IV SCH ×2 (00:21→20:00)
[2017-12-11] MEDS: Morphine Sulfate 4 mg/mL 1mL Syr IVP PRN (00:58)
[2017-12-11] MEDS: INSULIN ASPART SLIDING SCALE 100 UNITS/ML UNIT SUBQ SCH ×4 (08:04→21:07)
[2017-12-11 08:42] LABS: HEMATOCRIT 31.5 % (41.0-60); HEMOGLOBIN 10.1 gm/dL (12-16); LYMPHOCYTE ABSOLUTE 0.5 Th/cmm (1.5-3.0); MANUAL DIFF REQUIRED? YES; MEAN CELL VOLUME 90.4 fl (81-100); MEAN CORPUSCULAR HEMOGLOBIN 28.9 pg (27.0-31.0); MONOCYTE ABSOLUTE 0.3 Th/cmm (0.3-1.0); NEUTROPHILE ABSOLUTE 10.8 Th/cmm (1.8-8.0); PLATELET COUNT 615 Th/cmm (150-400); RED BLOOD COUNT 3.49 Mil/cmm (3.80-5.10); RED CELL DISTRIBUTION WIDTH 16.5 % (11.5-20.0); WHITE BLOOD COUNT 11.6 Th/cmm (4.8-10.8)
[2017-12-11 08:53] LABS: ANION GAP 29.3 (7.0-16.0); BUN - UREA NITROGEN 21 mg/dL (7-25); CALCIUM SERUM 9.3 mg/dL (8.6-10.3); CHLORIDE 101 mEq/L (98-107); CREATININE - SERUM 1.2 mg/dL (0.6-1.2); GFR AFRICAN-AMERICAN > 60.0 ml/min (>90); GFR NON AFRICAN-AMERICAN 51.6 ml/min; POTASSIUM SERUM 3.9 mEq/L (3.5-5.1); SODIUM SERUM 131 mEq/L (136-145)
[2017-12-11 09:04] LABS: BASOPHIL 1 % (0-3); LYMPHOCYTE 3 % (20-50); MONOCYTE 3 % (2-10); NEUTROPHILS 93 % (40-80); PLATELET ESTIMATE INCREASED PLATELETS (NORMAL); TOTAL CELLS COUNTED 100
[2017-12-11 09:12] LABS: CARBON DIOXIDE 4.6 mEq/L (21.0-31.0); GLUCOSE 457 mg/dL (70-105)
[2017-12-11] MEDS: Hydrocodone/APAP 10 mg/325 mg Tab PO PRN ×2 (09:35→20:28)
--- NOTE | 2017-12-11 09:36 | General Progress Note ---
Subjective - Review of Systems Service Date: 12/11/17 Events since last encounter: redressed, healing well Objective - Results Result Diagrams: 12/11/17 08:30 12/11/17 08:30 Recent Labs: Laboratory Last Values WBC 11.6 Th/cmm (4.8-10.8) H 12/11/17 08:30 RBC 3.49 Mil/cmm (3.80-5.10) L 12/11/17 08:30 Hgb 10.1 gm/dL (12-16) L 12/11/17 08:30 Hct 31.5 % (41.0-60) L 12/11/17 08:30 MCV 90.4 fl (81-100) 12/11/17 08:30 MCH 28.9 pg (27.0-31.0) 12/11/17 08:30 MCHC Differential 32.0 pg (28.0-36.0) 12/11/17 08:30 RDW 16.5 % (11.5-20.0) 12/11/17 08:30 Plt Count 615 Th/cmm (150-400) H 12/11/17 08:30 MPV 7.0 fl 12/11/17 08:30 Neutrophils % EXTERNAL GRINDER TENDER 12/10/17 06:16 Lymphocytes % EXTERNAL GRINDER TENDER 12/10/17 06:16 Monocytes % EXTERNAL GRINDER TENDER 12/10/17 06:16 Eosinophils % EXTERNAL GRINDER TENDER 12/10/17 06:16 Basophils % EXTERNAL GRINDER TENDER 12/10/17 06:16 Neutrophils (Manual) 93 % (40-80) H 12/11/17 08:30 Lymphocytes 3 % (20-50) L 12/11/17 08:30 Monocytes 3 % (2-10) 12/11/17 08:30 Basophils 1 % (0-3) 12/11/17 08:30 Platelet Estimate INCREASED PLATELETS (NORMAL) 12/11/17 08:30 PT 10.9 SECONDS (9.5-11.5) 12/07/17 14:30 INR 1.05 (0.5-1.4) 12/07/17 14:30 PTT (Actin FS) 26.2 SECONDS (26.0-38.0) 12/07/17 14:30 Sodium 131 mEq/L (136-145) L 12/11/17 08:30 Potassium 3.9 mEq/L (3.5-5.1) 12/11/17 08:30 Chloride 101 mEq/L (98-107) 12/11/17 08:30 Carbon Dioxide 4.6 mEq/L (21.0-31.0) L* 12/11/17 08:30 Anion Gap 29.3 (7.0-16.0) H 12/11/17 08:30 BUN 21 mg/dL (7-25) 12/11/17 08:30 Creatinine 1.2 mg/dL (0.6-1.2) 12/11/17 08:30 Est GFR ( Amer) > 60.0 ml/min (>90) 12/11/17 08:30 Est GFR (Non-Af Amer) 51.6 ml/min 12/11/17 08:30 BUN/Creatinine Ratio 17.5 12/11/17 08:30 Glucose 457 mg/dL (70-105) H* 12/11/17 08:30 POC Glucose 436 MG/DL (70 - 105) H 12/11/17 07:56 Hemoglobin A1c % 9.3 % (4.0-6.0) H 12/07/17 14:30 Whole Bld Lactic Acid 2.93 mmol/L (0.60-1.99) H* 12/07/17 16:30 Calcium 9.3 mg/dL (8.6-10.3) 12/11/17 08:30 Total Bilirubin 0.2 mg/dL (0.3-1.0) L 12/08/17 05:55 AST 25 U/L (13-39) 12/08/17 05:55 ALT 22 U/L (7-52) 12/08/17 05:55 Alkaline Phosphatase 85 U/L (34-104) 12/08/17 05:55 Creatine Kinase 51 U/L (30-223) 12/07/17 14:30 Troponin I 0.01 ng/mL (0.01-0.05) 12/07/17 14:30 Total Protein 7.6 gm/dL (6.0-8.3) 12/08/17 05:55 Albumin 3.4 gm/dL (3.7-5.3) L 12/08/17 05:55 Globulin 4.2 gm/dL 05/10/18 05:55 Albumin/Globulin Ratio 0.8 (1.0-1.8) L 12/08/17 05:55 Serum , Qual NEGATIVE (NEGATIVE) 12/07/17 14:30 Urine Source MIDSTREAM 12/07/17 15:25 Urine Color LIGHT YELLOW 12/07/17 15:25 Urine Clarity CLOUDY (CLEAR) H 12/07/17 15:25 Urine pH 6.0 (4.6 - 8.0) 12/07/17 15:25 Ur Specific [place] 1.015 (1.005-1.030) 12/07/17 15:25 Urine Protein 100 mg/dL (NEGATIVE) H 12/07/17 15:25 Urine Glucose (UA) 100 mg/dL (NEGATIVE) H 12/07/17 15:25 Urine Ketones NEGATIVE mg/dL (NEGATIVE) 12/07/17 15:25 Urine Blood NEGATIVE (NEGATIVE) 12/07/17 15:25 Urine Nitrate NEGATIVE (NEGATIVE) 12/07/17 15:25 Urine Bilirubin NEGATIVE (NEGATIVE) 12/07/17 15:25 Urine Urobilinogen 0.2 E.U./dL (0.2 - 1.0) 12/07/17 15:25 Ur Leukocyte Esterase MODERATE (NEGATIVE) H 12/07/17 15:25 Urine RBC 0-2 /hpf (0-5) 12/07/17 15:25 Urine WBC 25-50 /hpf (0-5) H 12/07/17 15:25 Ur Epithelial Cells MANY /lpf (FEW) 12/07/17 15:25 Urine Bacteria FEW /hpf (NONE SEEN) 12/07/17 15:25 Vancomycin Trough 26.5 ug/mL (5-10) H 12/09/17 05:50 - Physical Exam Vitals and I&O: Vital Signs Temp 98.2 F 12/11/17 07:54 Pulse 102 12/11/17 07:54 Resp 18 12/11/17 07:54 BP 159/63 12/11/17 07:54 Pulse Ox 96 12/11/17 07:54 Intake & Output 12/10/17 12/11/17 12/11/17 18:59 06:59 18:59 Intake Total 1850 1450 Balance 1850 1450 Weight (lbs) 56.245 kg Intake: Intake, IV Amount 1350 1450 Piperacillin Sodium/ 100 200 Tazobact 4.5 gm In Sodium Chloride 0.9% 100 ml @ 100 mls/hr IV Q8HR [facility] Rx #:[id number] Sodium Chloride 0.9% 1, 1000 1000 000 ml @ 125 mls/hr IV . Q8H [facility] Rx#:[id number] Vancomycin HCl 1 gm In 250 250 Sodium Chloride 0.9% 250 ml @ 165 mls/hr IV Q18H [facility] Rx#:[id number] Oral 500 Other: # Voids 2 # Bowel Movements 1 Stool Characteristics Soft Brown Weight Source Bedscale Active Medications: Current Medications Acetaminophen (Tylenol) 650 mg PO Q6H PRN PRN Reason: Pain or Fever >101 Stop: 02/06/18 01:56 Acetaminophen/Hydrocodone Bitart ([place] 10 Mg/325 Mg) 1 tab PO Q4H PRN PRN Reason: pain level 1-5 Stop: 02/07/18 19:32 Last Admin: 12/10/17 04:09 Dose: 1 tab Azathioprine (Imuran) 50 mg PO TID [facility] PRN Reason: Protocol Stop: 02/06/18 08:59 Last Admin: 12/10/17 20:32 Dose: 50 mg Sodium Chloride (Nacl 0.9%) 1,000 mls @ 125 mls/hr IV .Q8H [facility] Stop: 02/05/18 17:29 Last Admin: 12/11/17 00:21 Dose: 125 mls/hr Piperacillin Sod/Tazobactam (Sod 4.5 gm/ Sodium Chloride) 100 mls @ 100 mls/hr IV Q8HR [facility] Stop: 02/05/18 20:59 Last Infusion: 12/11/17 06:28 Dose: Infused Vancomycin HCl 1 gm/ Sodium (Chloride) 250 mls @ 165 mls/hr IV Q18H [facility] Stop: 02/07/18 14:59 Last Infusion: 12/11/17 05:07 Dose: Infused Insulin Aspart (Novolog Insulin Sliding Scale) 0 units SUBQ ACHS [facility] PRN Reason: Protocol Stop: 02/06/18 07:29 Last Admin: 12/11/17 08:04 Dose: 12 units Metoprolol Tartrate (Lopressor) 25 mg PO BID [facility] Stop: 02/06/18 08:59 Last Admin: 12/10/17 16:24 Dose: 25 mg Miscellaneous (Vancomycin Iv Per Pharmacy) 1 ea [facility] PRN PRN PRN Reason: PROTOCOL Stop: 02/05/18 17:19 Miscellaneous (Probiotic Screen) 1 ea MC PRN PRN PRN Reason: PROTOCOL Stop: 02/07/18 13:46 Morphine Sulfate (Morphine) 1 mg IVP Q4HR PRN PRN Reason: pain levle 6-10 Stop: 02/07/18 19:31 Last Admin: 12/11/17 00:58 Dose: 1 mg Mupirocin (Bactroban Oint) 1 appl NS BID [facility] Stop: 12/14/17 09:01 Last Admin: 12/10/17 16:24 Dose: 1 appl Ondansetron HCl (Zofran) 4 mg IV Q6H PRN PRN Reason: Nausea / Vomiting Stop: 02/07/18 19:32 Last Admin: 12/11/17 01:00 Dose: 4 mg Pyridostigmine [place] (Mestinon) 180 mg PO TID [facility] Stop: 02/06/18 08:59 Last Admin: 12/10/17 20:32 Dose: 180 mg - Procedures Procedures: Procedures Procedure Code Date EMERGENCY DEPT VISIT 02671 08/07/11 INJECT/INFUSE NEC 99.29 02/22/10 Nutritional Asmnt/Malnutr-PDOC - Dietary Evaluation Malnutrition Findings (Please click <Entered> for more info): Nutritional Asmnt/Malnutrition Start: 12/08/17 16: 43 Text: Status: Complete Freq: Document 12/08/17 16:43 LCHENG (Rec: 12/08/17 16:53 [email or web address] [email or web address]) Nutritional Asmnt/Malnutrition Patient General Information Nutritional Screening High Risk Diagnosis peripheral artery disease Pertinent Medical Hx/Surgical Hx HTN, DM, asthma/COPD, dyslipidemia, resp failure, myasthenia, gravis Subjective Information Consult received for Dm and open wound. Pt seen talking on phone at time of visit, not able to interview at this time . Current Diet Order/ Nutrition Support CCHO 60gm Pertinent Medications novolog, piperacillin, nacl 0. 9%, vancomycin Pertinent Labs 12/08 Na 130, BUN 27, glucose 418, POC 400 12/07 Na 128, Cl 96, BUN 36, glucose 207, POC 132 Nutritional Hx/Data Height 1.7 m Height (Calculated Centimeters) 170.2 Current Weight (lbs) 54.431 kg Weight (Calculated Kilograms) 54.4 Weight (Calculated Grams) 38080.1 [place] Body Weight 135 Body Mass Index (BMI) 18.8 Weight Status Approriate GI Symptoms GI Symptoms None Last BM none /10 Difficult in: None Skin Integrity/Comment: right 2nd toe gangrene Estimated Nutritional Goals BEE in Kcals: Using Current wt Calories/Kcals/Kg 30-35 Kcals Calculated 2393-2007 Protein: Using Current wt Protein g/k.2-1.4 Protein Calculated 66-77 Fluid: ml 1650-1925ml (1ml/kcal) Nutritional Problem 1. Problem Problem altered nutrition related labs Etiology hx of DM Signs/Symptoms: glucose 207-418, POC 132-400 Malnutrition Alert Protein-Calorie Malnutrition N/A Is there a minimum of two criteria No selected? Query Text:Check all the applicable criteria. A minimum of two criteria are recommended for diagnosis of either severe or non-severe malnutrition. Intervention/Recommendation Comments 1. Continue with CCHO-60gm diet as ordered. Will provide nutrition education when pt available. 2. Monitor PO intake, wt, labs and skin integrity 3. F/U as high risk in 2-3 days, 12/10-12/11 Expected Outcomes/Goals Expected Outcomes/Goals 1. PO intake to meet at least 75% of nutritional needs. 2. Wt stability, skin to remain intact, labs to approach WNL.
[2017-12-11 10:23] LABS: HEMATOCRIT 30.8 % (41.0-60); LYMPHOCYTE ABSOLUTE 0.3 Th/cmm (1.5-3.0); MANUAL DIFF REQUIRED? YES; MEAN CELL VOLUME 90.3 fl (81-100); MEAN CORPUSCULAR HEMOGLOBIN 29.4 pg (27.0-31.0); MEAN CORPUSCULAR HGB CONC 32.6 pg (28.0-36.0); MEAN PLATELET VOLUME 6.8 fl; MONOCYTE ABSOLUTE 0.5 Th/cmm (0.3-1.0); NEUTROPHILE ABSOLUTE 10.4 Th/cmm (1.8-8.0); PLATELET COUNT 579 Th/cmm (150-400); RED BLOOD COUNT 3.41 Mil/cmm (3.80-5.10); RED CELL DISTRIBUTION WIDTH 15.9 % (11.5-20.0); WHITE BLOOD COUNT 11.2 Th/cmm (4.8-10.8)
[2017-12-11 10:37] LABS: BUN - UREA NITROGEN 21 mg/dL (7-25); CALCIUM SERUM 9.2 mg/dL (8.6-10.3); CHLORIDE 103 mEq/L (98-107); CREATININE - SERUM 1.2 mg/dL (0.6-1.2); GFR AFRICAN-AMERICAN > 60.0 ml/min (>90); GFR NON AFRICAN-AMERICAN 51.6 ml/min; GLUCOSE 364 mg/dL (70-105); POTASSIUM SERUM 3.5 mEq/L (3.5-5.1); SODIUM SERUM 132 mEq/L (136-145)
[2017-12-11 10:42] LABS: CARBON DIOXIDE 6.5 mEq/L (21.0-31.0)
[2017-12-11 10:55] LABS: BASOPHIL 1 % (0-3); LYMPHOCYTE 3 % (20-50); MONOCYTE 6 % (2-10); NEUTROPHILS 90 % (40-80); PLATELET ESTIMATE INCREASED PLATELETS (NORMAL); TOTAL CELLS COUNTED 100
[2017-12-11 19:54] LABS: URINE MICROSCOPIC INDICATED? YES; URINE SOURCE MIDSTREAM
[2017-12-11 20:04] LABS: URINE BILIRUBIN NEGATIVE (NEGATIVE); URINE BLOOD MODERATE (NEGATIVE); URINE GLUCOSE (UA) >=1000 mg/dL (NEGATIVE); URINE KETONE 40 mg/dL (NEGATIVE); URINE LEUKOCYTE ESTERASE NEGATIVE (NEGATIVE); URINE NITRATE NEGATIVE (NEGATIVE); URINE PROTEIN 100 mg/dL (NEGATIVE); URINE UROBILINOGEN 0.2 E.U./dL (0.2 - 1.0)
[2017-12-11 20:06] LABS: URINE CLARITY HAZY (CLEAR); URINE COLOR YELLOW
[2017-12-11 20:11] LABS: URINE BACTERIA FEW /hpf (NONE SEEN); URINE EPITHELIAL CELLS MODERATE /lpf (FEW); URINE WBC 0-2 /hpf (0-5)
[2017-12-11 20:12] LABS: URINE YEAST MANY /hpf (NONE SEEN)
--- NOTE | 2017-12-11 20:24 | Consultation ---
DATE OF CONSULTATION: 12/11/2017 REASON FOR CONSULTATION: Severe acidosis, electrolyte imbalance and for fluid management and history of recent kidney failure. HISTORY OF PRESENT ILLNESS: This is a 47-year-old -[place] female with past medical history of type 2 diabetes mellitus, was brought in because of painful right second toe. Two days prior to admission, the patient experienced pain in right second toe every time she ambulates. This was associated with discoloration and drainage. A few hours prior to admission, she could no longer tolerate the pain and proceeded to the Emergency Room. Her white count was 5.9. Lactic acid was 2.3. She was started on Zosyn as well as vancomycin. She was seen by Surgery. She underwent a successful right second digit amputation. Her CO2 on admission was 21 with a BUN/creatinine of 36/1. She was started on hydration. Her BUN/creatinine improved to 21/1.2; however, CO2 dropped to 6.5. Also, upon observation, her serum glucose has been persistently elevated in the 300 and 400 range. She did admit to some nausea and vomiting as well as diarrhea, but not to a severe extent. PAST MEDICAL HISTORY: 1. Type 2 diabetes mellitus. 2. Chronic obstructive pulmonary disease. 3. Myasthenia gravis. 4. Bronchial asthma. 5. History of respiratory failure. 6. Right second toe necrosis/cellulitis. CURRENT MEDICATIONS: She is currently on acetaminophen, azathioprine, metoprolol, mupirocin, pyridostigmine, vancomycin, and Zosyn. ALLERGIES: No known drug allergies. SOCIAL HISTORY: Denied any history of smoking. Drinks alcoholic beverages on special events. She used to be a ophthalmic medical technician. FAMILY HISTORY: Noncontributory to present illness. REVIEW OF SYSTEMS: CONSTITUTIONAL: She does have on and off weakness. Appetite had been fair. No fever or chills. HEENT: No mention of headaches, no dizziness. CARDIORESPIRATORY: No history of chest pain, palpitations, diaphoresis, cough, no shortness of breath. ENDOCRINE: She does have a history of COPD and bronchial asthma. MUSCULOSKELETAL: She has a history of myasthenia gravis. GENITOURINARY: She did have some mild prerenal azotemia, which has resolved. However, she now has developed persistent anion gap metabolic acidosis. GASTROINTESTINAL: She did have some nausea and vomiting as well as diarrhea. HEMATOLOGIC: She has anemia of chronic disease. NEUROPSYCHIATRIC: No syncopal episode or seizure activity. PHYSICAL EXAMINATION: GENERAL: The patient is cachectic, mild distress. VITAL SIGNS: Blood pressure is 104/68, pulse 63, temperature 98.1 degrees. SKIN: Poor turgor, warm, no rash, no jaundice appreciated. HEENT: Head normocephalic, atraumatic. EYES: Extraocular muscles intact. Pupils equal, round, reactive to light and accommodates. Anicteric sclerae. Pale conjunctivae. Nose, midline nasal septum. Mouth: Dry mucosa. Poor dentition. NECK: Supple, no adenopathy, no thyromegaly, no bruits. Trachea palpated in the midline. CHEST AND CVS: S1, S2. No rub, murmur, or gallop appreciated. Point of maximal impulse fifth intercostal space, left midclavicular line. No abdominal or femoral bruits appreciated. LUNGS: Equal expansion. No use of accessory muscles. No supraclavicular retractions. Decreased breath sounds, few rhonchi, but no rales or wheezes appreciated. BREASTS: Symmetrical, without any discharge. ABDOMEN: Flat, soft, positive for bowel sounds. No bruits either diastolic or systolic. RECTAL: Lax sphincter tone. GENITOURINARY: Normal appearing female genitalia. MUSCULOSKELETAL: No effusions present in her joints with adequate range of motion. EXTREMITIES: No evidence of edema, cyanosis or clubbing with palpable femoral, but unable to fully appreciate popliteal and dorsalis pedis pulses. She has adequately dressed right second digit. No drainage observed. NEUROLOGIC: The patient is alert, verbal, motor is 5/5. Cranial nerves 3-12 intact. Sensory intact. LABORATORY DATA: Revealed sodium 132, potassium 3.5, chloride 103, CO2 6.5, BUN 21, creatinine 1.2, glucose 463. ASSESSMENT AND PLAN: 1. Prerenal azotemia. The patient has been hydrated adequately and aggressively. Her kidney function has improved now with a BUN/creatinine of 21/1.2. 2. Anion gap metabolic acidosis with non-gap acidosis secondary to diabetic ketoacidosis. Possibility also of contribution from lactic acid should be considered. 3. Right second toe necrosis/cellulitis status post amputation. 4. Type 2 diabetes mellitus, out of control. 5. Chronic obstructive pulmonary disease. 6. Myasthenia gravis. 7. Bronchial asthma. 8. History of respiratory failure. PLAN: 1. Continue on with normal saline at 125 mL per hour. 2. Sliding scale at this time. Increase frequency to q. 4 hours. 3. ABG. 4. Urinalysis, urine sodium, Urine ketones. 5. Follow up electrolytes. Thank you, Dr. Ramesh, for this consult. We will follow the patient closely with you. [facility]# [id number]
[2017-12-11 20:51] LABS: EOSINOPHIL SMEAR SOURCE URINE; EOSINOPHILS SMEAR COUNT NONE SEEN (NONE SEEN)
[2017-12-11 20:58] LABS: pH 7.31 (7.35-7.45)
[2017-12-11 21:00] LABS: ALLEN TEST Positive
[2017-12-12] MEDS: INSULIN ASPART SLIDING SCALE 100 UNITS/ML UNIT SUBQ SCH ×8 (00:28→23:22)
[2017-12-12] MEDS: Sodium Chloride 0.9% 1,000 ML IV SCH (06:20)
[2017-12-12 06:25] LABS: ALB/GLOB RATIO 0.8 (1.0-1.8); ALBUMIN 3.5 gm/dL (3.7-5.3); ALKALINE PHOSPHATASE 78 U/L (34-104); ANION GAP 18.2 (7.0-16.0); BILIRUBIN,TOTAL 0.3 mg/dL (0.3-1.0); BUN - UREA NITROGEN 19 mg/dL (7-25); CALCIUM SERUM 9.2 mg/dL (8.6-10.3); CARBON DIOXIDE 11.8 mEq/L (21.0-31.0); CHLORIDE 104 mEq/L (98-107); CREATININE - SERUM 1.2 mg/dL (0.6-1.2); GFR AFRICAN-AMERICAN > 60.0 ml/min (>90); GFR NON AFRICAN-AMERICAN 51.6 ml/min; GLUCOSE 284 mg/dL (70-105); SGOT 34 U/L (13-39); SGPT/ALT 26 U/L (7-52); SODIUM SERUM 130 mEq/L (136-145); TOTAL PROTEIN,SERUM 7.7 gm/dL (6.0-8.3)
[2017-12-12 06:33] LABS: % EOSINOPHILS 1.3 % (0.0-5.0); % LYMPHOCYTES 9.6 % (20.0-50.0); % MONOCYTES 9.8 % (2.0-10.0); % NEUTROPHILS 78.3 % (40.0-80.0); BASOPHILE ABSOLUTE 0.1 Th/cumm (0-0.2); EOSINOPHILE ABSOLUTE 0.1 Th/cmm (0.1-0.4); HEMATOCRIT 29.5 % (41.0-60); HEMOGLOBIN 9.2 gm/dL (12-16); LYMPHOCYTE ABSOLUTE 0.9 Th/cmm (1.5-3.0); MEAN CELL VOLUME 90.4 fl (81-100); MEAN CORPUSCULAR HEMOGLOBIN 28.1 pg (27.0-31.0); MEAN CORPUSCULAR HGB CONC 31.1 pg (28.0-36.0); MEAN PLATELET VOLUME 7.6 fl; MONOCYTE ABSOLUTE 0.9 Th/cmm (0.3-1.0); NEUTROPHILE ABSOLUTE 6.9 Th/cmm (1.8-8.0); PLATELET COUNT 362 Th/cmm (150-400); RED BLOOD COUNT 3.26 Mil/cmm (3.80-5.10); RED CELL DISTRIBUTION WIDTH 16.4 % (11.5-20.0); WHITE BLOOD COUNT 8.9 Th/cmm (4.8-10.8)
--- NOTE | 2017-12-12 11:27 | Infectious Disease Prog Note ---
Infectious Disease Subjective - Review of Systems Service Date: 12/12/17 Subjective: There is no new change, no fever. She has developed nausea and vomiting, her accuchek gluscose are high. Patient had stated that she has DM1 and used to take insulin NPH at home. At the [facility] she was not taking NPH insulin. Infectious Disease Objective - Results Result Diagrams: 12/12/17 05:40 12/12/17 05:40 Recent Labs: Laboratory Last Values WBC 8.9 Th/cmm (4.8-10.8) D 12/12/17 05:40 RBC 3.26 Mil/cmm (3.80-5.10) L 12/12/17 05:40 Hgb 9.2 gm/dL (12-16) L 12/12/17 05:40 Hct 29.5 % (41.0-60) L 12/12/17 05:40 MCV 90.4 fl (81-100) 12/12/17 05:40 MCH 28.1 pg (27.0-31.0) 12/12/17 05:40 MCHC Differential 31.1 pg (28.0-36.0) 12/12/17 05:40 RDW 16.4 % (11.5-20.0) 12/12/17 05:40 Plt Count 362 Th/cmm (150-400) D 12/12/17 05:40 MPV 7.6 fl 12/12/17 05:40 Neutrophils % 78.3 % (40.0-80.0) 12/12/17 05:40 Lymphocytes % 9.6 % (20.0-50.0) L 12/12/17 05:40 Monocytes % 9.8 % (2.0-10.0) 12/12/17 05:40 Eosinophils % 1.3 % (0.0-5.0) 12/12/17 05:40 Basophils % 1.0 % (0.0-2.0) 12/12/17 05:40 Neutrophils (Manual) 90 % (40-80) H 12/11/17 10:12 Lymphocytes 3 % (20-50) L 12/11/17 10:12 Monocytes 6 % (2-10) 12/11/17 10:12 Basophils 1 % (0-3) 12/11/17 10:12 Platelet Estimate INCREASED PLATELETS (NORMAL) 12/11/17 10:12 Eos Smear Source URINE 12/11/17 19:50 Eos Smear Total Cells NONE SEEN (NONE SEEN) 12/11/17 19:50 PT 10.9 SECONDS (9.5-11.5) 12/07/17 14:30 INR 1.05 (0.5-1.4) 12/07/17 14:30 PTT (Actin FS) 26.2 SECONDS (26.0-38.0) 12/07/17 14:30 Specimen Source ATERIAL 12/11/17 19:10 Sample Site RB 12/11/17 19:10 pH 7.31 (7.35-7.45) L 12/11/17 19:10 pCO2 27.0 mmHg (35.0-45.0) L 12/11/17 19:10 pO2 98.0 mmHg (80.0-100.0) 12/11/17 19:10 HCO3 16.3 mEq/L (20.0-26.0) L 12/11/17 19:10 Base Excess -11.1 mEq/L (-3.0-3.0) L 12/11/17 19:10 O2 Saturation 97.0 % (92.0-100.0) 12/11/17 19:10 Ananth Test Positive 12/11/17 19:10 Vent Rate N/A 12/11/17 19:10 Inspired O2 21 12/11/17 19:10 Tidal Volume N/A 12/11/17 19:10 PEEP N/A 12/11/17 19:10 Pressure (ins/psv/peep) N/A 12/11/17 19:10 Critical Value DV 12/11/17 19:10 Sodium 130 mEq/L (136-145) L 12/12/17 05:40 Potassium 4.0 mEq/L (3.5-5.1) 12/12/17 05:40 Chloride 104 mEq/L (98-107) 12/12/17 05:40 Carbon Dioxide 11.8 mEq/L (21.0-31.0) L 12/12/17 05:40 Anion Gap 18.2 (7.0-16.0) H 12/12/17 05:40 BUN 19 mg/dL (7-25) 12/12/17 05:40 Creatinine 1.2 mg/dL (0.6-1.2) 12/12/17 05:40 Est GFR ( Amer) > 60.0 ml/min (>90) 12/12/17 05:40 Est GFR (Non-Af Amer) 51.6 ml/min 12/12/17 05:40 BUN/Creatinine Ratio 15.8 12/12/17 05:40 Glucose 541 mg/dL (70-105) H* 12/12/17 08:10 POC Glucose 352 MG/DL (70 - 105) H 12/12/17 10:48 Hemoglobin A1c % 9.3 % (4.0-6.0) H 12/07/17 14:30 Whole Bld Lactic Acid 0.63 mmol/L (0.60-1.99) 12/12/17 08:10 Uric Acid 4.8 mg/dL (2.3-6.6) 12/12/17 05:40 Calcium 9.2 mg/dL (8.6-10.3) 12/12/17 05:40 Total Bilirubin 0.3 mg/dL (0.3-1.0) 12/12/17 05:40 AST 34 U/L (13-39) 12/12/17 05:40 ALT 26 U/L (7-52) 12/12/17 05:40 Alkaline Phosphatase 78 U/L (34-104) 12/12/17 05:40 Creatine Kinase 51 U/L (30-223) 12/07/17 14:30 Troponin I 0.01 ng/mL (0.01-0.05) 12/07/17 14:30 Total Protein 7.7 gm/dL (6.0-8.3) 12/12/17 05:40 Albumin 3.5 gm/dL (3.7-5.3) L 12/12/17 05:40 Globulin 4.2 gm/dL 12/12/17 05:40 Albumin/Globulin Ratio 0.8 (1.0-1.8) L 12/12/17 05:40 TSH 1.31 uIU/ml (0.34-5.60) 12/12/17 08:10 Serum , Qual NEGATIVE (NEGATIVE) 12/07/17 14:30 Urine Source MIDSTREAM 12/11/17 19:50 Urine Color YELLOW 12/11/17 19:50 Urine Clarity HAZY (CLEAR) 12/11/17 19:50 Urine pH 6.0 (4.6 - 8.0) 12/11/17 19:50 Ur Specific [place] 1.020 (1.005-1.030) 12/11/17 19:50 Urine Protein 100 mg/dL (NEGATIVE) H 12/11/17 19:50 Urine Glucose (UA) >=1000 mg/dL (NEGATIVE) H 12/11/17 19:50 Urine Ketones 40 mg/dL (NEGATIVE) H 12/11/17 19:50 Urine Blood MODERATE (NEGATIVE) H 12/11/17 19:50 Urine Nitrate NEGATIVE (NEGATIVE) 12/11/17 19:50 Urine Bilirubin NEGATIVE (NEGATIVE) 12/11/17 19:50 Urine Urobilinogen 0.2 E.U./dL (0.2 - 1.0) 12/11/17 19:50 Ur Leukocyte Esterase NEGATIVE (NEGATIVE) 12/11/17 19:50 Urine RBC 2-5 /hpf (0-5) 12/11/17 19:50 Urine WBC 0-2 /hpf (0-5) 12/11/17 19:50 Ur Epithelial Cells MODERATE /lpf (FEW) 12/11/17 19:50 Urine Bacteria FEW /hpf (NONE SEEN) 12/11/17 19:50 Urine Yeast MANY /hpf (NONE SEEN) H 12/11/17 19:50 Ur Random Sodium 46 mmol/L 12/11/17 19:50 Urine Creatinine 41.0 mg/dl (28.0-217.0) 12/11/17 19:50 Vancomycin Trough 9.2 ug/mL (5-10) 12/11/17 20:00 Serum Ketones SMALL (NEGATIVE) H 12/12/17 08:10 - Physical Exam Vitals and I&O: Vital Signs Temp 98.4 F 12/12/17 07:52 Pulse 94 12/12/17 08:24 Resp 18 12/12/17 07:52 BP 156/48 12/12/17 08:24 Pulse Ox 100 12/12/17 07:52 Intake & Output 12/11/17 12/12/17 12/12/17 18:59 06:59 18:59 Intake Total 750 2750 Output Total 200 Balance 550 2750 Weight (lbs) 56.047 kg 57.017 kg Intake: Intake, IV Amount 100 2450 Piperacillin Sodium/ 100 200 Tazobact 4.5 gm In Sodium Chloride 0.9% 100 ml @ 100 mls/hr IV Q8HR [facility] Rx #:[id number] Sodium Chloride 0.9% 1, 2000 000 ml @ 125 mls/hr IV . Q8H [facility] Rx#:[id number] Vancomycin HCl 1 gm In 250 Sodium Chloride 0.9% 250 ml @ 165 mls/hr IV Q18H [facility] Rx#:[id number] Oral 650 300 Output: Emesis 200 Other: # Voids 4 2 # Bowel Movements 2 2 Stool Characteristics Soft Liquid Liquid Brown Brown Weight Source Bedscale Bedscale Active Medications: Current Medications Acetaminophen (Tylenol) 650 mg PO Q6H PRN PRN Reason: Pain or Fever >101 Stop: 02/06/18 01:56 Acetaminophen/Hydrocodone Bitart ([place] 10 Mg/325 Mg) 1 tab PO Q4H PRN PRN Reason: pain level 1-5 Stop: 02/07/18 19:32 Last Admin: 12/11/17 20:28 Dose: 1 tab Azathioprine (Imuran) 50 mg PO TID [facility] PRN Reason: Protocol Stop: 02/06/18 08:59 Last Admin: 12/12/17 08:24 Dose: 50 mg Glyburide (Diabeta) 5 mg PO DAILY [facility] Stop: 02/10/18 08:59 Sodium Chloride (Nacl 0.9%) 1,000 mls @ 125 mls/hr IV .Q8H [facility] Stop: 02/05/18 17:29 Last Admin: 12/12/17 06:20 Dose: 125 mls/hr Piperacillin Sod/Tazobactam (Sod 4.5 gm/ Sodium Chloride) 100 mls @ 100 mls/hr IV Q8HR [facility] Stop: 02/05/18 20:59 Last Infusion: 12/12/17 06:21 Dose: Infused Vancomycin HCl 1.25 gm/ Sodium (Chloride) 250 mls @ 165 mls/hr IV Q18H [facility] Stop: 02/10/18 14:59 Insulin Aspart (Novolog Insulin Sliding Scale) 0 units SUBQ Q4HR [facility] PRN Reason: Protocol Stop: 02/09/18 19:59 Last Admin: 12/12/17 08:22 Dose: 13 units Metformin HCl (Glucophage) 850 mg PO BIDWM [facility] Stop: 02/10/18 11:59 Metoprolol Tartrate (Lopressor) 25 mg PO BID [facility] Stop: 02/06/18 08:59 Last Admin: 12/12/17 08:24 Dose: 25 mg Miscellaneous (Vancomycin Iv Per Pharmacy) 1 ea PRN PRN PRN Reason: PROTOCOL Stop: 02/05/18 17:19 Miscellaneous (Probiotic Screen) 1 ea PRN PRN PRN Reason: PROTOCOL Stop: 02/07/18 13:46 Morphine Sulfate (Morphine) 1 mg IVP Q4HR PRN PRN Reason: pain levle 6-10 Stop: 02/07/18 19:31 Last Admin: 12/11/17 00:58 Dose: 1 mg Mupirocin (Bactroban Oint) 1 appl NS BID [facility] Stop: 12/14/17 09:01 Last Admin: 12/12/17 08:24 Dose: 1 appl Ondansetron HCl (Zofran) 4 mg IV Q6H PRN PRN Reason: Nausea / Vomiting Stop: 02/07/18 19:32 Last Admin: 12/12/17 08:23 Dose: 4 mg Pyridostigmine [place] (Mestinon) 180 mg PO TID [facility] Stop: 02/06/18 08:59 Last Admin: 12/12/17 08:24 Dose: 180 mg General: no acute distress, well developed, well nourished HEENT: atraumatic, normocephalic, PERRLA Neck: supple, no thyromegaly Cardiovascular: S1S2, regular Lungs: clear to auscultation bilaterally, clear to percussion Abdomen: soft, no tender, no distended, no hepatomegaly Extremities: no cyanosis, no clubbing, no edema Neurological: awake, alert, oriented Skin: intact - Procedures Procedures: Procedures Procedure Code Date EMERGENCY DEPT VISIT 13852 08/07/11 INJECT/INFUSE NEC 99.29 02/22/10 Infectious Disease Assmt/Plan - Assessment Assessment: 1. Right second toe gangrene. 2. Diabetes mellitus type 2, uncontrolled. versus DM1 with ketoacidosis. 3. History of myasthenia gravis. 4. Dyslipidemia. 5. Urinary tract infection. 6. 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 7. Metabolic acidosis. - Plan Plan: Will transfer to the ICU for ? DKA.. Start NPH insulin Increase the frequency of the accucheck. Check the labs in am. IVF support. Dr Huerta consult appreciated. Nutritional Asmnt/Malnutr-PDOC - Dietary Evaluation Malnutrition Findings (Please click <Entered> for more info): Nutritional Asmnt/Malnutrition Start: 12/08/17 16: 43 Text: Status: Complete Freq: Document 12/08/17 16:43 [facility] (Rec: 12/08/17 16:[address] [id number] Nutritional Asmnt/Malnutrition Patient General Information Nutritional Screening High Risk Diagnosis peripheral artery disease Pertinent Medical Hx/Surgical Hx HTN, DM, asthma/COPD, dyslipidemia, resp failure, myasthenia, gravis Subjective Information Consult received for Dm and open wound. Pt seen talking on phone at time of visit, not able to interview at this time . Current Diet Order/ Nutrition Support CCHO 60gm Pertinent Medications novolog, piperacillin, nacl 0. 9%, vancomycin Pertinent Labs 12/08 Na 130, BUN 27, glucose 418, POC 400 12/07 Na 128, Cl 96, BUN 36, glucose 207, POC 132 Nutritional Hx/Data Height 1.7 m Height (Calculated Centimeters) 170.2 Current Weight (lbs) 54.431 kg Weight (Calculated Kilograms) 54.4 Weight (Calculated Grams) 88881.1 [place] Body Weight 135 Body Mass Index (BMI) 18.8 Weight Status Approriate GI Symptoms GI Symptoms None Last BM none 5/10 Difficult in: None Skin Integrity/Comment: right 2nd toe gangrene Estimated Nutritional Goals BEE in Kcals: Using Current wt Calories/Kcals/Kg 30-35 Kcals Calculated 9993-5710 Protein: Using Current wt Protein g/k.2-1.4 Protein Calculated 66-77 Fluid: ml 1650-1925ml (1ml/kcal) Nutritional Problem 1. Problem Problem altered nutrition related labs Etiology hx of DM Signs/Symptoms: glucose 207-418, POC 132-400 Malnutrition Alert Protein-Calorie Malnutrition N/A Is there a minimum of two criteria No selected? Query Text:Check all the applicable criteria. A minimum of two criteria are recommended for diagnosis of either severe or non-severe malnutrition. Intervention/Recommendation Comments 1. Continue with CCHO-60gm diet as ordered. Will provide nutrition education when pt available. 2. Monitor PO intake, wt, labs and skin integrity 3. F/U as high risk in 2-3 days, 12/10-12/11 Expected Outcomes/Goals Expected Outcomes/Goals 1. PO intake to meet at least 75% of nutritional needs. 2. Wt stability, skin to remain intact, labs to approach WNL.
--- NOTE | 2017-12-12 13:10 | General Progress Note ---
Subjective - Review of Systems Service Date: 12/12/17 Subjective: awake, drowsy Objective - Results Result Diagrams: 12/12/17 05:40 12/12/17 05:40 Recent Labs: Laboratory Last Values WBC 8.9 Th/cmm (4.8-10.8) D 12/12/17 05:40 RBC 3.26 Mil/cmm (3.80-5.10) L 12/12/17 05:40 Hgb 9.2 gm/dL (12-16) L 12/12/17 05:40 Hct 29.5 % (41.0-60) L 12/12/17 05:40 MCV 90.4 fl (81-100) 12/12/17 05:40 MCH 28.1 pg (27.0-31.0) 12/12/17 05:40 MCHC Differential 31.1 pg (28.0-36.0) 12/12/17 05:40 RDW 16.4 % (11.5-20.0) 12/12/17 05:40 Plt Count 362 Th/cmm (150-400) D 12/12/17 05:40 MPV 7.6 fl 12/12/17 05:40 Neutrophils % 78.3 % (40.0-80.0) 12/12/17 05:40 Lymphocytes % 9.6 % (20.0-50.0) L 12/12/17 05:40 Monocytes % 9.8 % (2.0-10.0) 12/12/17 05:40 Eosinophils % 1.3 % (0.0-5.0) 12/12/17 05:40 Basophils % 1.0 % (0.0-2.0) 12/12/17 05:40 Neutrophils (Manual) 90 % (40-80) H 12/11/17 10:12 Lymphocytes 3 % (20-50) L 12/11/17 10:12 Monocytes 6 % (2-10) 12/11/17 10:12 Basophils 1 % (0-3) 12/11/17 10:12 Platelet Estimate INCREASED PLATELETS (NORMAL) 12/11/17 10:12 Eos Smear Source URINE 12/11/17 19:50 Eos Smear Total Cells NONE SEEN (NONE SEEN) 12/11/17 19:50 PT 10.9 SECONDS (9.5-11.5) 12/07/17 14:30 INR 1.05 (0.5-1.4) 12/07/17 14:30 PTT (Actin FS) 26.2 SECONDS (26.0-38.0) 12/07/17 14:30 Specimen Source ATERIAL 12/11/17 19:10 Sample Site RB 12/11/17 19:10 pH 7.31 (7.35-7.45) L 12/11/17 19:10 pCO2 27.0 mmHg (35.0-45.0) L 12/11/17 19:10 pO2 98.0 mmHg (80.0-100.0) 12/11/17 19:10 HCO3 16.3 mEq/L (20.0-26.0) L 12/11/17 19:10 Base Excess -11.1 mEq/L (-3.0-3.0) L 12/11/17 19:10 O2 Saturation 97.0 % (92.0-100.0) 12/11/17 19:10 Ananth Test Positive 12/11/17 19:10 Vent Rate N/A 12/11/17 19:10 Inspired O2 21 12/11/17 19:10 Tidal Volume N/A 12/11/17 19:10 PEEP N/A 12/11/17 19:10 Pressure (ins/psv/peep) N/A 12/11/17 19:10 Critical Value DV 12/11/17 19:10 Sodium 130 mEq/L (136-145) L 12/12/17 05:40 Potassium 4.0 mEq/L (3.5-5.1) 12/12/17 05:40 Chloride 104 mEq/L (98-107) 12/12/17 05:40 Carbon Dioxide 11.8 mEq/L (21.0-31.0) L 12/12/17 05:40 Anion Gap 18.2 (7.0-16.0) H 12/12/17 05:40 BUN 19 mg/dL (7-25) 12/12/17 05:40 Creatinine 1.2 mg/dL (0.6-1.2) 12/12/17 05:40 Est GFR ( Amer) > 60.0 ml/min (>90) 12/12/17 05:40 Est GFR (Non-Af Amer) 51.6 ml/min 12/12/17 05:40 BUN/Creatinine Ratio 15.8 12/12/17 05:40 Glucose 541 mg/dL (70-105) H* 12/12/17 08:10 POC Glucose 352 MG/DL (70 - 105) H 12/12/17 10:48 Hemoglobin A1c % 9.3 % (4.0-6.0) H 12/07/17 14:30 Whole Bld Lactic Acid 0.63 mmol/L (0.60-1.99) 12/12/17 08:10 Uric Acid 4.8 mg/dL (2.3-6.6) 12/12/17 05:40 Calcium 9.2 mg/dL (8.6-10.3) 12/12/17 05:40 Total Bilirubin 0.3 mg/dL (0.3-1.0) 12/12/17 05:40 AST 34 U/L (13-39) 12/12/17 05:40 ALT 26 U/L (7-52) 12/12/17 05:40 Alkaline Phosphatase 78 U/L (34-104) 12/12/17 05:40 Creatine Kinase 51 U/L (30-223) 12/07/17 14:30 Troponin I 0.01 ng/mL (0.01-0.05) 12/07/17 14:30 Total Protein 7.7 gm/dL (6.0-8.3) 12/12/17 05:40 Albumin 3.5 gm/dL (3.7-5.3) L 12/12/17 05:40 Globulin 4.2 gm/dL 12/12/17 05:40 Albumin/Globulin Ratio 0.8 (1.0-1.8) L 12/12/17 05:40 TSH 1.31 uIU/ml (0.34-5.60) 12/12/17 08:10 Serum , Qual NEGATIVE (NEGATIVE) 12/07/17 14:30 Urine Source MIDSTREAM 12/11/17 19:50 Urine Color YELLOW 12/11/17 19:50 Urine Clarity HAZY (CLEAR) 12/11/17 19:50 Urine pH 6.0 (4.6 - 8.0) 12/11/17 19:50 Ur Specific [place] 1.020 (1.005-1.030) 12/11/17 19:50 Urine Protein 100 mg/dL (NEGATIVE) H 12/11/17 19:50 Urine Glucose (UA) >=1000 mg/dL (NEGATIVE) H 12/11/17 19:50 Urine Ketones 40 mg/dL (NEGATIVE) H 12/11/17 19:50 Urine Blood MODERATE (NEGATIVE) H 12/11/17 19:50 Urine Nitrate NEGATIVE (NEGATIVE) 12/11/17 19:50 Urine Bilirubin NEGATIVE (NEGATIVE) 12/11/17 19:50 Urine Urobilinogen 0.2 E.U./dL (0.2 - 1.0) 12/11/17 19:50 Ur Leukocyte Esterase NEGATIVE (NEGATIVE) 12/11/17 19:50 Urine RBC 2-5 /hpf (0-5) 12/11/17 19:50 Urine WBC 0-2 /hpf (0-5) 12/11/17 19:50 Ur Epithelial Cells MODERATE /lpf (FEW) 12/11/17 19:50 Urine Bacteria FEW /hpf (NONE SEEN) 12/11/17 19:50 Urine Yeast MANY /hpf (NONE SEEN) H 12/11/17 19:50 Ur Random Sodium 46 mmol/L 12/11/17 19:50 Urine Creatinine 41.0 mg/dl (28.0-217.0) 12/11/17 19:50 Vancomycin Trough 9.2 ug/mL (5-10) 12/11/17 20:00 Serum Ketones SMALL (NEGATIVE) H 12/12/17 08:10 - Physical Exam Vitals and I&O: Vital Signs Temp 98.1 F 12/12/17 12:34 Pulse 90 12/12/17 12:34 Resp 18 12/12/17 12:34 BP 150/59 12/12/17 12:34 Pulse Ox 100 12/12/17 12:34 Intake & Output 12/11/17 12/12/17 12/12/17 18:59 06:59 18:59 Intake Total 750 2750 Output Total 200 Balance 550 2750 Weight (lbs) 56.047 kg 57.017 kg Intake: Intake, IV Amount 100 2450 Piperacillin Sodium/ 100 200 Tazobact 4.5 gm In Sodium Chloride 0.9% 100 ml @ 100 mls/hr IV Q8HR [facility] Rx #:[id number] Sodium Chloride 0.9% 1, 2000 000 ml @ 125 mls/hr IV . Q8H [facility] Rx#:[id number] Vancomycin HCl 1 gm In 250 Sodium Chloride 0.9% 250 ml @ 165 mls/hr IV Q18H [facility] Rx#:[id number] Oral 650 300 Output: Emesis 200 Other: # Voids 4 2 # Bowel Movements 2 2 Stool Characteristics Soft Liquid Liquid Brown Brown Weight Source Bedscale Bedscale Active Medications: Current Medications Acetaminophen (Tylenol) 650 mg PO Q6H PRN PRN Reason: Pain or Fever >101 Stop: 02/06/18 01:56 Acetaminophen/Hydrocodone Bitart ([place] 10 Mg/325 Mg) 1 tab PO Q4H PRN PRN Reason: pain level 1-5 Stop: 02/07/18 19:32 Last Admin: 12/11/17 20:28 Dose: 1 tab Azathioprine (Imuran) 50 mg PO TID MARCIA PRN Reason: Protocol Stop: 02/06/18 08:59 Last Admin: 12/12/17 08:24 Dose: 50 mg Glyburide (Diabeta) 5 mg PO DAILY [facility] Stop: 02/10/18 08:59 Last Admin: 12/12/17 11:35 Dose: 5 mg Sodium Chloride (Nacl 0.9%) 1,000 mls @ 125 mls/hr IV .Q8H [facility] Stop: 02/05/18 17:29 Last Admin: 12/12/17 06:20 Dose: 125 mls/hr Piperacillin Sod/Tazobactam (Sod 4.5 gm/ Sodium Chloride) 100 mls @ 100 mls/hr IV Q8HR [facility] Stop: 02/05/18 20:59 Last Infusion: 12/12/17 06:21 Dose: Infused Vancomycin HCl 1.25 gm/ Sodium (Chloride) 250 mls @ 165 mls/hr IV Q18H [facility] Stop: 02/10/18 14:59 Fluconazole (Diflucan) 100 mg in 50 mls @ 50 mls/hr IV Q24HR [facility] Stop: 02/10/18 13:59 Insulin Aspart (Novolog Insulin Sliding Scale) 0 units SUBQ Q2H MARCIA PRN Reason: Protocol Stop: 02/10/18 11:59 Insulin Human Isoph/Insulin Regular (Novolin 70/30) 20 units SUBQ QDAC [facility] PRN Reason: Protocol Stop: 02/11/18 07:29 Insulin Human Isoph/Insulin Regular (Novolin 70/30) 10 units SUBQ QPM MARCIA PRN Reason: Protocol Stop: 02/10/18 17:59 Metformin HCl (Glucophage) 850 mg PO BIDWM [facility] Stop: 02/10/18 11:59 Last Admin: 12/12/17 11:35 Dose: 850 mg Metoprolol Tartrate (Lopressor) 25 mg PO BID [facility] Stop: 02/06/18 08:59 Last Admin: 12/12/17 08:24 Dose: 25 mg Miscellaneous (Vancomycin Iv Per Pharmacy) 1 ea PRN PRN PRN Reason: PROTOCOL Stop: 02/05/18 17:19 Miscellaneous (Probiotic Screen) 1 ea PRN PRN PRN Reason: PROTOCOL Stop: 02/07/18 13:46 Morphine Sulfate (Morphine) 1 mg IVP Q4HR PRN PRN Reason: pain levle 6-10 Stop: 02/07/18 19:31 Last Admin: 12/11/17 00:58 Dose: 1 mg Mupirocin (Bactroban Oint) 1 appl NS BID [facility] Stop: 12/14/17 09:01 Last Admin: 12/12/17 08:24 Dose: 1 appl Ondansetron HCl (Zofran) 4 mg IV Q6H PRN PRN Reason: Nausea / Vomiting Stop: 02/07/18 19:32 Last Admin: 12/12/17 08:23 Dose: 4 mg Pyridostigmine [place] (Mestinon) 180 mg PO TID [facility] Stop: 02/06/18 08:59 Last Admin: 12/12/17 08:24 Dose: 180 mg General: Alert, No acute distress HEENT: Atraumatic, Mucous membr. moist/pink Neck: Supple, +2 carotid pulse wo bruit Cardiovascular: Regular rate, Normal S1, Normal S2 Lungs: Clear to auscultation Abdomen: Soft Extremities: no Edema Neurological: Sensation intact Skin: no Rash Psych/Mental Status: Mood NL - Procedures Procedures: Procedures Procedure Code Date EMERGENCY DEPT VISIT 73066 08/07/11 INJECT/INFUSE NEC 99.29 02/22/10 Assessment/Plan - Assessment Assessment: Pre renal Azotemia AG Met Acid 2/2 DM T2DM COPD Myathenia Gravis Bronchial Asthma - Plan Plan: Lab - Result Diagrams 12/12/17 05:40 12/12/17 05:40 Current Medications Acetaminophen (Tylenol) 650 mg PO Q6H PRN PRN Reason: Pain or Fever >101 Stop: 02/06/18 01:56 Acetaminophen/Hydrocodone Bitart ([place] 10 Mg/325 Mg) 1 tab PO Q4H PRN PRN Reason: pain level 1-5 Stop: 02/07/18 19:32 Last Admin: 12/11/17 20:28 Dose: 1 tab Azathioprine (Imuran) 50 mg PO TID MARCIA PRN Reason: Protocol Stop: 02/06/18 08:59 Last Admin: 12/12/17 08:24 Dose: 50 mg Glyburide (Diabeta) 5 mg PO DAILY [facility] Stop: 02/10/18 08:59 Last Admin: 12/12/17 11:35 Dose: 5 mg Sodium Chloride (Nacl 0.9%) 1,000 mls @ 125 mls/hr IV .Q8H [facility] Stop: 02/05/18 17:29 Last Admin: 12/12/17 06:20 Dose: 125 mls/hr Piperacillin Sod/Tazobactam (Sod 4.5 gm/ Sodium Chloride) 100 mls @ 100 mls/hr IV Q8HR [facility] Stop: 02/05/18 20:59 Last Infusion: 12/12/17 06:21 Dose: Infused Vancomycin HCl 1.25 gm/ Sodium (Chloride) 250 mls @ 165 mls/hr IV Q18H [facility] Stop: 02/10/18 14:59 Fluconazole (Diflucan) 100 mg in 50 mls @ 50 mls/hr IV Q24HR [facility] Stop: 02/10/18 13:59 Insulin Aspart (Novolog Insulin Sliding Scale) 0 units SUBQ Q2H [facility]IA PRN Reason: Protocol Stop: 02/10/18 11:59 Insulin Human Isoph/Insulin Regular (Novolin 70/30) 20 units SUBQ QDAC MARCIA PRN Reason: Protocol Stop: 02/11/18 07:29 Insulin Human Isoph/Insulin Regular (Novolin 70/30) 10 units SUBQ QPM MARCIA PRN Reason: Protocol Stop: 02/10/18 17:59 Metformin HCl (Glucophage) 850 mg PO BIDWM [facility] Stop: 02/10/18 11:59 Last Admin: 12/12/17 11:35 Dose: 850 mg Metoprolol Tartrate (Lopressor) 25 mg PO BID [facility] Stop: 02/06/18 08:59 Last Admin: 12/12/17 08:24 Dose: 25 mg Miscellaneous (Vancomycin Iv Per Pharmacy) 1 ea PRN PRN PRN Reason: PROTOCOL Stop: 02/05/18 17:19 Miscellaneous (Probiotic Screen) 1 ea PRN PRN PRN Reason: PROTOCOL Stop: 02/07/18 13:46 Morphine Sulfate (Morphine) 1 mg IVP Q4HR PRN PRN Reason: pain levle 6-10 Stop: 02/07/18 19:31 Last Admin: 12/11/17 00:58 Dose: 1 mg Mupirocin (Bactroban Oint) 1 appl NS BID [facility] Stop: 12/14/17 09:01 Last Admin: 12/12/17 08:24 Dose: 1 appl Ondansetron HCl (Zofran) 4 mg IV Q6H PRN PRN Reason: Nausea / Vomiting Stop: 02/07/18 19:32 Last Admin: 12/12/17 08:23 Dose: 4 mg Pyridostigmine [place] (Mestinon) 180 mg PO TID [facility] Stop: 02/06/18 08:59 Last Admin: 12/12/17 08:24 Dose: 180 mg Lab - Result Diagrams 12/12/17 05:40 12/12/17 05:40 BS still elevated ranging 400-500 urine (+) for ketones, CO2 increased to 11 ABG pH 7.31 continue NS, S/S q 2 hrs w/ reg insulin f/u electrolytes in am Nutritional Asmnt/Malnutr-PDOC - Dietary Evaluation Malnutrition Findings (Please click <Entered> for more info): Nutritional Asmnt/Malnutrition Start: 12/08/17 16: 43 Text: Status: Complete Freq: Document 12/08/17 16:43 DAWSON (Rec: 12/08/17 16:53 [email or web address] [id number]) Nutritional Asmnt/Malnutrition Patient General Information Nutritional Screening High Risk Diagnosis peripheral artery disease Pertinent Medical Hx/Surgical Hx HTN, DM, asthma/COPD, dyslipidemia, resp failure, myasthenia, gravis Subjective Information Consult received for Dm and open wound. Pt seen talking on phone at time of visit, not able to interview at this time . Current Diet Order/ Nutrition Support [facility] Pertinent Medications novolog, piperacillin, nacl 0. 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 Problem Problem altered nutrition related labs Etiology hx of DM Signs/Symptoms: glucose 207-418, POC 132-400 Malnutrition Alert Protein-Calorie Malnutrition N/A Is there a minimum of two criteria No selected? Query Text:Check all the applicable criteria. A minimum of two criteria are recommended for diagnosis of either severe or non-severe malnutrition. Intervention/Recommendation Comments 1. Continue with [facility]-60 diet as ordered. Will provide nutrition education when pt available. 2. Monitor PO intake, wt, labs and skin integrity 3. F/U as high risk in 2-3 days, 12/10-12/11 Expected Outcomes/Goals Expected Outcomes/Goals 1. PO intake to meet at least 75% of nutritional needs. 2. Wt stability, skin to remain intact, labs to approach WNL.
[2017-12-12] MEDS: Fluconazole 100mg/50mL 100 MG/50 ML BOTTLE IV SCH (14:02)
[2017-12-12] MEDS ORDERED: D5-0.9%NS 1,000 ML IV SCH (16:30)
[2017-12-12] MEDS: INSULIN 70/30 100 UNITS/ML SUBQ SCH (17:50)
[2017-12-12] MEDS: D5-0.45NS 1,000 ML IV SCH (18:20)
[2017-12-13] MEDS: INSULIN ASPART SLIDING SCALE 100 UNITS/ML UNIT SUBQ SCH ×12 (00:31→22:30)
[2017-12-13] MEDS: Morphine Sulfate 4 mg/mL 1mL Syr IVP PRN ×2 (00:35→20:16)
[2017-12-13] MEDS: D5-0.45NS 1,000 ML IV SCH ×2 (04:40→18:08)
[2017-12-13 04:42] LABS: EOSINOPHILE ABSOLUTE 0.1 Th/cmm (0.1-0.4); HEMOGLOBIN 10.1 gm/dL (12-16); LYMPHOCYTE ABSOLUTE 0.8 Th/cmm (1.5-3.0); MONOCYTE ABSOLUTE 0.7 Th/cmm (0.3-1.0); NEUTROPHILE ABSOLUTE 4.7 Th/cmm (1.8-8.0)
[2017-12-13 04:51] LABS: % BASOPHILS 0.2 % (0.0-2.0); % EOSINOPHILS 1.5 % (0.0-5.0); % LYMPHOCYTES 12.7 % (20.0-50.0); % MONOCYTES 10.9 % (2.0-10.0); % NEUTROPHILS 74.7 % (40.0-80.0); HEMATOCRIT 30.6 % (41.0-60); MEAN CELL VOLUME 88.8 fl (81-100); MEAN CORPUSCULAR HEMOGLOBIN 29.3 pg (27.0-31.0); RED BLOOD COUNT 3.45 Mil/cmm (3.80-5.10)
[2017-12-13 04:52] LABS: ALB/GLOB RATIO 0.8 (1.0-1.8); ALBUMIN 3.4 gm/dL (3.7-5.3); ALKALINE PHOSPHATASE 73 U/L (34-104); BILIRUBIN,TOTAL 0.2 mg/dL (0.3-1.0); BUN - UREA NITROGEN 11 mg/dL (7-25); CALCIUM SERUM 8.9 mg/dL (8.6-10.3); CARBON DIOXIDE 14.9 mEq/L (21.0-31.0); CHLORIDE 103 mEq/L (98-107); GFR AFRICAN-AMERICAN > 60.0 ml/min (>90); GFR NON AFRICAN-AMERICAN > 60.0 ml/min; SGOT 21 U/L (13-39); SGPT/ALT 23 U/L (7-52); SODIUM SERUM 132 mEq/L (136-145); TOTAL PROTEIN,SERUM 7.7 gm/dL (6.0-8.3)
[2017-12-13 04:56] LABS: PLATELET COUNT 551 Th/cmm (150-400); WHITE BLOOD COUNT 6.3 Th/cmm (4.8-10.8)
[2017-12-13 05:05] LABS: GLUCOSE 221 mg/dL (70-105); POTASSIUM SERUM 2.9 mEq/L (3.5-5.1)
[2017-12-13] MEDS ORDERED: Potassium Chloride 20 mEq ER Tab PO ONE (06:30)
[2017-12-13] MEDS ORDERED: Potassium Chloride 40 MEQ, Lidocaine 1% 20mL Vial 25 MG in Sodium Chloride 0.9% 250 ML IV ONE ×2 (08:13→09:00)
[2017-12-13] MEDS ORDERED: KCL 20mEq/100mL Premix 20 MEQ/100 ML PIGGYBACK IV SCH (09:00)
[2017-12-13] MEDS: KCL 20mEq/100mL Premix Bag IV SCH ×2 (09:06→11:55)
[2017-12-13] MEDS: INSULIN 70/30 100 UNITS/ML SUBQ SCH ×2 (09:09→16:48)
[2017-12-13] MEDS ORDERED: Mag Sulfate 2gm/50mL Premix 2 GM/50 ML BAG IV ONE (11:02)
--- NOTE | 2017-12-13 11:02 | General Progress Note ---
Subjective - Review of Systems Service Date: 12/13/17 Subjective: awake, weak, diarrhea, poor appetite Objective - Results Result Diagrams: 12/13/17 04:20 12/13/17 04:20 Recent Labs: Laboratory Last Values WBC 6.3 Th/cmm (4.8-10.8) D 12/13/17 04:20 RBC 3.45 Mil/cmm (3.80-5.10) L 12/13/17 04:20 Hgb 10.1 gm/dL (12-16) L 12/13/17 04:20 Hct 30.6 % (41.0-60) L 12/13/17 04:20 MCV 88.8 fl (81-100) 12/13/17 04:20 MCH 29.3 pg (27.0-31.0) 12/13/17 04:20 MCHC Differential 33.0 pg (28.0-36.0) 12/13/17 04:20 RDW 16.0 % (11.5-20.0) 12/13/17 04:20 Plt Count 551 Th/cmm (150-400) H D 12/13/17 04:20 MPV 7.0 fl 12/13/17 04:20 Neutrophils % 74.7 % (40.0-80.0) 12/13/17 04:20 Lymphocytes % 12.7 % (20.0-50.0) L 12/13/17 04:20 Monocytes % 10.9 % (2.0-10.0) H 12/13/17 04:20 Eosinophils % 1.5 % (0.0-5.0) 12/13/17 04:20 Basophils % 0.2 % (0.0-2.0) 12/13/17 04:20 Neutrophils (Manual) 90 % (40-80) H 12/11/17 10:12 Lymphocytes 3 % (20-50) L 12/11/17 10:12 Monocytes 6 % (2-10) 12/11/17 10:12 Basophils 1 % (0-3) 12/11/17 10:12 Platelet Estimate INCREASED PLATELETS (NORMAL) 12/11/17 10:12 Eos Smear Source URINE 12/11/17 19:50 Eos Smear Total Cells NONE SEEN (NONE SEEN) 12/11/17 19:50 PT 10.9 SECONDS (9.5-11.5) 12/07/17 14:30 INR 1.05 (0.5-1.4) 12/07/17 14:30 PTT (Actin FS) 26.2 SECONDS (26.0-38.0) 12/07/17 14:30 Specimen Source ATERIAL 12/11/17 19:10 Sample Site RB 12/11/17 19:10 pH 7.31 (7.35-7.45) L 12/11/17 19:10 pCO2 27.0 mmHg (35.0-45.0) L 12/11/17 19:10 pO2 98.0 mmHg (80.0-100.0) 12/11/17 19:10 HCO3 16.3 mEq/L (20.0-26.0) L 12/11/17 19:10 Base Excess -11.1 mEq/L (-3.0-3.0) L 12/11/17 19:10 O2 Saturation 97.0 % (92.0-100.0) 12/11/17 19:10 Ananth Test Positive 12/11/17 19:10 Vent Rate N/A 12/11/17 19:10 Inspired O2 21 12/11/17 19:10 Tidal Volume N/A 12/11/17 19:10 PEEP N/A 12/11/17 19:10 Pressure (ins/psv/peep) N/A 12/11/17 19:10 Critical Value DV 12/11/17 19:10 Sodium 132 mEq/L (136-145) L 12/13/17 04:20 Potassium 2.9 mEq/L (3.5-5.1) L* D 12/13/17 04:20 Chloride 103 mEq/L (98-107) 12/13/17 04:20 Carbon Dioxide 14.9 mEq/L (21.0-31.0) L 12/13/17 04:20 Anion Gap 17.0 (7.0-16.0) H 12/13/17 04:20 BUN 11 mg/dL (7-25) 12/13/17 04:20 Creatinine 1.0 mg/dL (0.6-1.2) 12/13/17 04:20 Est GFR ( Amer) > 60.0 ml/min (>90) 12/13/17 04:20 Est GFR (Non-Af Amer) > 60.0 ml/min 12/13/17 04:20 BUN/Creatinine Ratio 11.0 12/13/17 04:20 Glucose 221 mg/dL (70-105) H D 12/13/17 04:20 POC Glucose 130 MG/DL (70 - 105) H 12/13/17 10:29 Hemoglobin A1c % 9.3 % (4.0-6.0) H 12/07/17 14:30 Whole Bld Lactic Acid 0.56 mmol/L (0.60-1.99) L 12/13/17 04:20 Uric Acid 4.8 mg/dL (2.3-6.6) 12/12/17 05:40 Calcium 8.9 mg/dL (8.6-10.3) 12/13/17 04:20 Magnesium 1.5 mg/dL (1.9-2.7) L 12/13/17 04:20 Total Bilirubin 0.2 mg/dL (0.3-1.0) L 12/13/17 04:20 AST 21 U/L (13-39) 12/13/17 04:20 ALT 23 U/L (7-52) 12/13/17 04:20 Alkaline Phosphatase 73 U/L (34-104) 12/13/17 04:20 Creatine Kinase 51 U/L (30-223) 12/07/17 14:30 Troponin I 0.01 ng/mL (0.01-0.05) 12/07/17 14:30 Total Protein 7.7 gm/dL (6.0-8.3) 12/13/17 04:20 Albumin 3.4 gm/dL (3.7-5.3) L 12/13/17 04:20 Globulin 4.3 gm/dL 12/13/17 04:20 Albumin/Globulin Ratio 0.8 (1.0-1.8) L 12/13/17 04:20 TSH 1.31 uIU/ml (0.34-5.60) 12/12/17 08:10 Serum , Qual NEGATIVE (NEGATIVE) 12/07/17 14:30 Urine Source MIDSTREAM 12/11/17 19:50 Urine Color YELLOW 12/11/17 19:50 Urine Clarity HAZY (CLEAR) 12/11/17 19:50 Urine pH 6.0 (4.6 - 8.0) 12/11/17 19:50 Ur Specific [place] 1.020 (1.005-1.030) 12/11/17 19:50 Urine Protein 100 mg/dL (NEGATIVE) H 12/11/17 19:50 Urine Glucose (UA) >=1000 mg/dL (NEGATIVE) H 12/11/17 19:50 Urine Ketones 40 mg/dL (NEGATIVE) H 12/11/17 19:50 Urine Blood MODERATE (NEGATIVE) H 12/11/17 19:50 Urine Nitrate NEGATIVE (NEGATIVE) 12/11/17 19:50 Urine Bilirubin NEGATIVE (NEGATIVE) 12/11/17 19:50 Urine Urobilinogen 0.2 E.U./dL (0.2 - 1.0) 12/11/17 19:50 Ur Leukocyte Esterase NEGATIVE (NEGATIVE) 12/11/17 19:50 Urine RBC 2-5 /hpf (0-5) 12/11/17 19:50 Urine WBC 0-2 /hpf (0-5) 12/11/17 19:50 Ur Epithelial Cells MODERATE /lpf (FEW) 12/11/17 19:50 Urine Bacteria FEW /hpf (NONE SEEN) 12/11/17 19:50 Urine Yeast MANY /hpf (NONE SEEN) H 12/11/17 19:50 Ur Random Sodium 46 mmol/L 12/11/17 19:50 Urine Creatinine 41.0 mg/dl (28.0-217.0) 12/11/17 19:50 Vancomycin Trough 9.2 ug/mL (5-10) 12/11/17 20:00 Serum Ketones SMALL (NEGATIVE) H 12/13/17 04:20 - Physical Exam Vitals and I&O: Vital Signs Temp 97.7 F 12/13/17 08:00 Pulse 83 12/13/17 10:00 Resp 19 12/13/17 10:00 BP 145/65 12/13/17 10:00 Pulse Ox 100 12/13/17 10:00 Intake & Output 12/12/17 12/13/17 12/13/17 18:59 06:59 18:59 Intake Total 1750 1440 Balance 1750 1440 Weight (lbs) 56.331 kg 55.338 kg Intake: Intake, IV Amount 1400 1200 D5-0.45NS 1,000 ml @ 125 1000 mls/hr IV .Q8H [facility] Rx#: [id number] Fluconazole 100mg/50mL 50 100 mg In 50 ml @ 50 mls/ hr IV Q24HR [facility] Rx#: [id number] Piperacillin Sodium/ 100 200 Tazobact 4.5 gm In Sodium Chloride 0.9% 100 ml @ 100 mls/hr IV Q8HR [facility] Rx #:[id number] Vancomycin HCl 1.25 gm In 250 Sodium Chloride 0.9% 250 ml @ 165 mls/hr IV Q18H [facility] Rx#:[id number] Oral 350 240 Other: # Voids 4 3 # Bowel Movements 3 5 Stool Characteristics Soft Liquid Liquid Weight Source Bedscale Bedscale Active Medications: Current Medications Acetaminophen (Tylenol) 650 mg PO Q6H PRN PRN Reason: Pain or Fever >101 Stop: 02/06/18 01:56 Acetaminophen/Hydrocodone Bitart ([place] 10 Mg/325 Mg) 1 tab PO Q4H PRN PRN Reason: pain level 1-5 Stop: 02/07/18 19:32 Last Admin: 12/11/17 20:28 Dose: 1 tab Azathioprine (Imuran) 50 mg PO TID [facility] PRN Reason: Protocol Stop: 02/06/18 08:59 Last Admin: 12/13/17 09:07 Dose: 50 mg Glyburide (Diabeta) 5 mg PO DAILY [facility] Stop: 02/10/18 08:59 Last Admin: 12/13/17 09:06 Dose: 5 mg Guaifenesin (Mucinex) 600 mg PO BID [facility] Stop: 12/18/17 00:29 Last Admin: 12/13/17 09:29 Dose: 600 mg Piperacillin Sod/Tazobactam (Sod 4.5 gm/ Sodium Chloride) 100 mls @ 100 mls/hr IV Q8HR [facility] Stop: 02/05/18 20:59 Last Infusion: 12/13/17 05:38 Dose: Infused Vancomycin HCl 1.25 gm/ Sodium (Chloride) 250 mls @ 165 mls/hr IV Q18H [facility] Stop: 02/10/18 14:59 Last Admin: 12/13/17 10:33 Dose: 165 mls/hr Fluconazole (Diflucan) 100 mg in 50 mls @ 50 mls/hr IV Q24HR [facility] Stop: 02/10/18 13:59 Last Infusion: 12/12/17 15:05 Dose: Infused Dextrose/Sodium Chloride (D5-0.45ns) 1,000 mls @ 125 mls/hr IV .Q8H [facility] Stop: 02/10/18 18:14 Last Admin: 12/13/17 04:40 Dose: 125 mls/hr Potassium Chloride (Potassium Chloride) 20 meq in 100 mls @ 50 mls/hr IV Q2H [facility] Stop: 12/13/17 12:59 Last Admin: 12/13/17 09:06 Dose: 50 mls/hr Insulin Aspart (Novolog Insulin Sliding Scale) 0 units SUBQ Q2H [facility] PRN Reason: Protocol Stop: 02/10/18 11:59 Last Admin: 12/13/17 10:56 Dose: Not Given Insulin Human Isoph/Insulin Regular (Novolin 70/30) 20 units SUBQ QDAC [facility] PRN Reason: Protocol Stop: 02/11/18 07:29 Last Admin: 12/13/17 09:09 Dose: 20 units Insulin Human Isoph/Insulin Regular (Novolin 70/30) 10 units SUBQ QPM [facility] PRN Reason: Protocol Stop: 02/10/18 17:59 Last Admin: 12/12/17 17:50 Dose: 10 unit Metformin HCl (Glucophage) 850 mg PO BIDWM [facility] Stop: 02/10/18 11:59 Last Admin: 12/13/17 09:06 Dose: 850 mg Metoprolol Tartrate (Lopressor) 25 mg PO BID [facility] Stop: 02/06/18 08:59 Last Admin: 12/13/17 09:06 Dose: 25 mg Miscellaneous (Vancomycin Iv Per Pharmacy) 1 ea [facility] PRN PRN PRN Reason: PROTOCOL Stop: 02/05/18 17:19 Miscellaneous (Probiotic Screen) 1 ea MC PRN PRN PRN Reason: PROTOCOL Stop: 02/07/18 13:46 Morphine Sulfate (Morphine) 1 mg IVP Q4HR PRN PRN Reason: pain levle 6-10 Stop: 02/07/18 19:31 Last Admin: 12/13/17 00:35 Dose: 1 mg Mupirocin (Bactroban Oint) 1 appl NS BID [facility] Stop: 12/14/17 09:01 Last Admin: 12/13/17 09:08 Dose: 1 appl Ondansetron HCl (Zofran) 4 mg IV Q4H PRN PRN Reason: Nausea / Vomiting Stop: 02/07/18 19:32 Last Admin: 12/13/17 09:42 Dose: 4 mg Pyridostigmine [place] (Mestinon) 180 mg PO TID [facility] Stop: 02/06/18 08:59 Last Admin: 12/13/17 09:32 Dose: 180 mg Valsartan (Diovan) 80 mg PO DAILY [facility] Stop: 02/11/18 08:59 Last Admin: 12/13/17 09:06 Dose: 80 mg General: Alert, No acute distress HEENT: Atraumatic, PERRLA, Mucous membr. moist/pink Neck: Supple, +2 carotid pulse wo bruit Cardiovascular: Regular rate, Normal S1, Normal S2 Lungs: Clear to auscultation Abdomen: Soft Extremities: no Edema Neurological: Sensation intact Skin: no Rash Psych/Mental Status: Mood NL - Procedures Procedures: Procedures Procedure Code Date AMPUTATION OF TOE 08848 12/07/17 DETACHMENT AT RIGHT 2ND TOE, COMPLETE, OPEN APPROACH [id number] 12/07/17 EMERGENCY DEPT VISIT 51526 08/07/11 INJECT/INFUSE NEC 99.29 02/22/10 Assessment/Plan - Assessment Assessment: Pre renal Azotemia AG Met Acid 2/2 DM(DKA) T2DM COPD Myathenia Gravis Bronchial Asthma - Plan Plan: Lab - Result Diagrams 12/12/17 05:40 12/12/17 05:40 Current Medications Acetaminophen (Tylenol) 650 mg PO Q6H PRN PRN Reason: Pain or Fever >101 Stop: 02/06/18 01:56 Acetaminophen/Hydrocodone Bitart ([place] 10 Mg/325 Mg) 1 tab PO Q4H PRN PRN Reason: pain level 1-5 Stop: 02/07/18 19:32 Last Admin: 12/11/17 20:28 Dose: 1 tab Azathioprine (Imuran) 50 mg PO TID [facility] PRN Reason: Protocol Stop: 02/06/18 08:59 Last Admin: 12/12/17 08:24 Dose: 50 mg Glyburide (Diabeta) 5 mg PO DAILY [facility] Stop: 02/10/18 08:59 Last Admin: 12/12/17 11:35 Dose: 5 mg Sodium Chloride (Nacl 0.9%) 1,000 mls @ 125 mls/hr IV .Q8H [facility] Stop: 02/05/18 17:29 Last Admin: 12/12/17 06:20 Dose: 125 mls/hr Piperacillin Sod/Tazobactam (Sod 4.5 gm/ Sodium Chloride) 100 mls @ 100 mls/hr IV Q8HR [facility] Stop: 02/05/18 20:59 Last Infusion: 12/12/17 06:21 Dose: Infused Vancomycin HCl 1.25 gm/ Sodium (Chloride) 250 mls @ 165 mls/hr IV Q18H [facility] Stop: 02/10/18 14:59 Fluconazole (Diflucan) 100 mg in 50 mls @ 50 mls/hr IV Q24HR [facility] Stop: 02/10/18 13:59 Insulin Aspart (Novolog Insulin Sliding Scale) 0 units SUBQ Q2H [facility] PRN Reason: Protocol Stop: 02/10/18 11:59 Insulin Human Isoph/Insulin Regular (Novolin 70/30) 20 units SUBQ QDAC [facility] PRN Reason: Protocol Stop: 02/11/18 07:29 Insulin Human Isoph/Insulin Regular (Novolin 70/30) 10 units SUBQ QPM [facility] PRN Reason: Protocol Stop: 02/10/18 17:59 Metformin HCl (Glucophage) 850 mg PO BIDWM [facility] Stop: 02/10/18 11:59 Last Admin: 12/12/17 11:35 Dose: 850 mg Metoprolol Tartrate (Lopressor) 25 mg PO BID [facility] Stop: 02/06/18 08:59 Last Admin: 12/12/17 08:24 Dose: 25 mg Miscellaneous (Vancomycin Iv Per Pharmacy) 1 ea [facility] PRN PRN PRN Reason: PROTOCOL Stop: 02/05/18 17:19 Miscellaneous (Probiotic Screen) 1 ea MC PRN PRN PRN Reason: PROTOCOL Stop: 02/07/18 13:46 Morphine Sulfate (Morphine) 1 mg IVP Q4HR PRN PRN Reason: pain levle 6-10 Stop: 02/07/18 19:31 Last Admin: 12/11/17 00:58 Dose: 1 mg Mupirocin (Bactroban Oint) 1 appl NS BID [facility] Stop: 12/14/17 09:01 Last Admin: 12/12/17 08:24 Dose: 1 appl Ondansetron HCl (Zofran) 4 mg IV Q6H PRN PRN Reason: Nausea / Vomiting Stop: 02/07/18 19:32 Last Admin: 12/12/17 08:23 Dose: 4 mg Pyridostigmine [place] (Mestinon) 180 mg PO TID [facility] Stop: 02/06/18 08:59 Last Admin: 12/12/17 08:24 Dose: 180 mg Lab - Result Diagrams 12/13/17 04:20 12/13/17 04:20 BS still elevated ranging 100-200 urine (+) for ketones,serum small ketones, CO2 increased to 15 ABG pH 7.31 continue D5 1/2 NS @ 125ml/hr, S/S q 2 hrs w/ reg insulin replace K, Mg, stool for WBC swallow eval Nutritional Asmnt/Malnutr-PDOC - Dietary Evaluation Malnutrition Findings (Please click <Entered> for more info): Nutritional Asmnt/Malnutrition Start: 12/08/17 16: 43 Text: Status: Complete Freq: Document 12/08/17 16:43 LCHENG (Rec: 12/08/17 16:53 LCHENG [email or web address]) Nutritional Asmnt/Malnutrition Patient General Information Nutritional Screening High Risk Diagnosis peripheral artery disease Pertinent Medical Hx/Surgical Hx HTN, DM, asthma/COPD, dyslipidemia, resp failure, myasthenia, gravis Subjective Information Consult received for Dm and open wound. Pt seen talking on phone at time of visit, not able to interview at this time . Current Diet Order/ Nutrition Support CCHO 60gm Pertinent Medications novolog, piperacillin, nacl 0. 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 Problem Problem altered nutrition related labs Etiology hx of DM Signs/Symptoms: glucose 207-418, POC 132-400 Malnutrition Alert Protein-Calorie Malnutrition N/A Is there a minimum of two criteria No selected? Query Text:Check all the applicable criteria. A minimum of two criteria are recommended for diagnosis of either severe or non-severe malnutrition. Intervention/Recommendation Comments 1. Continue with CCHO-60gm diet as ordered. Will provide nutrition education when pt available. 2. Monitor PO intake, wt, labs and skin integrity 3. F/U as high risk in 2-3 days, 12/10-12/11 Expected Outcomes/Goals Expected Outcomes/Goals 1. PO intake to meet at least 75% of nutritional needs. 2. Wt stability, skin to remain intact, labs to approach WNL.
--- NOTE | 2017-12-13 11:34 | General Progress Note ---
Subjective - Review of Systems Service Date: 12/13/17 Events since last encounter: in ICU for BS control redressed, wound healing well Objective - Results Result Diagrams: 12/13/17 04:20 12/13/17 04:20 Recent Labs: Laboratory Last Values WBC 6.3 Th/cmm (4.8-10.8) D 12/13/17 04:20 RBC 3.45 Mil/cmm (3.80-5.10) L 12/13/17 04:20 Hgb 10.1 gm/dL (12-16) L 12/13/17 04:20 Hct 30.6 % (41.0-60) L 12/13/17 04:20 MCV 88.8 fl (81-100) 12/13/17 04:20 MCH 29.3 pg (27.0-31.0) 12/13/17 04:20 MCHC Differential 33.0 pg (28.0-36.0) 12/13/17 04:20 RDW 16.0 % (11.5-20.0) 12/13/17 04:20 Plt Count 551 Th/cmm (150-400) H D 12/13/17 04:20 MPV 7.0 fl 12/13/17 04:20 Neutrophils % 74.7 % (40.0-80.0) 12/13/17 04:20 Lymphocytes % 12.7 % (20.0-50.0) L 12/13/17 04:20 Monocytes % 10.9 % (2.0-10.0) H 12/13/17 04:20 Eosinophils % 1.5 % (0.0-5.0) 12/13/17 04:20 Basophils % 0.2 % (0.0-2.0) 12/13/17 04:20 Neutrophils (Manual) 90 % (40-80) H 12/11/17 10:12 Lymphocytes 3 % (20-50) L 12/11/17 10:12 Monocytes 6 % (2-10) 12/11/17 10:12 Basophils 1 % (0-3) 12/11/17 10:12 Platelet Estimate INCREASED PLATELETS (NORMAL) 12/11/17 10:12 Eos Smear Source URINE 12/11/17 19:50 Eos Smear Total Cells NONE SEEN (NONE SEEN) 12/11/17 19:50 PT 10.9 SECONDS (9.5-11.5) 12/07/17 14:30 INR 1.05 (0.5-1.4) 12/07/17 14:30 PTT (Actin FS) 26.2 SECONDS (26.0-38.0) 12/07/17 14:30 Specimen Source ATERIAL 12/11/17 19:10 Sample Site RB 12/11/17 19:10 pH 7.31 (7.35-7.45) L 12/11/17 19:10 pCO2 27.0 mmHg (35.0-45.0) L 12/11/17 19:10 pO2 98.0 mmHg (80.0-100.0) 12/11/17 19:10 HCO3 16.3 mEq/L (20.0-26.0) L 12/11/17 19:10 Base Excess -11.1 mEq/L (-3.0-3.0) L 12/11/17 19:10 O2 Saturation 97.0 % (92.0-100.0) 12/11/17 19:10 Ananth Test Positive 12/11/17 19:10 Vent Rate N/A 12/11/17 19:10 Inspired O2 21 12/11/17 19:10 Tidal Volume N/A 12/11/17 19:10 PEEP N/A 12/11/17 19:10 Pressure (ins/psv/peep) N/A 12/11/17 19:10 Critical Value DV 12/11/17 19:10 Sodium 132 mEq/L (136-145) L 12/13/17 04:20 Potassium 2.9 mEq/L (3.5-5.1) L* D 12/13/17 04:20 Chloride 103 mEq/L (98-107) 12/13/17 04:20 Carbon Dioxide 14.9 mEq/L (21.0-31.0) L 12/13/17 04:20 Anion Gap 17.0 (7.0-16.0) H 12/13/17 04:20 BUN 11 mg/dL (7-25) 12/13/17 04:20 Creatinine 1.0 mg/dL (0.6-1.2) 12/13/17 04:20 Est GFR ( Amer) > 60.0 ml/min (>90) 12/13/17 04:20 Est GFR (Non-Af Amer) > 60.0 ml/min 12/13/17 04:20 BUN/Creatinine Ratio 11.0 12/13/17 04:20 Glucose 221 mg/dL (70-105) H D 12/13/17 04:20 POC Glucose 130 MG/DL (70 - 105) H 12/13/17 10:29 Hemoglobin A1c % 9.3 % (4.0-6.0) H 12/07/17 14:30 Whole Bld Lactic Acid 0.56 mmol/L (0.60-1.99) L 12/13/17 04:20 Uric Acid 4.8 mg/dL (2.3-6.6) 12/12/17 05:40 Calcium 8.9 mg/dL (8.6-10.3) 12/13/17 04:20 Magnesium 1.5 mg/dL (1.9-2.7) L 12/13/17 04:20 Total Bilirubin 0.2 mg/dL (0.3-1.0) L 12/13/17 04:20 AST 21 U/L (13-39) 12/13/17 04:20 ALT 23 U/L (7-52) 12/13/17 04:20 Alkaline Phosphatase 73 U/L (34-104) 12/13/17 04:20 Creatine Kinase 51 U/L (30-223) 12/07/17 14:30 Troponin I 0.01 ng/mL (0.01-0.05) 12/07/17 14:30 Total Protein 7.7 gm/dL (6.0-8.3) 12/13/17 04:20 Albumin 3.4 gm/dL (3.7-5.3) L 12/13/17 04:20 Globulin 4.3 gm/dL 12/13/17 04:20 Albumin/Globulin Ratio 0.8 (1.0-1.8) L 12/13/17 04:20 TSH 1.31 uIU/ml (0.34-5.60) 12/12/17 08:10 Serum , Qual NEGATIVE (NEGATIVE) 12/07/17 14:30 Urine Source MIDSTREAM 12/11/17 19:50 Urine Color YELLOW 12/11/17 19:50 Urine Clarity HAZY (CLEAR) 12/11/17 19:50 Urine pH 6.0 (4.6 - 8.0) 12/11/17 19:50 Ur Specific [place] 1.020 (1.005-1.030) 12/11/17 19:50 Urine Protein 100 mg/dL (NEGATIVE) H 12/11/17 19:50 Urine Glucose (UA) >=1000 mg/dL (NEGATIVE) H 12/11/17 19:50 Urine Ketones 40 mg/dL (NEGATIVE) H 12/11/17 19:50 Urine Blood MODERATE (NEGATIVE) H 12/11/17 19:50 Urine Nitrate NEGATIVE (NEGATIVE) 12/11/17 19:50 Urine Bilirubin NEGATIVE (NEGATIVE) 12/11/17 19:50 Urine Urobilinogen 0.2 E.U./dL (0.2 - 1.0) 12/11/17 19:50 Ur Leukocyte Esterase NEGATIVE (NEGATIVE) 12/11/17 19:50 Urine RBC 2-5 /hpf (0-5) 12/11/17 19:50 Urine WBC 0-2 /hpf (0-5) 12/11/17 19:50 Ur Epithelial Cells MODERATE /lpf (FEW) 12/11/17 19:50 Urine Bacteria FEW /hpf (NONE SEEN) 12/11/17 19:50 Urine Yeast MANY /hpf (NONE SEEN) H 12/11/17 19:50 Ur Random Sodium 46 mmol/L 12/11/17 19:50 Urine Creatinine 41.0 mg/dl (28.0-217.0) 12/11/17 19:50 Vancomycin Trough 9.2 ug/mL (5-10) 12/11/17 20:00 Serum Ketones SMALL (NEGATIVE) H 12/13/17 04:20 - Physical Exam Vitals and I&O: Vital Signs Temp 97.7 F 12/13/17 08:00 Pulse 70 12/13/17 11:00 Resp 28 12/13/17 11:00 BP 152/68 12/13/17 11:00 Pulse Ox 100 12/13/17 11:00 Intake & Output 12/12/17 12/13/17 12/13/17 18:59 06:59 18:59 Intake Total 1750 1440 Balance 1750 1440 Weight (lbs) 56.331 kg 55.338 kg Intake: Intake, IV Amount 1400 1200 D5-0.45NS 1,000 ml @ 125 1000 mls/hr IV .Q8H [facility] Rx#: [id number] Fluconazole 100mg/50mL 50 100 mg In 50 ml @ 50 mls/ hr IV Q24HR [facility] Rx#: [id number] Piperacillin Sodium/ 100 200 Tazobact 4.5 gm In Sodium Chloride 0.9% 100 ml @ 100 mls/hr IV Q8HR [facility] Rx #:[id number] Vancomycin HCl 1.25 gm In 250 Sodium Chloride 0.9% 250 ml @ 165 mls/hr IV Q18H [facility] Rx#:[id number] Oral 350 240 Other: # Voids 4 3 # Bowel Movements 3 5 Stool Characteristics Soft Liquid Liquid Weight Source Bedscale Bedscale Active Medications: Current Medications Acetaminophen (Tylenol) 650 mg PO Q6H PRN PRN Reason: Pain or Fever >101 Stop: 02/06/18 01:56 Acetaminophen/Hydrocodone Bitart ([place] 10 Mg/325 Mg) 1 tab PO Q4H PRN PRN Reason: pain level 1-5 Stop: 02/07/18 19:32 Last Admin: 12/11/17 20:28 Dose: 1 tab Azathioprine (Imuran) 50 mg PO TID [facility] PRN Reason: Protocol Stop: 02/06/18 08:59 Last Admin: 12/13/17 09:07 Dose: 50 mg Glyburide (Diabeta) 5 mg PO DAILY [facility] Stop: 02/10/18 08:59 Last Admin: 12/13/17 09:06 Dose: 5 mg Guaifenesin (Mucinex) 600 mg PO BID [facility] Stop: 12/18/17 00:29 Last Admin: 12/13/17 09:29 Dose: 600 mg Piperacillin Sod/Tazobactam (Sod 4.5 gm/ Sodium Chloride) 100 mls @ 100 mls/hr IV Q8HR [facility] Stop: 02/05/18 20:59 Last Infusion: 12/13/17 05:38 Dose: Infused Vancomycin HCl 1.25 gm/ Sodium (Chloride) 250 mls @ 165 mls/hr IV Q18H [facility] Stop: 02/10/18 14:59 Last Admin: 12/13/17 10:33 Dose: 165 mls/hr Fluconazole (Diflucan) 100 mg in 50 mls @ 50 mls/hr IV Q24HR [facility] Stop: 02/10/18 13:59 Last Infusion: 12/12/17 15:05 Dose: Infused Dextrose/Sodium Chloride (D5-0.45ns) 1,000 mls @ 125 mls/hr IV .Q8H [facility] Stop: 02/10/18 18:14 Last Admin: 12/13/17 04:40 Dose: 125 mls/hr Potassium Chloride (Potassium Chloride) 20 meq in 100 mls @ 50 mls/hr IV Q2H [facility] Stop: 12/13/17 12:59 Last Admin: 12/13/17 09:06 Dose: 50 mls/hr Magnesium Sulfate (Magnesium Sulfate Premix) 2 gm in 50 mls @ 25 mls/hr IV X1 ONE Stop: 12/13/17 13:01 Insulin Aspart (Novolog Insulin Sliding Scale) 0 units SUBQ Q2H [facility] PRN Reason: Protocol Stop: 02/10/18 11:59 Last Admin: 12/13/17 10:56 Dose: Not Given Insulin Human Isoph/Insulin Regular (Novolin 70/30) 20 units SUBQ QDAC [facility] PRN Reason: Protocol Stop: 02/11/18 07:29 Last Admin: 12/13/17 09:09 Dose: 20 units Insulin Human Isoph/Insulin Regular (Novolin 70/30) 10 units SUBQ QPM [facility] PRN Reason: Protocol Stop: 02/10/18 17:59 Last Admin: 12/12/17 17:50 Dose: 10 unit Metformin HCl (Glucophage) 850 mg PO BIDWM [facility] Stop: 02/10/18 11:59 Last Admin: 12/13/17 09:06 Dose: 850 mg Metoprolol Tartrate (Lopressor) 25 mg PO BID [facility] Stop: 02/06/18 08:59 Last Admin: 12/13/17 09:06 Dose: 25 mg Miscellaneous (Vancomycin Iv Per Pharmacy) 1 ea [facility] PRN PRN PRN Reason: PROTOCOL Stop: 02/05/18 17:19 Miscellaneous (Probiotic Screen) 1 ea MC PRN PRN PRN Reason: PROTOCOL Stop: 02/07/18 13:46 Morphine Sulfate (Morphine) 1 mg IVP Q4HR PRN PRN Reason: pain levle 6-10 Stop: 02/07/18 19:31 Last Admin: 12/13/17 00:35 Dose: 1 mg Mupirocin (Bactroban Oint) 1 appl NS BID [facility] Stop: 12/14/17 09:01 Last Admin: 12/13/17 09:08 Dose: 1 appl Ondansetron HCl (Zofran) 4 mg IV Q4H PRN PRN Reason: Nausea / Vomiting Stop: 02/07/18 19:32 Last Admin: 12/13/17 09:42 Dose: 4 mg Pyridostigmine [place] (Mestinon) 180 mg PO TID [facility] Stop: 02/06/18 08:59 Last Admin: 12/13/17 09:32 Dose: 180 mg Valsartan (Diovan) 80 mg PO DAILY [facility] Stop: 02/11/18 08:59 Last Admin: 12/13/17 09:06 Dose: 80 mg General: Alert, No acute distress HEENT: Atraumatic, PERRLA, Mucous membr. moist/pink Neck: Supple, +2 carotid pulse wo bruit Cardiovascular: Regular rate, Normal S1, Normal S2 Lungs: Clear to auscultation Abdomen: Soft Extremities: no Edema Neurological: Sensation intact Skin: no Rash Psych/Mental Status: Mood NL - Procedures Procedures: Procedures Procedure Code Date AMPUTATION OF TOE 01689 12/07/17 DETACHMENT AT RIGHT 2ND TOE, COMPLETE, OPEN APPROACH [id number] 12/07/17 EMERGENCY DEPT VISIT 84587 08/07/11 INJECT/INFUSE NEC 99.29 02/22/10 Nutritional Asmnt/Malnutr-PDOC - Dietary Evaluation Malnutrition Findings (Please click <Entered> for more info): Nutritional Asmnt/Malnutrition Start: 12/08/17 16: 43 Text: Status: Complete Freq: Document 12/08/17 16:43 LCHENG (Rec: 12/08/17 16:53 [email or web address]) Nutritional Asmnt/Malnutrition Patient General Information Nutritional Screening High Risk Diagnosis peripheral artery disease Pertinent Medical Hx/Surgical Hx HTN, DM, asthma/COPD, dyslipidemia, resp failure, myasthenia, gravis Subjective Information Consult received for Dm and open wound. Pt seen talking on phone at time of visit, not able to interview at this time . Current Diet Order/ Nutrition Support CCHO 60gm Pertinent Medications novolog, piperacillin, nacl 0. 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 Problem Problem altered nutrition related labs Etiology hx of DM Signs/Symptoms: glucose 207-418, POC 132-400 Malnutrition Alert Protein-Calorie Malnutrition N/A Is there a minimum of two criteria No selected? Query Text:Check all the applicable criteria. A minimum of two criteria are recommended for diagnosis of either severe or non-severe malnutrition. Intervention/Recommendation Comments 1. Continue with CCHO-60gm diet as ordered. Will provide nutrition education when pt available. 2. Monitor PO intake, wt, labs and skin integrity 3. F/U as high risk in 2-3 days, 12/10-12/11 Expected Outcomes/Goals Expected Outcomes/Goals 1. PO intake to meet at least 75% of nutritional needs. 2. Wt stability, skin to remain intact, labs to approach WNL.
--- NOTE | 2017-12-13 13:26 | Infectious Disease Prog Note ---
Infectious Disease Subjective - Review of Systems Service Date: 12/13/17 Subjective: There is no new change, no fever. She has developed nausea and vomiting, her accuchek gluscose are high. Patient had stated that she has DM1 and used to take insulin NPH at home. At the SN[facility] she was not taking NPH insulin. now she is in DKA , so kept her in the ICU. blood pressure in he higher side/ She feels better/ Infectious Disease Objective - Results Result Diagrams: 12/13/17 04:20 12/13/17 04:20 Recent Labs: Laboratory Last Values WBC 6.3 Th/cmm (4.8-10.8) D 12/13/17 04:20 RBC 3.45 Mil/cmm (3.80-5.10) L 12/13/17 04:20 Hgb 10.1 gm/dL (12-16) L 12/13/17 04:20 Hct 30.6 % (41.0-60) L 12/13/17 04:20 MCV 88.8 fl (81-100) 12/13/17 04:20 MCH 29.3 pg (27.0-31.0) 12/13/17 04:20 MCHC Differential 33.0 pg (28.0-36.0) 12/13/17 04:20 RDW 16.0 % (11.5-20.0) 12/13/17 04:20 Plt Count 551 Th/cmm (150-400) H D 12/13/17 04:20 MPV 7.0 fl 12/13/17 04:20 Neutrophils % 74.7 % (40.0-80.0) 12/13/17 04:20 Lymphocytes % 12.7 % (20.0-50.0) L 12/13/17 04:20 Monocytes % 10.9 % (2.0-10.0) H 12/13/17 04:20 Eosinophils % 1.5 % (0.0-5.0) 12/13/17 04:20 Basophils % 0.2 % (0.0-2.0) 12/13/17 04:20 Neutrophils (Manual) 90 % (40-80) H 12/11/17 10:12 Lymphocytes 3 % (20-50) L 12/11/17 10:12 Monocytes 6 % (2-10) 12/11/17 10:12 Basophils 1 % (0-3) 12/11/17 10:12 Platelet Estimate INCREASED PLATELETS (NORMAL) 12/11/17 10:12 Eos Smear Source URINE 12/11/17 19:50 Eos Smear Total Cells NONE SEEN (NONE SEEN) 12/11/17 19:50 PT 10.9 SECONDS (9.5-11.5) 12/07/17 14:30 INR 1.05 (0.5-1.4) 12/07/17 14:30 PTT (Actin FS) 26.2 SECONDS (26.0-38.0) 12/07/17 14:30 Specimen Source ATERIAL 12/11/17 19:10 Sample Site RB 12/11/17 19:10 pH 7.31 (7.35-7.45) L 12/11/17 19:10 pCO2 27.0 mmHg (35.0-45.0) L 12/11/17 19:10 pO2 98.0 mmHg (80.0-100.0) 12/11/17 19:10 HCO3 16.3 mEq/L (20.0-26.0) L 12/11/17 19:10 Base Excess -11.1 mEq/L (-3.0-3.0) L 12/11/17 19:10 O2 Saturation 97.0 % (92.0-100.0) 12/11/17 19:10 Ananth Test Positive 12/11/17 19:10 Vent Rate N/A 12/11/17 19:10 Inspired O2 21 12/11/17 19:10 Tidal Volume N/A 12/11/17 19:10 PEEP N/A 12/11/17 19:10 Pressure (ins/psv/peep) N/A 12/11/17 19:10 Critical Value DV 12/11/17 19:10 Sodium 132 mEq/L (136-145) L 12/13/17 04:20 Potassium 2.9 mEq/L (3.5-5.1) L* D 12/13/17 04:20 Chloride 103 mEq/L (98-107) 12/13/17 04:20 Carbon Dioxide 14.9 mEq/L (21.0-31.0) L 12/13/17 04:20 Anion Gap 17.0 (7.0-16.0) H 12/13/17 04:20 BUN 11 mg/dL (7-25) 12/13/17 04:20 Creatinine 1.0 mg/dL (0.6-1.2) 12/13/17 04:20 Est GFR ( Amer) > 60.0 ml/min (>90) 12/13/17 04:20 Est GFR (Non-Af Amer) > 60.0 ml/min 12/13/17 04:20 BUN/Creatinine Ratio 11.0 12/13/17 04:20 Glucose 221 mg/dL (70-105) H D 12/13/17 04:20 POC Glucose 143 MG/DL (70 - 105) H 12/13/17 11:54 Hemoglobin A1c % 9.3 % (4.0-6.0) H 12/07/17 14:30 Whole Bld Lactic Acid 0.56 mmol/L (0.60-1.99) L 12/13/17 04:20 Uric Acid 4.8 mg/dL (2.3-6.6) 12/12/17 05:40 Calcium 8.9 mg/dL (8.6-10.3) 12/13/17 04:20 Magnesium 1.5 mg/dL (1.9-2.7) L 12/13/17 04:20 Total Bilirubin 0.2 mg/dL (0.3-1.0) L 12/13/17 04:20 AST 21 U/L (13-39) 12/13/17 04:20 ALT 23 U/L (7-52) 12/13/17 04:20 Alkaline Phosphatase 73 U/L (34-104) 12/13/17 04:20 Creatine Kinase 51 U/L (30-223) 12/07/17 14:30 Troponin I 0.01 ng/mL (0.01-0.05) 12/07/17 14:30 Total Protein 7.7 gm/dL (6.0-8.3) 12/13/17 04:20 Albumin 3.4 gm/dL (3.7-5.3) L 12/13/17 04:20 Globulin 4.3 gm/dL 12/13/17 04:20 Albumin/Globulin Ratio 0.8 (1.0-1.8) L 12/13/17 04:20 TSH 1.31 uIU/ml (0.34-5.60) 12/12/17 08:10 Serum , Qual NEGATIVE (NEGATIVE) 12/07/17 14:30 Urine Source MIDSTREAM 12/11/17 19:50 Urine Color YELLOW 12/11/17 19:50 Urine Clarity HAZY (CLEAR) 12/11/17 19:50 Urine pH 6.0 (4.6 - 8.0) 12/11/17 19:50 Ur Specific [place] 1.020 (1.005-1.030) 12/11/17 19:50 Urine Protein 100 mg/dL (NEGATIVE) H 12/11/17 19:50 Urine Glucose (UA) >=1000 mg/dL (NEGATIVE) H 12/11/17 19:50 Urine Ketones 40 mg/dL (NEGATIVE) H 12/11/17 19:50 Urine Blood MODERATE (NEGATIVE) H 12/11/17 19:50 Urine Nitrate NEGATIVE (NEGATIVE) 12/11/17 19:50 Urine Bilirubin NEGATIVE (NEGATIVE) 12/11/17 19:50 Urine Urobilinogen 0.2 E.U./dL (0.2 - 1.0) 12/11/17 19:50 Ur Leukocyte Esterase NEGATIVE (NEGATIVE) 12/11/17 19:50 Urine RBC 2-5 /hpf (0-5) 12/11/17 19:50 Urine WBC 0-2 /hpf (0-5) 12/11/17 19:50 Ur Epithelial Cells MODERATE /lpf (FEW) 12/11/17 19:50 Urine Bacteria FEW /hpf (NONE SEEN) 12/11/17 19:50 Urine Yeast MANY /hpf (NONE SEEN) H 12/11/17 19:50 Ur Random Sodium 46 mmol/L 12/11/17 19:50 Urine Creatinine 41.0 mg/dl (28.0-217.0) 12/11/17 19:50 Vancomycin Trough 9.2 ug/mL (5-10) 12/11/17 20:00 Serum Ketones SMALL (NEGATIVE) H 12/13/17 04:20 - Physical Exam Vitals and I&O: Vital Signs Temp 97.7 F 12/13/17 08:00 Pulse 70 12/13/17 11:00 Resp 28 12/13/17 11:00 BP 152/68 12/13/17 11:00 Pulse Ox 100 05/15/18 11:00 Intake & Output 12/12/17 12/13/17 12/13/17 18:59 06:59 18:59 Intake Total 1750 1440 100 Balance 1750 1440 100 Weight (lbs) 56.331 kg 55.338 kg Intake: Intake, IV Amount 1400 1200 100 D5-0.45NS 1,000 ml @ 125 1000 mls/hr IV .Q8H [facility] Rx#: [id number] Fluconazole 100mg/50mL 50 100 mg In 50 ml @ 50 mls/ hr IV Q24HR [facility] Rx#: [id number] KCL 20mEq/100mL Premix 20 100 meq In 100 ml @ 50 mls/ hr IV Q2H [facility] Rx#: [id number] Piperacillin Sodium/ 100 200 Tazobact 4.5 gm In Sodium Chloride 0.9% 100 ml @ 100 mls/hr IV Q8HR [facility] Rx #:[id number] Vancomycin HCl 1.25 gm In 250 Sodium Chloride 0.9% 250 ml @ 165 mls/hr IV Q18H [facility] Rx#:[id number] Oral 350 240 Other: # Voids 4 3 # Bowel Movements 3 5 Stool Characteristics Soft Liquid Liquid Weight Source Bedscale Bedscale Active Medications: Current Medications Acetaminophen (Tylenol) 650 mg PO Q6H PRN PRN Reason: Pain or Fever >101 Stop: 02/06/18 01:56 Acetaminophen/Hydrocodone Bitart ([place] 10 Mg/325 Mg) 1 tab PO Q4H PRN PRN Reason: pain level 1-5 Stop: 02/07/18 19:32 Last Admin: 12/11/17 20:28 Dose: 1 tab Azathioprine (Imuran) 50 mg PO TID [facility] PRN Reason: Protocol Stop: 02/06/18 08:59 Last Admin: 12/13/17 13:08 Dose: 50 mg Glyburide (Diabeta) 5 mg PO DAILY [facility] Stop: 02/10/18 08:59 Last Admin: 12/13/17 09:06 Dose: 5 mg Guaifenesin (Mucinex) 600 mg PO BID [facility] Stop: 12/18/17 00:29 Last Admin: 12/13/17 09:29 Dose: 600 mg Piperacillin Sod/Tazobactam (Sod 4.5 gm/ Sodium Chloride) 100 mls @ 100 mls/hr IV Q8HR [facility] Stop: 02/05/18 20:59 Last Admin: 12/13/17 13:08 Dose: 100 mls/hr Vancomycin HCl 1.25 gm/ Sodium (Chloride) 250 mls @ 165 mls/hr IV Q18H [facility] Stop: 02/10/18 14:59 Last Admin: 12/13/17 10:33 Dose: 165 mls/hr Fluconazole (Diflucan) 100 mg in 50 mls @ 50 mls/hr IV Q24HR [facility] Stop: 02/10/18 13:59 Last Infusion: 12/12/17 15:05 Dose: Infused Dextrose/Sodium Chloride (D5-0.45ns) 1,000 mls @ 125 mls/hr IV .Q8H [facility] Stop: 02/10/18 18:14 Last Admin: 12/13/17 04:40 Dose: 125 mls/hr Insulin Aspart (Novolog Insulin Sliding Scale) 0 units SUBQ Q2H [facility] PRN Reason: Protocol Stop: 02/10/18 11:59 Last Admin: 12/13/17 11:58 Dose: Not Given Insulin Human Isoph/Insulin Regular (Novolin 70/30) 20 units SUBQ QDAC [facility] PRN Reason: Protocol Stop: 02/11/18 07:29 Last Admin: 12/13/17 09:09 Dose: 20 units Insulin Human Isoph/Insulin Regular (Novolin 70/30) 10 units SUBQ QPM [facility] PRN Reason: Protocol Stop: 02/10/18 17:59 Last Admin: 12/12/17 17:50 Dose: 10 unit Metformin HCl (Glucophage) 850 mg PO BIDWM [facility] Stop: 02/10/18 11:59 Last Admin: 12/13/17 09:06 Dose: 850 mg Metoprolol Tartrate (Lopressor) 25 mg PO BID [facility] Stop: 02/06/18 08:59 Last Admin: 12/13/17 09:06 Dose: 25 mg Miscellaneous (Vancomycin Iv Per Pharmacy) 1 ea [facility] PRN PRN PRN Reason: PROTOCOL Stop: 02/05/18 17:19 Miscellaneous (Probiotic Screen) 1 ea MC PRN PRN PRN Reason: PROTOCOL Stop: 02/07/18 13:46 Morphine Sulfate (Morphine) 1 mg IVP Q4HR PRN PRN Reason: pain levle 6-10 Stop: 02/07/18 19:31 Last Admin: 12/13/17 00:35 Dose: 1 mg Mupirocin (Bactroban Oint) 1 appl NS BID [facility] Stop: 12/14/17 09:01 Last Admin: 12/13/17 09:08 Dose: 1 appl Ondansetron HCl (Zofran) 4 mg IV Q4H PRN PRN Reason: Nausea / Vomiting Stop: 02/07/18 19:32 Last Admin: 12/13/17 09:42 Dose: 4 mg Pyridostigmine [place] (Mestinon) 180 mg PO TID [facility] Stop: 02/06/18 08:59 Last Admin: 12/13/17 13:08 Dose: 180 mg Valsartan (Diovan) 80 mg PO DAILY [facility] Stop: 02/11/18 08:59 Last Admin: 12/13/17 09:06 Dose: 80 mg General: no acute distress, well developed, well nourished HEENT: atraumatic, normocephalic, PERRLA, EOMI Neck: supple, no thyromegaly Cardiovascular: S1S2, regular Lungs: clear to auscultation bilaterally, clear to percussion Abdomen: soft, no tender, no distended, no mass, no hepatomegaly Extremities: no cyanosis, no clubbing, no edema Neurological: awake, alert, oriented Skin: intact - Procedures Procedures: Procedures Procedure Code Date AMPUTATION OF TOE 33102 12/07/17 DETACHMENT AT RIGHT 2ND TOE, COMPLETE, OPEN APPROACH [id number] 12/07/17 EMERGENCY DEPT VISIT 56775 08/07/11 INJECT/INFUSE NEC 99.29 02/22/10 Infectious Disease Assmt/Plan - Assessment Assessment: 1. Right second toe gangrene. 2. Diabetes mellitus type 2, uncontrolled. versus DM1 with ketoacidosis. 3. History of myasthenia gravis. 4. Dyslipidemia. 5. Urinary tract infection. 6. 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 7. Metabolic acidosis. - Plan Plan: Monitor in the ICU for ? DKA.. Start NPH insulin Increase the frequency of the accucheck. Check the labs in am. IVF support. antihypertensive medicans reaarranged. Nutritional Asmnt/Malnutr-PDOC - Dietary Evaluation Malnutrition Findings (Please click <Entered> for more info): Nutritional Asmnt/Malnutrition Start: 12/08/17 16: 43 Text: Status: Complete Freq: Document 12/08/17 16:43 DAWSON (Rec: 12/08/17 16:53 DAWSON [email or web address]) Nutritional Asmnt/Malnutrition Patient General Information Nutritional Screening High Risk Diagnosis peripheral artery disease Pertinent Medical Hx/Surgical Hx HTN, DM, asthma/COPD, dyslipidemia, resp failure, myasthenia, gravis Subjective Information Consult received for Dm and open wound. Pt seen talking on phone at time of visit, not able to interview at this time . Current Diet Order/ [facility] Pertinent Medications novolog, piperacillin, nacl 0. 9%, vancomycin Pertinent Labs 12/08 Na 130, BUN 27, glucose 418, POC 400 12/07 Na 128, Cl 96, BUN 36, glucose 207, POC 132 Nutritional Hx/Data Height 1.7 m Height (Calculated Centimeters) 170.2 Current Weight (lbs) 54.431 kg Weight (Calculated Kilograms) 54.4 Weight (Calculated Grams) 01409.1 [place] Body Weight 135 Body Mass Index (BMI) 18.8 Weight Status Approriate GI Symptoms GI Symptoms None Last BM none 12/08 Difficult in: None Skin Integrity/Comment: right 2nd toe gangrene Estimated Nutritional Goals BEE in Kcals: Using Current wt Calories/Kcals/Kg 30-35 Kcals Calculated 0823-5088 Protein: Using Current wt Protein g/k.2-1.4 Protein Calculated 66-77 Fluid: ml 1650-1925ml (1ml/kcal) Nutritional Problem 1. Problem Problem altered nutrition related labs Etiology hx of DM Signs/Symptoms: glucose 207-418, POC 132-400 Malnutrition Alert Protein-Calorie Malnutrition N/A Is there a minimum of two criteria No selected? Query Text:Check all the applicable criteria. A minimum of two criteria are recommended for diagnosis of either severe or non-severe malnutrition. Intervention/Recommendation Comments 1. Continue with [facility]-60gm diet as ordered. Will provide nutrition education when pt available. 2. Monitor PO intake, wt, labs and skin integrity 3. F/U as high risk in 2-3 days, 12/10-12/11 Expected Outcomes/Goals Expected Outcomes/Goals 1. PO intake to meet at least 75% of nutritional needs. 2. Wt stability, skin to remain intact, labs to approach WNL.
[2017-12-13] MEDS: Fluconazole 100mg/50mL 100 MG/50 ML BOTTLE IV SCH (14:11)
--- NOTE | 2017-12-13 15:34 | Pathology Report ---
[id number] Collection Date: 12/09/2017 Surgeon: Dr. Gay Sow Specimen Description: Right second toe amputation. Gross Description: Received in formalin is a 4.5 cm in length x 1.3 cm in width amputation specimen of the right second toe with extensive brownish-black, gangrenous discoloration covering the distal two-thirds of the specimen. Sectioning shows ulcerated, necrotic skin and underlying soft tissue. Informatics Application Analyst sections are submitted in one cassette. Microscopic Description: The histologic sections show ulcerated, necrotic skin and subcutaneous soft tissue with extensive suppurative inflammation present, consisting of large collections of neutrophils within a degenerated and necrotic background. Diagnosis: Ulcerated, necrotic skin and soft tissue consistent with gangrene (right second toe amputation). [facility]# [id number] MTDD
[2017-12-13 15:59] LABS: URINE MICROSCOPIC INDICATED? YES; URINE SOURCE MIDSTREAM
[2017-12-13 16:01] LABS: URINE BILIRUBIN NEGATIVE (NEGATIVE); URINE BLOOD LARGE (NEGATIVE); URINE GLUCOSE (UA) 100 mg/dL (NEGATIVE); URINE KETONE 15 mg/dL (NEGATIVE); URINE LEUKOCYTE ESTERASE NEGATIVE (NEGATIVE); URINE NITRATE NEGATIVE (NEGATIVE); URINE PROTEIN 100 mg/dL (NEGATIVE); URINE UROBILINOGEN 0.2 E.U./dL (0.2 - 1.0)
[2017-12-13 16:04] LABS: URINE CLARITY HAZY (CLEAR); URINE COLOR YELLOW
[2017-12-13 16:32] LABS: URINE BACTERIA FEW /hpf (NONE SEEN); URINE EPITHELIAL CELLS FEW /lpf (FEW); URINE RBC 25-50 /hpf (0-5); URINE WBC 0-2 /hpf (0-5); URINE YEAST FEW /hpf (NONE SEEN)
[2017-12-14] MEDS: INSULIN ASPART SLIDING SCALE 100 UNITS/ML UNIT SUBQ SCH ×8 (00:27→21:11)
[2017-12-14 05:16] LABS: MANUAL DIFF REQUIRED? YES
[2017-12-14 05:20] LABS: HEMATOCRIT 31.2 % (41.0-60); HEMOGLOBIN 10.5 gm/dL (12-16); MEAN CELL VOLUME 88.7 fl (81-100); MEAN CORPUSCULAR HEMOGLOBIN 29.7 pg (27.0-31.0); MEAN CORPUSCULAR HGB CONC 33.5 pg (28.0-36.0); PLATELET COUNT 487 Th/cmm (150-400); RED BLOOD COUNT 3.52 Mil/cmm (3.80-5.10); WHITE BLOOD COUNT 5.2 Th/cmm (4.8-10.8)
[2017-12-14 05:27] LABS: ALB/GLOB RATIO 0.8 (1.0-1.8); ALBUMIN 3.3 gm/dL (3.7-5.3); ALKALINE PHOSPHATASE 67 U/L (34-104); ANION GAP 10.7 (7.0-16.0); BILIRUBIN,TOTAL 0.2 mg/dL (0.3-1.0); BUN - UREA NITROGEN 13 mg/dL (7-25); CALCIUM SERUM 8.9 mg/dL (8.6-10.3); CARBON DIOXIDE 19.6 mEq/L (21.0-31.0); CHLORIDE 106 mEq/L (98-107); GFR AFRICAN-AMERICAN > 60.0 ml/min (>90); GFR NON AFRICAN-AMERICAN > 60.0 ml/min; GLUCOSE 129 mg/dL (70-105); PHOSPHOROUS 1.8 mg/dL (2.5-5.0); POTASSIUM SERUM 3.3 mEq/L (3.5-5.1); SGOT 23 U/L (13-39); SGPT/ALT 23 U/L (7-52); SODIUM SERUM 133 mEq/L (136-145); TOTAL PROTEIN,SERUM 7.4 gm/dL (6.0-8.3)
[2017-12-14 06:47] LABS: EOSINOPHIL 4 % (0-5); LYMPHOCYTE 27 % (20-50); MONOCYTE 10 % (2-10); NEUTROPHILS 59 % (40-80); TOTAL CELLS COUNTED 100
[2017-12-14] MEDS: INSULIN 70/30 100 UNITS/ML SUBQ SCH ×2 (08:54→17:36)
--- NOTE | 2017-12-14 09:21 | General Progress Note ---
Subjective - Review of Systems Events since last encounter: awake in no acute distress Objective - Results Result Diagrams: 12/14/17 04:35 12/14/17 04:35 Recent Labs: Laboratory Last Values WBC 5.2 Th/cmm (4.8-10.8) 12/14/17 04:35 RBC 3.52 Mil/cmm (3.80-5.10) L 12/14/17 04:35 Hgb 10.5 gm/dL (12-16) L 12/14/17 04:35 Hct 31.2 % (41.0-60) L 12/14/17 04:35 MCV 88.7 fl (81-100) 12/14/17 04:35 MCH 29.7 pg (27.0-31.0) 12/14/17 04:35 MCHC Differential 33.5 pg (28.0-36.0) 12/14/17 04:35 RDW 16.0 % (11.5-20.0) 12/14/17 04:35 Plt Count 487 Th/cmm (150-400) H 12/14/17 04:35 MPV 7.0 fl 12/14/17 04:35 Neutrophils % 74.7 % (40.0-80.0) 12/13/17 04:20 Lymphocytes % 12.7 % (20.0-50.0) L 12/13/17 04:20 Monocytes % 10.9 % (2.0-10.0) H 12/13/17 04:20 Eosinophils % 1.5 % (0.0-5.0) 12/13/17 04:20 Basophils % 0.2 % (0.0-2.0) 12/13/17 04:20 Neutrophils (Manual) 59 % (40-80) 12/14/17 04:35 Lymphocytes 27 % (20-50) 12/14/17 04:35 Monocytes 10 % (2-10) 12/14/17 04:35 Eosinophils 4 % (0-5) 12/14/17 04:35 Basophils 1 % (0-3) 12/11/17 10:12 Platelet Estimate INCREASED PLATELETS (NORMAL) 12/11/17 10:12 Eos Smear Source URINE 12/11/17 19:50 Eos Smear Total Cells NONE SEEN (NONE SEEN) 12/11/17 19:50 PT 10.9 SECONDS (9.5-11.5) 12/07/17 14:30 INR 1.05 (0.5-1.4) 12/07/17 14:30 PTT (Actin FS) 26.2 SECONDS (26.0-38.0) 12/07/17 14:30 Specimen Source ATERIAL 12/11/17 19:10 Sample Site RB 12/11/17 19:10 pH 7.31 (7.35-7.45) L 12/11/17 19:10 pCO2 27.0 mmHg (35.0-45.0) L 12/11/17 19:10 pO2 98.0 mmHg (80.0-100.0) 12/11/17 19:10 HCO3 16.3 mEq/L (20.0-26.0) L 12/11/17 19:10 Base Excess -11.1 mEq/L (-3.0-3.0) L 12/11/17 19:10 O2 Saturation 97.0 % (92.0-100.0) 12/11/17 19:10 Ananth Test Positive 12/11/17 19:10 Vent Rate N/A 12/11/17 19:10 Inspired O2 21 12/11/17 19:10 Tidal Volume N/A 12/11/17 19:10 PEEP N/A 12/11/17 19:10 Pressure (ins/psv/peep) N/A 12/11/17 19:10 Critical Value DV 12/11/17 19:10 Sodium 133 mEq/L (136-145) L 12/14/17 04:35 Potassium 3.3 mEq/L (3.5-5.1) L 12/14/17 04:35 Chloride 106 mEq/L (98-107) 12/14/17 04:35 Carbon Dioxide 19.6 mEq/L (21.0-31.0) L 12/14/17 04:35 Anion Gap 10.7 (7.0-16.0) 12/14/17 04:35 BUN 13 mg/dL (7-25) 12/14/17 04:35 Creatinine 1.0 mg/dL (0.6-1.2) 12/14/17 04:35 Est GFR ( Amer) > 60.0 ml/min (>90) 12/14/17 04:35 Est GFR (Non-Af Amer) > 60.0 ml/min 12/14/17 04:35 BUN/Creatinine Ratio 13.0 12/14/17 04:35 Glucose 129 mg/dL (70-105) H 12/14/17 04:35 POC Glucose 253 MG/DL (70-105) H 12/14/17 06:14 Hemoglobin A1c % 9.3 % (4.0-6.0) H 12/07/17 14:30 Whole Bld Lactic Acid 0.56 mmol/L (0.60-1.99) L 12/13/17 04:20 Uric Acid 4.8 mg/dL (2.3-6.6) 12/12/17 05:40 Calcium 8.9 mg/dL (8.6-10.3) 12/14/17 04:35 Phosphorus 1.8 mg/dL (2.5-5.0) L 12/14/17 04:35 Magnesium 2.0 mg/dL (1.9-2.7) 12/14/17 04:35 Total Bilirubin 0.2 mg/dL (0.3-1.0) L 12/14/17 04:35 AST 23 U/L (13-39) 12/14/17 04:35 ALT 23 U/L (7-52) 12/14/17 04:35 Alkaline Phosphatase 67 U/L (34-104) 12/14/17 04:35 Creatine Kinase 51 U/L (30-223) 12/07/17 14:30 Troponin I 0.01 ng/mL (0.01-0.05) 12/07/17 14:30 Total Protein 7.4 gm/dL (6.0-8.3) 12/14/17 04:35 Albumin 3.3 gm/dL (3.7-5.3) L 12/14/17 04:35 Globulin 4.1 gm/dL 12/14/17 04:35 Albumin/Globulin Ratio 0.8 (1.0-1.8) L 12/14/17 04:35 TSH 1.31 uIU/ml (0.34-5.60) 12/12/17 08:10 Serum , Qual NEGATIVE (NEGATIVE) 12/07/17 14:30 Urine Source MIDSTREAM 12/13/17 13:50 Urine Color YELLOW 12/13/17 13:50 Urine Clarity HAZY (CLEAR) 12/13/17 13:50 Urine pH 6.0 (4.6 - 8.0) 12/13/17 13:50 Ur Specific [place] 1.020 (1.005-1.030) 12/13/17 13:50 Urine Protein 100 mg/dL (NEGATIVE) H 12/13/17 13:50 Urine Glucose (UA) 100 mg/dL (NEGATIVE) H 12/13/17 13:50 Urine Ketones 15 mg/dL (NEGATIVE) H 12/13/17 13:50 Urine Blood LARGE (NEGATIVE) H 12/13/17 13:50 Urine Nitrate NEGATIVE (NEGATIVE) 12/13/17 13:50 Urine Bilirubin NEGATIVE (NEGATIVE) 12/13/17 13:50 Urine Urobilinogen 0.2 E.U./dL (0.2 - 1.0) 12/13/17 13:50 Ur Leukocyte Esterase NEGATIVE (NEGATIVE) 12/13/17 13:50 Urine RBC 25-50 /hpf (0-5) H 12/13/17 13:50 Urine WBC 0-2 /hpf (0-5) 12/13/17 13:50 Ur Epithelial Cells FEW /lpf (FEW) 12/13/17 13:50 Urine Bacteria FEW /hpf (NONE SEEN) 12/13/17 13:50 Urine Yeast FEW /hpf (NONE SEEN) H 12/13/17 13:50 Ur Random Sodium 46 mmol/L 12/11/17 19:50 Urine Creatinine 41.0 mg/dl (28.0-217.0) 12/11/17 19:50 Stool Leukocyte NO WBC SEEN 12/14/17 05:00 Vancomycin Trough 9.2 ug/mL (5-10) 12/11/17 20:00 Serum Ketones SMALL (NEGATIVE) H 12/13/17 04:20 - Physical Exam Vitals and I&O: Vital Signs Temp 97.1 F 12/14/17 04:00 Pulse 81 12/14/17 08:54 Resp 20 12/14/17 07:00 BP 148/68 12/14/17 08:54 Pulse Ox 100 12/14/17 07:00 Intake & Output 12/13/17 12/14/17 12/14/17 18:59 06:59 18:59 Intake Total 2100 250 Output Total 1400 700 Balance 700 -450 Weight (lbs) 55.338 kg 54.431 kg Intake: Intake, IV Amount 1500 100 D5-0.45NS 1,000 ml @ 125 1000 mls/hr IV .Q8H [facility] Rx#: [id number] Fluconazole 100mg/50mL 50 100 mg In 50 ml @ 50 mls/ hr IV Q24HR [facility] Rx#: [id number] KCL 20mEq/100mL Premix 20 100 meq In 100 ml @ 50 mls/ hr IV Q2H [facility] Rx#: [id number] Piperacillin Sodium/ 100 100 Tazobact 4.5 gm In Sodium Chloride 0.9% 100 ml @ 100 mls/hr IV Q8HR [facility] Rx #:[id number] Vancomycin HCl 1.25 gm In 250 Sodium Chloride 0.9% 250 ml @ 165 mls/hr IV Q18H [facility] Rx#:[id number] Oral 600 150 Output: Urine 1400 400 Stool 300 Other: # Bowel Movements 1 2 Stool Characteristics Liquid Liquid Mucoid [facility] Active Medications: Current Medications Acetaminophen (Tylenol) 650 mg PO Q6H PRN PRN Reason: Pain or Fever >101 Stop: 02/06/18 01:56 Acetaminophen/Hydrocodone Bitart (Alloy 10 Mg/325 Mg) 1 tab PO Q4H PRN PRN Reason: pain level 1-5 Stop: 02/07/18 19:32 Last Admin: 12/11/17 20:28 Dose: 1 tab Azathioprine (Imuran) 50 mg PO TID [facility] PRN Reason: Protocol Stop: 02/06/18 08:59 Last Admin: 12/14/17 08:54 Dose: 50 mg Glyburide (Diabeta) 5 mg PO DAILY [facility] Stop: 02/10/18 08:59 Last Admin: 12/14/17 08:54 Dose: 5 mg Guaifenesin (Mucinex) 600 mg PO BID [facility] Stop: 12/18/17 00:29 Last Admin: 12/14/17 08:54 Dose: 600 mg Piperacillin Sod/Tazobactam (Sod 4.5 gm/ Sodium Chloride) 100 mls @ 100 mls/hr IV Q8HR [facility] Stop: 02/05/18 20:59 Last Admin: 12/14/17 04:40 Dose: 100 mls/hr Vancomycin HCl 1.25 gm/ Sodium (Chloride) 250 mls @ 165 mls/hr IV Q18H [facility] Stop: 02/10/18 14:59 Last Admin: 12/14/17 02:32 Dose: 165 mls/hr Fluconazole (Diflucan) 100 mg in 50 mls @ 50 mls/hr IV Q24HR [facility] Stop: 02/10/18 13:59 Last Infusion: 12/13/17 15:15 Dose: Infused Dextrose/Sodium Chloride (D5-0.45ns) 1,000 mls @ 125 mls/hr IV .Q8H [facility] Stop: 02/10/18 18:14 Last Admin: 12/13/17 18:08 Dose: 125 mls/hr Insulin Aspart (Novolog Insulin Sliding Scale) 0 units SUBQ Q2H [facility] PRN Reason: Protocol Stop: 02/10/18 11:59 Last Admin: 12/14/17 08:53 Dose: 3 units Insulin Human Isoph/Insulin Regular (Novolin 70/30) 20 units SUBQ QDAC [facility]ARCIA PRN Reason: Protocol Stop: 02/11/18 07:29 Last Admin: 12/14/17 08:54 Dose: 20 units Insulin Human Isoph/Insulin Regular (Novolin 70/30) 10 units SUBQ QPM MARCIA PRN Reason: Protocol Stop: 02/10/18 17:59 Last Admin: 12/13/17 16:48 Dose: 10 unit Metformin HCl (Glucophage) 850 mg PO BIDWM [facility] Stop: 02/10/18 11:59 Last Admin: 12/14/17 08:54 Dose: 850 mg Metoprolol Tartrate (Lopressor) 25 mg PO BID [facility] Stop: 02/06/18 08:59 Last Admin: 12/14/17 08:54 Dose: 25 mg Miscellaneous (Vancomycin Iv Per Pharmacy) 1 ea [facility] PRN PRN PRN Reason: PROTOCOL Stop: 02/05/18 17:19 Miscellaneous (Probiotic Screen) 1 ea [facility] PRN PRN PRN Reason: PROTOCOL Stop: 02/07/18 13:46 Morphine Sulfate (Morphine) 1 mg IVP Q4HR PRN PRN Reason: pain levle 6-10 Stop: 02/07/18 19:31 Last Admin: 12/13/17 20:16 Dose: 1 mg Ondansetron HCl (Zofran) 4 mg IV Q4H PRN PRN Reason: Nausea / Vomiting Stop: 02/07/18 19:32 Last Admin: 12/13/17 09:42 Dose: 4 mg Pyridostigmine [place] (Mestinon) 180 mg PO TID [facility] Stop: 02/06/18 08:59 Last Admin: 12/14/17 08:54 Dose: 180 mg Valsartan (Diovan) 80 mg PO DAILY [facility] Stop: 02/11/18 08:59 Last Admin: 12/14/17 08:54 Dose: 80 mg General: Alert, No acute distress HEENT: Atraumatic, PERRLA, Mucous membr. moist/pink Neck: Supple, +2 carotid pulse wo bruit Cardiovascular: Regular rate, Normal S1, Normal S2 Lungs: Clear to auscultation Abdomen: Soft Extremities: no Edema Neurological: Sensation intact Skin: no Rash Psych/Mental Status: Mood NL - Procedures Procedures: Procedures Procedure Code Date AMPUTATION OF TOE 37365 12/07/17 DETACHMENT AT RIGHT 2ND TOE, COMPLETE, OPEN APPROACH [id number] 12/07/17 EMERGENCY DEPT VISIT 08942 08/07/11 INJECT/INFUSE NEC 99.29 02/22/10 Assessment/Plan - Problem List Patient Problems: All Active Problems Metabolic acidosis (Acute) E87.2 UTI (urinary tract infection) (Acute) right second toe gangrene (Acute) - Plan Plan: [facility] Nutritional Asmnt/Malnutr-PDOC - Dietary Evaluation Malnutrition Findings (Please click <Entered> for more info): Nutritional Asmnt/Malnutrition Start: 12/08/17 16: 43 Text: Status: Complete Freq: Document 12/08/17 16:43 DANETTE (Rec: 12/08/17 16:53 HEN [id number]) Nutritional Asmnt/Malnutrition Patient General Information Nutritional Screening High Risk Diagnosis peripheral artery disease Pertinent Medical Hx/Surgical Hx HTN, DM, asthma/COPD, dyslipidemia, resp failure, myasthenia, gravis Subjective Information Consult received for Dm and open wound. Pt seen talking on phone at time of visit, not able to interview at this time . Current Diet Order/ Nutrition Support CCHO 60gm Pertinent Medications novolog, piperacillin, nacl 0. 9%, vancomycin Pertinent Labs 12/08 Na 130, BUN 27, glucose 418, POC 400 12/07 Na 128, Cl 96, BUN 36, glucose 207, POC 132 Nutritional Hx/Data Height 1.7 m Height (Calculated Centimeters) 170.2 Current Weight (lbs) 54.431 kg Weight (Calculated Kilograms) 54.4 Weight (Calculated Grams) 71737.1 [place] Body Weight 135 Body Mass Index (BMI) 18.8 Weight Status Approriate GI Symptoms GI Symptoms None Last BM none 5/10 Difficult in: None Skin Integrity/Comment: right 2nd toe gangrene Estimated Nutritional Goals BEE in Kcals: Using Current wt Calories/Kcals/Kg 30-35 Kcals Calculated 1434-0007 Protein: Using Current wt Protein g/k.2-1.4 Protein Calculated 66-77 Fluid: ml 1650-1925ml (1ml/kcal) Nutritional Problem 1. Problem Problem altered nutrition related labs Etiology hx of DM Signs/Symptoms: glucose 207-418, POC 132-400 Malnutrition Alert Protein-Calorie Malnutrition N/A Is there a minimum of two criteria No selected? Query Text:Check all the applicable criteria. A minimum of two criteria are recommended for diagnosis of either severe or non-severe malnutrition. Intervention/Recommendation Comments [facility]. [facility]. Will provide nutrition education when pt available. 2. Monitor PO intake, wt, labs and skin integrity 3. F/U as high risk in 2-3 days, 12/10-12/11 Expected Outcomes/Goals Expected Outcomes/Goals 1. PO intake to meet at least 75% of nutritional needs. 2. Wt stability, skin to remain intact, labs to approach WNL.
[2017-12-14] MEDS: D5-0.45NS 1,000 ML IV SCH (10:20)
[2017-12-14] MEDS ORDERED: Potassium Phosphate 30 MMOLE in Sodium Chloride 0.9% 250 ML IV ONE (11:30)
--- NOTE | 2017-12-14 12:56 | General Progress Note ---
Subjective - Review of Systems Service Date: 12/14/17 Subjective: awake, weak, diarrhea, poor appetite Objective - Results Result Diagrams: 12/14/17 04:35 12/14/17 04:35 Recent Labs: Laboratory Last Values WBC 5.2 Th/cmm (4.8-10.8) 12/14/17 04:35 RBC 3.52 Mil/cmm (3.80-5.10) L 12/14/17 04:35 Hgb 10.5 gm/dL (12-16) L 12/14/17 04:35 Hct 31.2 % (41.0-60) L 12/14/17 04:35 MCV 88.7 fl (81-100) 12/14/17 04:35 MCH 29.7 pg (27.0-31.0) 12/14/17 04:35 MCHC Differential 33.5 pg (28.0-36.0) 12/14/17 04:35 RDW 16.0 % (11.5-20.0) 12/14/17 04:35 Plt Count 487 Th/cmm (150-400) H 12/14/17 04:35 MPV 7.0 fl 12/14/17 04:35 Neutrophils % 74.7 % (40.0-80.0) 12/13/17 04:20 Lymphocytes % 12.7 % (20.0-50.0) L 12/13/17 04:20 Monocytes % 10.9 % (2.0-10.0) H 12/13/17 04:20 Eosinophils % 1.5 % (0.0-5.0) 12/13/17 04:20 Basophils % 0.2 % (0.0-2.0) 12/13/17 04:20 Neutrophils (Manual) 59 % (40-80) 12/14/17 04:35 Lymphocytes 27 % (20-50) 12/14/17 04:35 Monocytes 10 % (2-10) 12/14/17 04:35 Eosinophils 4 % (0-5) 12/14/17 04:35 Basophils 1 % (0-3) 12/11/17 10:12 Platelet Estimate INCREASED PLATELETS (NORMAL) 12/11/17 10:12 Eos Smear Source URINE 12/11/17 19:50 Eos Smear Total Cells NONE SEEN (NONE SEEN) 12/11/17 19:50 PT 10.9 SECONDS (9.5-11.5) 12/07/17 14:30 INR 1.05 (0.5-1.4) 12/07/17 14:30 PTT (Actin FS) 26.2 SECONDS (26.0-38.0) 12/07/17 14:30 Specimen Source ATERIAL 12/11/17 19:10 Sample Site RB 12/11/17 19:10 pH 7.31 (7.35-7.45) L 12/11/17 19:10 pCO2 27.0 mmHg (35.0-45.0) L 12/11/17 19:10 pO2 98.0 mmHg (80.0-100.0) 12/11/17 19:10 HCO3 16.3 mEq/L (20.0-26.0) L 12/11/17 19:10 Base Excess -11.1 mEq/L (-3.0-3.0) L 12/11/17 19:10 O2 Saturation 97.0 % (92.0-100.0) 12/11/17 19:10 Ananth Test Positive 12/11/17 19:10 Vent Rate N/A 12/11/17 19:10 Inspired O2 21 12/11/17 19:10 Tidal Volume N/A 12/11/17 19:10 PEEP N/A 12/11/17 19:10 Pressure (ins/psv/peep) N/A 12/11/17 19:10 Critical Value DV 12/11/17 19:10 Sodium 133 mEq/L (136-145) L 12/14/17 04:35 Potassium 3.3 mEq/L (3.5-5.1) L 12/14/17 04:35 Chloride 106 mEq/L (98-107) 12/14/17 04:35 Carbon Dioxide 19.6 mEq/L (21.0-31.0) L 12/14/17 04:35 Anion Gap 10.7 (7.0-16.0) 12/14/17 04:35 BUN 13 mg/dL (7-25) 12/14/17 04:35 Creatinine 1.0 mg/dL (0.6-1.2) 12/14/17 04:35 Est GFR ( Amer) > 60.0 ml/min (>90) 12/14/17 04:35 Est GFR (Non-Af Amer) > 60.0 ml/min 12/14/17 04:35 BUN/Creatinine Ratio 13.0 12/14/17 04:35 Glucose 129 mg/dL (70-105) H 12/14/17 04:35 POC Glucose 52 MG/DL (70 - 105) L 12/14/17 12:48 Hemoglobin A1c % 9.3 % (4.0-6.0) H 12/07/17 14:30 Whole Bld Lactic Acid 0.56 mmol/L (0.60-1.99) L 12/13/17 04:20 Uric Acid 4.8 mg/dL (2.3-6.6) 12/12/17 05:40 Calcium 8.9 mg/dL (8.6-10.3) 12/14/17 04:35 Phosphorus 1.8 mg/dL (2.5-5.0) L 12/14/17 04:35 Magnesium 2.0 mg/dL (1.9-2.7) 12/14/17 04:35 Total Bilirubin 0.2 mg/dL (0.3-1.0) L 12/14/17 04:35 AST 23 U/L (13-39) 12/14/17 04:35 ALT 23 U/L (7-52) 12/14/17 04:35 Alkaline Phosphatase 67 U/L (34-104) 12/14/17 04:35 Creatine Kinase 51 U/L (30-223) 12/07/17 14:30 Troponin I 0.01 ng/mL (0.01-0.05) 12/07/17 14:30 Total Protein 7.4 gm/dL (6.0-8.3) 12/14/17 04:35 Albumin 3.3 gm/dL (3.7-5.3) L 12/14/17 04:35 Globulin 4.1 gm/dL 12/14/17 04:35 Albumin/Globulin Ratio 0.8 (1.0-1.8) L 12/14/17 04:35 TSH 1.31 uIU/ml (0.34-5.60) 12/12/17 08:10 Serum , Qual NEGATIVE (NEGATIVE) 12/07/17 14:30 Urine Source MIDSTREAM 12/13/17 13:50 Urine Color YELLOW 12/13/17 13:50 Urine Clarity HAZY (CLEAR) 12/13/17 13:50 Urine pH 6.0 (4.6 - 8.0) 12/13/17 13:50 Ur Specific [place] 1.020 (1.005-1.030) 12/13/17 13:50 Urine Protein 100 mg/dL (NEGATIVE) H 12/13/17 13:50 Urine Glucose (UA) 100 mg/dL (NEGATIVE) H 12/13/17 13:50 Urine Ketones 15 mg/dL (NEGATIVE) H 12/13/17 13:50 Urine Blood LARGE (NEGATIVE) H 12/13/17 13:50 Urine Nitrate NEGATIVE (NEGATIVE) 12/13/17 13:50 Urine Bilirubin NEGATIVE (NEGATIVE) 12/13/17 13:50 Urine Urobilinogen 0.2 E.U./dL (0.2 - 1.0) 12/13/17 13:50 Ur Leukocyte Esterase NEGATIVE (NEGATIVE) 12/13/17 13:50 Urine RBC 25-50 /hpf (0-5) H 12/13/17 13:50 Urine WBC 0-2 /hpf (0-5) 12/13/17 13:50 Ur Epithelial Cells FEW /lpf (FEW) 12/13/17 13:50 Urine Bacteria FEW /hpf (NONE SEEN) 12/13/17 13:50 Urine Yeast FEW /hpf (NONE SEEN) H 12/13/17 13:50 Ur Random Sodium 46 mmol/L 12/11/17 19:50 Urine Creatinine 41.0 mg/dl (28.0-217.0) 12/11/17 19:50 Stool Leukocyte NO WBC SEEN 12/14/17 05:00 Vancomycin Trough 9.2 ug/mL (5-10) 12/11/17 20:00 Serum Ketones SMALL (NEGATIVE) H 12/13/17 04:20 - Physical Exam Vitals and I&O: Vital Signs Temp 97.1 F 12/14/17 04:00 Pulse 67 12/14/17 11:00 Resp 20 12/14/17 11:00 BP 117/69 12/14/17 11:00 Pulse Ox 100 12/14/17 11:00 Intake & Output 12/13/17 12/14/17 12/14/17 18:59 06:59 18:59 Intake Total 2100 250 Output Total 1400 700 Balance 700 -450 Weight (lbs) 55.338 kg 54.431 kg Intake: Intake, IV Amount 1500 100 D5-0.45NS 1,000 ml @ 125 1000 mls/hr IV .Q8H [facility] Rx#: [id number] Fluconazole 100mg/50mL 50 100 mg In 50 ml @ 50 mls/ hr IV Q24HR [facility] Rx#: [id number] KCL 20mEq/100mL Premix 20 100 meq In 100 ml @ 50 mls/ hr IV Q2H [facility] Rx#: [id number] Piperacillin Sodium/ 100 100 Tazobact 4.5 gm In Sodium Chloride 0.9% 100 ml @ 100 mls/hr IV Q8HR [facility] Rx #:[id number] Vancomycin HCl 1.25 gm In 250 Sodium Chloride 0.9% 250 ml @ 165 mls/hr IV Q18H [facility] Rx#:[id number] Oral 600 150 Output: Urine 1400 400 Stool 300 Other: # Bowel Movements 1 2 Stool Characteristics Liquid Liquid Mucoid Weight Source Bedscale Bedscale Active Medications: Current Medications Acetaminophen (Tylenol) 650 mg PO Q6H PRN PRN Reason: Pain or Fever >101 Stop: 02/06/18 01:56 Acetaminophen/Hydrocodone Bitart ([place] 10 Mg/325 Mg) 1 tab PO Q4H PRN PRN Reason: pain level 1-5 Stop: 02/07/18 19:32 Last Admin: 12/11/17 20:28 Dose: 1 tab Azathioprine (Imuran) 50 mg PO TID [facility] PRN Reason: Protocol Stop: 02/06/18 08:59 Last Admin: 12/14/17 08:54 Dose: 50 mg Glyburide (Diabeta) 5 mg PO DAILY [facility] Stop: 02/10/18 08:59 Last Admin: 12/14/17 08:54 Dose: 5 mg Guaifenesin (Mucinex) 600 mg PO BID [facility] Stop: 12/18/17 00:29 Last Admin: 12/14/17 08:54 Dose: 600 mg Piperacillin Sod/Tazobactam (Sod 4.5 gm/ Sodium Chloride) 100 mls @ 100 mls/hr IV Q8HR [facility] Stop: 02/05/18 20:59 Last Admin: 12/14/17 04:40 Dose: 100 mls/hr Vancomycin HCl 1.25 gm/ Sodium (Chloride) 250 mls @ 165 mls/hr IV Q18H [facility] Stop: 02/10/18 14:59 Last Admin: 12/14/17 02:32 Dose: 165 mls/hr Fluconazole (Diflucan) 100 mg in 50 mls @ 50 mls/hr IV Q24HR [facility] Stop: 02/10/18 13:59 Last Infusion: 12/13/17 15:15 Dose: Infused Dextrose/Sodium Chloride (D5-0.45ns) 1,000 mls @ 75 mls/hr IV .[id number] [facility] Stop: 02/12/18 10:22 Potassium Phosphate 30 mmole/ (Sodium Chloride) 260 mls @ 42.5 mls/hr IV X1 ONE Stop: 12/14/17 17:37 Last Admin: 12/14/17 12:25 Dose: 42.5 mls/hr Insulin Aspart (Novolog Insulin Sliding Scale) 0 units SUBQ ACHS [facility] PRN Reason: Protocol Stop: 02/12/18 11:29 Last Admin: 12/14/17 12:35 Dose: Not Given Insulin Human Isoph/Insulin Regular (Novolin 70/30) 20 units SUBQ QDAC [facility] PRN Reason: Protocol Stop: 02/11/18 07:29 Last Admin: 12/14/17 08:54 Dose: 20 units Insulin Human Isoph/Insulin Regular (Novolin 70/30) 10 units SUBQ QPM [facility] PRN Reason: Protocol Stop: 02/10/18 17:59 Last Admin: 12/13/17 16:48 Dose: 10 unit Megestrol Acetate (Megace) 40 mg PO DAILY [facility] PRN Reason: Protocol Stop: 02/13/18 08:59 Metformin HCl (Glucophage) 850 mg PO BIDWM [facility] Stop: 02/10/18 11:59 Last Admin: 12/14/17 08:54 Dose: 850 mg Metoprolol Tartrate (Lopressor) 25 mg PO BID [facility] Stop: 02/06/18 08:59 Last Admin: 12/14/17 08:54 Dose: 25 mg Miscellaneous (Vancomycin Iv Per Pharmacy) 1 ea PRN PRN PRN Reason: PROTOCOL Stop: 02/05/18 17:19 Miscellaneous (Probiotic Screen) 1 ea MC PRN PRN PRN Reason: PROTOCOL Stop: 02/07/18 13:46 Morphine Sulfate (Morphine) 1 mg IVP Q4HR PRN PRN Reason: pain levle 6-10 Stop: 02/07/18 19:31 Last Admin: 12/13/17 20:16 Dose: 1 mg Ondansetron HCl (Zofran) 4 mg IV Q4H PRN PRN Reason: Nausea / Vomiting Stop: 02/07/18 19:32 Last Admin: 12/13/17 09:42 Dose: 4 mg Pyridostigmine [place] (Mestinon) 180 mg PO TID [facility] Stop: 02/06/18 08:59 Last Admin: 12/14/17 08:54 Dose: 180 mg Valsartan (Diovan) 80 mg PO DAILY [facility] Stop: 02/11/18 08:59 Last Admin: 12/14/17 08:54 Dose: 80 mg General: Alert, No acute distress HEENT: Atraumatic, PERRLA, EOMI, Mucous membr. moist/pink Neck: Supple, +2 carotid pulse wo bruit Cardiovascular: Regular rate, Normal S1, Normal S2 Lungs: Clear to auscultation Abdomen: Soft Extremities: no Edema Neurological: Sensation intact Skin: no Rash Psych/Mental Status: Mood NL - Procedures Procedures: Procedures Procedure Code Date AMPUTATION OF TOE 50228 12/07/17 DETACHMENT AT RIGHT 2ND TOE, COMPLETE, OPEN APPROACH [id number] 12/07/17 EMERGENCY DEPT VISIT 01587 08/07/11 INJECT/INFUSE NEC 99.29 02/22/10 Assessment/Plan - Problem List Patient Problems: All Active Problems Metabolic acidosis (Acute) E87.2 UTI (urinary tract infection) (Acute) right second toe gangrene (Acute) - Assessment Assessment: Pre renal Azotemia AG Met Acid 2/2 DM(DKA) T2DM COPD Myasthenia Gravis Bronchial Asthma - Plan Plan: Lab - Result Diagrams 12/12/17 05:40 12/12/17 05:40 Current Medications Acetaminophen (Tylenol) 650 mg PO Q6H PRN PRN Reason: Pain or Fever >101 Stop: 02/06/18 01:56 Acetaminophen/Hydrocodone Bitart ([place] 10 Mg/325 Mg) 1 tab PO Q4H PRN PRN Reason: pain level 1-5 Stop: 02/07/18 19:32 Last Admin: 12/11/17 20:28 Dose: 1 tab Azathioprine (Imuran) 50 mg PO TID [facility] PRN Reason: Protocol Stop: 02/06/18 08:59 Last Admin: 12/12/17 08:24 Dose: 50 mg Glyburide (Diabeta) 5 mg PO DAILY [facility] Stop: 02/10/18 08:59 Last Admin: 12/12/17 11:35 Dose: 5 mg Sodium Chloride (Nacl 0.9%) 1,000 mls @ 125 mls/hr IV .Q8H [facility] Stop: 02/05/18 17:29 Last Admin: 12/12/17 06:20 Dose: 125 mls/hr Piperacillin Sod/Tazobactam (Sod 4.5 gm/ Sodium Chloride) 100 mls @ 100 mls/hr IV Q8HR [facility] Stop: 02/05/18 20:59 Last Infusion: 12/12/17 06:21 Dose: Infused Vancomycin HCl 1.25 gm/ Sodium (Chloride) 250 mls @ 165 mls/hr IV Q18H [facility] Stop: 02/10/18 14:59 Fluconazole (Diflucan) 100 mg in 50 mls @ 50 mls/hr IV Q24HR [facility] Stop: 02/10/18 13:59 Insulin Aspart (Novolog Insulin Sliding Scale) 0 units SUBQ Q2H [facility] PRN Reason: Protocol Stop: 02/10/18 11:59 Insulin Human Isoph/Insulin Regular (Novolin 70/30) 20 units SUBQ QDAC [facility] PRN Reason: Protocol Stop: 02/11/18 07:29 Insulin Human Isoph/Insulin Regular (Novolin 70/30) 10 units SUBQ QPM [facility] PRN Reason: Protocol Stop: 02/10/18 17:59 Metformin HCl (Glucophage) 850 mg PO BIDWM [facility] Stop: 02/10/18 11:59 Last Admin: 12/12/17 11:35 Dose: 850 mg Metoprolol Tartrate (Lopressor) 25 mg PO BID [facility] Stop: 02/06/18 08:59 Last Admin: 12/12/17 08:24 Dose: 25 mg Miscellaneous (Vancomycin Iv Per Pharmacy) 1 ea PRN PRN PRN Reason: PROTOCOL Stop: 02/05/18 17:19 Miscellaneous (Probiotic Screen) 1 ea MC PRN PRN PRN Reason: PROTOCOL Stop: 02/07/18 13:46 Morphine Sulfate (Morphine) 1 mg IVP Q4HR PRN PRN Reason: pain levle 6-10 Stop: 02/07/18 19:31 Last Admin: 12/11/17 00:58 Dose: 1 mg Mupirocin (Bactroban Oint) 1 appl NS BID [facility] Stop: 12/14/17 09:01 Last Admin: 12/12/17 08:24 Dose: 1 appl Ondansetron HCl (Zofran) 4 mg IV Q6H PRN PRN Reason: Nausea / Vomiting Stop: 02/07/18 19:32 Last Admin: 12/12/17 08:23 Dose: 4 mg Pyridostigmine [place] (Mestinon) 180 mg PO TID [facility] Stop: 02/06/18 08:59 Last Admin: 12/12/17 08:24 Dose: 180 mg Lab - Result Diagrams 12/14/17 04:35 12/14/17 04:35 BS ranging 100-200 urine (+) for ketones, serum small ketones, CO2 increased to 20 ABG pH 7.31 continue D5 1/2 NS @ 75ml/hr; S/S ac, hs replace K, P04, stool for WBC start Megace for poor appetite Nutritional Asmnt/Malnutr-PDOC - Dietary Evaluation Malnutrition Findings (Please click <Entered> for more info): Nutritional Asmnt/Malnutrition Start: 12/08/17 16: 43 Text: Status: Complete Freq: Document 12/08/17 16:43 LCDANETTE (Rec: 12/08/17 16:53 [facility] Nutritional Asmnt/Malnutrition Patient General Information Nutritional Screening High Risk Diagnosis peripheral artery disease Pertinent Medical Hx/Surgical Hx HTN, DM, asthma/COPD, dyslipidemia, resp failure, myasthenia, gravis Subjective Information Consult received for Dm and open wound. Pt seen talking on phone at time of visit, not able to interview at this time . Current Diet Order/ Nutrition Support CCHO 60gm Pertinent Medications novolog, piperacillin, nacl 0. 9%, vancomycin Pertinent Labs 12/08 Na 130, BUN 27, glucose 418, POC 400 5/9 Na 128, Cl 96, BUN 36, glucose 207, POC 132 Nutritional Hx/Data Height 1.7 m Height (Calculated Centimeters) 170.2 Current Weight (lbs) 54.431 kg Weight (Calculated Kilograms) 54.4 Weight (Calculated Grams) 52735.1 [place] Body Weight 135 Body Mass Index (BMI) 18.8 Weight Status Approriate GI Symptoms GI Symptoms None Last BM none 5/10 Difficult in: None Skin Integrity/Comment: right 2nd toe gangrene Estimated Nutritional Goals BEE in Kcals: Using Current wt Calories/Kcals/Kg 30-35 Kcals Calculated 1942-4636 Protein: Using Current wt Protein g/k.2-1.4 Protein Calculated 66-77 Fluid: ml 1650-1925ml (1ml/kcal) Nutritional Problem 1. Problem Problem altered nutrition related labs Etiology hx of DM Signs/Symptoms: glucose 207-418, POC 132-400 Malnutrition Alert Protein-Calorie Malnutrition N/A Is there a minimum of two criteria No selected? Query Text:Check all the applicable criteria. A minimum of two criteria are recommended for diagnosis of either severe or non-severe malnutrition. Intervention/Recommendation Comments 1. [facility] as ordered. Will provide nutrition education when pt available. 2. Monitor PO intake, wt, labs and skin integrity 3. F/U as high risk in 2-3 days, 12/10-12/11 Expected Outcomes/Goals Expected Outcomes/Goals 1. PO intake to meet at least 75% of nutritional needs. 2. Wt stability, skin to remain intact, labs to approach WNL.
--- NOTE | 2017-12-14 14:02 | Infectious Disease Prog Note ---
Infectious Disease Subjective - Review of Systems Service Date: 12/14/17 Subjective: doing better, no fever. Infectious Disease Objective - Results Result Diagrams: 12/14/17 04:35 12/14/17 04:35 Recent Labs: Laboratory Last Values WBC 5.2 Th/cmm (4.8-10.8) 12/14/17 04:35 RBC 3.52 Mil/cmm (3.80-5.10) L 12/14/17 04:35 Hgb 10.5 gm/dL (12-16) L 12/14/17 04:35 Hct 31.2 % (41.0-60) L 12/14/17 04:35 MCV 88.7 fl (81-100) 12/14/17 04:35 MCH 29.7 pg (27.0-31.0) 12/14/17 04:35 MCHC Differential 33.5 pg (28.0-36.0) 12/14/17 04:35 RDW 16.0 % (11.5-20.0) 12/14/17 04:35 Plt Count 487 Th/cmm (150-400) H 12/14/17 04:35 MPV 7.0 fl 12/14/17 04:35 Neutrophils % 74.7 % (40.0-80.0) 12/13/17 04:20 Lymphocytes % 12.7 % (20.0-50.0) L 12/13/17 04:20 Monocytes % 10.9 % (2.0-10.0) H 12/13/17 04:20 Eosinophils % 1.5 % (0.0-5.0) 12/13/17 04:20 Basophils % 0.2 % (0.0-2.0) 12/13/17 04:20 Neutrophils (Manual) 59 % (40-80) 12/14/17 04:35 Lymphocytes 27 % (20-50) 12/14/17 04:35 Monocytes 10 % (2-10) 12/14/17 04:35 Eosinophils 4 % (0-5) 12/14/17 04:35 Basophils 1 % (0-3) 12/11/17 10:12 Platelet Estimate INCREASED PLATELETS (NORMAL) 12/11/17 10:12 Eos Smear Source URINE 12/11/17 19:50 Eos Smear Total Cells NONE SEEN (NONE SEEN) 12/11/17 19:50 PT 10.9 SECONDS (9.5-11.5) 12/07/17 14:30 INR 1.05 (0.5-1.4) 12/07/17 14:30 PTT (Actin FS) 26.2 SECONDS (26.0-38.0) 12/07/17 14:30 Specimen Source ATERIAL 12/11/17 19:10 Sample Site RB 12/11/17 19:10 pH 7.31 (7.35-7.45) L 12/11/17 19:10 pCO2 27.0 mmHg (35.0-45.0) L 12/11/17 19:10 pO2 98.0 mmHg (80.0-100.0) 12/11/17 19:10 HCO3 16.3 mEq/L (20.0-26.0) L 12/11/17 19:10 Base Excess -11.1 mEq/L (-3.0-3.0) L 12/11/17 19:10 O2 Saturation 97.0 % (92.0-100.0) 12/11/17 19:10 Ananth Test Positive 12/11/17 19:10 Vent Rate N/A 12/11/17 19:10 Inspired O2 21 12/11/17 19:10 Tidal Volume N/A 12/11/17 19:10 PEEP N/A 12/11/17 19:10 Pressure (ins/psv/peep) N/A 12/11/17 19:10 Critical Value DV 12/11/17 19:10 Sodium 133 mEq/L (136-145) L 12/14/17 04:35 Potassium 3.3 mEq/L (3.5-5.1) L 12/14/17 04:35 Chloride 106 mEq/L (98-107) 12/14/17 04:35 Carbon Dioxide 19.6 mEq/L (21.0-31.0) L 12/14/17 04:35 Anion Gap 10.7 (7.0-16.0) 12/14/17 04:35 BUN 13 mg/dL (7-25) 12/14/17 04:35 Creatinine 1.0 mg/dL (0.6-1.2) 12/14/17 04:35 Est GFR ( Amer) > 60.0 ml/min (>90) 12/14/17 04:35 Est GFR (Non-Af Amer) > 60.0 ml/min 12/14/17 04:35 BUN/Creatinine Ratio 13.0 12/14/17 04:35 Glucose 129 mg/dL (70-105) H 12/14/17 04:35 POC Glucose 53 MG/DL (70 - 105) L 12/14/17 13:23 Hemoglobin A1c % 9.3 % (4.0-6.0) H 12/07/17 14:30 Whole Bld Lactic Acid 0.56 mmol/L (0.60-1.99) L 12/13/17 04:20 Uric Acid 4.8 mg/dL (2.3-6.6) 12/12/17 05:40 Calcium 8.9 mg/dL (8.6-10.3) 12/14/17 04:35 Phosphorus 1.8 mg/dL (2.5-5.0) L 12/14/17 04:35 Magnesium 2.0 mg/dL (1.9-2.7) 12/14/17 04:35 Total Bilirubin 0.2 mg/dL (0.3-1.0) L 12/14/17 04:35 AST 23 U/L (13-39) 12/14/17 04:35 ALT 23 U/L (7-52) 12/14/17 04:35 Alkaline Phosphatase 67 U/L (34-104) 12/14/17 04:35 Creatine Kinase 51 U/L (30-223) 12/07/17 14:30 Troponin I 0.01 ng/mL (0.01-0.05) 12/07/17 14:30 Total Protein 7.4 gm/dL (6.0-8.3) 12/14/17 04:35 Albumin 3.3 gm/dL (3.7-5.3) L 12/14/17 04:35 Globulin 4.1 gm/dL 12/14/17 04:35 Albumin/Globulin Ratio 0.8 (1.0-1.8) L 12/14/17 04:35 TSH 1.31 uIU/ml (0.34-5.60) 12/12/17 08:10 Serum , Qual NEGATIVE (NEGATIVE) 12/07/17 14:30 Urine Source MIDSTREAM 12/13/17 13:50 Urine Color YELLOW 12/13/17 13:50 Urine Clarity HAZY (CLEAR) 12/13/17 13:50 Urine pH 6.0 (4.6 - 8.0) 12/13/17 13:50 Ur Specific [place] 1.020 (1.005-1.030) 12/13/17 13:50 Urine Protein 100 mg/dL (NEGATIVE) H 12/13/17 13:50 Urine Glucose (UA) 100 mg/dL (NEGATIVE) H 12/13/17 13:50 Urine Ketones 15 mg/dL (NEGATIVE) H 12/13/17 13:50 Urine Blood LARGE (NEGATIVE) H 12/13/17 13:50 Urine Nitrate NEGATIVE (NEGATIVE) 12/13/17 13:50 Urine Bilirubin NEGATIVE (NEGATIVE) 12/13/17 13:50 Urine Urobilinogen 0.2 E.U./dL (0.2 - 1.0) 12/13/17 13:50 Ur Leukocyte Esterase NEGATIVE (NEGATIVE) 12/13/17 13:50 Urine RBC 25-50 /hpf (0-5) H 12/13/17 13:50 Urine WBC 0-2 /hpf (0-5) 12/13/17 13:50 Ur Epithelial Cells FEW /lpf (FEW) 12/13/17 13:50 Urine Bacteria FEW /hpf (NONE SEEN) 12/13/17 13:50 Urine Yeast FEW /hpf (NONE SEEN) H 12/13/17 13:50 Ur Random Sodium 46 mmol/L 12/11/17 19:50 Urine Creatinine 41.0 mg/dl (28.0-217.0) 12/11/17 19:50 Stool Leukocyte NO WBC SEEN 12/14/17 05:00 Vancomycin Trough 9.2 ug/mL (5-10) 12/11/17 20:00 Serum Ketones SMALL (NEGATIVE) H 12/13/17 04:20 - Physical Exam Vitals and I&O: Vital Signs Temp 97.1 F 12/14/17 04:00 Pulse 80 12/14/17 12:00 Resp 20 12/14/17 12:00 BP 159/81 12/14/17 12:00 Pulse Ox 100 12/14/17 12:00 Intake & Output 12/13/17 12/14/17 12/14/17 18:59 06:59 18:59 Intake Total 2100 250 Output Total 1400 700 Balance 700 -450 Weight (lbs) 55.338 kg 54.431 kg Intake: Intake, IV Amount 1500 100 D5-0.45NS 1,000 ml @ 125 1000 mls/hr IV .Q8H [facility] Rx#: [id number] Fluconazole 100mg/50mL 50 100 mg In 50 ml @ 50 mls/ hr IV Q24HR [facility] Rx#: [id number] KCL 20mEq/100mL Premix 20 100 meq In 100 ml @ 50 mls/ hr IV Q2H [facility] Rx#: [id number] Piperacillin Sodium/ 100 100 Tazobact 4.5 gm In Sodium Chloride 0.9% 100 ml @ 100 mls/hr IV Q8HR [facility] Rx #:[id number] Vancomycin HCl 1.25 gm In 250 Sodium Chloride 0.9% 250 ml @ 165 mls/hr IV Q18H [facility] Rx#:[id number] Oral 600 150 Output: Urine 1400 400 Stool 300 Other: # Bowel Movements 1 2 Stool Characteristics Liquid Liquid Liquid Mucoid [facility] Active Medications: Current Medications Acetaminophen (Tylenol) 650 mg PO Q6H PRN PRN Reason: Pain or Fever >101 Stop: 02/06/18 01:56 Acetaminophen/Hydrocodone Bitart ([place] 10 Mg/325 Mg) 1 tab PO Q4H PRN PRN Reason: pain level 1-5 Stop: 02/07/18 19:32 Last Admin: 12/11/17 20:28 Dose: 1 tab Azathioprine (Imuran) 50 mg PO TID [facility] PRN Reason: Protocol Stop: 02/06/18 08:59 Last Admin: 12/14/17 08:54 Dose: 50 mg Glyburide (Diabeta) 5 mg PO DAILY [facility] Stop: 02/10/18 08:59 Last Admin: 12/14/17 08:54 Dose: 5 mg Guaifenesin (Mucinex) 600 mg PO BID [facility] Stop: 12/18/17 00:29 Last Admin: 12/14/17 08:54 Dose: 600 mg Piperacillin Sod/Tazobactam (Sod 4.5 gm/ Sodium Chloride) 100 mls @ 100 mls/hr IV Q8HR [facility] Stop: 02/05/18 20:59 Last Admin: 12/14/17 04:40 Dose: 100 mls/hr Vancomycin HCl 1.25 gm/ Sodium (Chloride) 250 mls @ 165 mls/hr IV Q18H [facility] Stop: 02/10/18 14:59 Last Admin: 12/14/17 02:32 Dose: 165 mls/hr Fluconazole (Diflucan) 100 mg in 50 mls @ 50 mls/hr IV Q24HR [facility] Stop: 02/10/18 13:59 Last Infusion: 12/13/17 15:15 Dose: Infused Dextrose/Sodium Chloride (D5-0.45ns) 1,000 mls @ 75 mls/hr IV .[id number] [facility] Stop: 02/12/18 10:22 Potassium Phosphate 30 mmole/ (Sodium Chloride) 260 mls @ 42.5 mls/hr IV X1 ONE Stop: 12/14/17 17:37 Last Admin: 12/14/17 12:25 Dose: 42.5 mls/hr Insulin Aspart (Novolog Insulin Sliding Scale) 0 units SUBQ ACHS [facility] PRN Reason: Protocol Stop: 02/12/18 11:29 Last Admin: 12/14/17 12:35 Dose: Not Given Insulin Human Isoph/Insulin Regular (Novolin 70/30) 20 units SUBQ QDAC [facility] PRN Reason: Protocol Stop: 02/11/18 07:29 Last Admin: 12/14/17 08:54 Dose: 20 units Insulin Human Isoph/Insulin Regular (Novolin 70/30) 10 units SUBQ QPM [facility] PRN Reason: Protocol Stop: 02/10/18 17:59 Last Admin: 12/13/17 16:48 Dose: 10 unit Megestrol Acetate (Megace) 40 mg PO DAILY [facility] PRN Reason: Protocol Stop: 02/13/18 08:59 Metformin HCl (Glucophage) 850 mg PO BIDWM [facility] Stop: 02/10/18 11:59 Last Admin: 12/14/17 08:54 Dose: 850 mg Metoprolol Tartrate (Lopressor) 25 mg PO BID [facility] Stop: 02/06/18 08:59 Last Admin: 12/14/17 08:54 Dose: 25 mg Miscellaneous (Vancomycin Iv Per Pharmacy) 1 ea [facility] PRN PRN PRN Reason: PROTOCOL Stop: 02/05/18 17:19 Miscellaneous (Probiotic Screen) 1 ea [facility] PRN PRN PRN Reason: PROTOCOL Stop: 02/07/18 13:46 Morphine Sulfate (Morphine) 1 mg IVP Q4HR PRN PRN Reason: pain levle 6-10 Stop: 02/07/18 19:31 Last Admin: 12/13/17 20:16 Dose: 1 mg Ondansetron HCl (Zofran) 4 mg IV Q4H PRN PRN Reason: Nausea / Vomiting Stop: 02/07/18 19:32 Last Admin: 12/13/17 09:42 Dose: 4 mg Pyridostigmine [place] (Mestinon) 180 mg PO TID [facility] Stop: 02/06/18 08:59 Last Admin: 12/14/17 08:54 Dose: 180 mg Valsartan (Diovan) 80 mg PO DAILY [facility] Stop: 02/11/18 08:59 Last Admin: 12/14/17 08:54 Dose: 80 mg General: no acute distress, well developed, well nourished HEENT: atraumatic, normocephalic, PERRLA Neck: supple, no thyromegaly Cardiovascular: S1S2, regular Lungs: clear to auscultation bilaterally, clear to percussion Abdomen: soft, no tender, no distended, no hepatomegaly Extremities: no cyanosis, no clubbing, no edema Neurological: awake, alert, oriented Skin: intact - Procedures Procedures: Procedures Procedure Code Date AMPUTATION OF TOE 86466 12/07/17 DETACHMENT AT RIGHT 2ND TOE, COMPLETE, OPEN APPROACH [id number] 12/07/17 EMERGENCY DEPT VISIT 16105 08/07/11 INJECT/INFUSE NEC 99.29 02/22/10 Infectious Disease Assmt/Plan - Problem List Patient Problems: All Active Problems Metabolic acidosis (Acute) E87.2 UTI (urinary tract infection) (Acute) right second toe gangrene (Acute) - Assessment Assessment: 1. Right second toe gangrene. 2. Diabetes mellitus type 2, uncontrolled. versus DM1 with ketoacidosis. 3. History of myasthenia gravis. 4. Dyslipidemia. 5. Urinary tract infection. 6. 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 7. Metabolic acidosis. 8. MRSA colonization. - Plan Plan: Continue zosyn, vanco and diflucan will change antibiotic to po when stable for discharge for 4 more days, ( consider clinda and diflucan). Nutritional Asmnt/Malnutr-PDOC - Dietary Evaluation Malnutrition Findings (Please click <Entered> for more info): Nutritional Asmnt/Malnutrition Start: 12/08/17 16: 43 Text: Status: Complete Freq: Document 12/08/17 16:43 DAWSON (Rec: 12/08/17 16:53 DANETTEG [email or web address]) Nutritional Asmnt/Malnutrition Patient General Information Nutritional Screening High Risk Diagnosis peripheral artery disease Pertinent Medical Hx/Surgical Hx HTN, DM, asthma/COPD, dyslipidemia, resp failure, myasthenia, gravis Subjective Information Consult received for Dm and open wound. Pt seen talking on phone at time of visit, not able to interview at this time . Current Diet Order/ Nutrition Support CCHO 60gm Pertinent Medications novolog, piperacillin, nacl 0. 9%, vancomycin Pertinent Labs 12/08 Na 130, BUN 27, glucose 418, POC 400 12/07 Na 128, Cl 96, BUN 36, glucose 207, POC 132 Nutritional Hx/Data Height 1.7 m Height (Calculated Centimeters) 170.2 Current Weight (lbs) 54.431 kg Weight (Calculated Kilograms) 54.4 Weight (Calculated Grams) 13135.1 [place] Body Weight 135 Body Mass Index (BMI) 18.8 Weight Status Approriate GI Symptoms GI Symptoms None Last BM none 12/08 Difficult in: None Skin Integrity/Comment: right 2nd toe gangrene Estimated Nutritional Goals BEE in Kcals: Using Current wt Calories/Kcals/Kg 30-35 Kcals Calculated 5016-0499 Protein: Using Current wt Protein g/k.2-1.4 Protein Calculated 66-77 Fluid: ml 1650-1925ml (1ml/kcal) Nutritional Problem 1. Problem Problem altered nutrition related labs Etiology hx of DM Signs/Symptoms: glucose 207-418, POC 132-400 Malnutrition Alert Protein-Calorie Malnutrition N/A Is there a minimum of two criteria No selected? Query Text:Check all the applicable criteria. A minimum of two criteria are recommended for diagnosis of either severe or non-severe malnutrition. Intervention/Recommendation Comments 1. Continue with CCHO-60gm diet as ordered. Will provide nutrition education when pt available. 2. Monitor PO intake, wt, labs and skin integrity 3. F/U as high risk in 2-3 days, 12/10-12/11 Expected Outcomes/Goals Expected Outcomes/Goals 1. PO intake to meet at least 75% of nutritional needs. 2. Wt stability, skin to remain intact, labs to approach WNL.
--- NOTE | 2017-12-14 14:34 | General Progress Note ---
Subjective - Review of Systems Service Date: 12/14/17 Events since last encounter: redressed, wound healing well Objective - Results Result Diagrams: 12/14/17 04:35 12/14/17 04:35 Recent Labs: Laboratory Last Values WBC 5.2 Th/cmm (4.8-10.8) 12/14/17 04:35 RBC 3.52 Mil/cmm (3.80-5.10) L 12/14/17 04:35 Hgb 10.5 gm/dL (12-16) L 12/14/17 04:35 Hct 31.2 % (41.0-60) L 12/14/17 04:35 MCV 88.7 fl (81-100) 12/14/17 04:35 MCH 29.7 pg (27.0-31.0) 12/14/17 04:35 MCHC Differential 33.5 pg (28.0-36.0) 12/14/17 04:35 RDW 16.0 % (11.5-20.0) 12/14/17 04:35 Plt Count 487 Th/cmm (150-400) H 12/14/17 04:35 MPV 7.0 fl 12/14/17 04:35 Neutrophils % 74.7 % (40.0-80.0) 12/13/17 04:20 Lymphocytes % 12.7 % (20.0-50.0) L 12/13/17 04:20 Monocytes % 10.9 % (2.0-10.0) H 12/13/17 04:20 Eosinophils % 1.5 % (0.0-5.0) 12/13/17 04:20 Basophils % 0.2 % (0.0-2.0) 12/13/17 04:20 Neutrophils (Manual) 59 % (40-80) 12/14/17 04:35 Lymphocytes 27 % (20-50) 12/14/17 04:35 Monocytes 10 % (2-10) 12/14/17 04:35 Eosinophils 4 % (0-5) 12/14/17 04:35 Basophils 1 % (0-3) 12/11/17 10:12 Platelet Estimate INCREASED PLATELETS (NORMAL) 12/11/17 10:12 Eos Smear Source URINE 12/11/17 19:50 Eos Smear Total Cells NONE SEEN (NONE SEEN) 12/11/17 19:50 PT 10.9 SECONDS (9.5-11.5) 12/07/17 14:30 INR 1.05 (0.5-1.4) 12/07/17 14:30 PTT (Actin FS) 26.2 SECONDS (26.0-38.0) 12/07/17 14:30 Specimen Source ATERIAL 12/11/17 19:10 Sample Site RB 12/11/17 19:10 pH 7.31 (7.35-7.45) L 12/11/17 19:10 pCO2 27.0 mmHg (35.0-45.0) L 12/11/17 19:10 pO2 98.0 mmHg (80.0-100.0) 12/11/17 19:10 HCO3 16.3 mEq/L (20.0-26.0) L 12/11/17 19:10 Base Excess -11.1 mEq/L (-3.0-3.0) L 12/11/17 19:10 O2 Saturation 97.0 % (92.0-100.0) 12/11/17 19:10 Ananth Test Positive 12/11/17 19:10 Vent Rate N/A 12/11/17 19:10 Inspired O2 21 12/11/17 19:10 Tidal Volume N/A 12/11/17 19:10 PEEP N/A 12/11/17 19:10 Pressure (ins/psv/peep) N/A 12/11/17 19:10 Critical Value DV 12/11/17 19:10 Sodium 133 mEq/L (136-145) L 12/14/17 04:35 Potassium 3.3 mEq/L (3.5-5.1) L 12/14/17 04:35 Chloride 106 mEq/L (98-107) 12/14/17 04:35 Carbon Dioxide 19.6 mEq/L (21.0-31.0) L 12/14/17 04:35 Anion Gap 10.7 (7.0-16.0) 12/14/17 04:35 BUN 13 mg/dL (7-25) 12/14/17 04:35 Creatinine 1.0 mg/dL (0.6-1.2) 12/14/17 04:35 Est GFR ( Amer) > 60.0 ml/min (>90) 12/14/17 04:35 Est GFR (Non-Af Amer) > 60.0 ml/min 12/14/17 04:35 BUN/Creatinine Ratio 13.0 12/14/17 04:35 Glucose 141 mg/dL (70-105) H 12/14/17 13:30 POC Glucose 126 MG/DL (70 - 105) H 12/14/17 13:49 Hemoglobin A1c % 9.3 % (4.0-6.0) H 12/07/17 14:30 Whole Bld Lactic Acid 0.56 mmol/L (0.60-1.99) L 12/13/17 04:20 Uric Acid 4.8 mg/dL (2.3-6.6) 12/12/17 05:40 Calcium 8.9 mg/dL (8.6-10.3) 12/14/17 04:35 Phosphorus 1.8 mg/dL (2.5-5.0) L 12/14/17 04:35 Magnesium 2.0 mg/dL (1.9-2.7) 12/14/17 04:35 Total Bilirubin 0.2 mg/dL (0.3-1.0) L 12/14/17 04:35 AST 23 U/L (13-39) 12/14/17 04:35 ALT 23 U/L (7-52) 12/14/17 04:35 Alkaline Phosphatase 67 U/L (34-104) 12/14/17 04:35 Creatine Kinase 51 U/L (30-223) 12/07/17 14:30 Troponin I 0.01 ng/mL (0.01-0.05) 12/07/17 14:30 Total Protein 7.4 gm/dL (6.0-8.3) 12/14/17 04:35 Albumin 3.3 gm/dL (3.7-5.3) L 12/14/17 04:35 Globulin 4.1 gm/dL 12/14/17 04:35 Albumin/Globulin Ratio 0.8 (1.0-1.8) L 12/14/17 04:35 TSH 1.31 uIU/ml (0.34-5.60) 12/12/17 08:10 Serum , Qual NEGATIVE (NEGATIVE) 12/07/17 14:30 Urine Source MIDSTREAM 12/13/17 13:50 Urine Color YELLOW 12/13/17 13:50 Urine Clarity HAZY (CLEAR) 12/13/17 13:50 Urine pH 6.0 (4.6 - 8.0) 12/13/17 13:50 Ur Specific [place] 1.020 (1.005-1.030) 12/13/17 13:50 Urine Protein 100 mg/dL (NEGATIVE) H 12/13/17 13:50 Urine Glucose (UA) 100 mg/dL (NEGATIVE) H 12/13/17 13:50 Urine Ketones 15 mg/dL (NEGATIVE) H 12/13/17 13:50 Urine Blood LARGE (NEGATIVE) H 12/13/17 13:50 Urine Nitrate NEGATIVE (NEGATIVE) 12/13/17 13:50 Urine Bilirubin NEGATIVE (NEGATIVE) 12/13/17 13:50 Urine Urobilinogen 0.2 E.U./dL (0.2 - 1.0) 12/13/17 13:50 Ur Leukocyte Esterase NEGATIVE (NEGATIVE) 12/13/17 13:50 Urine RBC 25-50 /hpf (0-5) H 12/13/17 13:50 Urine WBC 0-2 /hpf (0-5) 12/13/17 13:50 Ur Epithelial Cells FEW /lpf (FEW) 12/13/17 13:50 Urine Bacteria FEW /hpf (NONE SEEN) 12/13/17 13:50 Urine Yeast FEW /hpf (NONE SEEN) H 12/13/17 13:50 Ur Random Sodium 46 mmol/L 12/11/17 19:50 Urine Creatinine 41.0 mg/dl (28.0-217.0) 12/11/17 19:50 Stool Leukocyte NO WBC SEEN 12/14/17 05:00 Vancomycin Trough 9.2 ug/mL (5-10) 12/11/17 20:00 Serum Ketones SMALL (NEGATIVE) H 12/13/17 04:20 - Physical Exam Vitals and I&O: Vital Signs Temp 97.1 F 12/14/17 04:00 Pulse 80 12/14/17 12:00 Resp 20 12/14/17 12:00 BP 159/81 12/14/17 12:00 Pulse Ox 100 12/14/17 12:00 Intake & Output 12/13/17 12/14/17 12/14/17 18:59 06:59 18:59 Intake Total 2100 250 Output Total 1400 700 Balance 700 -450 Weight (lbs) 55.338 kg 54.431 kg Intake: Intake, IV Amount 1500 100 D5-0.45NS 1,000 ml @ 125 1000 mls/hr IV .Q8H [facility] Rx#: [id number] Fluconazole 100mg/50mL 50 100 mg In 50 ml @ 50 mls/ hr IV Q24HR [facility] Rx#: [id number] KCL 20mEq/100mL Premix 20 100 meq In 100 ml @ 50 mls/ hr IV Q2H [facility] Rx#: [id number] Piperacillin Sodium/ 100 100 Tazobact 4.5 gm In Sodium Chloride 0.9% 100 ml @ 100 mls/hr IV Q8HR [facility] Rx #:[id number] Vancomycin HCl 1.25 gm In 250 Sodium Chloride 0.9% 250 ml @ 165 mls/hr IV Q18H [facility] Rx#:[id number] Oral 600 150 Output: Urine 1400 400 Stool 300 Other: # Bowel Movements 1 2 Stool Characteristics Liquid Liquid Liquid Mucoid [facility] Active Medications: Current Medications Acetaminophen (Tylenol) 650 mg PO Q6H PRN PRN Reason: Pain or Fever >101 Stop: 02/06/18 01:56 Acetaminophen/Hydrocodone Bitart ([place] 10 Mg/325 Mg) 1 tab PO Q4H PRN PRN Reason: pain level 1-5 Stop: 02/07/18 19:32 Last Admin: 12/11/17 20:28 Dose: 1 tab Azathioprine (Imuran) 50 mg PO TID [facility] PRN Reason: Protocol Stop: 02/06/18 08:59 Last Admin: 12/14/17 08:54 Dose: 50 mg Glyburide (Diabeta) 5 mg PO DAILY [facility] Stop: 02/10/18 08:59 Last Admin: 12/14/17 08:54 Dose: 5 mg Guaifenesin (Mucinex) 600 mg PO BID [facility] Stop: 12/18/17 00:29 Last Admin: 12/14/17 08:54 Dose: 600 mg Piperacillin Sod/Tazobactam (Sod 4.5 gm/ Sodium Chloride) 100 mls @ 100 mls/hr IV Q8HR [facility] Stop: 02/05/18 20:59 Last Admin: 12/14/17 04:40 Dose: 100 mls/hr Vancomycin HCl 1.25 gm/ Sodium (Chloride) 250 mls @ 165 mls/hr IV Q18H [facility] Stop: 02/10/18 14:59 Last Admin: 12/14/17 02:32 Dose: 165 mls/hr Fluconazole (Diflucan) 100 mg in 50 mls @ 50 mls/hr IV Q24HR [facility] Stop: 02/10/18 13:59 Last Infusion: 12/13/17 15:15 Dose: Infused Dextrose/Sodium Chloride (D5-0.45ns) 1,000 mls @ 75 mls/hr IV .[id number] [facility] Stop: 02/12/18 10:22 Potassium Phosphate 30 mmole/ (Sodium Chloride) 260 mls @ 42.5 mls/hr IV X1 ONE Stop: 12/14/17 17:37 Last Admin: 12/14/17 12:25 Dose: 42.5 mls/hr Insulin Aspart (Novolog Insulin Sliding Scale) 0 units SUBQ ACHS [facility] PRN Reason: Protocol Stop: 02/12/18 11:29 Last Admin: 12/14/17 12:35 Dose: Not Given Insulin Human Isoph/Insulin Regular (Novolin 70/30) 20 units SUBQ QDAC [facility] PRN Reason: Protocol Stop: 02/11/18 07:29 Last Admin: 12/14/17 08:54 Dose: 20 units Insulin Human Isoph/Insulin Regular (Novolin 70/30) 10 units SUBQ QPM [facility] PRN Reason: Protocol Stop: 02/10/18 17:59 Last Admin: 12/13/17 16:48 Dose: 10 unit Megestrol Acetate (Megace) 40 mg PO DAILY [facility] PRN Reason: Protocol Stop: 02/13/18 08:59 Metformin HCl (Glucophage) 850 mg PO BIDWM [facility] Stop: 02/10/18 11:59 Last Admin: 12/14/17 08:54 Dose: 850 mg Metoprolol Tartrate (Lopressor) 25 mg PO BID MARCIA Stop: 02/06/18 08:59 Last Admin: 12/14/17 08:54 Dose: 25 mg Miscellaneous (Vancomycin Iv Per Pharmacy) 1 ea [facility] PRN PRN PRN Reason: PROTOCOL Stop: 02/05/18 17:19 Miscellaneous (Probiotic Screen) 1 ea [facility] PRN PRN PRN Reason: PROTOCOL Stop: 02/07/18 13:46 Morphine Sulfate (Morphine) 1 mg IVP Q4HR PRN PRN Reason: pain levle 6-10 Stop: 02/07/18 19:31 Last Admin: 12/13/17 20:16 Dose: 1 mg Ondansetron HCl (Zofran) 4 mg IV Q4H PRN PRN Reason: Nausea / Vomiting Stop: 02/07/18 19:32 Last Admin: 12/13/17 09:42 Dose: 4 mg Pyridostigmine [place] (Mestinon) 180 mg PO TID [facility] Stop: 02/06/18 08:59 Last Admin: 12/14/17 08:54 Dose: 180 mg Valsartan (Diovan) 80 mg PO DAILY [facility] Stop: 02/11/18 08:59 Last Admin: 12/14/17 08:54 Dose: 80 mg General: Alert, No acute distress HEENT: Atraumatic, PERRLA, EOMI, Mucous membr. moist/pink Neck: Supple, +2 carotid pulse wo bruit Cardiovascular: Regular rate, Normal S1, Normal S2 Lungs: Clear to auscultation Abdomen: Soft Extremities: no Edema Neurological: Sensation intact Skin: no Rash Psych/Mental Status: Mood NL - Procedures Procedures: Procedures Procedure Code Date AMPUTATION OF TOE 92329 12/07/17 DETACHMENT AT RIGHT 2ND TOE, COMPLETE, OPEN APPROACH [id number] 12/07/17 EMERGENCY DEPT VISIT 23734 08/07/11 INJECT/INFUSE NEC 99.29 02/22/10 Assessment/Plan - Problem List Patient Problems: All Active Problems Metabolic acidosis (Acute) E87.2 UTI (urinary tract infection) (Acute) right second toe gangrene (Acute) Nutritional Asmnt/Malnutr-PDOC - Dietary Evaluation Malnutrition Findings (Please click <Entered> for more info): Nutritional Asmnt/Malnutrition Start: 12/08/17 16: 43 Text: Status: Complete Freq: Document 12/08/17 16:43 DAWSON (Rec: 12/08/17 16:53 [email or web address] [email or web address]) Nutritional Asmnt/Malnutrition Patient General Information Nutritional Screening High Risk Diagnosis peripheral artery disease Pertinent Medical Hx/Surgical Hx HTN, DM, asthma/COPD, dyslipidemia, resp failure, myasthenia, gravis Subjective Information Consult received for Dm and open wound. Pt seen talking on phone at time of visit, not able to interview at this time . Current Diet Order/ Nutrition Support CCHO 60gm Pertinent Medications novolog, piperacillin, nacl 0. 9%, vancomycin Pertinent Labs 12/08 Na 130, BUN 27, glucose 418, POC 400 12/07 Na 128, Cl 96, BUN 36, glucose 207, POC 132 Nutritional Hx/Data Height 1.7 m Height (Calculated Centimeters) 170.2 Current Weight (lbs) 54.431 kg Weight (Calculated Kilograms) 54.4 Weight (Calculated Grams) 87013.1 [place] Body Weight 135 Body Mass Index (BMI) 18.8 Weight Status Approriate GI Symptoms GI Symptoms None Last BM none 12/08 Difficult in: None Skin Integrity/Comment: right 2nd toe gangrene Estimated Nutritional Goals BEE in Kcals: Using Current wt Calories/Kcals/Kg 30-35 Kcals Calculated 6126-0187 Protein: Using Current wt Protein g/k.2-1.4 Protein Calculated 66-77 Fluid: ml 1650-1925ml (1ml/kcal) Nutritional Problem 1. Problem Problem altered nutrition related labs Etiology hx of DM Signs/Symptoms: glucose 207-418, POC 132-400 Malnutrition Alert Protein-Calorie Malnutrition N/A Is there a minimum of two criteria No selected? Query Text:Check all the applicable criteria. A minimum of two criteria are recommended for diagnosis of either severe or non-severe malnutrition. Intervention/Recommendation Comments 1. Continue with CCHO-60gm diet as ordered. Will provide nutrition education when pt available. 2. Monitor PO intake, wt, labs and skin integrity 3. F/U as high risk in 2-3 days, 12/10-12/11 Expected Outcomes/Goals Expected Outcomes/Goals 1. PO intake to meet at least 75% of nutritional needs. 2. Wt stability, skin to remain intact, labs to approach WNL.
--- NOTE | 2017-12-14 15:15 | Infectious Disease Prog Note ---
Infectious Disease Subjective - Review of Systems Service Date: 12/14/17 Subjective: doing better, no fever. developed fevers. Infectious Disease Objective - Results Result Diagrams: 12/14/17 04:35 12/14/17 04:35 Recent Labs: Laboratory Last Values WBC 5.2 Th/cmm (4.8-10.8) 12/14/17 04:35 RBC 3.52 Mil/cmm (3.80-5.10) L 12/14/17 04:35 Hgb 10.5 gm/dL (12-16) L 12/14/17 04:35 Hct 31.2 % (41.0-60) L 12/14/17 04:35 MCV 88.7 fl (81-100) 12/14/17 04:35 MCH 29.7 pg (27.0-31.0) 12/14/17 04:35 MCHC Differential 33.5 pg (28.0-36.0) 12/14/17 04:35 RDW 16.0 % (11.5-20.0) 12/14/17 04:35 Plt Count 487 Th/cmm (150-400) H 12/14/17 04:35 MPV 7.0 fl 12/14/17 04:35 Neutrophils % 74.7 % (40.0-80.0) 12/13/17 04:20 Lymphocytes % 12.7 % (20.0-50.0) L 12/13/17 04:20 Monocytes % 10.9 % (2.0-10.0) H 12/13/17 04:20 Eosinophils % 1.5 % (0.0-5.0) 12/13/17 04:20 Basophils % 0.2 % (0.0-2.0) 12/13/17 04:20 Neutrophils (Manual) 59 % (40-80) 12/14/17 04:35 Lymphocytes 27 % (20-50) 12/14/17 04:35 Monocytes 10 % (2-10) 12/14/17 04:35 Eosinophils 4 % (0-5) 12/14/17 04:35 Basophils 1 % (0-3) 12/11/17 10:12 Platelet Estimate INCREASED PLATELETS (NORMAL) 12/11/17 10:12 Eos Smear Source URINE 12/11/17 19:50 Eos Smear Total Cells NONE SEEN (NONE SEEN) 12/11/17 19:50 PT 10.9 SECONDS (9.5-11.5) 12/07/17 14:30 INR 1.05 (0.5-1.4) 12/07/17 14:30 PTT (Actin FS) 26.2 SECONDS (26.0-38.0) 12/07/17 14:30 Specimen Source ATERIAL 12/11/17 19:10 Sample Site RB 12/11/17 19:10 pH 7.31 (7.35-7.45) L 12/11/17 19:10 pCO2 27.0 mmHg (35.0-45.0) L 12/11/17 19:10 pO2 98.0 mmHg (80.0-100.0) 12/11/17 19:10 HCO3 16.3 mEq/L (20.0-26.0) L 12/11/17 19:10 Base Excess -11.1 mEq/L (-3.0-3.0) L 12/11/17 19:10 O2 Saturation 97.0 % (92.0-100.0) 12/11/17 19:10 Ananth Test Positive 12/11/17 19:10 Vent Rate N/A 12/11/17 19:10 Inspired O2 21 12/11/17 19:10 Tidal Volume N/A 12/11/17 19:10 PEEP N/A 12/11/17 19:10 Pressure (ins/psv/peep) N/A 12/11/17 19:10 Critical Value DV 12/11/17 19:10 Sodium 133 mEq/L (136-145) L 12/14/17 04:35 Potassium 3.3 mEq/L (3.5-5.1) L 12/14/17 04:35 Chloride 106 mEq/L (98-107) 12/14/17 04:35 Carbon Dioxide 19.6 mEq/L (21.0-31.0) L 12/14/17 04:35 Anion Gap 10.7 (7.0-16.0) 12/14/17 04:35 BUN 13 mg/dL (7-25) 12/14/17 04:35 Creatinine 1.0 mg/dL (0.6-1.2) 12/14/17 04:35 Est GFR ( Amer) > 60.0 ml/min (>90) 12/14/17 04:35 Est GFR (Non-Af Amer) > 60.0 ml/min 12/14/17 04:35 BUN/Creatinine Ratio 13.0 12/14/17 04:35 Glucose 141 mg/dL (70-105) H 12/14/17 13:30 POC Glucose 126 MG/DL (70 - 105) H 12/14/17 13:49 Hemoglobin A1c % 9.3 % (4.0-6.0) H 12/07/17 14:30 Whole Bld Lactic Acid 0.56 mmol/L (0.60-1.99) L 12/13/17 04:20 Uric Acid 4.8 mg/dL (2.3-6.6) 12/12/17 05:40 Calcium 8.9 mg/dL (8.6-10.3) 12/14/17 04:35 Phosphorus 1.8 mg/dL (2.5-5.0) L 12/14/17 04:35 Magnesium 2.0 mg/dL (1.9-2.7) 12/14/17 04:35 Total Bilirubin 0.2 mg/dL (0.3-1.0) L 12/14/17 04:35 AST 23 U/L (13-39) 12/14/17 04:35 ALT 23 U/L (7-52) 12/14/17 04:35 Alkaline Phosphatase 67 U/L (34-104) 12/14/17 04:35 Creatine Kinase 51 U/L (30-223) 12/07/17 14:30 Troponin I 0.01 ng/mL (0.01-0.05) 12/07/17 14:30 Total Protein 7.4 gm/dL (6.0-8.3) 12/14/17 04:35 Albumin 3.3 gm/dL (3.7-5.3) L 12/14/17 04:35 Globulin 4.1 gm/dL 12/14/17 04:35 Albumin/Globulin Ratio 0.8 (1.0-1.8) L 12/14/17 04:35 TSH 1.31 uIU/ml (0.34-5.60) 12/12/17 08:10 Serum , Qual NEGATIVE (NEGATIVE) 12/07/17 14:30 Urine Source MIDSTREAM 12/13/17 13:50 Urine Color YELLOW 12/13/17 13:50 Urine Clarity HAZY (CLEAR) 12/13/17 13:50 Urine pH 6.0 (4.6 - 8.0) 12/13/17 13:50 Ur Specific Brutus 1.020 (1.005-1.030) 12/13/17 13:50 Urine Protein 100 mg/dL (NEGATIVE) H 12/13/17 13:50 Urine Glucose (UA) 100 mg/dL (NEGATIVE) H 12/13/17 13:50 Urine Ketones 15 mg/dL (NEGATIVE) H 12/13/17 13:50 Urine Blood LARGE (NEGATIVE) H 12/13/17 13:50 Urine Nitrate NEGATIVE (NEGATIVE) 12/13/17 13:50 Urine Bilirubin NEGATIVE (NEGATIVE) 12/13/17 13:50 Urine Urobilinogen 0.2 E.U./dL (0.2 - 1.0) 12/13/17 13:50 Ur Leukocyte Esterase NEGATIVE (NEGATIVE) 12/13/17 13:50 Urine RBC 25-50 /hpf (0-5) H 12/13/17 13:50 Urine WBC 0-2 /hpf (0-5) 12/13/17 13:50 Ur Epithelial Cells FEW /lpf (FEW) 12/13/17 13:50 Urine Bacteria FEW /hpf (NONE SEEN) 12/13/17 13:50 Urine Yeast FEW /hpf (NONE SEEN) H 12/13/17 13:50 Ur Random Sodium 46 mmol/L 12/11/17 19:50 Urine Creatinine 41.0 mg/dl (28.0-217.0) 12/11/17 19:50 Stool Leukocyte NO WBC SEEN 12/14/17 05:00 Vancomycin Trough 9.2 ug/mL (5-10) 12/11/17 20:00 Serum Ketones SMALL (NEGATIVE) H 12/13/17 04:20 - Physical Exam Vitals and I&O: Vital Signs Temp 97.1 F 12/14/17 04:00 Pulse 80 12/14/17 12:00 Resp 20 12/14/17 12:00 BP 159/81 12/14/17 12:00 Pulse Ox 100 12/14/17 12:00 Intake & Output 12/13/17 12/14/1718 18:59 06:59 18:59 Intake Total 2100 350 Output Total 1400 700 Balance 700 -350 Weight (lbs) 55.338 kg 54.431 kg Intake: Intake, IV Amount 1500 200 D5-0.45NS 1,000 ml @ 125 1000 mls/hr IV .Q8H [facility] Rx#: [id number] Fluconazole 100mg/50mL 50 100 mg In 50 ml @ 50 mls/ hr IV Q24HR [facility] Rx#: [id number] KCL 20mEq/100mL Premix 20 100 meq In 100 ml @ 50 mls/ hr IV Q2H [facility] Rx#: [id number] Piperacillin Sodium/ 100 200 Tazobact 4.5 gm In Sodium Chloride 0.9% 100 ml @ 100 mls/hr IV Q8HR [facility] Rx #:[id number] Vancomycin HCl 1.25 gm In 250 Sodium Chloride 0.9% 250 ml @ 165 mls/hr IV Q18H [facility] Rx#:[id number] Oral 600 150 Output: Urine 1400 400 Stool 300 Other: # Bowel Movements 1 2 Stool Characteristics Liquid Liquid Liquid Mucoid Mucoid [facility] Active Medications: Current Medications Acetaminophen (Tylenol) 650 mg PO Q6H PRN PRN Reason: Pain or Fever >101 Stop: 02/06/18 01:56 Acetaminophen/Hydrocodone Bitart ([place] 10 Mg/325 Mg) 1 tab PO Q4H PRN PRN Reason: pain level 1-5 Stop: 02/07/18 19:32 Last Admin: 12/11/17 20:28 Dose: 1 tab Azathioprine (Imuran) 50 mg PO TID [facility] PRN Reason: Protocol Stop: 02/06/18 08:59 Last Admin: 12/14/17 14:46 Dose: 50 mg Glyburide (Diabeta) 5 mg PO DAILY [facility] Stop: 02/10/18 08:59 Last Admin: 12/14/17 08:54 Dose: 5 mg Guaifenesin (Mucinex) 600 mg PO BID [facility] Stop: 12/18/17 00:29 Last Admin: 12/14/17 08:54 Dose: 600 mg Piperacillin Sod/Tazobactam (Sod 4.5 gm/ Sodium Chloride) 100 mls @ 100 mls/hr IV Q8HR [facility] Stop: 02/05/18 20:59 Last Admin: 12/14/17 14:37 Dose: 100 mls/hr Vancomycin HCl 1.25 gm/ Sodium (Chloride) 250 mls @ 165 mls/hr IV Q18H [facility] Stop: 02/10/18 14:59 Last Admin: 12/14/17 02:32 Dose: 165 mls/hr Fluconazole (Diflucan) 100 mg in 50 mls @ 50 mls/hr IV Q24HR [facility] Stop: 02/10/18 13:59 Last Infusion: 12/13/17 15:15 Dose: Infused Dextrose/Sodium Chloride (D5-0.45ns) 1,000 mls @ 75 mls/hr IV .[id number] [facility] Stop: 02/12/18 10:22 Last Admin: 12/14/17 10:20 Dose: 75 mls/hr Potassium Phosphate 30 mmole/ (Sodium Chloride) 260 mls @ 42.5 mls/hr IV X1 ONE Stop: 12/14/17 17:37 Last Admin: 12/14/17 12:25 Dose: 42.5 mls/hr Insulin Aspart (Novolog Insulin Sliding Scale) 0 units SUBQ ACHS [facility] PRN Reason: Protocol Stop: 02/12/18 11:29 Last Admin: 12/14/17 12:35 Dose: Not Given Insulin Human Isoph/Insulin Regular (Novolin 70/30) 20 units SUBQ QDAC [facility] PRN Reason: Protocol Stop: 02/11/18 07:29 Last Admin: 12/14/17 08:54 Dose: 20 units Insulin Human Isoph/Insulin Regular (Novolin 70/30) 10 units SUBQ QPM [facility] PRN Reason: Protocol Stop: 02/10/18 17:59 Last Admin: 12/13/17 16:48 Dose: 10 unit Megestrol Acetate (Megace) 40 mg PO DAILY [facility] PRN Reason: Protocol Stop: 02/13/18 08:59 Metformin HCl (Glucophage) 850 mg PO BIDWM [facility] Stop: 02/10/18 11:59 Last Admin: 12/14/17 08:54 Dose: 850 mg Metoprolol Tartrate (Lopressor) 25 mg PO BID [facility] Stop: 02/06/18 08:59 Last Admin: 12/14/17 08:54 Dose: 25 mg Miscellaneous (Vancomycin Iv Per Pharmacy) 1 ea [facility] PRN PRN PRN Reason: PROTOCOL Stop: 02/05/18 17:19 Miscellaneous (Probiotic Screen) 1 ea [facility] PRN PRN PRN Reason: PROTOCOL Stop: 02/07/18 13:46 Morphine Sulfate (Morphine) 1 mg IVP Q4HR PRN PRN Reason: pain levle 6-10 Stop: 02/07/18 19:31 Last Admin: 12/13/17 20:16 Dose: 1 mg Ondansetron HCl (Zofran) 4 mg IV Q4H PRN PRN Reason: Nausea / Vomiting Stop: 02/07/18 19:32 Last Admin: 12/13/17 09:42 Dose: 4 mg Pyridostigmine [place] (Mestinon) 180 mg PO TID [facility] Stop: 02/06/18 08:59 Last Admin: 12/14/17 14:45 Dose: 180 mg Valsartan (Diovan) 80 mg PO DAILY [facility] Stop: 02/11/18 08:59 Last Admin: 12/14/17 08:54 Dose: 80 mg General: no acute distress, well developed, well nourished HEENT: atraumatic, normocephalic, PERRLA, EOMI, moist mucous membrane Neck: supple, no thyromegaly Cardiovascular: S1S2, regular Lungs: clear to auscultation bilaterally, clear to percussion Abdomen: soft, bowel sounds, no tender, no distended, no hepatomegaly, no splenomegaly Extremities: no cyanosis, no clubbing, no edema Neurological: awake, alert, oriented Skin: intact - Procedures Procedures: Procedures Procedure Code Date AMPUTATION OF TOE 17114 12/07/17 DETACHMENT AT RIGHT 2ND TOE, COMPLETE, OPEN APPROACH [id number] 12/07/17 EMERGENCY DEPT VISIT 85231 08/07/11 INJECT/INFUSE NEC 99.29 02/22/10 Infectious Disease Assmt/Plan - Problem List Patient Problems: All Active Problems Metabolic acidosis (Acute) E87.2 UTI (urinary tract infection) (Acute) right second toe gangrene (Acute) - Assessment Assessment: 1. Right second toe gangrene. amputated. 2. Diabetes mellitus type 2, uncontrolled. versus DM1 with ketoacidosis. 3. History of myasthenia gravis. 4. Dyslipidemia. 5. Urinary tract infection. 6. 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 7. Metabolic acidosis. 8. MRSA colonization. 9.r/o c diff colitis. - Plan Plan: dc antibiotics, start flagyl and questran. stool for c diff, wbc. Nutritional Asmnt/Malnutr-PDOC - Dietary Evaluation Malnutrition Findings (Please click <Entered> for more info): Nutritional Asmnt/Malnutrition Start: 12/08/17 16: 43 Text: Status: Complete Freq: Document 12/08/17 16:43 DANETTE (Rec: 12/08/17 16:53 [id number] Nutritional Asmnt/Malnutrition Patient General Information Nutritional Screening High Risk Diagnosis peripheral artery disease Pertinent Medical Hx/Surgical Hx HTN, DM, asthma/COPD, dyslipidemia, resp failure, myasthenia, gravis Subjective Information Consult received for Dm and open wound. Pt seen talking on phone at time of visit, not able to interview at this time . Current Diet Order/ Nutrition Support CCHO 60gm Pertinent Medications novolog, piperacillin, nacl 0. 9%, vancomycin Pertinent Labs 12/08 Na 130, BUN 27, glucose 418, POC 400 12/07 Na 128, Cl 96, BUN 36, glucose 207, POC 132 Nutritional Hx/Data Height 1.7 m Height (Calculated Centimeters) 170.2 Current Weight (lbs) 54.431 kg Weight (Calculated Kilograms) 54.4 Weight (Calculated Grams) 79378.1 [place] Body Weight 135 Body Mass Index (BMI) 18.8 Weight Status Approriate GI Symptoms GI Symptoms None Last BM none 5/10 Difficult in: None Skin Integrity/Comment: right 2nd toe gangrene Estimated Nutritional Goals BEE in Kcals: Using Current wt Calories/Kcals/Kg 30-35 Kcals Calculated 5555-4884 Protein: Using Current wt Protein g/k.2-1.4 Protein Calculated 66-77 Fluid: ml 1650-1925ml (1ml/kcal) Nutritional Problem 1. Problem Problem altered nutrition related labs Etiology hx of DM Signs/Symptoms: glucose 207-418, POC 132-400 Malnutrition Alert Protein-Calorie Malnutrition N/A Is there a minimum of two criteria No selected? Query Text:Check all the applicable criteria. A minimum of two criteria are recommended for diagnosis of either severe or non-severe malnutrition. Intervention/Recommendation Comments 1. [facility] as ordered. Will provide nutrition education when pt available. 2. Monitor PO intake, wt, labs and skin integrity 3. F/U as high risk in 2-3 days, 12/10-12/11 Expected Outcomes/Goals Expected Outcomes/Goals 1. PO intake to meet at least 75% of nutritional needs. 2. Wt stability, skin to remain intact, labs to approach WNL.
[2017-12-14] MEDS: Morphine Sulfate 4 mg/mL 1mL Syr IVP PRN (21:21)
[2017-12-15] MEDS: D5-0.45NS 1,000 ML IV SCH (04:56)
[2017-12-15] MEDS: Morphine Sulfate 4 mg/mL 1mL Syr IVP PRN ×2 (04:57→20:37)
[2017-12-15 06:43] LABS: % BASOPHILS 0.8 % (0.0-2.0); % EOSINOPHILS 3.9 % (0.0-5.0); % LYMPHOCYTES 13.4 % (20.0-50.0); % MONOCYTES 11.7 % (2.0-10.0); % NEUTROPHILS 70.2 % (40.0-80.0); EOSINOPHILE ABSOLUTE 0.2 Th/cmm (0.1-0.4); HEMATOCRIT 29.1 % (41.0-60); HEMOGLOBIN 9.5 gm/dL (12-16); LYMPHOCYTE ABSOLUTE 0.6 Th/cmm (1.5-3.0); MEAN CORPUSCULAR HEMOGLOBIN 28.7 pg (27.0-31.0); MEAN CORPUSCULAR HGB CONC 32.6 pg (28.0-36.0); MONOCYTE ABSOLUTE 0.5 Th/cmm (0.3-1.0); NEUTROPHILE ABSOLUTE 2.9 Th/cmm (1.8-8.0); PLATELET COUNT 449 Th/cmm (150-400); RED BLOOD COUNT 3.31 Mil/cmm (3.80-5.10); WHITE BLOOD COUNT 4.2 Th/cmm (4.8-10.8)
[2017-12-15 07:06] LABS: ALB/GLOB RATIO 0.8 (1.0-1.8); ALBUMIN 3.1 gm/dL (3.7-5.3); ALKALINE PHOSPHATASE 68 U/L (34-104); ANION GAP 11.1 (7.0-16.0); BILIRUBIN,TOTAL 0.2 mg/dL (0.3-1.0); BUN - UREA NITROGEN 19 mg/dL (7-25); CALCIUM SERUM 8.8 mg/dL (8.6-10.3); CHLORIDE 100 mEq/L (98-107); CREATININE - SERUM 1.1 mg/dL (0.6-1.2); GFR AFRICAN-AMERICAN > 60.0 ml/min (>90); GFR NON AFRICAN-AMERICAN 57.1 ml/min; POTASSIUM SERUM 4.1 mEq/L (3.5-5.1); SGOT 15 U/L (13-39); SGPT/ALT 18 U/L (7-52); SODIUM SERUM 129 mEq/L (136-145); TOTAL PROTEIN,SERUM 6.9 gm/dL (6.0-8.3)
[2017-12-15] MEDS: INSULIN 70/30 100 UNITS/ML SUBQ SCH ×2 (07:06→17:28)
[2017-12-15 07:24] LABS: GLUCOSE 540 mg/dL (70-105)
[2017-12-15] MEDS ORDERED: INSULIN ASPART, RECOMBINANT 100 UNITS/ML SUBQ ONE (08:01)
[2017-12-15] MEDS: INSULIN ASPART SLIDING SCALE 100 UNITS/ML UNIT SUBQ SCH ×4 (11:51→20:46)
--- NOTE | 2017-12-15 14:46 | General Progress Note ---
Subjective - Review of Systems Service Date: 12/15/17 Subjective: awake, better appetite, less N/V Objective - Results Result Diagrams: 12/15/17 06:20 12/15/17 06:20 Recent Labs: Laboratory Last Values WBC 4.2 Th/cmm (4.8-10.8) L 12/15/17 06:20 RBC 3.31 Mil/cmm (3.80-5.10) L 12/15/17 06:20 Hgb 9.5 gm/dL (12-16) L 12/15/17 06:20 Hct 29.1 % (41.0-60) L 12/15/17 06:20 MCV 88.0 fl (81-100) 12/15/17 06:20 MCH 28.7 pg (27.0-31.0) 12/15/17 06:20 MCHC Differential 32.6 pg (28.0-36.0) 12/15/17 06:20 RDW 16.0 % (11.5-20.0) 12/15/17 06:20 Plt Count 449 Th/cmm (150-400) H 12/15/17 06:20 MPV 7.0 fl 12/15/17 06:20 Neutrophils % 70.2 % (40.0-80.0) 12/15/17 06:20 Lymphocytes % 13.4 % (20.0-50.0) L 12/15/17 06:20 Monocytes % 11.7 % (2.0-10.0) H 12/15/17 06:20 Eosinophils % 3.9 % (0.0-5.0) 12/15/17 06:20 Basophils % 0.8 % (0.0-2.0) 12/15/17 06:20 Neutrophils (Manual) 59 % (40-80) 12/14/17 04:35 Lymphocytes 27 % (20-50) 12/14/17 04:35 Monocytes 10 % (2-10) 12/14/17 04:35 Eosinophils 4 % (0-5) 12/14/17 04:35 Basophils 1 % (0-3) 12/11/17 10:12 Platelet Estimate INCREASED PLATELETS (NORMAL) 12/11/17 10:12 Eos Smear Source URINE 12/11/17 19:50 Eos Smear Total Cells NONE SEEN (NONE SEEN) 12/11/17 19:50 PT 10.9 SECONDS (9.5-11.5) 12/07/17 14:30 INR 1.05 (0.5-1.4) 12/07/17 14:30 PTT (Actin FS) 26.2 SECONDS (26.0-38.0) 12/07/17 14:30 Specimen Source ATERIAL 12/11/17 19:10 Sample Site RB 12/11/17 19:10 pH 7.31 (7.35-7.45) L 12/11/17 19:10 pCO2 27.0 mmHg (35.0-45.0) L 12/11/17 19:10 pO2 98.0 mmHg (80.0-100.0) 12/11/17 19:10 HCO3 16.3 mEq/L (20.0-26.0) L 12/11/17 19:10 Base Excess -11.1 mEq/L (-3.0-3.0) L 12/11/17 19:10 O2 Saturation 97.0 % (92.0-100.0) 12/11/17 19:10 Ananth Test Positive 12/11/17 19:10 Vent Rate N/A 12/11/17 19:10 Inspired O2 21 12/11/17 19:10 Tidal Volume N/A 12/11/17 19:10 PEEP N/A 12/11/17 19:10 Pressure (ins/psv/peep) N/A 12/11/17 19:10 Critical Value DV 12/11/17 19:10 Sodium 129 mEq/L (136-145) L 12/15/17 06:20 Potassium 4.1 mEq/L (3.5-5.1) 12/15/17 06:20 Chloride 100 mEq/L (98-107) 12/15/17 06:20 Carbon Dioxide 22.0 mEq/L (21.0-31.0) 12/15/17 06:20 Anion Gap 11.1 (7.0-16.0) 12/15/17 06:20 BUN 19 mg/dL (7-25) 12/15/17 06:20 Creatinine 1.1 mg/dL (0.6-1.2) 12/15/17 06:20 Est GFR ( Amer) > 60.0 ml/min (>90) 12/15/17 06:20 Est GFR (Non-Af Amer) 57.1 ml/min 12/15/17 06:20 BUN/Creatinine Ratio 17.3 12/15/17 06:20 Glucose 540 mg/dL (70-105) H* 12/15/17 06:20 POC Glucose 188 MG/DL (70 - 105) H 12/15/17 11:39 Hemoglobin A1c % 9.3 % (4.0-6.0) H 12/07/17 14:30 Whole Bld Lactic Acid 0.56 mmol/L (0.60-1.99) L 12/13/17 04:20 Uric Acid 4.8 mg/dL (2.3-6.6) 12/12/17 05:40 Calcium 8.8 mg/dL (8.6-10.3) 12/15/17 06:20 Phosphorus 1.8 mg/dL (2.5-5.0) L 12/14/17 04:35 Magnesium 2.0 mg/dL (1.9-2.7) 12/14/17 04:35 Total Bilirubin 0.2 mg/dL (0.3-1.0) L 12/15/17 06:20 AST 15 U/L (13-39) 12/15/17 06:20 ALT 18 U/L (7-52) 12/15/17 06:20 Alkaline Phosphatase 68 U/L (34-104) 12/15/17 06:20 Creatine Kinase 51 U/L (30-223) 12/07/17 14:30 Troponin I 0.01 ng/mL (0.01-0.05) 12/07/17 14:30 Total Protein 6.9 gm/dL (6.0-8.3) 12/15/17 06:20 Albumin 3.1 gm/dL (3.7-5.3) L 12/15/17 06:20 Globulin 3.8 gm/dL 12/15/17 06:20 Albumin/Globulin Ratio 0.8 (1.0-1.8) L 12/15/17 06:20 TSH 1.31 uIU/ml (0.34-5.60) 12/12/17 08:10 Serum , Qual NEGATIVE (NEGATIVE) 12/07/17 14:30 Urine Source MIDSTREAM 12/13/17 13:50 Urine Color YELLOW 12/13/17 13:50 Urine Clarity HAZY (CLEAR) 12/13/17 13:50 Urine pH 6.0 (4.6 - 8.0) 12/13/17 13:50 Ur Specific [place] 1.020 (1.005-1.030) 12/13/17 13:50 Urine Protein 100 mg/dL (NEGATIVE) H 12/13/17 13:50 Urine Glucose (UA) 100 mg/dL (NEGATIVE) H 12/13/17 13:50 Urine Ketones 15 mg/dL (NEGATIVE) H 12/13/17 13:50 Urine Blood LARGE (NEGATIVE) H 12/13/17 13:50 Urine Nitrate NEGATIVE (NEGATIVE) 12/13/17 13:50 Urine Bilirubin NEGATIVE (NEGATIVE) 12/13/17 13:50 Urine Urobilinogen 0.2 E.U./dL (0.2 - 1.0) 12/13/17 13:50 Ur Leukocyte Esterase NEGATIVE (NEGATIVE) 12/13/17 13:50 Urine RBC 25-50 /hpf (0-5) H 12/13/17 13:50 Urine WBC 0-2 /hpf (0-5) 12/13/17 13:50 Ur Epithelial Cells FEW /lpf (FEW) 12/13/17 13:50 Urine Bacteria FEW /hpf (NONE SEEN) 12/13/17 13:50 Urine Yeast FEW /hpf (NONE SEEN) H 12/13/17 13:50 Ur Random Sodium 46 mmol/L 12/11/17 19:50 Urine Creatinine 41.0 mg/dl (28.0-217.0) 12/11/17 19:50 Stool Leukocyte NO WBC SEEN 12/14/17 05:00 Vancomycin Trough 17.2 ug/mL (5-10) H 12/14/17 19:49 Serum Ketones SMALL (NEGATIVE) H 12/13/17 04:20 - Physical Exam Vitals and I&O: Vital Signs Temp 97.5 F 12/15/17 04:00 Pulse 70 12/15/17 11:10 Resp 20 12/15/17 11:10 BP 138/63 12/15/17 10:00 Pulse Ox 100 12/15/17 11:10 Intake & Output 12/14/17 12/15/17 12/15/17 18:59 06:59 18:59 Intake Total 1300 200 Output Total 1000 1200 Balance 300 -1000 Weight (lbs) 54.431 kg 55.338 kg Intake: Intake, IV Amount 500 D5-0.45NS 1,000 ml @ 75 500 mls/hr IV .[id number] [facility] Rx #:[id number] Oral 800 200 Output: Urine 1000 1200 Other: # Voids 3 # Bowel Movements 2 1 Stool Characteristics Liquid Liquid Mucoid Brown Weight Source Bedscale Bedscale Active Medications: Current Medications Acetaminophen (Tylenol) 650 mg PO Q6H PRN PRN Reason: Pain or Fever >101 Stop: 02/06/18 01:56 Acetaminophen/Hydrocodone Bitart ([place] 10 Mg/325 Mg) 1 tab PO Q4H PRN PRN Reason: pain level 1-5 Stop: 02/07/18 19:32 Last Admin: 12/11/17 20:28 Dose: 1 tab Azathioprine (Imuran) 50 mg PO TID [facility] PRN Reason: Protocol Stop: 02/06/18 08:59 Last Admin: 12/15/17 08:47 Dose: 50 mg Cholestyramine Resin (Questran) 4 gm PO BID [facility] Stop: 02/12/18 16:59 Last Admin: 12/15/17 08:47 Dose: 4 gm Glyburide (Diabeta) 5 mg PO DAILY [facility] Stop: 02/10/18 08:59 Last Admin: 12/15/17 09:00 Dose: 5 mg Guaifenesin (Mucinex) 600 mg PO BID [facility] Stop: 12/18/17 00:29 Last Admin: 12/15/17 08:47 Dose: 600 mg Dextrose/Sodium Chloride (D5-0.45ns) 1,000 mls @ 75 mls/hr IV .[id number] [facility] Stop: 02/12/18 10:22 Last Admin: 12/15/17 04:56 Dose: 75 mls/hr Insulin Aspart (Novolog Insulin Sliding Scale) 0 units SUBQ ACHS [facility] PRN Reason: Protocol Stop: 02/12/18 11:29 Last Admin: 12/15/17 12:42 Dose: 3 units Insulin Human Isoph/Insulin Regular (Novolin 70/30) 20 units SUBQ QDAC [facility] PRN Reason: Protocol Stop: 02/11/18 07:29 Last Admin: 12/15/17 07:06 Dose: 20 units Insulin Human Isoph/Insulin Regular (Novolin 70/30) 10 units SUBQ QPM [facility] PRN Reason: Protocol Stop: 02/10/18 17:59 Last Admin: 12/14/17 17:36 Dose: 10 unit Megestrol Acetate (Megace) 40 mg PO DAILY [facility] PRN Reason: Protocol Stop: 02/13/18 08:59 Last Admin: 12/15/17 08:46 Dose: 40 mg Metformin HCl (Glucophage) 850 mg PO BIDWM [facility] Stop: 02/10/18 11:59 Last Admin: 12/15/17 08:45 Dose: 850 mg Metoprolol Tartrate (Lopressor) 25 mg PO BID [facility] Stop: 02/06/18 08:59 Last Admin: 12/15/17 08:46 Dose: 25 mg Metronidazole (Flagyl) 500 mg PO TID [facility] Stop: 12/28/17 20:59 Last Admin: 12/15/17 08:45 Dose: 500 mg Miscellaneous (Probiotic Screen) 1 ea [facility] PRN PRN PRN Reason: PROTOCOL Stop: 02/07/18 13:46 Morphine Sulfate (Morphine) 1 mg IVP Q4HR PRN PRN Reason: pain levle 6-10 Stop: 02/07/18 19:31 Last Admin: 12/15/17 04:57 Dose: 1 mg Ondansetron HCl (Zofran) 4 mg IV Q4H PRN PRN Reason: Nausea / Vomiting Stop: 02/07/18 19:32 Last Admin: 12/13/17 09:42 Dose: 4 mg Pyridostigmine Coleman (Mestinon) 180 mg PO TID [facility] Stop: 02/06/18 08:59 Last Admin: 12/15/17 08:48 Dose: 180 mg Valsartan (Diovan) 80 mg PO DAILY [facility] Stop: 02/11/18 08:59 Last Admin: 12/15/17 08:45 Dose: 80 mg General: Alert, No acute distress HEENT: Atraumatic, PERRLA, Mucous membr. moist/pink Neck: Supple, +2 carotid pulse wo bruit Cardiovascular: Regular rate, Normal S1, Normal S2 Lungs: Clear to auscultation Abdomen: Soft Extremities: no Edema Neurological: Sensation intact Skin: no Rash Psych/Mental Status: Mood NL - Procedures Procedures: Procedures Procedure Code Date AMPUTATION OF TOE 12122 12/07/17 DETACHMENT AT RIGHT 2ND TOE, COMPLETE, OPEN APPROACH [id number] 12/07/17 EMERGENCY DEPT VISIT 05958 08/07/11 INJECT/INFUSE NEC 99.29 02/22/10 Assessment/Plan - Problem List Patient Problems: All Active Problems Metabolic acidosis (Acute) E87.2 UTI (urinary tract infection) (Acute) right second toe gangrene (Acute) - Assessment Assessment: Pre renal Azotemia AG Met Acid 2/2 DKA T2DM COPD Myasthenia Gravis Bronchial Asthma - Plan Plan: Lab - Result Diagrams 12/12/17 05:40 12/12/17 05:40 Current Medications Acetaminophen (Tylenol) 650 mg PO Q6H PRN PRN Reason: Pain or Fever >101 Stop: 02/06/18 01:56 Acetaminophen/Hydrocodone Bitart ([place] 10 Mg/325 Mg) 1 tab PO Q4H PRN PRN Reason: pain level 1-5 Stop: 02/07/18 19:32 Last Admin: 12/11/17 20:28 Dose: 1 tab Azathioprine (Imuran) 50 mg PO TID [facility] PRN Reason: Protocol Stop: 02/06/18 08:59 Last Admin: 12/12/17 08:24 Dose: 50 mg Glyburide (Diabeta) 5 mg PO DAILY [facility] Stop: 02/10/18 08:59 Last Admin: 12/12/17 11:35 Dose: 5 mg Sodium Chloride (Nacl 0.9%) 1,000 mls @ 125 mls/hr IV .Q8H [facility] Stop: 02/05/18 17:29 Last Admin: 12/12/17 06:20 Dose: 125 mls/hr Piperacillin Sod/Tazobactam (Sod 4.5 gm/ Sodium Chloride) 100 mls @ 100 mls/hr IV Q8HR [facility] Stop: 02/05/18 20:59 Last Infusion: 12/12/17 06:21 Dose: Infused Vancomycin HCl 1.25 gm/ Sodium (Chloride) 250 mls @ 165 mls/hr IV Q18H [facility] Stop: 02/10/18 14:59 Fluconazole (Diflucan) 100 mg in 50 mls @ 50 mls/hr IV Q24HR [facility] Stop: 02/10/18 13:59 Insulin Aspart (Novolog Insulin Sliding Scale) 0 units SUBQ Q2H [facility] PRN Reason: Protocol Stop: 02/10/18 11:59 Insulin Human Isoph/Insulin Regular (Novolin 70/30) 20 units SUBQ QDAC [facility] PRN Reason: Protocol Stop: 02/11/18 07:29 Insulin Human Isoph/Insulin Regular (Novolin 70/30) 10 units SUBQ QPM [facility] PRN Reason: Protocol Stop: 02/10/18 17:59 Metformin HCl (Glucophage) 850 mg PO BIDWM [facility] Stop: 02/10/18 11:59 Last Admin: 12/12/17 11:35 Dose: 850 mg Metoprolol Tartrate (Lopressor) 25 mg PO BID [facility] Stop: 02/06/18 08:59 Last Admin: 12/12/17 08:24 Dose: 25 mg Miscellaneous (Vancomycin Iv Per Pharmacy) 1 ea PRN PRN PRN Reason: PROTOCOL Stop: 02/05/18 17:19 Miscellaneous (Probiotic Screen) 1 [facility] PRN PRN PRN Reason: PROTOCOL Stop: 02/07/18 13:46 Morphine Sulfate (Morphine) 1 mg IVP Q4HR PRN PRN Reason: pain levle 6-10 Stop: 02/07/18 19:31 Last Admin: 12/11/17 00:58 Dose: 1 mg Mupirocin (Bactroban Oint) 1 appl NS BID [facility] Stop: 12/14/17 09:01 Last Admin: 12/12/17 08:24 Dose: 1 appl Ondansetron HCl (Zofran) 4 mg IV Q6H PRN PRN Reason: Nausea / Vomiting Stop: 02/07/18 19:32 Last Admin: 12/12/17 08:23 Dose: 4 mg Pyridostigmine Coleman (Mestinon) 180 mg PO TID [facility] Stop: 02/06/18 08:59 Last Admin: 12/12/17 08:24 Dose: 180 mg Lab - Result Diagrams 12/15/17 06:20 12/15/17 06:20 BS ranging 100-200, elevated this am in the 500's urine (+) for ketones, serum small ketones, CO2 increased to 22 ABG pH 7.31 continue NS @ 40 ml/hr; S/S ac, hs replace K, P04, stool for WBC start Megace for poor appetite Nutritional Asmnt/Malnutr-PDOC - Dietary Evaluation Malnutrition Findings (Please click <Entered> for more info): Nutritional Asmnt/Malnutrition Start: 12/08/17 16: 43 Text: Status: Complete Freq: Document 12/08/17 16:43 DAWSON (Rec: 12/08/17 16:53 DANETTEG [email or web address]) Nutritional Asmnt/Malnutrition Patient General Information Nutritional Screening High Risk Diagnosis peripheral artery disease Pertinent Medical Hx/Surgical Hx HTN, DM, asthma/COPD, dyslipidemia, resp failure, myasthenia, gravis Subjective Information Consult received for Dm and open wound. Pt seen talking on phone at time of visit, not able to interview at this time . Current Diet Order/ Nutrition Support CCHO 60gm Pertinent Medications novolog, piperacillin, nacl 0. 9%, vancomycin Pertinent Labs 12/08 Na 130, BUN 27, glucose 418, POC 400 12/07 Na 128, Cl 96, BUN 36, glucose 207, POC 132 Nutritional Hx/Data Height 1.7 m Height (Calculated Centimeters) 170.2 Current Weight (lbs) 54.431 kg Weight (Calculated Kilograms) 54.4 Weight (Calculated Grams) 34227.1 Lawn Body Weight 135 Body Mass Index (BMI) 18.8 Weight Status Approriate GI Symptoms GI Symptoms None Last BM none 12/08 Difficult in: None Skin Integrity/Comment: right 2nd toe gangrene Estimated Nutritional Goals BEE in Kcals: Using Current wt Calories/Kcals/Kg 30-35 Kcals Calculated 0229-1559 Protein: Using Current wt Protein g/k.2-1.4 Protein Calculated 66-77 Fluid: ml 1650-1925ml (1ml/kcal) Nutritional Problem 1. Problem Problem altered nutrition related labs Etiology hx of DM Signs/Symptoms: glucose 207-418, POC 132-400 Malnutrition Alert Protein-Calorie Malnutrition N/A Is there a minimum of two criteria No selected? Query Text:Check all the applicable criteria. A minimum of two criteria are recommended for diagnosis of either severe or non-severe malnutrition. Intervention/Recommendation Comments 1. Continue with CCHO-60gm diet as ordered. Will provide nutrition education when pt available. 2. Monitor PO intake, wt, labs and skin integrity 3. F/U as high risk in 2-3 days, 12/10-12/11 Expected Outcomes/Goals Expected Outcomes/Goals 1. PO intake to meet at least 75% of nutritional needs. 2. Wt stability, skin to remain intact, labs to approach WNL.
[2017-12-15] MEDS: Sodium Chloride 0.9% 1,000 ML IV SCH (14:54)
--- NOTE | 2017-12-15 19:02 | Internal Medicine Prog Note ---
Internal Medicine Objective - Results Result Diagrams: 12/15/17 06:20 12/15/17 06:20 Recent Labs: Laboratory Last Values WBC 4.2 Th/cmm (4.8-10.8) L 12/15/17 06:20 RBC 3.31 Mil/cmm (3.80-5.10) L 12/15/17 06:20 Hgb 9.5 gm/dL (12-16) L 12/15/17 06:20 Hct 29.1 % (41.0-60) L 12/15/17 06:20 MCV 88.0 fl (81-100) 12/15/17 06:20 MCH 28.7 pg (27.0-31.0) 12/15/17 06:20 MCHC Differential 32.6 pg (28.0-36.0) 12/15/17 06:20 RDW 16.0 % (11.5-20.0) 12/15/17 06:20 Plt Count 449 Th/cmm (150-400) H 12/15/17 06:20 MPV 7.0 fl 12/15/17 06:20 Neutrophils % 70.2 % (40.0-80.0) 12/15/17 06:20 Lymphocytes % 13.4 % (20.0-50.0) L 12/15/17 06:20 Monocytes % 11.7 % (2.0-10.0) H 12/15/17 06:20 Eosinophils % 3.9 % (0.0-5.0) 12/15/17 06:20 Basophils % 0.8 % (0.0-2.0) 12/15/17 06:20 Neutrophils (Manual) 59 % (40-80) 12/14/17 04:35 Lymphocytes 27 % (20-50) 12/14/17 04:35 Monocytes 10 % (2-10) 12/14/17 04:35 Eosinophils 4 % (0-5) 12/14/17 04:35 Basophils 1 % (0-3) 12/11/17 10:12 Platelet Estimate INCREASED PLATELETS (NORMAL) 12/11/17 10:12 Eos Smear Source URINE 12/11/17 19:50 Eos Smear Total Cells NONE SEEN (NONE SEEN) 12/11/17 19:50 PT 10.9 SECONDS (9.5-11.5) 12/07/17 14:30 INR 1.05 (0.5-1.4) 12/07/17 14:30 PTT (Actin FS) 26.2 SECONDS (26.0-38.0) 12/07/17 14:30 Specimen Source ATERIAL 12/11/17 19:10 Sample Site RB 12/11/17 19:10 pH 7.31 (7.35-7.45) L 12/11/17 19:10 pCO2 27.0 mmHg (35.0-45.0) L 12/11/17 19:10 pO2 98.0 mmHg (80.0-100.0) 12/11/17 19:10 HCO3 16.3 mEq/L (20.0-26.0) L 12/11/17 19:10 Base Excess -11.1 mEq/L (-3.0-3.0) L 12/11/17 19:10 O2 Saturation 97.0 % (92.0-100.0) 12/11/17 19:10 Ananth Test Positive 12/11/17 19:10 Vent Rate N/A 12/11/17 19:10 Inspired O2 21 12/11/17 19:10 Tidal Volume N/A 12/11/17 19:10 PEEP N/A 12/11/17 19:10 Pressure (ins/psv/peep) N/A 12/11/17 19:10 Critical Value DV 12/11/17 19:10 Sodium 129 mEq/L (136-145) L 12/15/17 06:20 Potassium 4.1 mEq/L (3.5-5.1) 12/15/17 06:20 Chloride 100 mEq/L (98-107) 12/15/17 06:20 Carbon Dioxide 22.0 mEq/L (21.0-31.0) 12/15/17 06:20 Anion Gap 11.1 (7.0-16.0) 12/15/17 06:20 BUN 19 mg/dL (7-25) 12/15/17 06:20 Creatinine 1.1 mg/dL (0.6-1.2) 12/15/17 06:20 Est GFR ( Amer) > 60.0 ml/min (>90) 12/15/17 06:20 Est GFR (Non-Af Amer) 57.1 ml/min 12/15/17 06:20 BUN/Creatinine Ratio 17.3 12/15/17 06:20 Glucose 540 mg/dL (70-105) H* 12/15/17 06:20 POC Glucose 282 MG/DL (70 - 105) H 12/15/17 17:18 Hemoglobin A1c % 9.3 % (4.0-6.0) H 12/07/17 14:30 Whole Bld Lactic Acid 0.56 mmol/L (0.60-1.99) L 12/13/17 04:20 Uric Acid 4.8 mg/dL (2.3-6.6) 12/12/17 05:40 Calcium 8.8 mg/dL (8.6-10.3) 12/15/17 06:20 Phosphorus 1.8 mg/dL (2.5-5.0) L 12/14/17 04:35 Magnesium 2.0 mg/dL (1.9-2.7) 12/14/17 04:35 Total Bilirubin 0.2 mg/dL (0.3-1.0) L 12/15/17 06:20 AST 15 U/L (13-39) 12/15/17 06:20 ALT 18 U/L (7-52) 12/15/17 06:20 Alkaline Phosphatase 68 U/L (34-104) 12/15/17 06:20 Creatine Kinase 51 U/L (30-223) 12/07/17 14:30 Troponin I 0.01 ng/mL (0.01-0.05) 12/07/17 14:30 Total Protein 6.9 gm/dL (6.0-8.3) 12/15/17 06:20 Albumin 3.1 gm/dL (3.7-5.3) L 12/15/17 06:20 Globulin 3.8 gm/dL 12/15/17 06:20 Albumin/Globulin Ratio 0.8 (1.0-1.8) L 12/15/17 06:20 TSH 1.31 uIU/ml (0.34-5.60) 12/12/17 08:10 Serum , Qual NEGATIVE (NEGATIVE) 12/07/17 14:30 Urine Source MIDSTREAM 12/13/17 13:50 Urine Color YELLOW 12/13/17 13:50 Urine Clarity HAZY (CLEAR) 12/13/17 13:50 Urine pH 6.0 (4.6 - 8.0) 12/13/17 13:50 Ur Specific [place] 1.020 (1.005-1.030) 12/13/17 13:50 Urine Protein 100 mg/dL (NEGATIVE) H 12/13/17 13:50 Urine Glucose (UA) 100 mg/dL (NEGATIVE) H 12/13/17 13:50 Urine Ketones 15 mg/dL (NEGATIVE) H 12/13/17 13:50 Urine Blood LARGE (NEGATIVE) H 12/13/17 13:50 Urine Nitrate NEGATIVE (NEGATIVE) 12/13/17 13:50 Urine Bilirubin NEGATIVE (NEGATIVE) 12/13/17 13:50 Urine Urobilinogen 0.2 E.U./dL (0.2 - 1.0) 12/13/17 13:50 Ur Leukocyte Esterase NEGATIVE (NEGATIVE) 12/13/17 13:50 Urine RBC 25-50 /hpf (0-5) H 12/13/17 13:50 Urine WBC 0-2 /hpf (0-5) 12/13/17 13:50 Ur Epithelial Cells FEW /lpf (FEW) 12/13/17 13:50 Urine Bacteria FEW /hpf (NONE SEEN) 12/13/17 13:50 Urine Yeast FEW /hpf (NONE SEEN) H 12/13/17 13:50 Ur Random Sodium 46 mmol/L 12/11/17 19:50 Urine Creatinine 41.0 mg/dl (28.0-217.0) 12/11/17 19:50 Stool Leukocyte NO WBC SEEN 12/14/17 05:00 Vancomycin Trough 17.2 ug/mL (5-10) H 12/14/17 19:49 Serum Ketones SMALL (NEGATIVE) H 12/13/17 04:20 - Physical Exam Vitals and I&O: Vital Signs Temp 97.7 F 12/15/17 16:00 Pulse 94 12/15/17 18:00 Resp 26 12/15/17 18:00 BP 164/64 12/15/17 18:00 Pulse Ox 96 12/15/17 18:00 Intake & Output 12/15/17 12/15/17 12/16/17 06:59 18:59 06:59 Intake Total 200 500 Output Total 1200 1200 Balance -1000 -700 Weight (lbs) 55.338 kg 55.338 kg Intake: Oral 200 500 Output: Urine 1200 1200 Other: # Voids 3 3 # Bowel Movements 1 1 Stool Characteristics Liquid Soft Brown Brown Weight Source Bedscale Bedscale Active Medications: Current Medications Acetaminophen (Tylenol) 650 mg PO Q6H PRN PRN Reason: Pain or Fever >101 Stop: 02/06/18 01:56 Acetaminophen/Hydrocodone Bitart ([place] 10 Mg/325 Mg) 1 tab PO Q4H PRN PRN Reason: pain level 1-5 Stop: 02/07/18 19:32 Last Admin: 12/11/17 20:28 Dose: 1 tab Azathioprine (Imuran) 50 mg PO TID [facility] PRN Reason: Protocol Stop: 02/06/18 08:59 Last Admin: 12/15/17 14:55 Dose: 50 mg Cholestyramine Resin (Questran) 4 gm PO BID [facility] Stop: 02/12/18 16:59 Last Admin: 12/15/17 17:22 Dose: 4 gm Glyburide (Diabeta) 5 mg PO DAILY [facility] Stop: 02/10/18 08:59 Last Admin: 12/15/17 09:00 Dose: 5 mg Guaifenesin (Mucinex) 600 mg PO BID [facility] Stop: 12/18/17 00:29 Last Admin: 12/15/17 17:14 Dose: 600 mg Sodium Chloride (Nacl 0.9%) 1,000 mls @ 40 mls/hr IV .Q24H [facility] Stop: 02/13/18 14:59 Last Admin: 12/15/17 14:54 Dose: 40 mls/hr Insulin Aspart (Novolog Insulin Sliding Scale) 0 units SUBQ ACHS [facility] PRN Reason: Protocol Stop: 02/12/18 11:29 Last Admin: 12/15/17 17:56 Dose: 7 units Insulin Human Isoph/Insulin Regular (Novolin 70/30) 20 units SUBQ QDAC MARCIA PRN Reason: Protocol Stop: 02/11/18 07:29 Last Admin: 12/15/17 07:06 Dose: 20 units Insulin Human Isoph/Insulin Regular (Novolin 70/30) 10 units SUBQ QPM MARCIA PRN Reason: Protocol Stop: 02/10/18 17:59 Last Admin: 12/15/17 17:28 Dose: 10 unit Megestrol Acetate (Megace) 40 mg PO DAILY [facility] PRN Reason: Protocol Stop: 02/13/18 08:59 Last Admin: 12/15/17 08:46 Dose: 40 mg Metformin HCl (Glucophage) 850 mg PO BIDWM [facility] Stop: 02/10/18 11:59 Last Admin: 12/15/17 17:48 Dose: 850 mg Metoprolol Tartrate (Lopressor) 25 mg PO BID [facility] Stop: 02/06/18 08:59 Last Admin: 12/15/17 17:14 Dose: 25 mg Metronidazole (Flagyl) 500 mg PO TID [facility] Stop: 12/28/17 20:59 Last Admin: 12/15/17 14:55 Dose: 500 mg Miscellaneous (Probiotic Screen) 1 ea MC PRN PRN PRN Reason: PROTOCOL Stop: 02/07/18 13:46 Morphine Sulfate (Morphine) 1 mg IVP Q4HR PRN PRN Reason: pain levle 6-10 Stop: 02/07/18 19:31 Last Admin: 12/15/17 04:57 Dose: 1 mg Ondansetron HCl (Zofran) 4 mg IV Q4H PRN PRN Reason: Nausea / Vomiting Stop: 02/07/18 19:32 Last Admin: 12/13/17 09:42 Dose: 4 mg Pyridostigmine [place] (Mestinon) 180 mg PO TID [facility] Stop: 02/06/18 08:59 Last Admin: 12/15/17 14:57 Dose: 180 mg Valsartan (Diovan) 80 mg PO DAILY [facility] Stop: 02/11/18 08:59 Last Admin: 12/15/17 08:45 Dose: 80 mg - Procedures Procedures: Procedures Procedure Code Date AMPUTATION OF TOE 92856 12/07/17 DETACHMENT AT RIGHT 2ND TOE, COMPLETE, OPEN APPROACH [id number] 12/07/17 EMERGENCY DEPT VISIT 31183 08/07/11 INJECT/INFUSE NEC 99.29 02/22/10 Internal Medicine Assmt/Plan - Plan Plan: cpm Nutritional Asmnt/Malnutr-PDOC - Dietary Evaluation Malnutrition Findings (Please click <Entered> for more info): Nutritional Asmnt/Malnutrition Start: 12/08/17 16: 43 Text: Status: Complete Freq: Document 12/08/17 16:43 LCHENG (Rec: 12/08/17 16:53 JENNIFFERG [email or web address]) Nutritional Asmnt/Malnutrition Patient General Information Nutritional Screening High Risk Diagnosis peripheral artery disease Pertinent Medical Hx/Surgical Hx HTN, DM, asthma/COPD, dyslipidemia, resp failure, myasthenia, gravis Subjective Information Consult received for Dm and open wound. Pt seen talking on phone at time of visit, not able to interview at this time . Current Diet Order/ Nutrition Support CCHO 60gm Pertinent Medications novolog, piperacillin, nacl 0. 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 Problem Problem altered nutrition related labs Etiology hx of DM Signs/Symptoms: glucose 207-418, POC 132-400 Malnutrition Alert Protein-Calorie Malnutrition N/A Is there a minimum of two criteria No selected? Query Text:Check all the applicable criteria. A minimum of two criteria are recommended for diagnosis of either severe or non-severe malnutrition. Intervention/Recommendation Comments 1. [facility] as ordered. Will provide nutrition education when pt available. 2. Monitor PO intake, wt, labs and skin integrity 3. F/U as high risk in 2-3 days, 12/10-12/11 Expected Outcomes/Goals Expected Outcomes/Goals 1. PO intake to meet at least 75% of nutritional needs. 2. Wt stability, skin to remain intact, labs to approach WNL.
--- NOTE | 2017-12-15 23:40 | Infectious Disease Prog Note ---
Infectious Disease Subjective - Review of Systems Service Date: 12/15/17 Subjective: doing better, no fever. developed fevers. Infectious Disease Objective - Results Result Diagrams: 12/15/17 06:20 12/15/17 06:20 Recent Labs: Laboratory Last Values WBC 4.2 Th/cmm (4.8-10.8) L 12/15/17 06:20 RBC 3.31 Mil/cmm (3.80-5.10) L 12/15/17 06:20 Hgb 9.5 gm/dL (12-16) L 12/15/17 06:20 Hct 29.1 % (41.0-60) L 12/15/17 06:20 MCV 88.0 fl (81-100) 12/15/17 06:20 MCH 28.7 pg (27.0-31.0) 12/15/17 06:20 MCHC Differential 32.6 pg (28.0-36.0) 12/15/17 06:20 RDW 16.0 % (11.5-20.0) 12/15/17 06:20 Plt Count 449 Th/cmm (150-400) H 12/15/17 06:20 MPV 7.0 fl 12/15/17 06:20 Neutrophils % 70.2 % (40.0-80.0) 12/15/17 06:20 Lymphocytes % 13.4 % (20.0-50.0) L 12/15/17 06:20 Monocytes % 11.7 % (2.0-10.0) H 12/15/17 06:20 Eosinophils % 3.9 % (0.0-5.0) 12/15/17 06:20 Basophils % 0.8 % (0.0-2.0) 12/15/17 06:20 Neutrophils (Manual) 59 % (40-80) 12/14/17 04:35 Lymphocytes 27 % (20-50) 12/14/17 04:35 Monocytes 10 % (2-10) 12/14/17 04:35 Eosinophils 4 % (0-5) 12/14/17 04:35 Basophils 1 % (0-3) 12/11/17 10:12 Platelet Estimate INCREASED PLATELETS (NORMAL) 12/11/17 10:12 Eos Smear Source URINE 12/11/17 19:50 Eos Smear Total Cells NONE SEEN (NONE SEEN) 12/11/17 19:50 PT 10.9 SECONDS (9.5-11.5) 12/07/17 14:30 INR 1.05 (0.5-1.4) 12/07/17 14:30 PTT (Actin FS) 26.2 SECONDS (26.0-38.0) 12/07/17 14:30 Specimen Source ATERIAL 12/11/17 19:10 Sample Site RB 12/11/17 19:10 pH 7.31 (7.35-7.45) L 12/11/17 19:10 pCO2 27.0 mmHg (35.0-45.0) L 12/11/17 19:10 pO2 98.0 mmHg (80.0-100.0) 12/11/17 19:10 HCO3 16.3 mEq/L (20.0-26.0) L 12/11/17 19:10 Base Excess -11.1 mEq/L (-3.0-3.0) L 12/11/17 19:10 O2 Saturation 97.0 % (92.0-100.0) 12/11/17 19:10 Ananth Test Positive 12/11/17 19:10 Vent Rate N/A 12/11/17 19:10 Inspired O2 21 12/11/17 19:10 Tidal Volume N/A 12/11/17 19:10 PEEP N/A 12/11/17 19:10 Pressure (ins/psv/peep) N/A 12/11/17 19:10 Critical Value DV 12/11/17 19:10 Sodium 129 mEq/L (136-145) L 12/15/17 06:20 Potassium 4.1 mEq/L (3.5-5.1) 12/15/17 06:20 Chloride 100 mEq/L (98-107) 12/15/17 06:20 Carbon Dioxide 22.0 mEq/L (21.0-31.0) 12/15/17 06:20 Anion Gap 11.1 (7.0-16.0) 12/15/17 06:20 BUN 19 mg/dL (7-25) 12/15/17 06:20 Creatinine 1.1 mg/dL (0.6-1.2) 12/15/17 06:20 Est GFR ( Amer) > 60.0 ml/min (>90) 12/15/17 06:20 Est GFR (Non-Af Amer) 57.1 ml/min 12/15/17 06:20 BUN/Creatinine Ratio 17.3 12/15/17 06:20 Glucose 540 mg/dL (70-105) H* 12/15/17 06:20 POC Glucose 173 MG/DL (70 - 105) H 12/15/17 20:43 Hemoglobin A1c % 9.3 % (4.0-6.0) H 12/07/17 14:30 Whole Bld Lactic Acid 0.56 mmol/L (0.60-1.99) L 12/13/17 04:20 Uric Acid 4.8 mg/dL (2.3-6.6) 12/12/17 05:40 Calcium 8.8 mg/dL (8.6-10.3) 12/15/17 06:20 Phosphorus 1.8 mg/dL (2.5-5.0) L 12/14/17 04:35 Magnesium 2.0 mg/dL (1.9-2.7) 12/14/17 04:35 Total Bilirubin 0.2 mg/dL (0.3-1.0) L 12/15/17 06:20 AST 15 U/L (13-39) 12/15/17 06:20 ALT 18 U/L (7-52) 12/15/17 06:20 Alkaline Phosphatase 68 U/L (34-104) 12/15/17 06:20 Creatine Kinase 51 U/L (30-223) 12/07/17 14:30 Troponin I 0.01 ng/mL (0.01-0.05) 12/07/17 14:30 Total Protein 6.9 gm/dL (6.0-8.3) 12/15/17 06:20 Albumin 3.1 gm/dL (3.7-5.3) L 12/15/17 06:20 Globulin 3.8 gm/dL 12/15/17 06:20 Albumin/Globulin Ratio 0.8 (1.0-1.8) L 12/15/17 06:20 TSH 1.31 uIU/ml (0.34-5.60) 12/12/17 08:10 Serum , Qual NEGATIVE (NEGATIVE) 12/07/17 14:30 Urine Source MIDSTREAM 12/13/17 13:50 Urine Color YELLOW 12/13/17 13:50 Urine Clarity HAZY (CLEAR) 12/13/17 13:50 Urine pH 6.0 (4.6 - 8.0) 12/13/17 13:50 Ur Specific [place] 1.020 (1.005-1.030) 12/13/17 13:50 Urine Protein 100 mg/dL (NEGATIVE) H 12/13/17 13:50 Urine Glucose (UA) 100 mg/dL (NEGATIVE) H 12/13/17 13:50 Urine Ketones 15 mg/dL (NEGATIVE) H 12/13/17 13:50 Urine Blood LARGE (NEGATIVE) H 12/13/17 13:50 Urine Nitrate NEGATIVE (NEGATIVE) 12/13/17 13:50 Urine Bilirubin NEGATIVE (NEGATIVE) 12/13/17 13:50 Urine Urobilinogen 0.2 E.U./dL (0.2 - 1.0) 12/13/17 13:50 Ur Leukocyte Esterase NEGATIVE (NEGATIVE) 12/13/17 13:50 Urine RBC 25-50 /hpf (0-5) H 12/13/17 13:50 Urine WBC 0-2 /hpf (0-5) 12/13/17 13:50 Ur Epithelial Cells FEW /lpf (FEW) 12/13/17 13:50 Urine Bacteria FEW /hpf (NONE SEEN) 12/13/17 13:50 Urine Yeast FEW /hpf (NONE SEEN) H 12/13/17 13:50 Ur Random Sodium 46 mmol/L 12/11/17 19:50 Urine Creatinine 41.0 mg/dl (28.0-217.0) 12/11/17 19:50 Stool Leukocyte NO WBC SEEN 12/14/17 05:00 Vancomycin Trough 17.2 ug/mL (5-10) H 12/14/17 19:49 Serum Ketones SMALL (NEGATIVE) H 12/13/17 04:20 - Physical Exam Vitals and I&O: Vital Signs Temp 97.6 F 12/15/17 19:00 Pulse 86 12/15/17 22:58 Resp 15 12/15/17 22:00 BP 169/62 12/15/17 22:00 Pulse Ox 100 12/15/17 22:00 Intake & Output 12/15/17 12/15/17 12/16/17 06:59 18:59 06:59 Intake Total 200 500 Output Total 1200 1200 Balance -1000 -700 Weight (lbs) 55.338 kg 55.338 kg Intake: Oral 200 500 Output: Urine 1200 1200 Other: # Voids 3 3 # Bowel Movements 1 1 Stool Characteristics Liquid Soft Liquid Brown Brown Brown Weight Source Bedscale Bedscale Active Medications: Current Medications Acetaminophen (Tylenol) 650 mg PO Q6H PRN PRN Reason: Pain or Fever >101 Stop: 02/06/18 01:56 Acetaminophen/Hydrocodone Bitart ([place] 10 Mg/325 Mg) 1 tab PO Q4H PRN PRN Reason: pain level 1-5 Stop: 02/07/18 19:32 Last Admin: 12/11/17 20:28 Dose: 1 tab Azathioprine (Imuran) 50 mg PO TID MARCIA PRN Reason: Protocol Stop: 02/06/18 08:59 Last Admin: 12/15/17 20:36 Dose: 50 mg Cholestyramine Resin (Questran) 4 gm PO BID [facility] Stop: 02/12/18 16:59 Last Admin: 12/15/17 17:22 Dose: 4 gm Glyburide (Diabeta) 5 mg PO DAILY [facility] Stop: 02/10/18 08:59 Last Admin: 12/15/17 09:00 Dose: 5 mg Guaifenesin (Mucinex) 600 mg PO BID [facility] Stop: 12/18/17 00:29 Last Admin: 12/15/17 17:14 Dose: 600 mg Sodium Chloride (Nacl 0.9%) 1,000 mls @ 40 mls/hr IV .Q24H [facility] Stop: 02/13/18 14:59 Last Admin: 12/15/17 14:54 Dose: 40 mls/hr Insulin Aspart (Novolog Insulin Sliding Scale) 0 units SUBQ ACHS MARCIA PRN Reason: Protocol Stop: 02/12/18 11:29 Last Admin: 12/15/17 20:46 Dose: 3 units Insulin Human Isoph/Insulin Regular (Novolin 70/30) 20 units SUBQ QDAC MARCIA PRN Reason: Protocol Stop: 02/11/18 07:29 Last Admin: 12/15/17 07:06 Dose: 20 units Insulin Human Isoph/Insulin Regular (Novolin 70/30) 10 units SUBQ QPM MARCIA PRN Reason: Protocol Stop: 02/10/18 17:59 Last Admin: 12/15/17 17:28 Dose: 10 unit Megestrol Acetate (Megace) 40 mg PO DAILY [facility] PRN Reason: Protocol Stop: 02/13/18 08:59 Last Admin: 12/15/17 08:46 Dose: 40 mg Metformin HCl (Glucophage) 850 mg PO BIDWM [facility] Stop: 02/10/18 11:59 Last Admin: 12/15/17 17:48 Dose: 850 mg Metoprolol Tartrate (Lopressor) 25 mg PO BID [facility] Stop: 02/06/18 08:59 Last Admin: 12/15/17 17:14 Dose: 25 mg Metronidazole (Flagyl) 500 mg PO TID [facility] Stop: 12/28/17 20:59 Last Admin: 12/15/17 20:37 Dose: 500 mg Miscellaneous (Probiotic Screen) 1 ea MC PRN PRN PRN Reason: PROTOCOL Stop: 02/07/18 13:46 Morphine Sulfate (Morphine) 1 mg IVP Q4HR PRN PRN Reason: pain levle 6-10 Stop: 02/07/18 19:31 Last Admin: 12/15/17 20:37 Dose: 1 mg Ondansetron HCl (Zofran) 4 mg IV Q4H PRN PRN Reason: Nausea / Vomiting Stop: 02/07/18 19:32 Last Admin: 12/13/17 09:42 Dose: 4 mg Pyridostigmine [place] (Mestinon) 180 mg PO TID [facility] Stop: 02/06/18 08:59 Last Admin: 12/15/17 20:36 Dose: Not Given Valsartan (Diovan) 80 mg PO DAILY [facility] Stop: 02/11/18 08:59 Last Admin: 12/15/17 08:45 Dose: 80 mg - Procedures Procedures: Procedures Procedure Code Date AMPUTATION OF TOE 67991 12/07/17 DETACHMENT AT RIGHT 2ND TOE, COMPLETE, OPEN APPROACH [id number] 12/07/17 EMERGENCY DEPT VISIT 87026 08/07/11 INJECT/INFUSE NEC 99.29 02/22/10 Infectious Disease Assmt/Plan - Problem List Patient Problems: All Active Problems Metabolic acidosis (Acute) E87.2 UTI (urinary tract infection) (Acute) right second toe gangrene (Acute) - Assessment Assessment: 1. Right second toe gangrene. amputated. 2. Diabetes mellitus type 2, uncontrolled. versus DM1 with ketoacidosis. 3. History of myasthenia gravis. 4. Dyslipidemia. 5. Urinary tract infection. 6. 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 7. Metabolic acidosis. 8. MRSA colonization. 9.r/o c diff colitis. - Plan Plan: dc antibiotics, start flagyl and questran. stool for c diff, wbc. Nutritional Asmnt/Malnutr-PDOC - Dietary Evaluation Malnutrition Findings (Please click <Entered> for more info): Nutritional Asmnt/Malnutrition Start: 12/08/17 16: 43 Text: Status: Complete Freq: Document 12/08/17 16:43 JENNIFFER (Rec: 12/08/17 16:53 [email or web address] Nutritional Asmnt/Malnutrition Patient General Information Nutritional Screening High Risk Diagnosis peripheral artery disease Pertinent Medical Hx/Surgical Hx HTN, DM, asthma/COPD, dyslipidemia, resp failure, myasthenia, gravis Subjective Information Consult received for Dm and open wound. Pt seen talking on phone at time of visit, not able to interview at this time . Current Diet Order/ Nutrition Support CCHO 60gm Pertinent Medications novolog, piperacillin, nacl 0. 9%, vancomycin Pertinent Labs 5/10 Na 130, BUN 27, glucose 418, POC 400 5/9 Na 128, Cl 96, BUN 36, glucose 207, POC 132 Nutritional Hx/Data Height 1.7 m Height (Calculated Centimeters) 170.2 Current Weight (lbs) 54.431 kg Weight (Calculated Kilograms) 54.4 Weight (Calculated Grams) 87135.1 [place] Body Weight 135 Body Mass Index (BMI) 18.8 Weight Status Approriate GI Symptoms GI Symptoms None Last BM none 5/10 Difficult in: None Skin Integrity/Comment: right 2nd toe gangrene Estimated Nutritional Goals BEE in Kcals: Using Current wt Calories/Kcals/Kg 30-35 Kcals Calculated 0612-7685 Protein: Using Current wt Protein g/k.2-1.4 Protein Calculated 66-77 Fluid: ml 1650-1925ml (1ml/kcal) Nutritional Problem 1. Problem Problem altered nutrition related labs Etiology hx of DM Signs/Symptoms: glucose 207-418, POC 132-400 Malnutrition Alert Protein-Calorie Malnutrition N/A Is there a minimum of two criteria No selected? Query Text:Check all the applicable criteria. A minimum of two criteria are recommended for diagnosis of either severe or non-severe malnutrition. Intervention/Recommendation Comments 1. Continue with CCHO-60gm diet as ordered. Will provide nutrition education when pt available. 2. Monitor PO intake, wt, labs and skin integrity 3. F/U as high risk in 2-3 days, 12/10-12/11 Expected Outcomes/Goals Expected Outcomes/Goals 1. PO intake to meet at least 75% of nutritional needs. 2. Wt stability, skin to remain intact, labs to approach WNL.
[2017-12-16] MEDS: INSULIN 70/30 100 UNITS/ML SUBQ SCH (07:36)
[2017-12-16] MEDS: INSULIN ASPART SLIDING SCALE 100 UNITS/ML UNIT SUBQ SCH ×3 (08:15→17:01)
--- NOTE | 2017-12-16 09:40 | Internal Medicine Prog Note ---
Internal Medicine Subjective - Subjective Service Date: 12/16/17 Patient seen and examined:: with staff Patient is:: awake Per staff patient has:: no adverse event Internal Medicine Objective - Results Result Diagrams: 12/15/17 06:20 12/15/17 06:20 Recent Labs: Laboratory Last Values WBC 4.2 Th/cmm (4.8-10.8) L 12/15/17 06:20 RBC 3.31 Mil/cmm (3.80-5.10) L 12/15/17 06:20 Hgb 9.5 gm/dL (12-16) L 12/15/17 06:20 Hct 29.1 % (41.0-60) L 12/15/17 06:20 MCV 88.0 fl (81-100) 12/15/17 06:20 MCH 28.7 pg (27.0-31.0) 12/15/17 06:20 MCHC Differential 32.6 pg (28.0-36.0) 12/15/17 06:20 RDW 16.0 % (11.5-20.0) 12/15/17 06:20 Plt Count 449 Th/cmm (150-400) H 12/15/17 06:20 MPV 7.0 fl 12/15/17 06:20 Neutrophils % 70.2 % (40.0-80.0) 12/15/17 06:20 Lymphocytes % 13.4 % (20.0-50.0) L 12/15/17 06:20 Monocytes % 11.7 % (2.0-10.0) H 12/15/17 06:20 Eosinophils % 3.9 % (0.0-5.0) 12/15/17 06:20 Basophils % 0.8 % (0.0-2.0) 12/15/17 06:20 Neutrophils (Manual) 59 % (40-80) 12/14/17 04:35 Lymphocytes 27 % (20-50) 12/14/17 04:35 Monocytes 10 % (2-10) 12/14/17 04:35 Eosinophils 4 % (0-5) 12/14/17 04:35 Basophils 1 % (0-3) 12/11/17 10:12 Platelet Estimate INCREASED PLATELETS (NORMAL) 12/11/17 10:12 Eos Smear Source URINE 12/11/17 19:50 Eos Smear Total Cells NONE SEEN (NONE SEEN) 12/11/17 19:50 PT 10.9 SECONDS (9.5-11.5) 12/07/17 14:30 INR 1.05 (0.5-1.4) 12/07/17 14:30 PTT (Actin FS) 26.2 SECONDS (26.0-38.0) 12/07/17 14:30 Specimen Source ATERIAL 12/11/17 19:10 Sample Site RB 12/11/17 19:10 pH 7.31 (7.35-7.45) L 12/11/17 19:10 pCO2 27.0 mmHg (35.0-45.0) L 12/11/17 19:10 pO2 98.0 mmHg (80.0-100.0) 12/11/17 19:10 HCO3 16.3 mEq/L (20.0-26.0) L 12/11/17 19:10 Base Excess -11.1 mEq/L (-3.0-3.0) L 12/11/17 19:10 O2 Saturation 97.0 % (92.0-100.0) 12/11/17 19:10 Ananth Test Positive 12/11/17 19:10 Vent Rate N/A 12/11/17 19:10 Inspired O2 21 12/11/17 19:10 Tidal Volume N/A 12/11/17 19:10 PEEP N/A 12/11/17 19:10 Pressure (ins/psv/peep) N/A 12/11/17 19:10 Critical Value DV 12/11/17 19:10 Sodium 129 mEq/L (136-145) L 12/15/17 06:20 Potassium 4.1 mEq/L (3.5-5.1) 12/15/17 06:20 Chloride 100 mEq/L (98-107) 12/15/17 06:20 Carbon Dioxide 22.0 mEq/L (21.0-31.0) 12/15/17 06:20 Anion Gap 11.1 (7.0-16.0) 12/15/17 06:20 BUN 19 mg/dL (7-25) 12/15/17 06:20 Creatinine 1.1 mg/dL (0.6-1.2) 12/15/17 06:20 Est GFR ( Amer) > 60.0 ml/min (>90) 12/15/17 06:20 Est GFR (Non-Af Amer) 57.1 ml/min 12/15/17 06:20 BUN/Creatinine Ratio 17.3 12/15/17 06:20 Glucose 540 mg/dL (70-105) H* 12/15/17 06:20 POC Glucose 383 MG/DL (70 - 105) H 12/16/17 07:27 Hemoglobin A1c % 9.3 % (4.0-6.0) H 12/07/17 14:30 Whole Bld Lactic Acid 0.56 mmol/L (0.60-1.99) L 12/13/17 04:20 Uric Acid 4.8 mg/dL (2.3-6.6) 12/12/17 05:40 Calcium 8.8 mg/dL (8.6-10.3) 12/15/17 06:20 Phosphorus 1.8 mg/dL (2.5-5.0) L 12/14/17 04:35 Magnesium 2.0 mg/dL (1.9-2.7) 12/14/17 04:35 Total Bilirubin 0.2 mg/dL (0.3-1.0) L 12/15/17 06:20 AST 15 U/L (13-39) 12/15/17 06:20 ALT 18 U/L (7-52) 12/15/17 06:20 Alkaline Phosphatase 68 U/L (34-104) 12/15/17 06:20 Creatine Kinase 51 U/L (30-223) 12/07/17 14:30 Troponin I 0.01 ng/mL (0.01-0.05) 12/07/17 14:30 Total Protein 6.9 gm/dL (6.0-8.3) 12/15/17 06:20 Albumin 3.1 gm/dL (3.7-5.3) L 12/15/17 06:20 Globulin 3.8 gm/dL 12/15/17 06:20 Albumin/Globulin Ratio 0.8 (1.0-1.8) L 12/15/17 06:20 TSH 1.31 uIU/ml (0.34-5.60) 12/12/17 08:10 Serum , Qual NEGATIVE (NEGATIVE) 12/07/17 14:30 Urine Source MIDSTREAM 12/13/17 13:50 Urine Color YELLOW 12/13/17 13:50 Urine Clarity HAZY (CLEAR) 12/13/17 13:50 Urine pH 6.0 (4.6 - 8.0) 12/13/17 13:50 Ur Specific [place] 1.020 (1.005-1.030) 12/13/17 13:50 Urine Protein 100 mg/dL (NEGATIVE) H 12/13/17 13:50 Urine Glucose (UA) 100 mg/dL (NEGATIVE) H 12/13/17 13:50 Urine Ketones 15 mg/dL (NEGATIVE) H 12/13/17 13:50 Urine Blood LARGE (NEGATIVE) H 12/13/17 13:50 Urine Nitrate NEGATIVE (NEGATIVE) 12/13/17 13:50 Urine Bilirubin NEGATIVE (NEGATIVE) 12/13/17 13:50 Urine Urobilinogen 0.2 E.U./dL (0.2 - 1.0) 12/13/17 13:50 Ur Leukocyte Esterase NEGATIVE (NEGATIVE) 12/13/17 13:50 Urine RBC 25-50 /hpf (0-5) H 12/13/17 13:50 Urine WBC 0-2 /hpf (0-5) 12/13/17 13:50 Ur Epithelial Cells FEW /lpf (FEW) 12/13/17 13:50 Urine Bacteria FEW /hpf (NONE SEEN) 12/13/17 13:50 Urine Yeast FEW /hpf (NONE SEEN) H 12/13/17 13:50 Ur Random Sodium 46 mmol/L 12/11/17 19:50 Urine Creatinine 41.0 mg/dl (28.0-217.0) 12/11/17 19:50 Stool Leukocyte NO WBC SEEN 12/14/17 05:00 Vancomycin Trough 17.2 ug/mL (5-10) H 12/14/17 19:49 Serum Ketones SMALL (NEGATIVE) H 12/13/17 04:20 - Physical Exam Vitals and I&O: Vital Signs Temp 97.4 F 12/15/17 23:00 Pulse 89 12/16/17 08:42 Resp 12 12/16/17 03:49 BP 168/71 12/16/17 08:42 Pulse Ox 99 12/16/17 06:00 Intake & Output 12/15/17 12/16/17 12/16/17 18:59 06:59 18:59 Intake Total 500 120 Output Total 1200 Balance -700 120 Weight (lbs) 122 lb 122 lb Intake: Oral 500 120 Output: Urine 1200 Other: # Voids 3 0 # Bowel Movements 1 1 Stool Characteristics Soft Liquid Brown Brown Weight Source Bedscale Bedscale Active Medications: Current Medications Acetaminophen (Tylenol) 650 mg PO Q6H PRN PRN Reason: Pain or Fever >101 Stop: 02/06/18 01:56 Acetaminophen/Hydrocodone Bitart ([place] 10 Mg/325 Mg) 1 tab PO Q4H PRN PRN Reason: pain level 1-5 Stop: 02/07/18 19:32 Last Admin: 12/11/17 20:28 Dose: 1 tab Azathioprine (Imuran) 50 mg PO TID MARCIA PRN Reason: Protocol Stop: 02/06/18 08:59 Last Admin: 12/16/17 08:43 Dose: 50 mg Cholestyramine Resin (Questran) 4 gm PO BID [facility] Stop: 02/12/18 16:59 Last Admin: 12/16/17 08:44 Dose: 4 gm Glyburide (Diabeta) 5 mg PO DAILY [facility] Stop: 02/10/18 08:59 Last Admin: 12/16/17 08:42 Dose: 5 mg Guaifenesin (Mucinex) 600 mg PO BID [facility] Stop: 12/18/17 00:29 Last Admin: 12/16/17 08:44 Dose: 600 mg Sodium Chloride (Nacl 0.9%) 1,000 mls @ 40 mls/hr IV .Q24H [facility] Stop: 02/13/18 14:59 Last Admin: 12/15/17 14:54 Dose: 40 mls/hr Insulin Aspart (Novolog Insulin Sliding Scale) 0 units SUBQ ACHS MARCIA PRN Reason: Protocol Stop: 02/12/18 11:29 Last Admin: 12/16/17 08:15 Dose: 11 units Insulin Human Isoph/Insulin Regular (Novolin 70/30) 20 units SUBQ QDAC MARCIA PRN Reason: Protocol Stop: 02/11/18 07:29 Last Admin: 12/16/17 07:36 Dose: 20 units Insulin Human Isoph/Insulin Regular (Novolin 70/30) 10 units SUBQ QPM MARCIA PRN Reason: Protocol Stop: 02/10/18 17:59 Last Admin: 12/15/17 17:28 Dose: 10 unit Megestrol Acetate (Megace) 40 mg PO DAILY MARCIA PRN Reason: Protocol Stop: 02/13/18 08:59 Last Admin: 12/16/17 08:43 Dose: 40 mg Metformin HCl (Glucophage) 850 mg PO BIDWM [facility] Stop: 02/10/18 11:59 Last Admin: 12/16/17 08:42 Dose: 850 mg Metoprolol Tartrate (Lopressor) 25 mg PO BID [facility] Stop: 02/06/18 08:59 Last Admin: 12/16/17 08:41 Dose: 25 mg Metronidazole (Flagyl) 500 mg PO TID [facility] Stop: 12/28/17 20:59 Last Admin: 12/16/17 08:42 Dose: 500 mg Miscellaneous (Probiotic Screen) 1 ea MC PRN PRN PRN Reason: PROTOCOL Stop: 02/07/18 13:46 Morphine Sulfate (Morphine) 1 mg IVP Q4HR PRN PRN Reason: pain levle 6-10 Stop: 02/07/18 19:31 Last Admin: 12/15/17 20:37 Dose: 1 mg Ondansetron HCl (Zofran) 4 mg IV Q4H PRN PRN Reason: Nausea / Vomiting Stop: 02/07/18 19:32 Last Admin: 12/13/17 09:42 Dose: 4 mg Pyridostigmine [place] (Mestinon) 180 mg PO TID [facility] Stop: 02/06/18 08:59 Last Admin: 12/16/17 08:45 Dose: 180 mg Valsartan (Diovan) 80 mg PO DAILY [facility] Stop: 02/11/18 08:59 Last Admin: 12/16/17 08:42 Dose: 80 mg General: weak, alert HEENT: NC/AT, PERRLA Neck: Supple Lungs: CTAB Abdomen: soft, non-tender, non-distended, positive bowel sound - Procedures Procedures: Procedures Procedure Code Date AMPUTATION OF TOE 23186 12/07/17 DETACHMENT AT RIGHT 2ND TOE, COMPLETE, OPEN APPROACH [id number] 12/07/17 EMERGENCY DEPT VISIT 54499 08/07/11 INJECT/INFUSE NEC 99.29 02/22/10 Internal Medicine Assmt/Plan - Assessment Assessment: 1. Right second toe gangrene. amputated. 2. Diabetes mellitus type 2, uncontrolled. versus DM1 with ketoacidosis. 3. History of myasthenia gravis. 4. Dyslipidemia. 5. Urinary tract infection. 6. 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 7. Metabolic acidosis. 8. MRSA colonization. 9.r/o c diff colitis. - Plan Plan: continue with ivabx as per ID cbc/bmp in am wound care continue current plan of care Nutritional Asmnt/Malnutr-PDOC - Dietary Evaluation Malnutrition Findings (Please click <Entered> for more info): Nutritional Asmnt/Malnutrition Start: 12/08/17 16: 43 Text: Status: Complete Freq: Document 12/08/17 16:43 DAWSON (Rec: 12/08/17 16:53 DAWSON [email or web address]-[email or web address]) Nutritional Asmnt/Malnutrition Patient General Information Nutritional Screening High Risk Diagnosis peripheral artery disease Pertinent Medical Hx/Surgical Hx HTN, DM, asthma/COPD, dyslipidemia, resp failure, myasthenia, gravis Subjective Information Consult received for Dm and open wound. Pt seen talking on phone at time of visit, not able to interview at this time . Current Diet Order/ Nutrition Support CCHO 60gm Pertinent Medications novolog, piperacillin, nacl 0. 9%, vancomycin Pertinent Labs 12/08 Na 130, BUN 27, glucose 418, POC 400 5 Na 128, Cl 96, BUN 36, glucose 207, POC 132 Nutritional Hx/Data Height 5 ft 7 in Height (Calculated Centimeters) 170.2 Current Weight (lbs) 120 lb Weight (Calculated Kilograms) 54.4 Weight (Calculated Grams) 88624.1 [place] Body Weight 135 Body Mass Index (BMI) 18.8 Weight Status Approriate GI Symptoms GI Symptoms None Last BM none 5/10 Difficult in: None Skin Integrity/Comment: right 2nd toe gangrene Estimated Nutritional Goals BEE in Kcals: Using Current wt Calories/Kcals/Kg 30-35 Kcals Calculated 6986-1636 Protein: Using Current wt Protein g/k.2-1.4 Protein Calculated 66-77 Fluid: ml 1650-1925ml (1ml/kcal) Nutritional Problem 1. Problem Problem altered nutrition related labs Etiology hx of DM Signs/Symptoms: glucose 207-418, POC 132-400 Malnutrition Alert Protein-Calorie Malnutrition N/A Is there a minimum of two criteria No selected? Query Text:Check all the applicable criteria. A minimum of two criteria are recommended for diagnosis of either severe or non-severe malnutrition. Intervention/Recommendation Comments 1. Continue with CCHO-60gm diet as ordered. Will provide nutrition education when pt available. 2. Monitor PO intake, wt, labs and skin integrity 3. F/U as high risk in 2-3 days, 12/10-12/11 Expected Outcomes/Goals Expected Outcomes/Goals 1. PO intake to meet at least 75% of nutritional needs. 2. Wt stability, skin to remain intact, labs to approach WNL.
--- NOTE | 2017-12-16 11:50 | Infectious Disease Prog Note ---
Infectious Disease Subjective - Review of Systems Service Date: 12/16/17 Subjective: doing better, no fever. developed fevers. Infectious Disease Objective - Results Result Diagrams: 12/15/17 06:20 12/15/17 06:20 Recent Labs: Laboratory Last Values WBC 4.2 Th/cmm (4.8-10.8) L 12/15/17 06:20 RBC 3.31 Mil/cmm (3.80-5.10) L 12/15/17 06:20 Hgb 9.5 gm/dL (12-16) L 12/15/17 06:20 Hct 29.1 % (41.0-60) L 12/15/17 06:20 MCV 88.0 fl (81-100) 12/15/17 06:20 MCH 28.7 pg (27.0-31.0) 12/15/17 06:20 MCHC Differential 32.6 pg (28.0-36.0) 12/15/17 06:20 RDW 16.0 % (11.5-20.0) 12/15/17 06:20 Plt Count 449 Th/cmm (150-400) H 12/15/17 06:20 MPV 7.0 fl 12/15/17 06:20 Neutrophils % 70.2 % (40.0-80.0) 12/15/17 06:20 Lymphocytes % 13.4 % (20.0-50.0) L 12/15/17 06:20 Monocytes % 11.7 % (2.0-10.0) H 12/15/17 06:20 Eosinophils % 3.9 % (0.0-5.0) 12/15/17 06:20 Basophils % 0.8 % (0.0-2.0) 12/15/17 06:20 Neutrophils (Manual) 59 % (40-80) 12/14/17 04:35 Lymphocytes 27 % (20-50) 12/14/17 04:35 Monocytes 10 % (2-10) 12/14/17 04:35 Eosinophils 4 % (0-5) 12/14/17 04:35 Basophils 1 % (0-3) 12/11/17 10:12 Platelet Estimate INCREASED PLATELETS (NORMAL) 12/11/17 10:12 Eos Smear Source URINE 12/11/17 19:50 Eos Smear Total Cells NONE SEEN (NONE SEEN) 12/11/17 19:50 PT 10.9 SECONDS (9.5-11.5) 12/07/17 14:30 INR 1.05 (0.5-1.4) 12/07/17 14:30 PTT (Actin FS) 26.2 SECONDS (26.0-38.0) 12/07/17 14:30 Specimen Source ATERIAL 12/11/17 19:10 Sample Site RB 12/11/17 19:10 pH 7.31 (7.35-7.45) L 12/11/17 19:10 pCO2 27.0 mmHg (35.0-45.0) L 12/11/17 19:10 pO2 98.0 mmHg (80.0-100.0) 12/11/17 19:10 HCO3 16.3 mEq/L (20.0-26.0) L 12/11/17 19:10 Base Excess -11.1 mEq/L (-3.0-3.0) L 12/11/17 19:10 O2 Saturation 97.0 % (92.0-100.0) 12/11/17 19:10 Ananth Test Positive 12/11/17 19:10 Vent Rate N/A 12/11/17 19:10 Inspired O2 21 12/11/17 19:10 Tidal Volume N/A 12/11/17 19:10 PEEP N/A 12/11/17 19:10 Pressure (ins/psv/peep) N/A 12/11/17 19:10 Critical Value DV 12/11/17 19:10 Sodium 129 mEq/L (136-145) L 12/15/17 06:20 Potassium 4.1 mEq/L (3.5-5.1) 12/15/17 06:20 Chloride 100 mEq/L (98-107) 12/15/17 06:20 Carbon Dioxide 22.0 mEq/L (21.0-31.0) 12/15/17 06:20 Anion Gap 11.1 (7.0-16.0) 12/15/17 06:20 BUN 19 mg/dL (7-25) 12/15/17 06:20 Creatinine 1.1 mg/dL (0.6-1.2) 12/15/17 06:20 Est GFR ( Amer) > 60.0 ml/min (>90) 12/15/17 06:20 Est GFR (Non-Af Amer) 57.1 ml/min 12/15/17 06:20 BUN/Creatinine Ratio 17.3 12/15/17 06:20 Glucose 540 mg/dL (70-105) H* 12/15/17 06:20 POC Glucose 383 MG/DL (70 - 105) H 12/16/17 07:27 Hemoglobin A1c % 9.3 % (4.0-6.0) H 12/07/17 14:30 Whole Bld Lactic Acid 0.56 mmol/L (0.60-1.99) L 12/13/17 04:20 Uric Acid 4.8 mg/dL (2.3-6.6) 12/12/17 05:40 Calcium 8.8 mg/dL (8.6-10.3) 12/15/17 06:20 Phosphorus 1.8 mg/dL (2.5-5.0) L 12/14/17 04:35 Magnesium 2.0 mg/dL (1.9-2.7) 12/14/17 04:35 Total Bilirubin 0.2 mg/dL (0.3-1.0) L 12/15/17 06:20 AST 15 U/L (13-39) 12/15/17 06:20 ALT 18 U/L (7-52) 12/15/17 06:20 Alkaline Phosphatase 68 U/L (34-104) 12/15/17 06:20 Creatine Kinase 51 U/L (30-223) 12/07/17 14:30 Troponin I 0.01 ng/mL (0.01-0.05) 12/07/17 14:30 Total Protein 6.9 gm/dL (6.0-8.3) 12/15/17 06:20 Albumin 3.1 gm/dL (3.7-5.3) L 12/15/17 06:20 Globulin 3.8 gm/dL 12/15/17 06:20 Albumin/Globulin Ratio 0.8 (1.0-1.8) L 12/15/17 06:20 TSH 1.31 uIU/ml (0.34-5.60) 12/12/17 08:10 Serum , Qual NEGATIVE (NEGATIVE) 12/07/17 14:30 Urine Source MIDSTREAM 12/13/17 13:50 Urine Color YELLOW 12/13/17 13:50 Urine Clarity HAZY (CLEAR) 12/13/17 13:50 Urine pH 6.0 (4.6 - 8.0) 12/13/17 13:50 Ur Specific [place] 1.020 (1.005-1.030) 12/13/17 13:50 Urine Protein 100 mg/dL (NEGATIVE) H 12/13/17 13:50 Urine Glucose (UA) 100 mg/dL (NEGATIVE) H 12/13/17 13:50 Urine Ketones 15 mg/dL (NEGATIVE) H 12/13/17 13:50 Urine Blood LARGE (NEGATIVE) H 12/13/17 13:50 Urine Nitrate NEGATIVE (NEGATIVE) 12/13/17 13:50 Urine Bilirubin NEGATIVE (NEGATIVE) 12/13/17 13:50 Urine Urobilinogen 0.2 E.U./dL (0.2 - 1.0) 12/13/17 13:50 Ur Leukocyte Esterase NEGATIVE (NEGATIVE) 12/13/17 13:50 Urine RBC 25-50 /hpf (0-5) H 12/13/17 13:50 Urine WBC 0-2 /hpf (0-5) 12/13/17 13:50 Ur Epithelial Cells FEW /lpf (FEW) 12/13/17 13:50 Urine Bacteria FEW /hpf (NONE SEEN) 12/13/17 13:50 Urine Yeast FEW /hpf (NONE SEEN) H 12/13/17 13:50 Ur Random Sodium 46 mmol/L 12/11/17 19:50 Urine Creatinine 41.0 mg/dl (28.0-217.0) 12/11/17 19:50 Stool Leukocyte NO WBC SEEN 12/14/17 05:00 Vancomycin Trough 17.2 ug/mL (5-10) H 12/14/17 19:49 Serum Ketones SMALL (NEGATIVE) H 12/13/17 04:20 - Physical Exam Vitals and I&O: Vital Signs Temp 97.4 F 12/15/17 23:00 Pulse 89 12/16/17 08:42 Resp 12 12/16/17 03:49 BP 168/71 12/16/17 08:42 Pulse Ox 99 12/16/17 08:00 Intake & Output 12/15/17 12/16/17 12/16/17 18:59 06:59 18:59 Intake Total 500 120 Output Total 1200 Balance -700 120 Weight (lbs) 55.338 kg 55.338 kg Intake: Oral 500 120 Output: Urine 1200 Other: # Voids 3 0 # Bowel Movements 1 1 Stool Characteristics Soft Liquid Brown Brown Weight Source Bedscale Bedscale Active Medications: Current Medications Acetaminophen (Tylenol) 650 mg PO Q6H PRN PRN Reason: Pain or Fever >101 Stop: 02/06/18 01:56 Acetaminophen/Hydrocodone Bitart ([place] 10 Mg/325 Mg) 1 tab PO Q4H PRN PRN Reason: pain level 1-5 Stop: 02/07/18 19:32 Last Admin: 12/11/17 20:28 Dose: 1 tab Azathioprine (Imuran) 50 mg PO TID MARCIA PRN Reason: Protocol Stop: 02/06/18 08:59 Last Admin: 12/16/17 08:43 Dose: 50 mg Cholestyramine Resin (Questran) 4 gm PO BID [facility] Stop: 02/12/18 16:59 Last Admin: 12/16/17 08:44 Dose: 4 gm Glyburide (Diabeta) 5 mg PO DAILY [facility] Stop: 02/10/18 08:59 Last Admin: 12/16/17 08:42 Dose: 5 mg Guaifenesin (Mucinex) 600 mg PO BID [facility] Stop: 12/18/17 00:29 Last Admin: 12/16/17 08:44 Dose: 600 mg Sodium Chloride (Nacl 0.9%) 1,000 mls @ 40 mls/hr IV .Q24H [facility] Stop: 02/13/18 14:59 Last Admin: 12/15/17 14:54 Dose: 40 mls/hr Insulin Aspart (Novolog Insulin Sliding Scale) 0 units SUBQ ACHS MARCIA PRN Reason: Protocol Stop: 02/12/18 11:29 Last Admin: 12/16/17 08:15 Dose: 11 units Insulin Human Isoph/Insulin Regular (Novolin 70/30) 25 units SUBQ QDAC MARCIA PRN Reason: Protocol Stop: 02/15/18 07:29 Insulin Human Isoph/Insulin Regular (Novolin 70/30) 20 units SUBQ QPM MARCIA PRN Reason: Protocol Stop: 02/14/18 16:59 Megestrol Acetate (Megace) 40 mg PO DAILY [facility] PRN Reason: Protocol Stop: 02/13/18 08:59 Last Admin: 12/16/17 08:43 Dose: 40 mg Metformin HCl (Glucophage) 850 mg PO BIDWM [facility] Stop: 02/10/18 11:59 Last Admin: 12/16/17 08:42 Dose: 850 mg Metoprolol Tartrate (Lopressor) 25 mg PO BID [facility] Stop: 02/06/18 08:59 Last Admin: 12/16/17 08:41 Dose: 25 mg Metronidazole (Flagyl) 500 mg PO TID [facility] Stop: 12/28/17 20:59 Last Admin: 12/16/17 08:42 Dose: 500 mg Miscellaneous (Probiotic Screen) 1 ea MC PRN PRN PRN Reason: PROTOCOL Stop: 02/07/18 13:46 Morphine Sulfate (Morphine) 1 mg IVP Q4HR PRN PRN Reason: pain levle 6-10 Stop: 02/07/18 19:31 Last Admin: 12/15/17 20:37 Dose: 1 mg Ondansetron HCl (Zofran) 4 mg IV Q4H PRN PRN Reason: Nausea / Vomiting Stop: 02/07/18 19:32 Last Admin: 12/13/17 09:42 Dose: 4 mg Pyridostigmine [place] (Mestinon) 180 mg PO TID [facility] Stop: 02/06/18 08:59 Last Admin: 12/16/17 08:45 Dose: 180 mg Valsartan (Diovan) 80 mg PO DAILY [facility] Stop: 02/11/18 08:59 Last Admin: 12/16/17 08:42 Dose: 80 mg General: no acute distress, well developed, well nourished HEENT: atraumatic, normocephalic, PERRLA, EOMI, no moist mucous membrane Neck: supple, no thyromegaly, no lymphadenopathy, no rigid Cardiovascular: S1S2, regular, systolic murmur Lungs: no clear to auscultation bilaterally, no clear to percussion Abdomen: soft, no tender, no distended Extremities: no cyanosis, no clubbing, no edema Neurological: awake, alert, oriented Skin: intact - Procedures Procedures: Procedures Procedure Code Date AMPUTATION OF TOE 96562 12/07/17 DETACHMENT AT RIGHT 2ND TOE, COMPLETE, OPEN APPROACH [id number] 12/07/17 EMERGENCY DEPT VISIT 06998 08/07/11 INJECT/INFUSE NEC 99.29 02/22/10 Infectious Disease Assmt/Plan - Problem List Patient Problems: All Active Problems Metabolic acidosis (Acute) E87.2 UTI (urinary tract infection) (Acute) right second toe gangrene (Acute) - Assessment Assessment: 1. Right second toe gangrene. amputated. 2. Diabetes mellitus type 2, uncontrolled. versus DM1 with ketoacidosis. 3. History of myasthenia gravis. 4. Dyslipidemia. 5. Urinary tract infection. 6. 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 7. Metabolic acidosis. 8. MRSA colonization. 9.r/o c diff colitis. - Plan Plan: dc antibiotics, start flagyl and questran. stool for c diff, wbc. Nutritional Asmnt/Malnutr-PDOC - Dietary Evaluation Malnutrition Findings (Please click <Entered> for more info): Nutritional Asmnt/Malnutrition Start: 12/08/17 16: 43 Text: Status: Complete Freq: Document 12/08/17 16:43 [facility] (Rec: 12/08/17 16:53 HEN [email or web address]) Nutritional Asmnt/Malnutrition Patient General Information Nutritional Screening High Risk Diagnosis peripheral artery disease Pertinent Medical Hx/Surgical Hx HTN, DM, asthma/COPD, dyslipidemia, resp failure, myasthenia, gravis Subjective Information Consult received for Dm and open wound. Pt seen talking on phone at time of visit, not able to interview at this time . Current Diet Order/ Nutrition Support CCHO 60gm Pertinent Medications novolog, piperacillin, nacl 0. 9%, vancomycin Pertinent Labs 12/08 Na 130, BUN 27, glucose 418, POC 400 12/07 Na 128, Cl 96, BUN 36, glucose 207, POC 132 Nutritional Hx/Data Height 1.7 m Height (Calculated Centimeters) 170.2 Current Weight (lbs) 54.431 kg Weight (Calculated Kilograms) 54.4 Weight (Calculated Grams) [address]05.1 [place] Body Weight 135 Body Mass Index (BMI) 18.8 Weight Status Approriate GI Symptoms GI Symptoms None Last BM none 5/10 Difficult in: None Skin Integrity/Comment: right 2nd toe gangrene Estimated Nutritional Goals BEE in Kcals: Using Current wt Calories/Kcals/Kg 30-35 Kcals Calculated 9616-2534 Protein: Using Current wt Protein g/k.2-1.4 Protein Calculated 66-77 Fluid: ml 1650-1925ml (1ml/kcal) Nutritional Problem 1. Problem Problem altered nutrition related labs Etiology hx of DM Signs/Symptoms: glucose 207-418, POC 132-400 Malnutrition Alert Protein-Calorie Malnutrition N/A Is there a minimum of two criteria No selected? Query Text:Check all the applicable criteria. A minimum of two criteria are recommended for diagnosis of either severe or non-severe malnutrition. Intervention/Recommendation Comments 1. [facility] as ordered. Will provide nutrition education when pt available. 2. Monitor PO intake, wt, labs and skin integrity 3. F/U as high risk in 2-3 days, 12/10-12/11 Expected Outcomes/Goals Expected Outcomes/Goals 1. PO intake to meet at least 75% of nutritional needs. 2. Wt stability, skin to remain intact, labs to approach WNL.
[2017-12-16] MEDS: Morphine Sulfate 4 mg/mL 1mL Syr IVP PRN (13:50)
--- NOTE | 2017-12-16 14:49 | General Progress Note ---
Subjective - Review of Systems Service Date: 12/16/17 Subjective: alert, better appetite, less N/V Objective - Results Result Diagrams: 12/15/17 06:20 12/15/17 06:20 Recent Labs: Laboratory Last Values WBC 4.2 Th/cmm (4.8-10.8) L 12/15/17 06:20 RBC 3.31 Mil/cmm (3.80-5.10) L 12/15/17 06:20 Hgb 9.5 gm/dL (12-16) L 12/15/17 06:20 Hct 29.1 % (41.0-60) L 12/15/17 06:20 MCV 88.0 fl (81-100) 12/15/17 06:20 MCH 28.7 pg (27.0-31.0) 12/15/17 06:20 MCHC Differential 32.6 pg (28.0-36.0) 12/15/17 06:20 RDW 16.0 % (11.5-20.0) 12/15/17 06:20 Plt Count 449 Th/cmm (150-400) H 12/15/17 06:20 MPV 7.0 fl 12/15/17 06:20 Neutrophils % 70.2 % (40.0-80.0) 12/15/17 06:20 Lymphocytes % 13.4 % (20.0-50.0) L 12/15/17 06:20 Monocytes % 11.7 % (2.0-10.0) H 12/15/17 06:20 Eosinophils % 3.9 % (0.0-5.0) 12/15/17 06:20 Basophils % 0.8 % (0.0-2.0) 12/15/17 06:20 Neutrophils (Manual) 59 % (40-80) 12/14/17 04:35 Lymphocytes 27 % (20-50) 12/14/17 04:35 Monocytes 10 % (2-10) 12/14/17 04:35 Eosinophils 4 % (0-5) 12/14/17 04:35 Basophils 1 % (0-3) 12/11/17 10:12 Platelet Estimate INCREASED PLATELETS (NORMAL) 12/11/17 10:12 Eos Smear Source URINE 12/11/17 19:50 Eos Smear Total Cells NONE SEEN (NONE SEEN) 12/11/17 19:50 PT 10.9 SECONDS (9.5-11.5) 12/07/17 14:30 INR 1.05 (0.5-1.4) 12/07/17 14:30 PTT (Actin FS) 26.2 SECONDS (26.0-38.0) 12/07/17 14:30 Specimen Source ATERIAL 12/11/17 19:10 Sample Site RB 12/11/17 19:10 pH 7.31 (7.35-7.45) L 12/11/17 19:10 pCO2 27.0 mmHg (35.0-45.0) L 12/11/17 19:10 pO2 98.0 mmHg (80.0-100.0) 12/11/17 19:10 HCO3 16.3 mEq/L (20.0-26.0) L 12/11/17 19:10 Base Excess -11.1 mEq/L (-3.0-3.0) L 12/11/17 19:10 O2 Saturation 97.0 % (92.0-100.0) 12/11/17 19:10 Ananth Test Positive 12/11/17 19:10 Vent Rate N/A 12/11/17 19:10 Inspired O2 21 12/11/17 19:10 Tidal Volume N/A 12/11/17 19:10 PEEP N/A 12/11/17 19:10 Pressure (ins/psv/peep) N/A 12/11/17 19:10 Critical Value DV 12/11/17 19:10 Sodium 129 mEq/L (136-145) L 12/15/17 06:20 Potassium 4.1 mEq/L (3.5-5.1) 12/15/17 06:20 Chloride 100 mEq/L (98-107) 12/15/17 06:20 Carbon Dioxide 22.0 mEq/L (21.0-31.0) 12/15/17 06:20 Anion Gap 11.1 (7.0-16.0) 12/15/17 06:20 BUN 19 mg/dL (7-25) 12/15/17 06:20 Creatinine 1.1 mg/dL (0.6-1.2) 12/15/17 06:20 Est GFR ( Amer) > 60.0 ml/min (>90) 12/15/17 06:20 Est GFR (Non-Af Amer) 57.1 ml/min 12/15/17 06:20 BUN/Creatinine Ratio 17.3 12/15/17 06:20 Glucose 540 mg/dL (70-105) H* 12/15/17 06:20 POC Glucose 217 MG/DL (70 - 105) H 12/16/17 12:31 Hemoglobin A1c % 9.3 % (4.0-6.0) H 12/07/17 14:30 Whole Bld Lactic Acid 0.56 mmol/L (0.60-1.99) L 12/13/17 04:20 Uric Acid 4.8 mg/dL (2.3-6.6) 12/12/17 05:40 Calcium 8.8 mg/dL (8.6-10.3) 12/15/17 06:20 Phosphorus 1.8 mg/dL (2.5-5.0) L 12/14/17 04:35 Magnesium 2.0 mg/dL (1.9-2.7) 12/14/17 04:35 Total Bilirubin 0.2 mg/dL (0.3-1.0) L 12/15/17 06:20 AST 15 U/L (13-39) 12/15/17 06:20 ALT 18 U/L (7-52) 12/15/17 06:20 Alkaline Phosphatase 68 U/L (34-104) 12/15/17 06:20 Creatine Kinase 51 U/L (30-223) 12/07/17 14:30 Troponin I 0.01 ng/mL (0.01-0.05) 12/07/17 14:30 Total Protein 6.9 gm/dL (6.0-8.3) 12/15/17 06:20 Albumin 3.1 gm/dL (3.7-5.3) L 12/15/17 06:20 Globulin 3.8 gm/dL 12/15/17 06:20 Albumin/Globulin Ratio 0.8 (1.0-1.8) L 12/15/17 06:20 TSH 1.31 uIU/ml (0.34-5.60) 12/12/17 08:10 Serum , Qual NEGATIVE (NEGATIVE) 12/07/17 14:30 Urine Source MIDSTREAM 12/13/17 13:50 Urine Color YELLOW 12/13/17 13:50 Urine Clarity HAZY (CLEAR) 12/13/17 13:50 Urine pH 6.0 (4.6 - 8.0) 12/13/17 13:50 Ur Specific [place] 1.020 (1.005-1.030) 12/13/17 13:50 Urine Protein 100 mg/dL (NEGATIVE) H 12/13/17 13:50 Urine Glucose (UA) 100 mg/dL (NEGATIVE) H 12/13/17 13:50 Urine Ketones 15 mg/dL (NEGATIVE) H 12/13/17 13:50 Urine Blood LARGE (NEGATIVE) H 12/13/17 13:50 Urine Nitrate NEGATIVE (NEGATIVE) 12/13/17 13:50 Urine Bilirubin NEGATIVE (NEGATIVE) 12/13/17 13:50 Urine Urobilinogen 0.2 E.U./dL (0.2 - 1.0) 12/13/17 13:50 Ur Leukocyte Esterase NEGATIVE (NEGATIVE) 12/13/17 13:50 Urine RBC 25-50 /hpf (0-5) H 12/13/17 13:50 Urine WBC 0-2 /hpf (0-5) 12/13/17 13:50 Ur Epithelial Cells FEW /lpf (FEW) 12/13/17 13:50 Urine Bacteria FEW /hpf (NONE SEEN) 12/13/17 13:50 Urine Yeast FEW /hpf (NONE SEEN) H 12/13/17 13:50 Ur Random Sodium 46 mmol/L 12/11/17 19:50 Urine Creatinine 41.0 mg/dl (28.0-217.0) 12/11/17 19:50 Stool Leukocyte NO WBC SEEN 12/14/17 05:00 Vancomycin Trough 17.2 ug/mL (5-10) H 12/14/17 19:49 Serum Ketones SMALL (NEGATIVE) H 12/13/17 04:20 - Physical Exam Vitals and I&O: Vital Signs Temp 97.4 F 12/15/17 23:00 Pulse 77 12/16/17 11:00 Resp 15 12/16/17 11:00 BP 137/77 12/16/17 11:00 Pulse Ox 99 12/16/17 14:00 Intake & Output 12/15/17 12/16/17 12/16/17 18:59 06:59 18:59 Intake Total 500 120 Output Total 1200 Balance -700 120 Weight (lbs) 55.338 kg 55.338 kg Intake: Oral 500 120 Output: Urine 1200 Other: # Voids 3 0 # Bowel Movements 1 1 Stool Characteristics Soft Liquid Brown Brown Weight Source Bedscale Bedscale Active Medications: Current Medications Acetaminophen (Tylenol) 650 mg PO Q6H PRN PRN Reason: Pain or Fever >101 Stop: 02/06/18 01:56 Acetaminophen/Hydrocodone Bitart ([place] 10 Mg/325 Mg) 1 tab PO Q4H PRN PRN Reason: pain level 1-5 Stop: 02/07/18 19:32 Last Admin: 12/11/17 20:28 Dose: 1 tab Azathioprine (Imuran) 50 mg PO TID MARCIA PRN Reason: Protocol Stop: 02/06/18 08:59 Last Admin: 12/16/17 13:10 Dose: 50 mg Cholestyramine Resin (Questran) 4 gm PO BID [facility] Stop: 02/12/18 16:59 Last Admin: 12/16/17 08:44 Dose: 4 gm Glyburide (Diabeta) 5 mg PO DAILY [facility] Stop: 02/10/18 08:59 Last Admin: 12/16/17 08:42 Dose: 5 mg Guaifenesin (Mucinex) 600 mg PO BID [facility] Stop: 12/18/17 00:29 Last Admin: 12/16/17 08:44 Dose: 600 mg Sodium Chloride (Nacl 0.9%) 1,000 mls @ 40 mls/hr IV .Q24H [facility] Stop: 02/13/18 14:59 Last Admin: 12/15/17 14:54 Dose: 40 mls/hr Insulin Aspart (Novolog Insulin Sliding Scale) 0 units SUBQ ACHS MARCIA PRN Reason: Protocol Stop: 02/12/18 11:29 Last Admin: 12/16/17 12:39 Dose: 5 units Insulin Human Isoph/Insulin Regular (Novolin 70/30) 25 units SUBQ QDAC MARCIA PRN Reason: Protocol Stop: 02/15/18 07:29 Insulin Human Isoph/Insulin Regular (Novolin 70/30) 20 units SUBQ QPM MARCIA PRN Reason: Protocol Stop: 02/14/18 16:59 Megestrol Acetate (Megace) 40 mg PO DAILY [facility] PRN Reason: Protocol Stop: 02/13/18 08:59 Last Admin: 12/16/17 08:43 Dose: 40 mg Metformin HCl (Glucophage) 850 mg PO BIDWM [facility] Stop: 02/10/18 11:59 Last Admin: 12/16/17 08:42 Dose: 850 mg Metoprolol Tartrate (Lopressor) 25 mg PO BID [facility] Stop: 02/06/18 08:59 Last Admin: 12/16/17 08:41 Dose: 25 mg Metronidazole (Flagyl) 500 mg PO TID [facility] Stop: 12/28/17 20:59 Last Admin: 12/16/17 13:10 Dose: 500 mg Miscellaneous (Probiotic Screen) 1 ea MC PRN PRN PRN Reason: PROTOCOL Stop: 02/07/18 13:46 Morphine Sulfate (Morphine) 1 mg IVP Q4HR PRN PRN Reason: pain levle 6-10 Stop: 02/07/18 19:31 Last Admin: 12/16/17 13:50 Dose: 1 mg Ondansetron HCl (Zofran) 4 mg IV Q4H PRN PRN Reason: Nausea / Vomiting Stop: 02/07/18 19:32 Last Admin: 12/13/17 09:42 Dose: 4 mg Pyridostigmine [place] (Mestinon) 180 mg PO TID [facility] Stop: 02/06/18 08:59 Last Admin: 12/16/17 13:19 Dose: Not Given Valsartan (Diovan) 80 mg PO DAILY [facility] Stop: 02/11/18 08:59 Last Admin: 12/16/17 08:42 Dose: 80 mg General: Alert, No acute distress HEENT: Atraumatic, PERRLA, Mucous membr. moist/pink Neck: Supple, +2 carotid pulse wo bruit Cardiovascular: Regular rate, Normal S1, Normal S2 Lungs: Clear to auscultation Abdomen: Soft Extremities: no Edema Neurological: Sensation intact Skin: no Rash Psych/Mental Status: Mood NL - Procedures Procedures: Procedures Procedure Code Date AMPUTATION OF TOE 45965 12/07/17 DETACHMENT AT RIGHT 2ND TOE, COMPLETE, OPEN APPROACH [id number] 12/07/17 EMERGENCY DEPT VISIT 65107 08/07/11 INJECT/INFUSE NEC 99.29 02/22/10 Assessment/Plan - Problem List Patient Problems: All Active Problems Metabolic acidosis (Acute) E87.2 UTI (urinary tract infection) (Acute) right second toe gangrene (Acute) - Assessment Assessment: Pre renal Azotemia AG Met Acid 2/2 DKA T2DM COPD Myasthenia Gravis Bronchial Asthma Right 2nd toe gangrene/cellulitis s/p amputation - Plan Plan: Lab - Result Diagrams 12/12/17 05:40 12/12/17 05:40 Current Medications Acetaminophen (Tylenol) 650 mg PO Q6H PRN PRN Reason: Pain or Fever >101 Stop: 02/06/18 01:56 Acetaminophen/Hydrocodone Bitart ([place] 10 Mg/325 Mg) 1 tab PO Q4H PRN PRN Reason: pain level 1-5 Stop: 02/07/18 19:32 Last Admin: 12/11/17 20:28 Dose: 1 tab Azathioprine (Imuran) 50 mg PO TID MARCIA PRN Reason: Protocol Stop: 02/06/18 08:59 Last Admin: 12/12/17 08:24 Dose: 50 mg Glyburide (Diabeta) 5 mg PO DAILY [facility] Stop: 02/10/18 08:59 Last Admin: 12/12/17 11:35 Dose: 5 mg Sodium Chloride (Nacl 0.9%) 1,000 mls @ 125 mls/hr IV .Q8H [facility] Stop: 02/05/18 17:29 Last Admin: 12/12/17 06:20 Dose: 125 mls/hr Piperacillin Sod/Tazobactam (Sod 4.5 gm/ Sodium Chloride) 100 mls @ 100 mls/hr IV Q8HR MARCIA Stop: 02/05/18 20:59 Last Infusion: 12/12/17 06:21 Dose: Infused Vancomycin HCl 1.25 gm/ Sodium (Chloride) 250 mls @ 165 mls/hr IV Q18H MARCIA Stop: 02/10/18 14:59 Fluconazole (Diflucan) 100 mg in 50 mls @ 50 mls/hr IV Q24HR MARCIA Stop: 02/10/18 13:59 Insulin Aspart (Novolog Insulin Sliding Scale) 0 units SUBQ Q2H MARCIA PRN Reason: Protocol Stop: 02/10/18 11:59 Insulin Human Isoph/Insulin Regular (Novolin 70/30) 20 units SUBQ QDAC MARCIA PRN Reason: Protocol Stop: 02/11/18 07:29 Insulin Human Isoph/Insulin Regular (Novolin 70/30) 10 units SUBQ QPM MARCIA PRN Reason: Protocol Stop: 02/10/18 17:59 Metformin HCl (Glucophage) 850 mg PO BIDWM [facility] Stop: 02/10/18 11:59 Last Admin: 12/12/17 11:35 Dose: 850 mg Metoprolol Tartrate (Lopressor) 25 mg PO BID [facility] Stop: 02/06/18 08:59 Last Admin: 12/12/17 08:24 Dose: 25 mg Miscellaneous (Vancomycin Iv Per Pharmacy) 1 ea PRN PRN PRN Reason: PROTOCOL Stop: 02/05/18 17:19 Miscellaneous (Probiotic Screen) 1 [facility] PRN PRN PRN Reason: PROTOCOL Stop: 02/07/18 13:46 Morphine Sulfate (Morphine) 1 mg IVP Q4HR PRN PRN Reason: pain levle 6-10 Stop: 02/07/18 19:31 Last Admin: 12/11/17 00:58 Dose: 1 mg Mupirocin (Bactroban Oint) 1 appl NS BID [facility] Stop: 12/14/17 09:01 Last Admin: 12/12/17 08:24 Dose: 1 appl Ondansetron HCl (Zofran) 4 mg IV Q6H PRN PRN Reason: Nausea / Vomiting Stop: 02/07/18 19:32 Last Admin: 12/12/17 08:23 Dose: 4 mg Pyridostigmine [place] (Mestinon) 180 mg PO TID [facility] Stop: 02/06/18 08:59 Last Admin: 12/12/17 08:24 Dose: 180 mg Lab - Result Diagrams 12/15/17 06:20 12/15/17 06:20 BS ranging 200-300 urine (+) for ketones, serum small ketones, CO2 increased to 22 ABG pH 7.31 continue NS @ 40 ml/hr; S/S ac, hs replace K, P04, stool for WBC start Megace for poor appetite f/u electrolytes, cbc Nutritional Asmnt/Malnutr-PDOC - Dietary Evaluation Malnutrition Findings (Please click <Entered> for more info): Nutritional Asmnt/Malnutrition Start: 12/08/17 16: 43 Text: Status: Complete Freq: Document 12/08/17 16:43 LCHENG (Rec: 12/08/17 16:53 [facility] [email or web address]) Nutritional Asmnt/Malnutrition Patient General Information Nutritional Screening High Risk Diagnosis peripheral artery disease Pertinent Medical Hx/Surgical Hx HTN, DM, asthma/COPD, dyslipidemia, resp failure, myasthenia, gravis Subjective Information Consult received for Dm and open wound. Pt seen talking on phone at time of visit, not able to interview at this time . Current Diet Order/ Nutrition Support CCHO 60gm Pertinent Medications novolog, piperacillin, nacl 0. 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 Problem Problem altered nutrition related labs Etiology hx of DM Signs/Symptoms: glucose 207-418, POC 132-400 Malnutrition Alert Protein-Calorie Malnutrition N/A Is there a minimum of two criteria No selected? Query Text:Check all the applicable criteria. A minimum of two criteria are recommended for diagnosis of either severe or non-severe malnutrition. Intervention/Recommendation Comments 1. Continue with CCHO-60gm diet as ordered. Will provide nutrition education when pt available. 2. Monitor PO intake, wt, labs and skin integrity 3. F/U as high risk in 2-3 days, 12/10-12/11 Expected Outcomes/Goals Expected Outcomes/Goals 1. PO intake to meet at least 75% of nutritional needs. 2. Wt stability, skin to remain intact, labs to approach WNL.
[2017-12-16] MEDS ORDERED: INSULIN 70/30 100 UNITS/ML SUBQ SCH (17:00)
[2017-12-16] MEDS: Sodium Chloride 0.9% 1,000 ML IV SCH (18:28)
[2017-12-17] MEDS ORDERED: INSULIN 70/30 100 UNITS/ML SUBQ SCH (07:30)
== END 2017-12-16 19:42 | DRG 710 ==
LOC: ER 13:25 → TELE 17:35 → ICU 12-12 12:00
PROVIDERS: ADMIT Internal Medicine Infectious Disease; ATTEND Internal Medicine Infectious Disease
PROC: 0Y6R0Z0 Detachment at Right 2nd Toe, Complete, Open Approach (ICD-10-PCS; principal; 2017-12-09)
DX: A41.9 Sepsis, unspecified organism (principal); I96 Gangrene, not elsewhere classified; E11.628 Type 2 diabetes mellitus with other skin complications; E87.2 Acidosis; G70.00 Myasthenia gravis without (acute) exacerbation; E11.65 Type 2 diabetes mellitus with hyperglycemia; E86.0 Dehydration; E11.52 Type 2 diabetes mellitus with diabetic peripheral angiopathy with gangrene; E87.1 Hypo-osmolality and hyponatremia; N39.0 Urinary tract infection, site not specified; L03.031 Cellulitis of right toe; D64.9 Anemia, unspecified; I10 Essential (primary) hypertension; J44.9 Chronic obstructive pulmonary disease, unspecified; Z86.69 Personal history of other diseases of the nervous system and sense organs; Z87.898 Personal history of other specified conditions; E78.5 Hyperlipidemia, unspecified; Z83.3 Family history of diabetes mellitus; Z82.49 Family history of ischemic heart disease and other diseases of the circulatory system
CPT/HCPCS: 36415-UA; 36600-90; 80048-TC; 80053-TC; 80202-TC; 81001-TC; 81015-TC; 82010-TC; 82550-TC; 82570-TC; 82803-TC; 82947-TC; 82948-90; 83036-90; 83605; 83735-TC; 84100-TC; 84300-TC; 84443-TC; 84484-TC; 84550-TC; 84703-TC; 85007-TC; 85025-TC; 85027-TC; 85610-TC; 85730-TC; 87046-90; 87086-90; 87230-TC; 89055-TC; 90799; 93005; 93926-RT-TC; J0696; J1815; J2001; J2250; J2405; J2543; J2704; J3010; J3370; J3475; J3480; J7030; J7042; J7500; V2790; X3401; Z7610